=== PATIENT | male | born 1935 | race Caucasian/White ===

== ENCOUNTER → 2016-09-22 | Outpatient (REF) | payer MEDICARE, OTHER ==
[~2016-09-22] MED LIST: /AMIO20TA PO; /DIPH25TAB PO; /NEPHROTA PO; ACET650S3 PO; ALEV220C2 PO; ATEN25TA PO; CARD180C4 PO; COLA100C PO; CRES5TAB PO; DARB10SYRN IV; DIAL800T PO; DIGO0.12 PO; DILT180C50 PO; DOXY-197 PO; FLAG500T PO; FLOM5CAP PO; FURO20TA2 PO; HEPA1000VL IV; LASI20TA PO; LEVA250T PO; LORA0.5T PO; MULT1TAB10 PO; NEPHTAB PO; NORC5TAB PO; PERC5TAB6 PO; PERCOCET PO; RENATAB5 PO; SIMV10TA2 PO; TAMS0.4C PO; TYLE325T5 PO; VENO20IN IV; WARF-20 PO; WARF-23 PO; WARF2.5T38 PO; [UNRECOGNIZED DRUG - CODE] PO; multivitamin OR; warfarin OR
== END ==
LOC: M LAB REF 16:41
PROVIDERS: ATTEND Internal Medicine Nephrology
DX: N39.0 Urinary tract infection, site not specified (principal)

== ENCOUNTER 2016-09-25 17:22 | Inpatient (IN) | payer MEDICARE, OTHER ==
[~2016-09-25] VITALS: Ht 170.2 cm; Wt 71.5 kg
[~2016-09-25 17:22] MED LIST changes: -DILT180C50 PO; +DILT180C74 PO; -WARF-23 PO
[2016-09-25 18:05] LABS: MEAN CORPUSCULAR HEMOGLOBIN 32.2 pg (27.0-33.0); MEAN CORPUSCULAR HGB CONC 32.7 g/dl (32.0-36.5); MEAN CORPUSCULAR VOLUME 98.5 fl (80.0-96.0); RED CELL DISTRIBUTION WIDTH 17.6 % (11.5-14.5); WHITE BLOOD COUNT 10.3 K/mm3 (4.0-10.0)
[2016-09-25 18:07] LABS: INR 1.93
[2016-09-25 18:31] LABS: CALCIUM LEVEL 8.1 MG/DL (8.8-10.2); POTASSIUM SERUM 3.1 MEQ/L (3.5-5.1)
[2016-09-25] MEDS ORDERED: BISACODYL 5 MG TAB PO PRN (18:45)
[2016-09-25] MEDS ORDERED: ONDANSETRON 4MG/2ML VIAL (J2405) IV PRN (18:45)
[2016-09-25] MEDS ORDERED: ACETAMINOPHEN TAB 650MG DOSE (2X325MG) PO PRN (18:45)
[2016-09-25 19:15] LABS: PERCENT SATURATION 22.3 % (19.7-37.4)
[2016-09-25 19:16] LABS: RETIC HEMOGLOBIN CONTENT CHr 31.4 PG (24-36); RETICULOCYTE ABSOLUTE ADVIA212 58 x10(9)/L (17-77)
[2016-09-25 19:17] LABS: REASON FOR REVIEW ANEMIA / RBC MORPH
[2016-09-25] MEDS ORDERED: WARF-23 PO (19:31)
[2016-09-25] MEDS ORDERED: POTASSIUM CHLORIDE 10 MEQ SR TABLET PO ONE (20:00)
[2016-09-25 21:25] VITALS: BP 123/79
--- NOTE | 2016-09-25 21:30 | EDDOCDS ---
Physician Documentation [facility] Name: Amaury Bell Age: 81 yrs Sex: Male : 1935 Arrival Date: 09/25/2016 Time: 17:22 Bed 8 Private MD: Mily Bartholomew P Disposition: 09/25/16 19:04 Hospitalization ordered by Tiff Gross for Inpatient Admission. Preliminary diagnosis is Anemia, unspecified. - Bed requested for PCU. - Status is Inpatient Admission. jp6 - Condition is Stable. - Problem is new. - Symptoms are unchanged. Historical: - Allergies: no known allergies; - Home Meds: 1. warfarin 4 mg Oral tab 1 tab once daily 5mg on and none wed . 5mg and today 2. simvastatin 10 mg Oral tab once daily 3. Dialyvite 800-Ultra D 0.8-2,000 mg-unit oral tab daily - PMHx: Atrial Fib; Renal Failure w/ Dialysis; - PSHx: fistula left wrist; shunt placement; Total Knee Replacemet, Right (Jul 2015); Hernia repair; - Social history: Smoking status: Patient states former smoker of tobacco. No barriers to communication noted, The patient speaks fluent Welsh, Speaks appropriately for age. - Family history: Not pertinent. - : The pt / caregiver states he / she is on anticoagulants: coumadin. Home medication list is obtained from the patient. - Exposure Risk Screening:: None identified. Vital Signs: 09/25 17:23 BP 158 / 82; Pulse 73; Resp 18 S; Temp 98.4; Pulse Ox 98% on R/A; Weight 72.57 kg / dd6 159.99 lbs (R); Height 5 ft. 7 in. (170.18 cm) (R); 19:08 BP 125 / 75 (auto/); jp6 19:10 Pulse 96 MON; Pulse Ox 97% ; jp6 19:23 BP 112 / 67 (auto/); jp6 19:24 Pulse 92 MON; Pulse Ox 98% ; jp6 19:38 BP 121 / 62 (auto/); jp6 19:40 Pulse 96 MON; Pulse Ox 99% ; jp6 19:40 Resp 18; Temp 97.5(O); Pulse Ox 98% on R/A; Pain 0/10; jp6 20:08 BP 131 / 76 (auto/); jp6 20:10 Pulse 92 MON; jp6 20:38 BP 122 / 71 (auto/); jp6 20:39 Pulse 90 MON; Pulse Ox 99% ; jp6 21:08 BP 125 / 72 (auto/); jp6 21:11 Pulse 88 MON; Pulse Ox 98% ; jp6 17:23 Body Mass Index 25.06 (72.57 kg, 170.18 cm) dd6 MDM: 17:39 CBC Ordered. EDMS 17:39 MED Profile Ordered. EDMS 17:39 PT/INR Ordered. EDMS 17:39 Type & Screen Ordered. EDMS 18:17 CBC Reviewed. sd1 18:17 PT/INR Reviewed. sd1 18:17 Type & Screen Reviewed. sd1 18:17 IV Saline Lock ordered. sd1 18:17 Orthostatic VS ordered. sd1 18:18 BED REQUEST+ADM ordered. EDMS 18:33 MED Profile Reviewed. sd1 18:33 Transfuse PRBC's 2 units, ensure PRBCs ordered in lab ordered. sd1 18:34 Type and Cross, Packed Cells Ordered. EDMS 18:34 ECG WITH READING ER PHYS+CARDIAG ordered. EDMS 18:45 PHYSICAL THERAPY EVAL & TREAT ordered. EDMS 18:45 Admission / Observation Status ordered. EDMS 18:46 OTHER CUSTOM DIETS ordered. EDMS 18:49 RETICULOCYTE COUNT Ordered. EDMS 18:49 PATHOLOGIST REVIEW COMPREHENSI Ordered. EDMS 18:58 FERRITIN Ordered. EDMS 18:58 TOTAL IRON BINDING CAPACIT Ordered. EDMS 19:32 BASIC METABOLIC PROFILE Ordered. EDMS 19:32 CBC WITH DIFFERENTIAL Ordered. EDMS 19:32 CARDIAC MARKER PANEL Ordered. EDMS 19:32 CARDIAC MARKER PANEL Ordered. EDMS 19:32 CARDIAC MARKER PANEL Ordered. EDMS 19:32 HEMOGLOBIN & HEMATOCRIT Ordered. EDMS 19:32 HEMOGLOBIN & HEMATOCRIT Ordered. EDMS 19:32 HEMOGLOBIN & HEMATOCRIT Ordered. EDMS 19:52 PROTHROMBIN TIME PROFILE\E\INR Ordered. EDMS 19:55 [place] Payment Agreement was scanned into [employer] and attached to record. [facility] 19:55 Financial registration complete. gjb Signatures: Dispatcher [employer] EDMS Jerri Joseph MD MD sd1 Mamie Mccoy, RN RN [facility] QuesenRoshni Ward RN RN Arlen Ferrell JessicaRN RN jp6 The chart was reviewed and I authenticate all verbal orders and agree with the evaluation and treatment provided.Corrections: (The following items were deleted from the chart) 18:38 18:35 TYPE & SCREEN ordered. EDMS EDMS 19:02 18:48 IRON (FE) ordered. EDMS EDMS 19:02 18:48 TOTAL IRON BINDING CAPACIT ordered. EDMS EDMS 19:02 18:49 FERRITIN ordered. EDMS EDMS 19:15 18:47 PACKED CELLS ordered. EDMS EDMS 19:15 18:47 TYPE & SCREEN ordered. EDMS EDMS 19:36 19:32 HEMOGLOBIN & HEMATOCRIT ordered. EDMS EDMS Attachments: 19:55 [place] [place] Agreement rani MTDD
--- NOTE | 2016-09-25 21:30 | EDDOCDS ---
Nurse's Notes [facility] Name: Amaury Bell Age: 81 yrs Sex: Male : 1935 Arrival Date: 09/25/2016 Time: 17:22 Bed 8 Private MD: Mily Yee P Diagnosis: Anemia, unspecified Presentation: 09/25 17:27 Presenting complaint: states: had blood work done on for dr yee and today [facility] notified he needs blood. Presenting complaint: Patient states: denies feeling ill. Adult Sepsis Screening: The patient does not have new or worsening altered mentation. Patient's respiratory rate is less than 22. Systolic blood pressure is greater than 100. Patient has a qSOFA score of 0- Negative Sepsis Screen. Suicide/Homicide risk assessment- the patient denies having any suicidal and/or homicidal ideations and does not present with any other emotional, behavioral or mental health complaints. 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 Transition of care: patient was received from dr yee. 17:27 Method Of Arrival: Walkin/Carried/Asstd [facility] 17:27 Acuity: CHRISTOS Level 3 [facility] Triage Assessment: 17:30 General: Appears in no apparent distress, Behavior is appropriate for age, cooperative. [facility] Pain: Denies pain. Historical: - Allergies: no known allergies; - Home Meds: 1. warfarin 4 mg Oral tab 1 tab once daily 5mg on and none wed . 5mg and today 2. simvastatin 10 mg Oral tab once daily 3. Dialyvite 800-Ultra D 0.8-2,000 mg-unit oral tab daily - PMHx: Atrial Fib; Renal Failure w/ Dialysis; - PSHx: fistula left wrist; shunt placement; Total Knee Replacemet, Right (Jul 2015); Hernia repair; - Social history: Smoking status: Patient states former smoker of tobacco. No barriers to communication noted, The patient speaks fluent Serbian, Speaks appropriately for age. - Family history: Not pertinent. - : The pt / caregiver states he / she is on anticoagulants: coumadin. Home medication list is obtained from the patient. - Exposure Risk Screening:: None identified. Screenin:40 Screening information is obtained from the patient. Fall risk: No risks identified. jp6 Assistance ADL's: requires no assistance with activities of daily living. Abuse/DV Screen: The patient / caregiver reports he/she is: not in a situation that causes fear, pain or injury. Nutritional screening: No deficits noted. home support is adequate. 19:40 Advance Directives: Currently, there is a health care proxy, Heber Bell . There jp6 is an active DNR order but there is no copy available at this time. Assessment: 19:42 General: Appears in no apparent distress, comfortable, well developed, well nourished, jp6 Behavior is appropriate for age, cooperative, pleasant. Pain: Denies pain. Neurological: Level of Consciousness is awake, alert, Oriented to person, place, time. EENT: No deficits noted. Cardiovascular: Capillary refill < 3 seconds Heart tones S1 S2 present Rhythm is atrial fibrillation with no ectopy. Respiratory: Airway is patent Respiratory effort is even, unlabored, Respiratory pattern is regular, symmetrical, Breath sounds are clear bilaterally. GI: No deficits noted. Bowel sounds present X 4 quads. : No deficits noted. Derm: Skin is intact, Skin is dry, Skin is pale, Skin temperature is warm. Musculoskeletal: No deficits noted. 21:00 Reassessment: Patient appears in no apparent distress at this time. Patient denies pain jp6 at this time. Cardiovascular: Capillary refill < 3 seconds Rhythm is atrial fibrillation with no ectopy. Respiratory: Airway is patent Respiratory effort is even, unlabored, Respiratory pattern is regular, symmetrical, Breath sounds are clear bilaterally. Derm: Skin is pink, warm & dry. Vital Signs: 17:23 BP 158 / 82; Pulse 73; Resp 18 S; Temp 98.4; Pulse Ox 98% on R/A; Weight 72.57 kg (R); dd6 Height 5 ft. 7 in. (170.18 cm) (R); 19:08 BP 125 / 75 (auto/); jp6 19:10 Pulse 96 MON; Pulse Ox 97% ; jp6 19:23 BP 112 / 67 (auto/); jp6 19:24 Pulse 92 MON; Pulse Ox 98% ; jp6 19:38 BP 121 / 62 (auto/); jp6 19:40 Pulse 96 MON; Pulse Ox 99% ; jp6 19:40 Resp 18; Temp 97.5(O); Pulse Ox 98% on R/A; Pain 0/10; jp6 20:08 BP 131 / 76 (auto/); jp6 20:10 Pulse 92 MON; jp6 20:38 BP 122 / 71 (auto/); jp6 20:39 Pulse 90 MON; Pulse Ox 99% ; jp6 21:08 BP 125 / 72 (auto/); jp6 21:11 Pulse 88 MON; Pulse Ox 98% ; jp6 17:23 Body Mass Index 25.06 (72.57 kg, 170.18 cm) dd6 Vitals: 17:23 Log In Time: September 25, 2016 at 17:21. dd6 ED Course: 17:23 Patient visited by Ren Lugo PCA. dd6 17:23 Mily Yee is Private Physician. dd6 17:23 Patient moved to Waiting dd6 17:24 Patient moved to Pre RCE dd6 17:28 Triage Initiated srm 17:53 Type & Screen Sent. srm 17:53 PT/INR Sent. srm 17:53 MED Profile Sent. srm 17:53 CBC Sent. srm 17:53 Inserted saline lock: 20 gauge in right antecubital area and blood collected. srm 18:14 Sam Cloud, RN is Primary Nurse. jc4 18:14 Patient moved to 8 jc4 18:18 Jerri Joseph MD is Attending Physician. sd1 18:27 Patient visited by Eliseo Lyon PCA. jlf 18:30 Patient visited by Jerri Joseph MD. sd1 18:33 Notified attending ED physician of Hgb 6.9 and Hct 21.1 as reported via phone by lab jc4 staff. Dr. Joseph made aware. 18:46 Patient visited by Eliseo Lyon PCA. jlf 18:48 EKG done. (by ED staff). Reviewed by Jerri Joseph MD. rn1 19:04 Primary Nurse role handed off by Sam Cloud, RN jp6 19:04 Kayleigh Sorto,ALONZO is Primary Nurse. jp6 19:04 Tiff Gross is Hospitalizing Provider. sd1 19:40 The patient / caregiver is instructed regarding the plan of care and ED course. Cardiac jp6 monitor on. Pulse ox on. NIBP on. 19:40 No procedures done that require assistance. jp6 19:55 [facility] Payment Agreement was scanned into [employer] and attached to record. gjb 20:15 Inserted saline lock: 20 gauge in right forearm. nn1 20:18 Blood products: PRBCs X 1 unit given. jp6 21:14 Patient visited by Nicole Canales RN. kas2 Intake: 19:40 PO: 120.00ml; Total: 120.00ml. jp6 Order Results: Lab Order: CBC; SPEC'M 09/25/16 17:50 Test: WHITE BLOOD COUNT; Value: 10.3; Range: 4.0-10.0; Abnormal: Above high normal; Units: K/mm3; Status: F Test: RED BLOOD COUNT; Value: 2.14; Range: 4.30-6.10; Abnormal: Below low normal; Units: M/mm3; Status: F Test: HEMOGLOBIN; Value: 6.9; Range: 14.0-18.0; Abnormal: Critical Low; Units: g/dl; Status: F Test: HEMATOCRIT; Value: 21.1; Range: 42.0-52.0; Abnormal: Below low normal; Units: %; Status: F Test: MEAN CORPUSCULAR VOLUME; Value: 98.5; Range: 80.0-96.0; Abnormal: Above high normal; Units: fl; Status: F Test: MEAN CORPUSCULAR HEMOGLOBIN; Value: 32.2; Range: 27.0-33.0; Units: pg; Status: F Test: MEAN CORPUSCULAR HGB CONC; Value: 32.7; Range: 32.0-36.5; Units: g/dl; Status: F Test: RED CELL DISTRIBUTION WIDTH; Value: 17.6; Range: 11.5-14.5; Abnormal: Above high normal; Units: %; Status: F Test: PLATELET COUNT, AUTOMATED; Value: 211; Range: 150-450; Units: k/mm3; Status: F Lab Order: MED Profile; SPEC'M 09/25/16 17:50 Test: GLUCOSE, FASTING; Value: 134; Range: 83-110; Abnormal: Above high normal; Units: MG/DL; Status: F Test: BLOOD UREA NITROGEN; Value: 20; Range: 7-18; Abnormal: Above high normal; Units: MG/DL; Status: F Test: CREATININE FOR GFR; Value: 5.00; Range: 0.70-1.30; Abnormal: Above high normal; Units: MG/DL; Status: F Test: GLOMERULAR FILTRATION RATE; Value: 12.0; Range: >42; Abnormal: Below low normal; Status: F Test: SODIUM LEVEL; Value: 140; Range: 136-145; Units: MEQ/L; Status: F Test: POTASSIUM SERUM; Value: 3.1; Range: 3.5-5.1; Abnormal: Below low normal; Units: MEQ/L; Status: F Test: CHLORIDE LEVEL; Value: 101; Range: 98-107; Units: MEQ/L; Status: F Test: CARBON DIOXIDE LEVEL; Value: 31; Range: 21-32; Units: MEQ/L; Status: F Test: ANION GAP; Value: 8; Range: 8-16; Units: MEQ/L; Status: F Test: CALCIUM LEVEL; Value: 8.1; Range: 8.8-10.2; Abnormal: Below low normal; Units: MG/DL; Status: F Test Note: ; Units are mL/min/1.73 m2 Chronic Kidney Disease Staging per NKF: Stage I & II GFR >=60 Normal to Mildly Decreased Stage III GFR 30-59 Moderately Decreased Stage IV GFR 15-29 Severely Decreased Stage V GFR <15 Very Little GFR Left ESRD GFR <15 on DIESEL PILE [employer]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 Lab Order: PT/INR; SPEC'M 09/25/16 17:50 Test: PROTHROMBIN TIME; Value: 22.1; Range: 12.3-14.5; Abnormal: Above high normal; Units: SECONDS; Status: F Test: INR; Value: 1.93; Status: F Test Note: ; THERAPUTIC HUMAN INR VALUES INDICATIONS NORMAL RANGES PROPHYLAXIS/TREATMENT OF: VENOUS THROMBOSIS 2.0-3.0 PULMONARY EMBOLISM 2.0-3.0 PREVENTION OF SYSTEMIC EMBOLISM FROM: TISSUE HEART VALVES 2.0-3.0 ACUTE MYOCARDIAL INFARCTION 2.0-3.0 VALVULAR HEART DISEASE 2.0-3.0 ATRIAL FIBRILLATION 2.0-3.0 MECHANICAL VALVES(HIGH RISK) 2.5-3.5 RECURRENT MYOCARDIAL INFARCTION 2.5-3.5 Lab Order: Type & Screen; SPEC'M 09/25/16 17:50 Test: BLOOD TYPE; Value: A POS; Status: F Test: AB SCREEN (INDIRECT LENO)GEL; Value: NEGATIVE; Status: F Lab Order: RETICULOCYTE COUNT; SPEC'M 09/25/16 17:50 Test: RETICULOCYTE % [id number]; Value: 2.70; Range: 0.5-1.5; Abnormal: Above high normal; Units: %; Status: F Test: RETICULOCYTE ABSOLUTE [id number]; Value: 58; Range: 17-77; Units: x10(9)/L; Status: F Test: RETIC HEMOGLOBIN CONTENT CHr; Value: 31.4; Range: 24-36; Units: PG; Status: F Lab Order: PATHOLOGIST REVIEW COMPREHENSI; SPEC'M 09/25/16 17:50 Test: SLIDE REVIEW; Value: Report; Status: F Test: SOURCE; Value: PERIPHERAL SMEAR; Status: F Test: REASON FOR REVIEW; Value: ANEMIA / RBC MORPH; Status: F Test Note: ; Slide and/or specimen referred to Pathologist for review. Results of the review are located in the EMR Pathology module under Peripheral Smear when completed. Lab Order: FERRITIN; SPEC'M 09/25/16 17:50 Test: FERRITIN; Value: 1497; Range: 26-388; Abnormal: Above high normal; Units: NG/ML; Status: F Lab Order: TOTAL IRON BINDING CAPACIT; SPEC'M 09/25/16 17:50 Test: IRON (FE); Value: 46; Range: 65-175; Abnormal: Below low normal; Units: UG/DL; Status: F Test: TOTAL IRON BINDING CAPACITY; Value: 206; Range: 250-450; Abnormal: Below low normal; Units: UG/DL; Status: F Test: PERCENT SATURATION; Value: 22.3; Range: 19.7-37.4; Units: %; Status: F Outcome: 19:04 Decision to Hospitalize by Provider. sd1 20:19 Discharge Assessment: Patient awake, alert and oriented x 3. No cognitive and/or jp6 functional deficits noted. Patient verbalized understanding of disposition instructions. patient administered narcotics - no. The following High Risk Discharge criteria are identified: None. Admitted to PCU accompanied by nurse, accompanied by tech, via stretcher, on monitor, with chart. Condition: unchanged. No special radiology studies were completed. Admission hand-off: Report Faxed Fax receipt verified by pcu. Property :Personal belongings accompany Pt. 21:28 Patient left the ED. jp6 Signatures: Jerri Joseph MD MD sd1 Mamie Mccoy, RN RN srm Ren Lugo, CARGOMAN CARGOMAN dd6 Sarahi Jain, RN RN jc4 Eliseo Lyon, CARGOMAN CARGOMAN jlf Francisco Javier Feliz rn1 David WhiteheadRN RN nn1 Arlen Corado KimRN RN [facility] Kayleigh SortoRN RN jp6 MTDD
--- NOTE | 2016-09-25 21:41 | HPE ---
DATE OF ADMISSION: 09/25/2016 PRIMARY CARE PROVIDER: Mily Bartholomew MD ELDER COUNSELOR: Mily Bartholomew MD INPATIENT HOSPITALIST ATTENDING: Tawanda Carl MD CHIEF COMPLAINT: Abnormal blood work on Wednesday. Hemoglobin 6.9. HISTORY OF PRESENT ILLNESS: 81-year-old male with history of end-stage renal disease on hemodialysis, atrial fibrillation, on chronic warfarin, left wrist fistula, total knee replacement on the right, left inguinal hernia repair, acute acalculous cholecystitis, benign prostatic hypertrophy (BPH), colonoscopy 07/31/2016 and anemia requiring blood transfusion, two units August 03, 2016 with cholecystostomy tube placement July 28, 2016, symptomatic bradycardia from atrial fibrillation, acute encephalopathy due to cholecystitis, colonic polyps on maintenance hemodialysis Wednesday, , Wednesday presents to the emergency room due to abnormal blood tests from Dr. Bartholomew's office on Wednesday. He was found to have a hemoglobin of 6.9, hematocrit of 21, was urged to present to the emergency room for evaluation. The patient denies any shortness of breath , chest pain, pressure or tightness, generalized weakness, fatigue. He states that he was ambulating well without any difficulty on a smooth surface, but usually has trouble when he is on a rough surface outside. He denies any lightheadedness or dizziness, fever, chills, shortness of breath, cough, nausea or vomiting, diarrhea, bright red blood per rectum, melena or black tarry stools. Denies dysuria, urgency or frequency. He does complain of seeing black spots without decreased visual acuity which has not been evaluated as outpatient. Denies any lightening flashes, eye pain, eye discharge, or changes in vision aside from black eye spots. Hospitalist service was called for admission for anemia, hemoglobin of 6.9 with a baseline of 11.4, hematocrit of 34. PAST MEDICAL HISTORY: Atrial fibrillation with symptomatic bradycardia. Encephalopathy secondary to cholecystitis, acute acalculous cholecystitis, status post cholecystostomy tube placement. Sepsis secondary to acute cholecystitis. Anemia. Status post colonoscopy with colonic polyps. Blood transfusion two units on 08/03/2016. End-stage renal disease on maintenance hemodialysis on Wednesday, , Wednesday. Arteriovenous (AV) fistula placement. Right total knee replacement. PAST SURGICAL HISTORY: Cholecystostomy tube placement July 2016. Right total knee replacement. AV fistula. HOME MEDICATIONS: - warfarin 5 mg, recently changed today - simvastatin 10 mg daily - Dialyvite 800 - Ultra-D 0.8-2000 mg/unit daily ALLERGIES: No known drug allergies. SOCIAL HISTORY: Former smoker. Lives with . [place] Three steps into the home. Social alcohol use. Denies illicit drug use. Retired. FAMILY HISTORY: Noncontributory due to age. REVIEW OF SYSTEMS: 12 point system negative aside from positive findings on HPI. PHYSICAL EXAMINATION: Blood pressure is 158/82, repeat blood pressure 125/75 at the bedside. Pulse 73. Respiratory rate 18, temperature 98.4, 98% on room air, 72.57 kg, 5 foot 7 inches tall. GENERAL: The patient is anicteric. No jaundice. HEENT: Slight pallor. Dry mucous membranes. No jugular venous distention, thyromegaly or cervical lymphadenopathy. Pupils round and reactive to light. Extraocular muscles are intact. Trachea is midline. No thyroid enlargement. HEART: Irregularly regular. LUNGS: Diminished breath sounds at the bases. ABDOMEN: Soft, nontender, nondistended. Positive bowel sounds. No hepatosplenomegaly. EXTREMITIES: No cyanosis or clubbing. Trace edema bilaterally. Left AV arm fistula, which is patent. NEUROLOGIC: Awake, alert, oriented times three, answering questions appropriately. Motor function is 5 out of 5 times four extremities. No sensory disturbance. LABORATORY DATA: White count 10, hemoglobin 6.9, hematocrit 21, platelet count 211. Previous hemoglobin 11.4, hematocrit of 34. Sodium 140, potassium 3.1, chloride 101, bicarbonate 31, BUN 20, creatinine 5, glucose of 134. Iron 46, TIBC 206, ferritin 1497. ASSESSMENT AND PLAN: This is a 81-year-old male with history of end-stage renal disease, on maintenance hemodialysis Wednesday, , Wednesday, atrial fibrillation, on chronic anticoagulation with Coumadin, history of left inguinal hernia repair, recent admission in July for acalculous cholecystitis requiring cholecystostomy tube placement, sigmoid mass evaluated with a colonoscopy with colonic polyps, anemia requiring 2 units of red blood transfusion July 2016 presents to the emergency room with abnormal blood tests, hemoglobin of 6.9 and was urged by Dr. Bartholomew's office to present for evaluation. The patient will be admitted as an inpatient for two midnights, hospitalist service, attending physician, Dr. Tawanda Carl. IMPRESSION: 1. Anemia requiring blood transfusion. At this time the patient's hemoglobin is less than 8, despite denying shortness of breath, chest pain, pressure or tightness, no weakness, fatigue, falls. The patient will be transfused 2 units of red blood cell transfusion. The patient had a prior colonoscopy showing colonic polyps, monitor with every 6 hourly hemoglobin and hematocrit. Defer to Dr. Carl in the morning if patient requires further evaluation. 2. End-stage renal disease. On maintenance hemodialysis Wednesday, , Wednesday. Dr. Bartholomew has been consulted for maintenance hemodialysis needs. Avoid nephrotoxins. Renally dose all medications and continue patient on multivitamins. 3. Hypercholesterolemia. Continue on simvastatin. 4. Atrial fibrillation. Currently weight-controlled. Continue on warfarin. 5. Monitor patient's INR. Monitor for any active GI bleed with hemoccult stool. Adjust patient's INR for therapeutic goal of 2 to 3. 6. Deep venous thrombosis (DVT) prophylaxis with compression stockings. The patient will be assigned to Dr. Tawanda Carl at 10:00 pm, 07/26/[address] Raegan La for any acute issues overnight, and Dr. Carl will assume care of this patient at 7:00 a.m. on 09/26/2016. CARLA
[2016-09-26 04:00] VITALS: BP_SYST 126; BP_SYST 66; BP_DIAS 66
[2016-09-26 05:29] LABS: BASO # 0.1 K/mm3 (0.0-0.2); BASO % 0.9 % (0.0-1.0); EOS # 0.3 K/mm3 (0.0-0.50); EOS % 3.4 % (0.0-3.0); LARGE UNSTAINED CELL # 0.2 K/mm3 (0.0-0.4); LARGE UNSTAINED CELL % 2.1 % (0.0-4.0); LYMPH # 1.8 K/mm3 (1.5-4.5); MEAN CORPUSCULAR HEMOGLOBIN 31.5 pg (27.0-33.0); MEAN CORPUSCULAR HGB CONC 33.9 g/dl (32.0-36.5); MONO # 0.5 K/mm3 (0.0-0.8); MONO % 6.6 % (0.0-5.0); NEUTROPHILS # 5.2 K/mm3 (1.8-7.7); PLATELET COUNT, AUTOMATED 175 k/mm3 (150-450); RED CELL DISTRIBUTION WIDTH 17.9 % (11.5-14.5); WHITE BLOOD COUNT 7.9 K/mm3 (4.0-10.0)
[2016-09-26 05:41] LABS: INR 2.03
[2016-09-26 05:44] LABS: MEAN CORPUSCULAR VOLUME 94.7 fl (80.0-96.0)
[2016-09-26 05:45] LABS: CALCIUM LEVEL 8.2 MG/DL (8.8-10.2); CREATININE FOR GFR 5.43 MG/DL (0.70-1.30); GLOMERULAR FILTRATION RATE 10.9 (>42)
--- NOTE | 2016-09-26 05:53 | ECGEPIP ---
Stationary ECG Study [facility] - ED Test Date: 2016-09-25 Pat Name: KODY PELAYO Department: Room: - Gender: M Boatwright: rn : 1935 Requested By: Jerri Joseph Order Number: [id number] Reading MD: Zain Clark Measurements Intervals [place] Rate: 89 P: CT: 0 QRS: 40 QRSD: 96 T: 17 QT: 363 QTc: 442 Interpretive Statements ATRIAL FIBRILLATION Electronically Signed On 09-26-2016 5:52:45 EST by Zain Clark
[2016-09-26 08:00] VITALS: BP 101/59
[2016-09-26] MEDS: OCUVITE 1 TAB PO SCH (09:00)
[2016-09-26] MEDS: SIMVASTATIN 10 MG TAB PO SCH (09:00)
[2016-09-26 12:00] VITALS: BP 150/74
--- NOTE | 2016-09-26 12:56 | IPNPDOC ---
Date/Time Seen The patient was seen on 09/26/16 at 12:38. Progress Note SUBJECTIVE: The patient feels well she has no complaints he tells me that he is completely symptom rheumatic prior to his presentation as well he does not feel significantly different after receiving a blood transfusion OBJECTIVE: PHYSICAL EXAMINATION: VITAL SIGNS: Please see below. GENERAL: Pleasant elderly man lying in bed on his left side he does not appear to be in any acute distress HEENT:He does not appear to be overly pallorous CARDIOVASCULAR: S1-S2 regular systolic murmur. RESPIRATORY: To auscultation. ABDOMINAL: Possibly present abdomen soft EXTREMITIES: Left distal upper extremity fistula with good thrill LABORATORY DATA: Hemoglobin 8.6 up from 6.9 after 3 units PRBCs poor reticulocytosis, low iron and low TIBC elevated ferritin, multiple sets of cardiac enzymes negative otherwise Please see below. MICROBIOLOGY: Please see below. IMAGING: No new imaging DVT prophylaxis ordered?: Therapeutic on Coumadin ASSESSMENT AND PLAN: This is a 81-year-old man with symptomatic anemia. Problem #1 symptom medic anemia: The patient is status post 3 units of PRBCs with a positive response, at this time the etiology of his relatively acute anemia is unclear he denies black tarry stools we will check an occult stool for blood he recently had a colonoscopy in July which revealed several polyps was also initially concern for a rectal mass which biopsies returned to be in inflammatory with no definite malignancy. I will discuss further with Dr. Bartholomew the patient may require a repeat colonoscopy for the time being he is relatively stable continue on his H&H and see if declines once again Problem #2 end-stage renal disease on hemodialysis, today is a regularly scheduled hemodialysis today is on Wednesday. Dr. Bartholomew's help is greatly appreciated Problem #3 atrial fibrillation: The patient is rate controlled without any agents his antiplatelet with Coumadin as per his director agricultural services Dr. Muñoz although his chads score appears to be one given his age he has an echocardiogram which does not reveal any obvious cardiac disease valvular dysfunction. Problem #4 dyslipidemia: The patient is on a statin DISPOSITION: We'll continue to monitor the patient in the progressive care unit. VS, I&O, 24H, Fishbone VS, I&O, 24H, Fishbone Vital Signs Date Time Temp Pulse Resp B/P Pulse Ox O2 Delivery O2 Flow Rate FiO2 09/26/16 08:00 Room Air 09/26/16 08:00 97.1 78 20 101/59 98 I&O- Last 24 Hours up to 6 AM 09/26/16 06:00 Intake Total 792 ml Output Total 50 ml Balance 742 ml Laboratory Tests 2 09/25/16 17:50: Absolute Reticulocyte Count 58, Anion Gap 8, Blood Urea Nitrogen 20H, Creatinine 5.00H, Sodium Level 140, Potassium Level 3.1L, Chloride Level 101, Carbon Dioxide Level 31, Calcium Level 8.1L, Differential Pathologist's Review ANEMIA / RBC MORPH, Differential Slide Review Report, Ferritin 1497H, Glomerular Filtration Rate 12.0L, Iron Level 46L, Percent Reticulocyte Count 2.70H, Peripheral Blood Smear Path Consult PERIPHERAL SMEAR, Prothromb Time International Ratio 1.93, Prothrombin Time 22.1H, Reticulocyte Hgb Content (CHr ) 31.4, Total Iron Binding Capacity 206L, Transferrin % Saturation 22.3 09/26/16 00:22: Creatine Kinase MB 1.0, Creatine Kinase MB Relative Index 2.50, Total Creatine Kinase 40, Troponin I 0.02 09/26/16 05:08: Anion Gap 8, Blood Urea Nitrogen 24H, Creatinine 5.43H, Sodium Level 144, Potassium Level 4.0#, Chloride Level 106, Carbon Dioxide Level 30, Calcium Level 8.2L, Glomerular Filtration Rate 10.9L, Prothromb Time International Ratio 2.03, Prothrombin Time 23.0H, Creatine Kinase MB 1.1, Creatine Kinase MB Relative Index 2.68, Total Creatine Kinase 41, Troponin I 0.02, White Blood Count 7.9, Red Blood Count 2.72L, Hemoglobin 8.6L, Hematocrit 25.3L, Mean Corpuscular Volume 94.7, Mean Corpuscular Hemoglobin 31.5, Mean Corpuscular Hemoglobin Concent 33.9, Red Cell Distribution Width 17.9H, Platelet Count 175, Neutrophils (%) (Auto) 66.0, Lymphocytes (%) (Auto) 21.0L, Monocytes (%) (Auto) 6.6H, Eosinophils (%) (Auto) 3.4H, Basophils (%) (Auto) 0.9, Neutrophils # (Auto ) 5.2, Lymphocytes # (Auto) 1.8, Monocytes # (Auto) 0.5, Eosinophils # (Auto) 0.3, Basophils # (Auto) 0.1, Large Unclassified Cells # 0.2, Large Unclassified Cells % 2.1 09/26/16 12:16: Laboratory Tests 09/25/16 17:50 Calcium Level 8.1 L, Red Blood Count 2.14 L, Mean Corpuscular Volume 98.5 H, Mean Corpuscular Hemoglobin 32.2, Mean Corpuscular Hemoglobin Concent 32.7, Red Cell Distribution Width 17.6 H 09/26/16 00:22 09/26/16 05:08 Calcium Level 8.2 L, Red Blood Count 2.72 L, Mean Corpuscular Volume 94.7, Mean Corpuscular Hemoglobin 31.5, Mean Corpuscular Hemoglobin Concent 33.9, Red Cell Distribution Width 17.9 H, Total Creatine Kinase 41, Neutrophils (%) (Auto) 66.0 , Lymphocytes (%) (Auto) 21.0 L, Monocytes (%) (Auto) 6.6 H, Eosinophils (%) ( Auto) 3.4 H, Basophils (%) (Auto) 0.9, Neutrophils # (Auto) 5.2, Lymphocytes # ( Auto) 1.8, Monocytes # (Auto) 0.5, Eosinophils # (Auto) 0.3, Basophils # (Auto) 0.1 GIOVANNI MUNIZ MD Sep 26, 2016 12:56
--- NOTE | 2016-09-26 16:51 | IPN ---
DATE: 09/26/2016 SUBJECTIVE: Mr. Bell is seen this afternoon during hemodialysis. He was admitted last evening due to symptomatic anemia. He has known history of end-stage renal disease and has been on maintenance hemodialysis. He has chronic anticoagulation due to atrial fibrillation. He was previously admitted with septic shock and gallstone cholecystitis. He underwent a gallbladder drainage tube placement at that time and was treated with antibiotics. Recently his gallbladder drain has been removed. The patient had worsening anemia during last couple of weeks and his hemoglobin dropped from 10 g/dl to 6.5 g/dl. He denied any rectal bleeding or black-colored stools. He was admitted last evening and received about two units of packed red blood cells (RBCs). He was due for dialysis today and is currently being dialyzed. PHYSICAL EXAMINATION: VITAL SIGNS: Temperature 96.8 degrees Fahrenheit, heart rate 100 per minute and respiratory rate 18 per minute. Blood pressure 110/60 mmHg and oxygen saturation 98% on room air. HEENT: Head is atraumatic. Ears, nose and throat are unremarkable. NECK: Neck veins are mildly distended. There is no thyroid enlargement and no carotid bruit. HEART: Sounds are irregular in rhythm. LUNGS: Clear to auscultation. ABDOMEN: Soft and nontender and without a palpable organomegaly. Bowel sounds are normal. EXTREMITIES: Have no cyanosis or clubbing. Left arm arteriovenous (AV) fistula is currently being used for dialysis. NEUROLOGIC: He is awake, alert and oriented times three LABORATORY DATA: Today's labs show WBC count 7.9, hemoglobin 8.6 and hematocrit 25.3. Platelets 175. Sodium 144 and potassium 4.0. BUN 24 and creatinine 5.43. PROBLEMS: 1. End-stage renal disease. The patient is currently being dialyzed and he is tolerating dialysis treatment very well. His volume status is well compensated. 2. Symptomatic anemia. The patient received two units of packed RBCs. His anemia has improved slightly. There is no active bleeding noted and he denies any melena stools or rectal bleeding. We will monitor him closely for further blood loss and further need for transfusion. 3. Atrial fibrillation. This a chronic issue and ventricular rate is well controlled. His international normalized ratio (INR) is therapeutic.
[2016-09-26 17:00] VITALS: BP 138/70
--- NOTE | 2016-09-26 17:04 | CR ---
DATE OF CONSULTATION: 09/26/2016 REFERRING PHYSICIAN: Tawanda Carl MD. REASON FOR CONSULTATION: To assist in the management of end-stage renal disease and symptomatic anemia. HISTORY OF PRESENT ILLNESS: Mr. Bell is a 81-year-old gentleman with multiple chronic medical problems. He has known history of end-stage renal disease, atrial fibrillation, on chronic anticoagulation, history of left knee replacement, history of left inguinal hernia repair and recent history of acute cholecystitis. The patient also had a large inguinal hernia repair done and underwent colonoscopy following that. His hemoglobin was about 10 gm/dl in end of August and over the last two weeks, his hemoglobin dropped down to 6.5. The patient denied any rectal bleeding or black-colored stools. He was advised to go to the emergency room yesterday when his hemoglobin was reported at 6.5. The patient is due for hemodialysis today due to which nephrology consultation was requested and the patient is seen today. PAST MEDICAL AND SURGICAL HISTORY Significant for: 1. History of end-stage renal disease requiring maintenance hemodialysis. 2. History of atrial fibrillation on chronic anticoagulation. 3. History of anemia of chronic kidney disease. 4. History of acute cholecystitis. 5. History of knee replacement. 6. History of left inguinal hernia repair. 7. History of arteriovenous (AV) fistula creation. 8. History of septic shock a couple of months ago due to acute cholecystitis. Past surgical history is significant for: 1. Cholecystostomy tube placement and removal. 2. Right total knee replacement. 3. Left inguinal hernia repair. 4. Colonoscopy. 5. AV fistula creation in remote past. MEDICATIONS: His home medications include: - Coumadin 5 mg daily - simvastatin 10 mg daily - Dialyvite one tablet daily - multivitamin - vitamin D 2000 units daily ALLERGIES: The patient has no known drug allergies. PERSONAL AND SOCIAL HISTORY: The patient is a former smoker. He is and lives with his . He denies any alcohol or drug use. FAMILY HISTORY: His family history is negative for end-stage renal disease. REVIEW OF SYSTEMS: The patient denies any syncope or dizziness. He does have mild hearing loss. Nose and throat are unremarkable. There is no history of nosebleed. Cardiovascular system is significant for atrial fibrillation and chronic anticoagulation. He reports dyspnea on exertion but no chest pain. Respiratory system is negative for cough or hemoptysis. Gastrointestinal (GI) system is negative for nausea, vomiting, abdominal pain, rectal bleeding or black colored stools. He had colonoscopy just few months ago. Genitourinary () system is significant for benign prostatic hypertrophy (BPH). There is no history of dysuria or hematuria. Musculoskeletal system is significant for chronic degenerative arthritis and recent history of right total knee replacement. Endocrine system is negative for diabetes or thyroid problems. Hematological system is significant for chronic anticoagulation. Neurological system is negative for seizures. Skin is negative for rash or ulcers. PHYSICAL EXAMINATION: GENERAL: The patient is awake and alert and without any acute distress. VITAL SIGNS: Temperature 97.1 degrees Fahrenheit, heart rate 78 per minute and respiratory rate 20 per minute. Blood pressure 101/59 mmHg and oxygen saturation 98% on room air. HEENT: Head is atraumatic. Pupils equal and reactive to light and sclerae are anicteric. Ears, nose and throat are unremarkable. NECK: Neck is supple and without any thyroid enlargement. Trachea is midline. HEART: Sounds are irregular in rhythm. LUNGS: Sound clear to auscultation bilaterally. ABDOMEN: Soft and nontender and without a palpable organomegaly. Bowel sounds at present. EXTREMITIES: Have no cyanosis or clubbing. Left arm AV fistula is functioning. He has no peripheral edema. NEUROLOGIC: He is awake, alert and oriented times three. He has no focal neurological deficit. SKIN: Dry without any rash or ulcers. LABORATORY DATA: On admission, his PT was 22.1 and INR 1.93. This morning INR is 2.0. Hemoglobin was 6.9 on admission and an WBC count 10.3. Platelets 211. Today his hemoglobin is 8.6 and hematocrit 25.3. Sodium 144 and potassium 4.0. BUN 24 and creatinine 5.43. CPK 40, 41 and 56 respectively. PROBLEMS: 1. End-stage renal disease. The patient is due for hemodialysis today. We will plan to dialyze him this afternoon. 2. Symptomatic anemia. The patient had unexpected worsening of anemia without any obvious blood loss. He has received two units of packed red blood cells (RBCs) and his anemia has improved only moderately. He is likely to require further transfusion. I suggest and recommend monitoring his complete blood count (CBC). His international normalized ratio (INR) is therapeutic and does not have any evidence of acute blood loss. 3. Atrial fibrillation. His ventricular rate is well controlled. He was on low-dose beta amy and we can adjust the medications if needed with beta amy. According to his home records, he is currently not taking any beta amy. 4. Hyperlipidemia. The patient has been on statin therapy which should be continued. Thank you for involving me in the care of Mr. Bell. I will follow him along with you.
[2016-09-26] MEDS: WARFARIN SOD 5 MG TAB PO SCH (17:55)
[2016-09-26 20:00] VITALS: BP 123/66
[2016-09-27] VITALS (7 sets, daily range): BP systolic 112–138; BP diastolic 67–85; PULSE 108
[2016-09-27 05:30] LABS: BASO % 0.4 % (0.0-1.0); EOS # 0.2 K/mm3 (0.0-0.50); EOS % 2.8 % (0.0-3.0); LARGE UNSTAINED CELL # 0.2 K/mm3 (0.0-0.4); LYMPH # 1.5 K/mm3 (1.5-4.5); LYMPH % 19.2 % (24.0-44.0); MEAN CORPUSCULAR HEMOGLOBIN 31.9 pg (27.0-33.0); MEAN CORPUSCULAR HGB CONC 33.6 g/dl (32.0-36.5); MEAN CORPUSCULAR VOLUME 95.1 fl (80.0-96.0); MONO # 0.5 K/mm3 (0.0-0.8); MONO % 6.4 % (0.0-5.0); NEUTROPHILS # 5.3 K/mm3 (1.8-7.7); NEUTROPHILS % 69.2 % (36.0-66.0); PLATELET COUNT, AUTOMATED 184 k/mm3 (150-450); RED CELL DISTRIBUTION WIDTH 16.4 % (11.5-14.5); WHITE BLOOD COUNT 7.6 K/mm3 (4.0-10.0)
[2016-09-27 05:35] LABS: INR 1.7
[2016-09-27 05:40] LABS: CALCIUM LEVEL 8.4 MG/DL (8.8-10.2); CREATININE FOR GFR 3.81 MG/DL (0.70-1.30); GLOMERULAR FILTRATION RATE 16.4 (>42); POTASSIUM SERUM 3.7 MEQ/L (3.5-5.1)
[2016-09-27] MEDS ORDERED: PREVNAR 13 VACCINE SYRINGE (CPT CODE:90670) IM SCH (09:00)
[2016-09-27] MEDS: SIMVASTATIN 10 MG TAB PO SCH (09:00)
[2016-09-27] MEDS: OCUVITE 1 TAB PO SCH (09:00)
--- NOTE | 2016-09-27 10:13 | IPNPDOC ---
Date/Time Seen The patient was seen on 09/27/16 at 10:10. Progress Note SUBJECTIVE: The patient feels well she has no complaints he tells me that he is completely symptom in that he was a lightheadedness that he was having upon standing has resolved after his blood transfusion he denies chest pain shortness of breath fevers chills nausea vomiting or diarrhea OBJECTIVE: PHYSICAL EXAMINATION: VITAL SIGNS: Please see below. GENERAL: Pleasant elderly man lying in bed on his left side he does not appear to be in any acute distress HEENT:He does not appear to be overly pallorous CARDIOVASCULAR: S1-S2 regular systolic murmur. RESPIRATORY: Clear To auscultation. ABDOMINAL: Bowel sounds present abdomen soft, massively enlarged scrotum with erythema on the left side concerning for fluid collection EXTREMITIES: Left distal upper extremity fistula with good thrill LABORATORY DATA: Hemoglobin 8.6 stable over 24 hours after 3 units PRBCs poor reticulocytosis, low iron and low TIBC elevated ferritin, multiple sets of cardiac enzymes negative otherwise Please see below. MICROBIOLOGY: Please see below. IMAGING: No new imaging DVT prophylaxis ordered?: Therapeutic on Coumadin ASSESSMENT AND PLAN: This is a 81-year-old man with symptomatic anemia. Problem #1 symptom medic anemia: The patient is status post 3 units of PRBCs with a positive response, at this time the etiology of his relatively acute anemia is unclear he denies black tarry stools we will check an occult stool for blood he recently had a colonoscopy in July which revealed several polyps was also initially concern for a rectal mass which biopsies returned to be in inflammatory with no definite malignancy. I did discuss adduction is possibility that the patient may be losing blood from his recent surgery into his scrotum as it is rather massive we'll check a scrotal ultrasound as well as CT of the abdomen pelvis and discuss further with his surgeon tomorrow. Problem #2 end-stage renal disease on hemodialysis, today is a regularly scheduled hemodialysis today is on Wednesday. Dr. Bartholomew's help is greatly appreciated Problem #3 atrial fibrillation: The patient is rate controlled without any agents his antiplatelet with Coumadin as per his flour worker Dr. Muñoz although his chads score appears to be one given his age he has an echocardiogram which does not reveal any obvious cardiac disease valvular dysfunction. Problem #4 dyslipidemia: The patient is on a statin DISPOSITION: We'll continue to monitor the patient in the progressive care unit. VS, I&O, 24H, Fishbone VS, I&O, 24H, Fishbone Vital Signs Date Time Temp Pulse Resp B/P Pulse Ox O2 Delivery O2 Flow Rate FiO2 09/27/16 08:00 Room Air 09/27/16 08:00 96.4 87 18 130/78 98 I&O- Last 24 Hours up to 6 AM 09/27/16 05:59 Intake Total 600 ml Output Total 1275 ml Balance -675 ml Laboratory Tests 2 09/26/16 12:16: Creatine Kinase MB 1.8, Creatine Kinase MB Relative Index 3.21, Total Creatine Kinase 56, Troponin I 0.02 09/27/16 05:02: Anion Gap 6L, White Blood Count 7.6, Red Blood Count 2.73L, Hemoglobin 8.7L, Hematocrit 26.0L, Mean Corpuscular Volume 95.1, Mean Corpuscular Hemoglobin 31.9 , Mean Corpuscular Hemoglobin Concent 33.6, Red Cell Distribution Width 16.4H, Platelet Count 184, Neutrophils (%) (Auto) 69.2H, Lymphocytes (%) (Auto) 19.2L, Monocytes (%) (Auto) 6.4H, Eosinophils (%) (Auto) 2.8, Basophils (%) (Auto) 0.4 , Neutrophils # (Auto) 5.3, Lymphocytes # (Auto) 1.5, Monocytes # (Auto) 0.5, Eosinophils # (Auto) 0.2, Basophils # (Auto) 0.0, Blood Urea Nitrogen 12, Creatinine 3.81H, Sodium Level 142, Potassium Level 3.7, Chloride Level 105, Carbon Dioxide Level 31, Calcium Level 8.4L, Glomerular Filtration Rate 16.4L, Large Unclassified Cells # 0.2, Large Unclassified Cells % 2.0, Prothromb Time International Ratio 1.70, Prothrombin Time 20.1H Laboratory Tests 09/26/16 18:04 09/27/16 05:02 Calcium Level 8.4 L, Red Blood Count 2.73 L, Mean Corpuscular Volume 95.1, Mean Corpuscular Hemoglobin 31.9, Mean Corpuscular Hemoglobin Concent 33.6, Red Cell Distribution Width 16.4 H, Neutrophils (%) (Auto) 69.2 H, Lymphocytes (%) (Auto ) 19.2 L, Monocytes (%) (Auto) 6.4 H, Eosinophils (%) (Auto) 2.8, Basophils (%) (Auto) 0.4, Neutrophils # (Auto) 5.3, Lymphocytes # (Auto) 1.5, Monocytes # ( Auto) 0.5, Eosinophils # (Auto) 0.2, Basophils # (Auto) 0.0 GIOVANNI MUNIZ MD Sep 27, 2016 10:13
--- NOTE | 2016-09-27 11:04 | REP ---
Clinical: Concern for retroperitoneal or scrotal hematoma. Comparison: 07/28/2016. Findings: Lung bases demonstrate small right pleural effusion and suspected atelectasis which requires correlation and follow up to resolution. The patient appears to be status post left inguinal hernia repair with fluid and stranding involving the left inguinal region and a large 12 cm fluid collection in the left deshaun scrotum with Hounsfield units suggesting complex fluid below what would be expected for carlotta hematoma. Correlation and follow up including ultrasound and/or aspiration may be warranted. Liver, spleen, pancreas, gallbladder, bilateral adrenal glands are normal for noncontrast evaluation. Kidneys demonstrate chronic atrophic changes without hydronephrosis or acute perinephric stranding. The enteric system is without obstruction or acute inflammatory process. 3 cm fat containing periumbilical hernia identified. Pelvis demonstrates moderate prostate gland with parenchymal calcifications and mass effect on the base of the bladder. No pelvic fluid. No significant intraperitoneal or retroperitoneal adenopathy is appreciated. No ascites. Atherosclerotic changes of the aorta and vasculature noted without aneurysm. Skeletal structures demonstrate degenerative changes without focal osseous abnormality. Impression: 1. Large complex fluid collection extending into the left deshaun scrotum measuring 12 cm diameter. Collection may represent complex fluid related to recent inguinal hernia repair such as seroma. Resolving hematoma cannot be excluded although based on Hounsfield units fluid is not completely hemorrhagic. 2. Right basilar atelectasis and small pleural reaction requires followup to resolution. 3. Fat containing periumbilical hernia. 4. Further chronic stable changes. Signed by Kirill Valle MD 09/27/2016 10:55 A
--- NOTE | 2016-09-27 11:33 | REP ---
Clinical: Evaluate for hematoma. Technique: Real time leger scale and color Doppler evaluation using linear high frequency transducer. Findings: The bilateral testicles and epididymi are relatively normal in contour, size, echogenicity, and vascularity without evidence for torsion, infectious/inflammatory process, or mass lesion. Incidental note is made of two right epididymal head cysts measuring 5.0 mm and 3.7 mm maximal diameter each. A large minimally complex fluid collection is identified in the superior left hemiscrotum above the testicle measuring 10.9 x 15.1 x 9.9 cm and likely represents seroma without significant complexity or vascularity to suggest abscess or hematoma. Right testicle measures 4.0 x 2.2 x 3.3 cm. Left testicle measures 3.5 x 2.4 x 3.2 cm. Impression: Large collection in the left deshaun scrotum likely representing seroma without sonographic evidence to suggest hematoma or abscess. Bilateral testicles and epididymi are relatively normal. Signed by Kirill Valle MD 09/27/2016 11:25 A
--- NOTE | 2016-09-27 15:02 | IPN ---
DATE: 09/27/2016 Mr. Bell is seen this morning on his bedside. He is complaining of increased swelling of his scrotum. He underwent hemodialysis yesterday, which he tolerated very well. The patient denies any dyspnea, chest pain, nausea or vomiting. He denies any rectal bleeding or black colored stools. PHYSICAL EXAMINATION Temperature 96.4 degrees Fahrenheit, heart rate 87 per minute and respiratory rate 18 per minute. Blood pressure 130/78 mmHg and oxygen saturation 98% on room air. His head is atraumatic. Ears, nose and throat are unremarkable. Pupils are equal and reactive to light and sclera is anicteric. Neck is supple and without any jugular venous distention (JVD) or thyroid enlargement. Heart sounds are irregular in rhythm. Lungs are clear to auscultation. Abdomen is soft and nontender and without palpable organomegaly. Bowel sounds are normal. He has large scrotal swelling, which is quite firm and nontender. Extremities have no cyanosis or clubbing. Skin has no rash or ulcers. Neurologically, he is awake, alert and oriented times three. Today's labs show WBC count 7.6, hemoglobin 8.7 and hematocrit 26.0. Platelets 184. Sodium 142 and potassium 3.7. BUN is 12 and creatinine 3.81. PROBLEMS: 1. Acute blood loss anemia. Source is uncertain at this point. The patient did receive 2 units of packed red blood cells and his anemia improved. However, today he has slight decrease in his hematocrit again. I recommend to monitor his CBC at least once a day. We will start Aranesp during dialysis and also check his iron studies. 2. End-stage renal disease. The patient was dialyzed yesterday and his next dialysis will be scheduled for September 29. 3. Atrial fibrillation. His ventricular rate remains well controlled, and the patient remains on chronic anticoagulation. 4. Scrotal swelling. It is possible that he has bleeding in the scrotum. I have discussed with Dr. Carl and also discussed with Dr. Shepherd. The patient will require scrotal ultrasound and possible abdominal pelvic CAT scan. He did have large inguinal hernia repaired a few months ago, and I recommend surgical evaluation with Dr. Russell, who performed his hernia surgery.
[2016-09-27] MEDS: WARFARIN SOD 5 MG TAB PO SCH (16:26)
--- NOTE | 2016-09-27 22:29 | EDDOCDS ---
Nurse's Notes [facility] Name: Amaury Bell Age: 81 yrs Sex: Male : 1935 Arrival Date: 09/25/2016 Time: 17:22 Bed 8 Private MD: Mily Yee P Diagnosis: Anemia, unspecified Presentation: 09/25 17:27 Presenting complaint: states: had blood work done on for dr yee and today [facility] notified he needs blood. Presenting complaint: Patient states: denies feeling ill. Adult Sepsis Screening: The patient does not have new or worsening altered mentation. Patient's respiratory rate is less than 22. Systolic blood pressure is greater than 100. Patient has a qSOFA score of 0- Negative Sepsis Screen. Suicide/Homicide risk assessment- the patient denies having any suicidal and/or homicidal ideations and does not present with any other emotional, behavioral or mental health complaints. Status: Patient is not a customer service voice or dependent. Transition of care: patient was received from dr yee. 17:27 Method Of Arrival: Walkin/Carried/Asstd [facility] 17:27 Acuity: CHRISTOS Level 3 [facility] Triage Assessment: 17:30 General: Appears in no apparent distress, Behavior is appropriate for age, cooperative. [facility] Pain: Denies pain. Historical: - Allergies: no known allergies; - Home Meds: 1. warfarin 4 mg Oral tab 1 tab once daily 5mg on and none wed . 5mg and today 2. simvastatin 10 mg Oral tab once daily 3. Dialyvite 800-Ultra D 0.8-2,000 mg-unit oral tab daily - PMHx: Atrial Fib; Renal Failure w/ Dialysis; - PSHx: fistula left wrist; shunt placement; Total Knee Replacemet, Right (Jul 2015); Hernia repair; - Social history: Smoking status: Patient states former smoker of tobacco. No barriers to communication noted, The patient speaks fluent Urdu, Speaks appropriately for age. - Family history: Not pertinent. - : The pt / caregiver states he / she is on anticoagulants: coumadin. Home medication list is obtained from the patient. - Exposure Risk Screening:: None identified. Screenin:40 Screening information is obtained from the patient. Fall risk: No risks identified. jp6 Assistance ADL's: requires no assistance with activities of daily living. Abuse/DV Screen: The patient / caregiver reports he/she is: not in a situation that causes fear, pain or injury. Nutritional screening: No deficits noted. home support is adequate. 19:40 Advance Directives: Currently, there is a health care proxy, Heber Bell . There jp6 is an active DNR order but there is no copy available at this time. Assessment: 19:42 General: Appears in no apparent distress, comfortable, well developed, well nourished, jp6 Behavior is appropriate for age, cooperative, pleasant. Pain: Denies pain. Neurological: Level of Consciousness is awake, alert, Oriented to person, place, time. EENT: No deficits noted. Cardiovascular: Capillary refill < 3 seconds Heart tones S1 S2 present Rhythm is atrial fibrillation with no ectopy. Respiratory: Airway is patent Respiratory effort is even, unlabored, Respiratory pattern is regular, symmetrical, Breath sounds are clear bilaterally. GI: No deficits noted. Bowel sounds present X 4 quads. : No deficits noted. Derm: Skin is intact, Skin is dry, Skin is pale, Skin temperature is warm. Musculoskeletal: No deficits noted. 21:00 Reassessment: Patient appears in no apparent distress at this time. Patient denies pain jp6 at this time. Cardiovascular: Capillary refill < 3 seconds Rhythm is atrial fibrillation with no ectopy. Respiratory: Airway is patent Respiratory effort is even, unlabored, Respiratory pattern is regular, symmetrical, Breath sounds are clear bilaterally. Derm: Skin is pink, warm & dry. Vital Signs: 17:23 BP 158 / 82; Pulse 73; Resp 18 S; Temp 98.4; Pulse Ox 98% on R/A; Weight 72.57 kg (R); dd6 Height 5 ft. 7 in. (170.18 cm) (R); 19:08 BP 125 / 75 (auto/); jp6 19:10 Pulse 96 MON; Pulse Ox 97% ; jp6 19:23 BP 112 / 67 (auto/); jp6 19:24 Pulse 92 MON; Pulse Ox 98% ; jp6 19:38 BP 121 / 62 (auto/); jp6 19:40 Pulse 96 MON; Pulse Ox 99% ; jp6 19:40 Resp 18; Temp 97.5(O); Pulse Ox 98% on R/A; Pain 0/10; jp6 20:08 BP 131 / 76 (auto/); jp6 20:10 Pulse 92 MON; jp6 20:38 BP 122 / 71 (auto/); jp6 20:39 Pulse 90 MON; Pulse Ox 99% ; jp6 21:08 BP 125 / 72 (auto/); jp6 21:11 Pulse 88 MON; Pulse Ox 98% ; jp6 17:23 Body Mass Index 25.06 (72.57 kg, 170.18 cm) dd6 Vitals: 17:23 Log In Time: September 25, 2016 at 17:21. dd6 ED Course: 17:23 Patient visited by Ren Lugo PCA. dd6 17:23 Mily Yee is Private Physician. dd6 17:23 Patient moved to Waiting dd6 17:24 Patient moved to Pre RCE dd6 17:28 Triage Initiated srm 17:53 Type & Screen Sent. srm 17:53 PT/INR Sent. srm 17:53 MED Profile Sent. srm 17:53 CBC Sent. srm 17:53 Inserted saline lock: 20 gauge in right antecubital area and blood collected. srm 18:14 Sam Cloud, RN is Primary Nurse. jc4 18:14 Patient moved to 8 jc4 18:18 Jerri Joseph MD is Attending Physician. sd1 18:27 Patient visited by Eliseo Lyon PCA. jlf 18:30 Patient visited by Jerri Joseph MD. sd1 18:33 Notified attending ED physician of Hgb 6.9 and Hct 21.1 as reported via phone by lab jc4 staff. Dr. Joseph made aware. 18:46 Patient visited by Eliseo Lyon PCA. jlf 18:48 EKG done. (by ED staff). Reviewed by Jerri Joseph MD. rn1 19:04 Primary Nurse role handed off by Sam Cloud, RN jp6 19:04 Kayleigh Sorto,ALONZO is Primary Nurse. jp6 19:04 Tiff Gross is Hospitalizing Provider. sd1 19:40 The patient / caregiver is instructed regarding the plan of care and ED course. Cardiac jp6 monitor on. Pulse ox on. NIBP on. 19:40 No procedures done that require assistance. jp6 19:55 [facility] Payment Agreement was scanned into [employer] and attached to record. gjb 20:15 Inserted saline lock: 20 gauge in right forearm. nn1 20:18 Blood products: PRBCs X 1 unit given. jp6 21:14 Patient visited by Nicole Canales RN. kas2 09/26 08:21 T-Sheet-- Draft Copy was scanned into [employer] and attached to record. seh 11:02 ECG/EKG was scanned into [employer] and attached to record. gb 11:17 T-Sheet-- Draft Copy was scanned into [employer] and attached to record. gb Intake: 09/25 19:40 PO: 120.00ml; Total: 120.00ml. jp6 Order Results: Lab Order: CBC; SPEC'M 09/25/16 17:50 Test: WHITE BLOOD COUNT; Value: 10.3; Range: 4.0-10.0; Abnormal: Above high normal; Units: K/mm3; Status: F Test: RED BLOOD COUNT; Value: 2.14; Range: 4.30-6.10; Abnormal: Below low normal; Units: M/mm3; Status: F Test: HEMOGLOBIN; Value: 6.9; Range: 14.0-18.0; Abnormal: Critical Low; Units: g/dl; Status: F Test: HEMATOCRIT; Value: 21.1; Range: 42.0-52.0; Abnormal: Below low normal; Units: %; Status: F Test: MEAN CORPUSCULAR VOLUME; Value: 98.5; Range: 80.0-96.0; Abnormal: Above high normal; Units: fl; Status: F Test: MEAN CORPUSCULAR HEMOGLOBIN; Value: 32.2; Range: 27.0-33.0; Units: pg; Status: F Test: MEAN CORPUSCULAR HGB CONC; Value: 32.7; Range: 32.0-36.5; Units: g/dl; Status: F Test: RED CELL DISTRIBUTION WIDTH; Value: 17.6; Range: 11.5-14.5; Abnormal: Above high normal; Units: %; Status: F Test: PLATELET COUNT, AUTOMATED; Value: 211; Range: 150-450; Units: k/mm3; Status: F Lab Order: MED Profile; SPEC'M 09/25/16 17:50 Test: GLUCOSE, FASTING; Value: 134; Range: 83-110; Abnormal: Above high normal; Units: MG/DL; Status: F Test: BLOOD UREA NITROGEN; Value: 20; Range: 7-18; Abnormal: Above high normal; Units: MG/DL; Status: F Test: CREATININE FOR GFR; Value: 5.00; Range: 0.70-1.30; Abnormal: Above high normal; Units: MG/DL; Status: F Test: GLOMERULAR FILTRATION RATE; Value: 12.0; Range: >42; Abnormal: Below low normal; Status: F Test: SODIUM LEVEL; Value: 140; Range: 136-145; Units: MEQ/L; Status: F Test: POTASSIUM SERUM; Value: 3.1; Range: 3.5-5.1; Abnormal: Below low normal; Units: MEQ/L; Status: F Test: CHLORIDE LEVEL; Value: 101; Range: 98-107; Units: MEQ/L; Status: F Test: CARBON DIOXIDE LEVEL; Value: 31; Range: 21-32; Units: MEQ/L; Status: F Test: ANION GAP; Value: 8; Range: 8-16; Units: MEQ/L; Status: F Test: CALCIUM LEVEL; Value: 8.1; Range: 8.8-10.2; Abnormal: Below low normal; Units: MG/DL; Status: F Test Note: ; Units are mL/min/1.73 m2 Chronic Kidney Disease Staging per NKF: Stage I & II GFR >=60 Normal to Mildly Decreased Stage III GFR 30-59 Moderately Decreased Stage IV GFR 15-29 Severely Decreased Stage V GFR <15 Very Little GFR Left ESRD GFR <15 on SHOW HOST/HOSTESS Lab Order: PT/INR; SPEC'M 09/25/16 17:50 Test: PROTHROMBIN TIME; Value: 22.1; Range: 12.3-14.5; Abnormal: Above high normal; Units: SECONDS; Status: F Test: INR; Value: 1.93; Status: F Test Note: ; THERAPUTIC HUMAN INR VALUES INDICATIONS NORMAL RANGES PROPHYLAXIS/TREATMENT OF: VENOUS THROMBOSIS 2.0-3.0 PULMONARY EMBOLISM 2.0-3.0 PREVENTION OF SYSTEMIC EMBOLISM FROM: TISSUE HEART VALVES 2.0-3.0 ACUTE MYOCARDIAL INFARCTION 2.0-3.0 VALVULAR HEART DISEASE 2.0-3.0 ATRIAL FIBRILLATION 2.0-3.0 MECHANICAL VALVES(HIGH RISK) 2.5-3.5 RECURRENT MYOCARDIAL INFARCTION 2.5-3.5 Lab Order: Type & Screen; [facility]09/25/16 17:50 Test: BLOOD TYPE; Value: A POS; Status: F Test: AB SCREEN (INDIRECT LENO)GEL; Value: NEGATIVE; Status: F Lab Order: RETICULOCYTE COUNT; [facility]09/25/16 17:50 Test: RETICULOCYTE % [id number]; Value: 2.70; Range: 0.5-1.5; Abnormal: Above high normal; Units: %; Status: F Test: RETICULOCYTE ABSOLUTE [id number]; Value: 58; Range: 17-77; Units: x10(9)/L; Status: F Test: RETIC HEMOGLOBIN CONTENT CHr; Value: 31.4; Range: 24-36; Units: PG; Status: F Lab Order: PATHOLOGIST REVIEW COMPREHENSI; 09/25/16 17:50 Test: SLIDE REVIEW; Value: Report; Status: F Test: SOURCE; Value: PERIPHERAL SMEAR; Status: F Test: REASON FOR REVIEW; Value: ANEMIA / RBC MORPH; Status: F Test Note: ; Slide and/or specimen referred to Pathologist for review. Results of the review are located in the EMR Pathology module under Peripheral Smear when completed. Lab Order: FERRITIN; 09/25/16 17:50 Test: FERRITIN; Value: 1497; Range: 26-388; Abnormal: Above high normal; Units: NG/ML; Status: F Lab Order: TOTAL IRON BINDING CAPACIT; 09/25/16 17:50 Test: IRON (FE); Value: 46; Range: 65-175; Abnormal: Below low normal; Units: UG/DL; Status: F Test: TOTAL IRON BINDING CAPACITY; Value: 206; Range: 250-450; Abnormal: Below low normal; Units: UG/DL; Status: F Test: PERCENT SATURATION; Value: 22.3; Range: 19.7-37.4; Units: %; Status: F Outcome: 19:04 Decision to Hospitalize by Provider. sd1 20:19 Discharge Assessment: Patient awake, alert and oriented x 3. No cognitive and/or jp6 functional deficits noted. Patient verbalized understanding of disposition instructions. patient administered narcotics - no. The following High Risk Discharge criteria are identified: None. Admitted to PCU accompanied by nurse, accompanied by tech, via stretcher, on monitor, with chart. Condition: unchanged. No special radiology studies were completed. Admission hand-off: Report Faxed Fax receipt verified by pcu. Property :Personal belongings accompany Pt. 21:28 Patient left the ED. jp6 Signatures: Jerri Joseph MD MD sd1 Mamie Mccoy, RN RN [facility] Jean, Chel, Reg Reg gb Ren Lugo, ACTIVITIES LEADER ACTIVITIES LEADER dd6 Sarahi Jain RN RN jc4 Eliseo Lyon, ACTIVITIES LEADER ACTIVITIES LEADER jlf Francisco Javier Feliz rn1 David Whitehead,RN RN nn1 Arlen Corado Kim,RN RN ted2 Kayleigh SortoRN RN jp6 Jerri Ford Chart Complete CARLA
--- NOTE | 2016-09-27 22:29 | EDDOCDS ---
Physician Documentation [facility] Name: Amaury Bell Age: 81 yrs Sex: Male : 1935 Arrival Date: 09/25/2016 Time: 17:22 Bed 8 Private MD: Mily Bartholomew P Disposition: 09/25/16 19:04 Hospitalization ordered by Tiff Gross for Inpatient Admission. Preliminary diagnosis is Anemia, unspecified. - Bed requested for PCU. - Status is Inpatient Admission. jp6 - Condition is Stable. - Problem is new. - Symptoms are unchanged. Historical: - Allergies: no known allergies; - Home Meds: 1. warfarin 4 mg Oral tab 1 tab once daily 5mg on and none wed . 5mg and today 2. simvastatin 10 mg Oral tab once daily 3. Dialyvite 800-Ultra D 0.8-2,000 mg-unit oral tab daily - PMHx: Atrial Fib; Renal Failure w/ Dialysis; - PSHx: fistula left wrist; shunt placement; Total Knee Replacemet, Right (Jul 2015); Hernia repair; - Social history: Smoking status: Patient states former smoker of tobacco. No barriers to communication noted, The patient speaks fluent German, Speaks appropriately for age. - Family history: Not pertinent. - : The pt / caregiver states he / she is on anticoagulants: coumadin. Home medication list is obtained from the patient. - Exposure Risk Screening:: None identified. Vital Signs: 09/25 17:23 BP 158 / 82; Pulse 73; Resp 18 S; Temp 98.4; Pulse Ox 98% on R/A; Weight 72.57 kg / dd6 159.99 lbs (R); Height 5 ft. 7 in. (170.18 cm) (R); 19:08 BP 125 / 75 (auto/); jp6 19:10 Pulse 96 MON; Pulse Ox 97% ; jp6 19:23 BP 112 / 67 (auto/); jp6 19:24 Pulse 92 MON; Pulse Ox 98% ; jp6 19:38 BP 121 / 62 (auto/); jp6 19:40 Pulse 96 MON; Pulse Ox 99% ; jp6 19:40 Resp 18; Temp 97.5(O); Pulse Ox 98% on R/A; Pain 0/10; jp6 20:08 BP 131 / 76 (auto/); jp6 20:10 Pulse 92 MON; jp6 20:38 BP 122 / 71 (auto/); jp6 20:39 Pulse 90 MON; Pulse Ox 99% ; jp6 21:08 BP 125 / 72 (auto/); jp6 21:11 Pulse 88 MON; Pulse Ox 98% ; jp6 17:23 Body Mass Index 25.06 (72.57 kg, 170.18 cm) dd6 MDM: 17:39 CBC Ordered. EDMS 17:39 MED Profile Ordered. EDMS 17:39 PT/INR Ordered. EDMS 17:39 Type & Screen Ordered. EDMS 18:17 CBC Reviewed. sd1 18:17 PT/INR Reviewed. sd1 18:17 Type & Screen Reviewed. sd1 18:17 IV Saline Lock ordered. sd1 18:17 Orthostatic VS ordered. sd1 18:18 BED REQUEST+ADM ordered. EDMS 18:33 MED Profile Reviewed. sd1 18:33 Transfuse PRBC's 2 units, ensure PRBCs ordered in lab ordered. sd1 18:34 Type and Cross, Packed Cells Ordered. EDMS 18:34 ECG WITH READING ER PHYS+CARDIAG ordered. EDMS 18:45 PHYSICAL THERAPY EVAL & TREAT ordered. EDMS 18:45 Admission / Observation Status ordered. EDMS 18:46 OTHER CUSTOM DIETS ordered. EDMS 18:49 RETICULOCYTE COUNT Ordered. EDMS 18:49 PATHOLOGIST REVIEW COMPREHENSI Ordered. EDMS 18:58 FERRITIN Ordered. EDMS 18:58 TOTAL IRON BINDING CAPACIT Ordered. EDMS 19:32 BASIC METABOLIC PROFILE Ordered. EDMS 19:32 CBC WITH DIFFERENTIAL Ordered. EDMS 19:32 CARDIAC MARKER PANEL Ordered. EDMS 19:32 CARDIAC MARKER PANEL Ordered. EDMS 19:32 CARDIAC MARKER PANEL Ordered. EDMS 19:32 HEMOGLOBIN & HEMATOCRIT Ordered. EDMS 19:32 HEMOGLOBIN & HEMATOCRIT Ordered. EDMS 19:32 HEMOGLOBIN & HEMATOCRIT Ordered. EDMS 19:52 PROTHROMBIN TIME PROFILE\E\INR Ordered. EDMS 19:55 [facility] Payment Agreement was scanned into [employer] and attached to record. gjb 19:55 Financial registration complete. gjb 09/26 08:21 T-Sheet-- Draft Copy was scanned into [employer] and attached to record. se 11:02 ECG/EKG was scanned into [employer] and attached to record. gb 11:17 T-Sheet-- Draft Copy was scanned into [employer] and attached to record. gb Signatures: Dispatcher [employer] EDMS Jerri Joseph MD MD sd1 Mamie Mccoy, RN RN [facility] Radha , Roshni RN ALONZO daChel Caceres, Reg Reg gb Mak, Kayleigh AguirreRN RN josh6 Jerri Ford se The chart was reviewed and I authenticate all verbal orders and agree with the evaluation and treatment provided.Corrections: (The following items were deleted from the chart) 09/25 18:38 18:35 TYPE & SCREEN ordered. EDMS EDMS 19:02 18:48 IRON (FE) ordered. EDMS EDMS 19:02 18:48 TOTAL IRON BINDING CAPACIT ordered. EDMS EDMS 19:02 18:49 FERRITIN ordered. EDMS EDMS 19:15 18:47 PACKED CELLS ordered. EDMS EDMS 19:15 18:47 TYPE & SCREEN ordered. EDMS EDMS 19:36 19:32 HEMOGLOBIN & HEMATOCRIT ordered. EDMS EDMS Attachments: 19:55 [facility] [place] gjb 11:02 ECG/EKG gb 11:17 T-Sheet-- Draft Copy gb Chart Complete MTDD
--- NOTE | 2016-09-27 22:29 | EDDOCDS ---
Physician Documentation [facility] Name: Amaury Bell Age: 81 yrs Sex: Male : 1935 Arrival Date: 09/25/2016 Time: 17:22 Bed 8 Private MD: Mily Bartholomew P Disposition: 09/25/16 19:04 Hospitalization ordered by Tiff Gross for Inpatient Admission. Preliminary diagnosis is Anemia, unspecified. - Bed requested for PCU. - Status is Inpatient Admission. jp6 - Condition is Stable. - Problem is new. - Symptoms are unchanged. Historical: - Allergies: no known allergies; - Home Meds: 1. warfarin 4 mg Oral tab 1 tab once daily 5mg on and none wed . 5mg and today 2. simvastatin 10 mg Oral tab once daily 3. Dialyvite 800-Ultra D 0.8-2,000 mg-unit oral tab daily - PMHx: Atrial Fib; Renal Failure w/ Dialysis; - PSHx: fistula left wrist; shunt placement; Total Knee Replacemet, Right (Jul 2015); Hernia repair; - Social history: Smoking status: Patient states former smoker of tobacco. No barriers to communication noted, The patient speaks fluent Polish, Speaks appropriately for age. - Family history: Not pertinent. - : The pt / caregiver states he / she is on anticoagulants: coumadin. Home medication list is obtained from the patient. - Exposure Risk Screening:: None identified. Vital Signs: 09/25 17:23 BP 158 / 82; Pulse 73; Resp 18 S; Temp 98.4; Pulse Ox 98% on R/A; Weight 72.57 kg / dd6 159.99 lbs (R); Height 5 ft. 7 in. (170.18 cm) (R); 19:08 BP 125 / 75 (auto/); jp6 19:10 Pulse 96 MON; Pulse Ox 97% ; jp6 19:23 BP 112 / 67 (auto/); jp6 19:24 Pulse 92 MON; Pulse Ox 98% ; jp6 19:38 BP 121 / 62 (auto/); jp6 19:40 Pulse 96 MON; Pulse Ox 99% ; jp6 19:40 Resp 18; Temp 97.5(O); Pulse Ox 98% on R/A; Pain 0/10; jp6 20:08 BP 131 / 76 (auto/); jp6 20:10 Pulse 92 MON; jp6 20:38 BP 122 / 71 (auto/); jp6 20:39 Pulse 90 MON; Pulse Ox 99% ; jp6 21:08 BP 125 / 72 (auto/); jp6 21:11 Pulse 88 MON; Pulse Ox 98% ; jp6 17:23 Body Mass Index 25.06 (72.57 kg, 170.18 cm) dd6 MDM: 17:39 CBC Ordered. EDMS 17:39 MED Profile Ordered. EDMS 17:39 PT/INR Ordered. EDMS 17:39 Type & Screen Ordered. EDMS 18:17 CBC Reviewed. sd1 18:17 PT/INR Reviewed. sd1 18:17 Type & Screen Reviewed. sd1 18:17 IV Saline Lock ordered. sd1 18:17 Orthostatic VS ordered. sd1 18:18 BED REQUEST+ADM ordered. EDMS 18:33 MED Profile Reviewed. sd1 18:33 Transfuse PRBC's 2 units, ensure PRBCs ordered in lab ordered. sd1 18:34 Type and Cross, Packed Cells Ordered. EDMS 18:34 ECG WITH READING ER PHYS+CARDIAG ordered. EDMS 18:45 PHYSICAL THERAPY EVAL & TREAT ordered. EDMS 18:45 Admission / Observation Status ordered. EDMS 18:46 OTHER CUSTOM DIETS ordered. EDMS 18:49 RETICULOCYTE COUNT Ordered. EDMS 18:49 PATHOLOGIST REVIEW COMPREHENSI Ordered. EDMS 18:58 FERRITIN Ordered. EDMS 18:58 TOTAL IRON BINDING CAPACIT Ordered. EDMS 19:32 BASIC METABOLIC PROFILE Ordered. EDMS 19:32 CBC WITH DIFFERENTIAL Ordered. EDMS 19:32 CARDIAC MARKER PANEL Ordered. EDMS 19:32 CARDIAC MARKER PANEL Ordered. EDMS 19:32 CARDIAC MARKER PANEL Ordered. EDMS 19:32 HEMOGLOBIN & HEMATOCRIT Ordered. EDMS 19:32 HEMOGLOBIN & HEMATOCRIT Ordered. EDMS 19:32 HEMOGLOBIN & HEMATOCRIT Ordered. EDMS 19:52 PROTHROMBIN TIME PROFILE\E\INR Ordered. EDMS 19:55 [facility] Payment Agreement was scanned into [employer] and attached to record. gjb 19:55 Financial registration complete. gjb 09/26 08:21 T-Sheet-- Draft Copy was scanned into [employer] and attached to record. se 11:02 ECG/EKG was scanned into [employer] and attached to record. gb 11:17 T-Sheet-- Draft Copy was scanned into [employer] and attached to record. gb Signatures: Dispatcher [employer] EDMS Jerri Joseph MD MD sd1 Mamie Mccoy, RN RN [facility] Radha , Roshni RN ALONZO daChel Caceres, Reg Reg gb Mak, Kayleigh AguirreRN RN josh6 Jerri Ford se The chart was reviewed and I authenticate all verbal orders and agree with the evaluation and treatment provided.Corrections: (The following items were deleted from the chart) 09/25 18:38 18:35 TYPE & SCREEN ordered. EDMS EDMS 19:02 18:48 IRON (FE) ordered. EDMS EDMS 19:02 18:48 TOTAL IRON BINDING CAPACIT ordered. EDMS EDMS 19:02 18:49 FERRITIN ordered. EDMS EDMS 19:15 18:47 PACKED CELLS ordered. EDMS EDMS 19:15 18:47 TYPE & SCREEN ordered. EDMS EDMS 19:36 19:32 HEMOGLOBIN & HEMATOCRIT ordered. EDMS EDMS Attachments: 19:55 [facility] [place] Payment Agreement gjb 11:02 ECG/EKG gb 11:17 T-Sheet-- Draft Copy gb Chart Complete MTDD
[2016-09-28] VITALS: PULSE 92
[2016-09-28 00:24] VITALS: BP 137/79
[2016-09-28 04:00] VITALS: PULSE 93
[2016-09-28 04:50] VITALS: BP 142/60
[2016-09-28 05:27] LABS: BASO % 0.3 % (0.0-1.0); EOS # 0.2 K/mm3 (0.0-0.50); EOS % 2.8 % (0.0-3.0); LARGE UNSTAINED CELL # 0.2 K/mm3 (0.0-0.4); LARGE UNSTAINED CELL % 2.3 % (0.0-4.0); LYMPH # 1.6 K/mm3 (1.5-4.5); LYMPH % 20.2 % (24.0-44.0); MEAN CORPUSCULAR HGB CONC 33.2 g/dl (32.0-36.5); MEAN CORPUSCULAR VOLUME 96.4 fl (80.0-96.0); MONO # 0.5 K/mm3 (0.0-0.8); MONO % 6.2 % (0.0-5.0); NEUTROPHILS # 5.3 K/mm3 (1.8-7.7); NEUTROPHILS % 68.2 % (36.0-66.0); PLATELET COUNT, AUTOMATED 177 k/mm3 (150-450); RED CELL DISTRIBUTION WIDTH 15.8 % (11.5-14.5); WHITE BLOOD COUNT 7.8 K/mm3 (4.0-10.0)
[2016-09-28 05:35] LABS: INR 1.65
[2016-09-28 06:01] LABS: CALCIUM LEVEL 8.7 MG/DL (8.8-10.2); CREATININE FOR GFR 5.56 MG/DL (0.70-1.30); GLOMERULAR FILTRATION RATE 10.6 (>42); POTASSIUM SERUM 4.1 MEQ/L (3.5-5.1)
[2016-09-28 08:00] VITALS: BP 128/82
[2016-09-28] MEDS ORDERED: SLF 3 ML SYR IV PRN (09:30)
[2016-09-28] MEDS: OCUVITE 1 TAB PO SCH (09:35)
[2016-09-28] MEDS: SIMVASTATIN 10 MG TAB PO SCH (09:35)
--- NOTE | 2016-09-28 12:18 | DSES ---
DATE OF ADMISSION: 09/25/2016 DATE OF DISCHARGE: DISCHARGE DIAGNOSIS: Symptomatic anemia. SECONDARY DIAGNOSES: 1. Seroma. 2. End stage renal disease, on hemodialysis. 3. Atrial fibrillation. 4. Dyslipidemia. HOSPITAL COURSE: The patient is a 81-year-old man who presented with symptomatic anemia with symptoms of lightheadedness with standing. He had a hemoglobin and hematocrit (H and H) which we have been tracking weekly through the nephrology office. He had been gradually trending down to the point where he was told to present to the emergency room. Upon his arrival, he did have a hemoglobin of 6.9. He did receive 3 units of packed red blood cells (PRBCs) and his H and H remained stable following this. There was concern for potential etiologies for his blood loss anemia. He recently had an inguinal hernia repair with Dr. Russell and Dr. Shepherd. He also subsequently underwent a colonoscopy with Dr. Russell as well which revealed several polyps. Following his operative procedure, he has had a fairly massive enlarged scrotum. There was some potential concern that blood may be collecting in his scrotum. He was seen and evaluated by Dr. Russell of general surgery who had been following him in the outpatient setting as well and he did not feel that there was reason for concern at this point in time. The patient did have an occult stool for blood checked which was negative. While he was here, he also did have a scrotal ultrasound that revealed large collection in the left hemiscrotum likely representing seroma with no sonographic evidence to suggest hematoma or abscess. He also had abdominal CT that revealed a large complex fluid collection extending into the left hemiscrotum measuring 12 cm in diameter as well as right basilar atelectasis. SUBJECTIVE: This morning, the patient reports he is feeling great. He has no complaints. He has no symptoms. He denies chest pain, shortness of breath, fever, chills, nausea, vomiting, or diarrhea. OBJECTIVE: VITAL SIGNS: Temperature 97.6, pulse 88, respiratory rate 20, blood pressure 128/82, oxygen saturation 97% on room air. GENERAL: He is a pleasant, elderly, man sitting up on the edge of his bed. He is in no acute distress. HEENT: Cranial nerves II-XII are grossly intact. He has moist mucous membranes. No elevation of central venous pressure (CVP). CARDIOVASCULAR EXAM: S1, S2 regular. RESPIRATORY EXAM: Clear. ABDOMINAL EXAM: Benign. EXTREMITIES: His left upper extremity has a fistula that has a good thrill. LABORATORY STUDIES: WBC 7.8, hemoglobin 9.3, hematocrit 28, and platelet count 177,000. Chemistry panel with sodium 144, potassium 4.1, chloride 107, bicarbonate 28, BUN 25, creatinine 5.5. Multiple sets of cardiac enzymes are negative. INR is 1.6. He had occult stool for blood that is negative. IMAGING: As outlined above. ASSESSMENT AND PLAN: This is a 81-year-old man with symptomatic anemia. PROBLEMS: 1. Symptomatic anemia. Resolved status post 3 units of PRBCs. Unclear at this time where he is losing the blood. There was some concern he may have been losing it in his scrotum, but the scrotum appears to have remained the same size as per Dr. Russell's exam. His H and H is stable at this time. He recently had a colonoscopy and occult stool for blood that was negative during this stay. We will discharge him with a repeat H and H on at hemodialysis. He will followup with nephrology and hemodialysis and Dr. Russell in his clinic as well. He was seen by both services while in hospital. 2. End stage renal disease on hemodialysis. He has his regular schedule on Wednesday, and Wednesday. Nephrology's help has been greatly appreciated. 3. Atrial fibrillation. The patient is rate controlled without any agents. His eeg technician is Dr. Leo. He is anticoagulated with Coumadin. He is slightly subtherapeutic at this time, but will resume his home dosing upon discharge. 4. Dyslipidemia. The patient is on a statin. DISPOSITION: The patient is being discharged home to the care of his family. He is to followup with hemodialysis tomorrow and Dr. Russell's office within two weeks. His activity is as prior to admission. His diet is renal. He is to return to the emergency room should his symptoms worsen. MEDICATIONS AT TIME OF DISCHARGE: - Dialyvite 800 one tablet daily - simvastatin 10 mg daily - Coumadin 5 mg daily Greater than 30 minutes spent organizing safe disposition.
[2016-09-28] MEDS ORDERED: SLF 3 ML SYR IV SCH (14:00)
--- NOTE | 2016-09-28 14:02 | IPNPDOC ---
Date/Time Seen The patient was seen on 09/28/16 at 13:50. Progress Note DATE OF ENCOUNTER: 09/28/2016 SUBJECTIVE: Mr. Bell was seen this morning at bedside. No acute overnight issues. Patient states that he is feeling well and wants to go home. Brief review of systems is negative for nausea, vomiting, abdominal pain, diarrhea, chest pain or chest pressure, palpitations, shortness of breath, headache, dizziness, fevers, chills. OBJECTIVE: Vital Signs Date Time Temp Pulse Resp B/P Pulse Ox O2 Delivery O2 Flow Rate FiO2 09/28/16 08:00 Room Air 09/28/16 08:00 97.6 88 20 128/82 97 I&O- Last 24 Hours up to 6 AM 09/28/16 06:00 Intake Total 900 ml Output Total 325 ml Balance 575 ml PHYSICAL EXAMINATION: General: Patient is awake and alert. In no acute distress. HEENT: Normocephalic, atraumatic. Extraocular muscles are intact. Moist mucosa. Neck: Supple. No jugular venous distension appreciated. Heart: Normal S1, S2. Irregularly irregular. Lungs: Clear to auscultation bilaterally. No rales, rhonchi or wheezing. Abdomen: Soft, nontender, nondistended. Positive bowel sounds. Extremities: No cyanosis or lower extremity edema. Positive pedal pulses bilaterally. Neurologic: No focal deficits. LABORATORY DATA: 09/28/16 04:57 Red Blood Count 2.91 L, Mean Corpuscular Volume 96.4 H, Mean Corpuscular Hemoglobin 32.0, Mean Corpuscular Hemoglobin Concent 33.2, Red Cell Distribution Width 15.8 H, Anion Gap 9, Calcium Level 8.7L, Glomerular Filtration Rate 10.6L, Large Unclassified Cells # 0.2, Large Unclassified Cells % 2.3, Prothromb Time International Ratio 1.65, Prothrombin Time 19.6H ASSESSMENT AND PLAN: 1. End-stage renal disease. Patient has hemodialysis Wednesday, and Saturdays. Will continue with regular schedule. Electrolytes are stable. 2. Acute blood loss anemia. Etiology of which is unclear. He is status post 2 units of packed red blood cells. Hemoglobin appears stable. He will be started on Aranesp during dialysis. 3. Atrial fibrillation. His ventricular rate remains controlled, and he remains on chronic anticoagulation. 4. Scrotal edema secondary to seroma. Does not appear that he is bleeding into his scrotum. Surgery is aware and will follow him as outpatient. DISPOSITION: Patient is being discharged today. Follow up with nephrology for maintenance hemodialysis, next dialysis session will be tomorrow 09/29/2016. GME ATTESTATION GME ATTESTATION My preceptor for this patient encounter was physically present in the building during the encounter and was fully available. As needed, all aspects of the patient interview, examination, medical decision making process, and medical care plan development were reviewed and approved by the preceptor. Preceptor is aware and concurs with the plan as stated in the body of this note and will attest to such by his/her cosignature. ATTENDING NOTE Nephrology: Pt was examined with the resident. I agree with assessment and recommendations. JEN ARELLANO DO Sep 28, 2016 14:02 YAMEL SWANSON MD Sep 28, 2016 22:10
[2016-09-29] MEDS ORDERED: ALEV220T26 PO (21:53)
== END 2016-09-28 12:25 | disposition home or self-care (01) | DRG 811 ==
LOC: M ED 17:22 → M ED INP 18:41 → M PCU 21:20
PROVIDERS: ADMIT General Practice; ATTEND Internal Medicine
PROC: 30253N1 (ICD-10-PCS; 2016-09-25)
PROC: 5A1D60Z (ICD-10-PCS; principal; 2016-09-26)
DX: D62 Acute posthemorrhagic anemia (principal); N18.6 End stage renal disease; N99.843 Postprocedural seroma of a genitourinary system organ or structure following other procedure; I48.2 Chronic atrial fibrillation; N40.0 Benign prostatic hyperplasia without lower urinary tract symptoms; Z99.2 Dependence on renal dialysis; E78.00 Pure hypercholesterolemia, unspecified; D63.1 Anemia in chronic kidney disease; E78.5 Hyperlipidemia, unspecified; Z96.651 Presence of right artificial knee joint; Z79.899 Other long term (current) drug therapy; Z87.891 Personal history of nicotine dependence; Z79.01 Long term (current) use of anticoagulants

== ENCOUNTER 2016-09-29 13:59 | Inpatient (IN) | payer MEDICARE, OTHER ==
[~2016-09-29] VITALS: Ht 170.2 cm; Wt 69.2 kg
[~2016-09-29 13:59] MED LIST changes: +WARF-23 PO
[2016-09-29] MEDS ORDERED: ACETAMINOPHEN 325 MG TAB As Ordered ONE (15:32)
--- NOTE | 2016-09-29 17:16 | REP ---
Chest x-ray: Two views: History: Fever and cough. Comparison chest x-ray 07/29/2016 Findings: EKG monitoring electrodes overlie the chest. The heart is mildly enlarged and unchanged from the comparison study. Pleural angles are sharp. There is mild fissural thickening but no free pleural effusion is seen. No focal infiltrate is observed. The aorta is calcific and tortuous as before. 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 Impression: Cardiomegaly. Mild fissural thickening. No focal infiltrate. Signed by Jovanny Kenney MD 09/30/2016 08:15 A
[2016-09-29 17:32] LABS: BASO # 0.1 K/mm3 (0.0-0.2); EOS % 0.6 % (0.0-3.0); LARGE UNSTAINED CELL # 0.1 K/mm3 (0.0-0.4); LARGE UNSTAINED CELL % 1.8 % (0.0-4.0); LYMPH # 0.5 K/mm3 (1.5-4.5); LYMPH % 7.4 % (24.0-44.0); MEAN CORPUSCULAR HEMOGLOBIN 31.8 pg (27.0-33.0); MEAN CORPUSCULAR HGB CONC 32.3 g/dl (32.0-36.5); MEAN CORPUSCULAR VOLUME 98.2 fl (80.0-96.0); MONO # 0.5 K/mm3 (0.0-0.8); MONO % 8.4 % (0.0-5.0); NEUTROPHILS # 4.8 K/mm3 (1.8-7.7); NEUTROPHILS % 80.8 % (36.0-66.0); PLATELET COUNT, AUTOMATED 158 k/mm3 (150-450); RED CELL DISTRIBUTION WIDTH 16.4 % (11.5-14.5); WHITE BLOOD COUNT 5.9 K/mm3 (4.0-10.0)
[2016-09-29 18:03] LABS: ALBUMIN 3.1 GM/DL (3.2-5.2); ALBUMIN/GLOBULIN RATIO 0.97 (1.00-1.93); BILIRUBIN,DIRECT 0.2 MG/DL (0.0-0.2); BILIRUBIN,TOTAL 0.5 MG/DL (0.2-1.0); CALCIUM LEVEL 8.7 MG/DL (8.8-10.2); CREATININE FOR GFR 3.66 MG/DL (0.70-1.30); GLOMERULAR FILTRATION RATE 17.2 (>42); POTASSIUM SERUM 3.8 MEQ/L (3.5-5.1); TOTAL PROTEIN 6.3 GM/DL (6.4-8.2)
--- NOTE | 2016-09-29 19:00 | REPUSA ---
Findings: No gallstones are present. The common duct is 4.3 mm. The exam is somewhat limited because of bowel gas and patient confusion. Pancreas is not well-seen because of bowel gas. The right kidney is 8.5 x 5.2 x 5.5 cm. There is no mass or stone or hydronephrosis. There is no hepatic mass. There is some increased echogenicity consistent with fatty changes.. Ther e is no focal mass. Impression: 1. No gallstones. Normal caliber common duct. Normal right kidney. No hepatic mass. Changes cons istent with fatty liver.
--- NOTE | 2016-09-29 19:50 | REPUSA ---
CLINICAL HISTORY: Fever. TECHNIQUE: Multiple axial CT images were obtained through the abdomen and pelvis without administrat ion of oral or IV contrast material. COMMENTS: Correlation is made with the prior study dated 09/27/2016. There is slight hepatic hypoattenuation compatible with fatty infiltration. There is no intra or ext rahepatic biliary ductal dilatation. The spleen is normal. The gallbladder is distended. Gallstone s are seen. Gallbladder wall is upper limits of normal. 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 The pancreas is of normal contour and attenuation characteristics. There is no e vidence of adrenal mass. Both kidneys are severely atrophic. A 3 mm nonobstructing calculus noted in the lower pole of left k idney. Bilateral renal cysts are present. Small fat containing umbilical hernia is seen. No renal or ureteral calculi are identified. There is no hydroureter or hydronephrosis. There is no evidence for appendicitis. There is no bowel wall thickening. No evidence for small or l arge bowel obstruction. There is no evidence of abdominal ascites or lymphadenopathy. There are flu id filled mildly thick walled loops of small bowel noted compatible with mild enteritis. There is no evidence of intrinsic or extrinsic bladder mass. There is no pelvic ascites or lymphaden opathy. Prostate gland is moderately enlarged containing calcifications. Fat containing right inguinal herni a is seen. There is a small left inguinal hernia containing fat and fluid. There is a massive left hydrocele noted. It now measures 12 cm, previously 11 cm. Small right pleural effusion is seen. Opacity is noted in right lung base may represent atelectasis versus pneumonia. Heart is mildly enlarged. The bony structures are free of lytic or blastic lesions. Multilevel degenerative changes are seen i nvolving the thoracolumbar spine. Scattered calcifications are seen involving the aorta and major branches compatible with atherosclero sis. IMPRESSION: 1. Small right pleural effusion is seen. Opacity is noted in right lung base may represent atelecta sis versus pneumonia. 2. Heart is mildly enlarged. 3. Both kidneys are severely atrophic. A 3 mm nonobstructing calculus noted in the lower pole of le ft kidney. 4. Bilateral renal cysts are present. 5. Small fat containing umbilical hernia is seen 6. There are fluid filled mildly thick walled loops of small bowel noted compatible with mild enteri tis. 7. Prostate gland is moderately enlarged containing calcifications. Fat containing right inguinal h ernia is seen. There is a small left inguinal hernia containing fat and fluid. There is a massive l eft hydrocele noted. It now measures 12 cm, previously 11 cm. 8. The gallbladder is distended. Gallstones are seen. Gallbladder wall is upper limits of normal. Please correlate clinically to exclude chronic cholecystitis. 9. There is slight hepatic hypoattenuation compatible with fatty infiltration Thank you for your kind referral of this patient. We appreciate the opportunity to participate in thi s patient's care.
[2016-09-29 19:54] LABS: INR 1.62
--- NOTE | 2016-09-29 20:00 | REPUSA ---
CLINICAL HISTORY: Fever. TECHNIQUE: Multiple axial CT images were obtained through the thorax without IV contrast material. COMMENTS: There is no evidence of pleural or parenchymal-based mass. Small right pleural effusion is seen. Th e right basilar consolidation is seen compatible with atelectasis or atelectasis or pneumonia. There is no evidence of hilar or mediastinal lymphadenopathy. The heart is moderately enlarged. Diffuse coronary calcifications are present. The visualized portions of the liver are of uniform attenuation without mass or defect. There is no intra or extrahepatic biliary ductal dilatation. The spleen is unremarkable. The visualized pancrea s is of normal contour and attenuation characteristics. There is no evidence of adrenal mass. The v isualized portions of the kidneys present no abnormalities. The bony structures are free of lytic or blastic lesions. There are end-stage osteoarthritic changes noted involving left glenohumeral joint. There are found destructive changes noted. Consider correl ation with MRI. IMPRESSION: 1. Small right pleural effusion is seen. The right basilar consolidation is seen compatible with at electasis or pneumonia. 3. The heart is moderately enlarged. Diffuse coronary calcifications are present. 3. There are end-stage osteoarthritic changes noted involving left glenohumeral joint. There are fo und destructive changes noted. Consider correlation with MRI. Thank you for your kind referral of this patient. We appreciate the opportunity to participate in thi s patient's care.
[2016-09-29] MEDS ORDERED: CEFEPIME HCL 1 GM INJ (MAXIPIME) (J0692) As Ordered ONE (21:39)
[2016-09-29] MEDS ORDERED: ALEV220T26 PO (21:53)
[2016-09-29] MEDS ORDERED: VANCOMYCIN HCL 1,000 MG, VIAL MATE ADAPTER 1 EACH in D5W 250 ML IV SCH (22:00)
[2016-09-29] MEDS ORDERED: ONDANSETRON 4MG/2ML VIAL (J2405) IV PRN (22:00)
[2016-09-29] MEDS ORDERED: ACETAMINOPHEN TAB 650MG DOSE (2X325MG) PO PRN (22:00)
[2016-09-29] MEDS ORDERED: VANCOMYCIN 1000 MG/20 ML VIAL (J3370) As Ordered ONE (22:47)
[2016-09-29] MEDS ORDERED: VANCOMYCIN 750 MG/25 ML VIAL (J3370) As Ordered ONE (22:47)
--- NOTE | 2016-09-29 22:54 | HPE ---
DATE OF ADMISSION: 09/29/2016 PRIMARY CARE PROVIDER: Dr. Bartholomew CHIEF COMPLAINT: Fever. SUMMARY OF HIS PRESENTATION: This is a 81-year-old who was just discharged yesterday after a three day hospitalization for symptomatic anemia. He had been doing much better after having his transfusions. Did have some scrotal swelling evaluated, went home, was feeling well. This morning unfortunately he did not feel well. His had to help him get out of bed. He was tired with grunting responses, just laying in bed. She threatened to take him back to the hospital unless he went to dialysis that was scheduled today, so she helped him get up and tried to feed him breakfast. He choked a little bit on his breakfast, he did not really eat anything. He actually was able to walk out of the house, went to dialysis and they did dialysis this morning. After being evaluated by nephrology was sent to emergency department for evaluation. He had been feeling febrile. He has developed a cough since yesterday which is productive of sputum. No chest pain, no shortness of breath, no abdominal pain and no scrotal discomfort. No loose stools. No neck pain or stiffness, otherwise unremarkable. PAST MEDICAL HISTORY: Notable for: Atrial fibrillation. History of symptomatic bradycardia, on Coumadin. Encephalopathy secondary to cholecystitis. Acute acalculous cholecystitis, status post cholecystostomy tube placement which was recently removed. Sepsis secondary to acute cholecystitis. Anemia, which has required blood transfusions. His last hospitalization he received three units of packed red blood cells. End-stage renal disease, on hemodialysis Wednesday, , Wednesday. He was initially on dialysis in 1989 and then graduated from dialysis, but was restarted in 2012. He has a left-sided arteriovenous (AV) fistula. He has had a right total knee replacement. PAST SURGICAL HISTORY: Notable for: Cholecystostomy tube. Right knee replacement. Arteriovenous fistula. MEDICATIONS AT HOME: Are oddly simple and include the following: - Nephro-Sergio - Naprosyn - simvastatin 10 mg by mouth daily - Coumadin 5 mg by mouth daily ALLERGIES: No known drug allergies. FAMILY HISTORY: Unremarkable due to advanced age and illness. REVIEW OF SYSTEMS: As previously stated and is otherwise unremarkable. PHYSICAL EXAMINATION: VITAL SIGNS: Blood pressure is 105/60 with a pulse of 102. Pulse is down from presentation, but so is blood pressure. He is sleepy, but arousable. Was able to speak in complete sentences. Does appear tired, somewhat resistant to examination due to fatigue. Head is normocephalic. Sinuses are nontender. Pupils equal, round and reactive. Anicteric. Mucous membranes are moist. Neck is supple. I do not appreciate any elevation of jugular venous pressure. Breathing is symmetrical. Some upper airway sounds. He did cough up some sputum after I rolled him over on his side to listen to his back. There is no sacral edema. Abdomen is soft, doughy, nontender. Scrotum is quite enlarged, firm, but nontender, not warm, not red. He is able to move all four extremities. Cranial nerves II through XII are grossly intact. Would appear to have a normal mood and affect. LABS: There are labs available for me to review which include a white count of 5.9, hemoglobin 9 and platelets of 158. INR is 1.62. Sodium 142, potassium 2.8, chloride 100, bicarbonate 34, BUN 13, creatinine 3.66. Glucose 95. Albumin 3.1, lipase is 151. Urine was done which showed 2+ protein, 2+ glucose, 1+ bacteria. 0 white cells. Blood culture is pending times one. Influenza swab is negative. CT of the abdomen and pelvis shows small right pleural effusion, opacity in right lung base. Massive left hydrocele. Distended gallbladder with gallstones. With gallbladder wall at the upper limits of normal. Chest CT shows right basilar consolidation. Possibly consistent with pneumonia or atelectasis. ASSESSMENT: This is a 81-year-old who presents with fever to 103, general fatigue, and sputum production. The patient most likely has a healthcare associated pneumonia. PLAN: 1. Infectious disease. The patient is started on cefepime and vancomycin for healthcare associated pneumonia. Will send a respiratory panel. Influenza has thus far been negative. Will be drawn prior to the first round of antibiotics. The possibility of blood stream infection should be considered in a patient on dialysis. He has not been having diarrhea. He is not experiencing any urinary symptoms. He has no localized pain in his scrotum to suggest an area of infection there. 2. The patient has end-stage renal disease, on hemodialysis. I am suspicious the patient may be in early sepsis. Will place the patient in the PCU. I am going to give him 500 mL of fluid. He is certainly not fluid overloaded at the moment. He may actually be dry after dialysis today. Will augment tomorrow morning. 3. The patient was recently treated for anemia. Hemoglobin and hematocrit would appear to be relatively stable from discharge. 4. The patient has hypercholesterolemia. I am going to continue his statin drug. 5. The patient has atrial fibrillation. Rate is reasonably well controlled for the current setting. I will give IV fluid. He has some issues with bradycardia in the past. Will avoid rate controlled medications in the current setting. 6. Deep venous thrombosis (DVT) prophylaxis in the form of heparin as his INR is subtherapeutic.
--- NOTE | 2016-09-29 23:19 | EDDOCDS ---
Physician Documentation [facility] Name: Amaury Bell Age: 81 yrs Sex: Male : 1935 Arrival Date: 09/29/2016 Time: 13:59 Bed 7 Private MD: Mily Bartholomew P Disposition: 09/29 17:17 I have independently interviewed and examined the patient, and I agree with the pc investigation, diagnosis and treatment plan as documented by the Resident. Disposition: 09/29/16 21:15 Hospitalization ordered by Connor Matthews for Inpatient Admission. Preliminary diagnosis is Other pneumonia, unspecified organism - healthcare associated. - Bed requested for PCU. - Status is Inpatient Admission. js15 - Condition is Stable. - Problem is an acute exacerbation. - Symptoms have improved. Historical: - Allergies: no known allergies; - Home Meds: 1. simvastatin 10 mg Oral tab nightly 2. Dialyvite 800-Ultra D 0.8-2,000 mg-unit oral tab daily 3. Aleve 220 mg Oral cap as needed 4. warfarin 5 mg Oral tab once daily (Last dose: 09/28/2016) - PMHx: Atrial Fib; Renal Failure w/ Dialysis; - PSHx: fistula left wrist; shunt placement; Total Knee Replacemet, Right (Jul 2015); Hernia repair (July 2016); - Social history: No barriers to communication noted, The patient speaks fluent Telugu, Smoking status: Patient states former smoker of tobacco. - Family history: Not pertinent. - : The pt / caregiver states he / she is on anticoagulants: coumadin. Home medication list is obtained from the facility NOV. - Exposure Risk Screening:: None identified. Vital Signs: 14:05 BP 140 / 82 (auto/); mk4 14:07 Pulse 134 MON; Pulse Ox 93% ; mk4 14:10 BP 140 / 82; Pulse 136; Resp 22; Temp 103.0(O); Pulse Ox 92% on R/A; ar3 14:21 BP 112 / 64 (auto/); mk4 14:21 Pulse 58 MON; Pulse Ox 98% ; mk4 14:35 BP 119 / 69 (auto/); mk4 14:35 Pulse 122 MON; Pulse Ox 94% ; mk4 14:50 BP 149 / 83 (auto/); mk4 14:51 Pulse 118 MON; Pulse Ox 93% ; mk4 15:05 BP 148 / 77 (auto/); mk4 15:05 Pulse 118 MON; Pulse Ox 93% ; mk4 15:09 BP 140 / 72 (auto/); mk4 15:10 Pulse 120 MON; Pulse Ox 93% ; mk4 15:20 BP 154 / 72 (auto/); mk4 15:21 Pulse 114 MON; Pulse Ox 94% ; mk4 15:35 BP 152 / 72 (auto/); mk4 15:36 Pulse 122 MON; Pulse Ox 93% ; mk4 15:50 BP 123 / 75 (auto/); mk4 15:51 Pulse 112 MON; Pulse Ox 94% ; mk4 16:05 BP 125 / 62 (auto/); mk4 16:06 Pulse 120 MON; Pulse Ox 94% ; mk4 16:20 BP 110 / 59 (auto/); mk4 16:20 Pulse 124 MON; Pulse Ox 93% ; mk4 18:16 Temp 99.4(O); ar3 19:05 BP 130 / 73 (auto/); js15 19:06 Pulse 104 MON; Pulse Ox 97% ; js15 19:20 BP 125 / 87 (auto/); js15 19:20 Pulse 106 MON; Pulse Ox 97% ; js15 19:35 BP 124 / 71 (auto/); js15 19:36 Pulse 106 MON; Pulse Ox 98% ; js15 19:50 BP 116 / 69 (auto/); js15 19:51 Pulse 98 MON; Pulse Ox 97% ; js15 20:05 BP 104 / 65 (auto/); js15 20:06 Pulse 100 MON; Pulse Ox 97% ; js15 20:20 BP 109 / 60 (auto/); js15 20:21 Pulse 94 MON; Pulse Ox 95% ; js15 20:35 BP 105 / 60 (auto/); js15 20:36 Pulse 102 MON; Pulse Ox 95% ; js15 20:50 BP 103 / 66 (auto/); js15 20:50 Pulse 100 MON; Pulse Ox 96% ; js15 21:05 BP 107 / 60 (auto/); js15 21:05 Pulse 94 MON; Pulse Ox 95% ; js15 21:15 Weight 73.03 kg / 161 lbs; ls3 21:20 BP 112 / 55 (auto/); js15 21:20 Pulse 94 MON; Pulse Ox 94% ; js15 21:35 BP 120 / 72 (auto/); js15 21:35 Pulse 102 MON; Pulse Ox 95% ; js15 21:50 BP 130 / 77 (auto/); js15 21:50 Pulse 98 MON; Pulse Ox 98% ; js15 21:57 Temp 99.1(O); js15 22:26 BP 135 / 73; Pulse 98 MON; Resp 18; Temp 99.1(O); Pulse Ox 96% ; Pain 0/10; js15 MDM: 15:28 Acetaminophen Tablet 650 mg PO once ordered. jo4 16:28 CBC with Diff Ordered. EDMS 16:28 BMP Ordered. EDMS 16:28 Liver Profile Ordered. EDMS 16:28 Obtain sample by nasopharyngeal swab ordered. jo4 16:28 Chest, 2 View (pa\E\lat) Ordered. EDMS 16:29 -Influenza A&B Rapid Antigen - Nose Ordered. EDMS 17:17 -Influenza A&B Rapid Antigen - Nose Reviewed. pc 17:27 LIPASE Ordered. EDMS 17:32 Financial registration complete. gjb 17:35 CBC with Diff Reviewed. pc 17:35 Chest, 2 View (pa\E\lat) Reviewed. pc 18:02 [facility] [place] was scanned into [employer] and attached to record. [email or web address] 18:11 BMP Reviewed. pc 18:11 Liver Profile Reviewed. pc 18:11 LIPASE Reviewed. pc 18:14 Repeat Temperature - Oral: Inform provider of result ordered. pc 18:15 US Gallbladder Ordered. EDMS 18:49 CT Chest Without Contrast Ordered. EDMS 18:49 CT ABD & PELVIS: No Contrast Ordered. EDMS 19:02 UA Ordered. EDMS 19:28 US Gallbladder Reviewed. mm11 19:30 UA Reviewed. mm11 19:32 Pt & Aptt Ordered. EDMS 19:32 ECG WITH READING ER PHYS+CARDIAG ordered. EDMS 19:53 BLOOD CULTURES Ordered. EDMS 20:35 Pt & Aptt Reviewed. mm11 20:35 CT Chest Without Contrast Reviewed. mm11 20:35 CT ABD & PELVIS: No Contrast Reviewed. mm11 21:03 BED REQUEST+ADM ordered. EDMS 21:13 Cefepime 1 grams IVPB at 100 mL/hr once over 30 mins; dilute in 50mL of NS or D5W mm11 ordered. 21:13 Misc. Nursing Order ordered. mm11 21:16 -Blood Culture (Adults Only), peripheral from different site, or from device/port/PICC mm11 etc. if present ordered. 21:18 -Blood Culture (Adults Only), peripheral from different site, or from device/port/PICC ml3 etc. if present complete. 21:54 Admission / Observation Status ordered. EDMS 21:55 CBC WITH DIFFERENTIAL Ordered. EDMS 21:55 COMPLETE COMPHRENSIVE METABOLI Ordered. EDMS 21:57 RENAL DIET ordered. EDMS 21:57 LACTIC ACID LEVEL, LACTATE Ordered. EDMS 21:57 PROTHROMBIN TIME PROFILE\E\INR Ordered. EDMS 21:58 SPUTUM CULTURE AND GRAM STAIN Ordered. EDMS 21:58 BLOOD CULTURES Ordered. EDMS 22:11 RESPIRATORY PANEL Ordered. EDMS 22:32 vancomycin (loading dose for pt. wt. 70-79kg) 1750 mg IVPB once ordered. mm11 Administered Medications: 15:39 Drug: Acetaminophen Tablet 650 mg Route: PO; mk4 21:13 CANCELLED (Other Intervention Used): cefTRIAXone 1 grams IVPB once over 30 mins; dilute mm11 in 50mL of NS or D5W 21:56 Drug: Cefepime 1 grams [cefepime 1 gram solution for injection] Route: IVPB; Rate: 100 js15 mL/hr; Infused Over: 30 mins; Site: right wrist; 23:00 Drug: vancomycin (loading dose for pt. wt. 70-79kg) 1750 mg Route: IVPB; Site: right js15 wrist; Signatures: Dispatcher [employer] EDOR Zain Clark MD MD pc Newman, Jill New RN RN Raul Doyle, Yard Manager Unit ml3 Arian Dee DO DO mm11 Temi Stevens RN RN mk4 Tania GironRN ALONZO js15 Arlen Corado Jane, DO DO jo4 Shruthi Johnson, Reg Reg ks16 The chart was reviewed and I authenticate all verbal orders and agree with the evaluation and treatment provided.Corrections: (The following items were deleted from the chart) 14:48 14:44 Home Meds: Levaquin 250 mg Oral tab every 48 hours; mk4 mk4 15:41 14:44 Home Meds: warfarin 5 mg oral tab once daily; 5mg on tu and none wed . 5mg mk4 th and today; mk4 15:41 14:44 Home Meds: Aleve 220 mg Oral cap daily; mk4 mk4 15:41 14:44 Home Meds: sodium polystrene sulfonate 15 g / 60 ml; mk4 mk4 17:26 16:29 LIPASE+LAB ordered. EDMS EDMS 21:13 21:01 cefTRIAXone 1 grams IVPB once over 30 mins; dilute in 50mL of NS or D5W ordered. mm11 mm11 21:59 21:19 BLOOD CULTURES ordered. EDMS EDMS Attachments: 18:02 [facility] [place] [email or web address] MTDD
--- NOTE | 2016-09-29 23:19 | EDDOCDS ---
Nurse's Notes [facility] Name: Amaury Bell Age: 81 yrs Sex: Male : 1935 Arrival Date: 09/29/2016 Time: 13:59 Bed 7 Private MD: Mily Bartholomew P Diagnosis: Other pneumonia, unspecified organism-healthcare associated Presentation: 09/29 14:37 Presenting complaint: EMS states: pt was discharged from [facility] yesterday for anemia had a mk4 blood transfusion and felt fine on discharge,, this am he woke up and legs felt wobbly went to dialysis where he developed a fever and prod cough, was sent here after dialysis for eval. 14:39 Adult Sepsis Screening: The patient does not have new or worsening altered mentation. mk4 Patient has a respiratory rate of greater than or equal to 22 (1 point). Systolic blood pressure is greater than 100. Patient has a qSOFA score of 1- Negative Sepsis Screen. Patient has cough and/or SOB- Positive Sepsis Screen. Notified Zain Clark MD Patient made CHRISTOS Level 2. Patient placed in exam room. Charge nurse notified. 14:39 Acuity: CHRISTOS Level 2 mk4 15:13 Suicide/Homicide risk assessment- the patient denies having any suicidal and/or mk4 homicidal ideations and does not present with any other emotional, behavioral or mental health complaints. 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 Transition of care: patient was not received from another setting of care. 15:13 Method Of Arrival: Ambulance mk4 Triage Assessment: 14:44 General: Appears in no apparent distress. Pain: Denies pain. Cardiovascular: Rhythm is mk4 sinus tachycardia No ectopy. Historical: - Allergies: no known allergies; - Home Meds: 1. simvastatin 10 mg Oral tab nightly 2. Dialyvite 800-Ultra D 0.8-2,000 mg-unit oral tab daily 3. Aleve 220 mg Oral cap as needed 4. warfarin 5 mg Oral tab once daily (Last dose: 09/28/2016) - PMHx: Atrial Fib; Renal Failure w/ Dialysis; - PSHx: fistula left wrist; shunt placement; Total Knee Replacemet, Right (Jul 2015); Hernia repair (July 2016); - Social history: No barriers to communication noted, The patient speaks fluent Persian, Smoking status: Patient states former smoker of tobacco. - Family history: Not pertinent. - : The pt / caregiver states he / she is on anticoagulants: coumadin. Home medication list is obtained from the facility MAR. - Exposure Risk Screening:: None identified. Screenin:20 Screening information is obtained from family members. Fall risk: At risk due to mk4 current illness. The following interventions are performed due to a positive Fall Risk Screen: Fall Risk is added to Special Handling on the patient Summary Screen. A Fall Risk Bracelet was applied to the patient. Side Rails are placed in the up position. A Call Vega is given with instruction to call for help when getting out of bed. Fall Alert bracelet is placed on the patient. Assistance ADL's: Requires assistance with meal preparation, this assistance is provided by family members, housework, assistance is provided by family members, medication administration, assistance is provided by family members. Abuse/DV Screen: The patient / caregiver reports he/she is: not in a situation that causes fear, pain or injury. Nutritional screening: On renal diet. home support is adequate. 23:03 Advance Directives: Currently, there is a health care proxy, Heber Bell- . js15 Assessment: 14:20 General: Appears ill, Behavior is cooperative. Respiratory: Airway is patent mk4 Respiratory effort is even, Respiratory pattern is regular, tachypnea Reports cough that is productive, persistent since this am. 15:20 General: Appears in no apparent distress, comfortable, Behavior is cooperative. mk4 Respiratory: Respiratory effort is even, unlabored, Respiratory pattern is regular, pt respiration easy at rest. 16:43 General: Appears in no apparent distress, comfortable, Behavior is cooperative, mk4 sleeping but awakens readily, alert and oriented , family at bedside , sao2 93-94 % on room air. 18:46 General: Appears in no apparent distress, comfortable, returned from ultrasound , pt mk4 sleeping but arouses readily . 19:20 General: Appears in no apparent distress, comfortable, Behavior is appropriate for age, js15 cooperative. Pain: Denies pain. Neurological: Level of Consciousness is awake, alert, obeys commands, Oriented to person, place, time. Cardiovascular: Rhythm is regular. Respiratory: Airway is patent Respiratory effort is even, unlabored, Respiratory pattern is regular, symmetrical. Derm: Skin is intact. 20:30 Reassessment: Patient appears in no apparent distress at this time. Pt resting quietly js15 on stretcher with eyes closed, family at bedside; respirations even and unlabored; will continue to monitor. 21:30 Reassessment: Patient appears in no apparent distress at this time. Pt resting on js15 stretcher, talking with family at bedside; respirations even and unlabored; skin warm, dry, intact. 22:45 General: Appears in no apparent distress, to be sleeping. Cardiovascular: Rhythm is js15 atrial fibrillation. Respiratory: Airway is patent Respiratory effort is even, unlabored, Respiratory pattern is regular, symmetrical. Derm: Skin is intact. Vital Signs: 14:05 BP 140 / 82 (auto/); mk4 14:07 Pulse 134 MON; Pulse Ox 93% ; mk4 14:10 BP 140 / 82; Pulse 136; Resp 22; Temp 103.0(O); Pulse Ox 92% on R/A; ar3 14:21 BP 112 / 64 (auto/); mk4 14:21 Pulse 58 MON; Pulse Ox 98% ; mk4 14:35 BP 119 / 69 (auto/); mk4 14:35 Pulse 122 MON; Pulse Ox 94% ; mk4 14:50 BP 149 / 83 (auto/); mk4 14:51 Pulse 118 MON; Pulse Ox 93% ; mk4 15:05 BP 148 / 77 (auto/); mk4 15:05 Pulse 118 MON; Pulse Ox 93% ; mk4 15:09 BP 140 / 72 (auto/); mk4 15:10 Pulse 120 MON; Pulse Ox 93% ; mk4 15:20 BP 154 / 72 (auto/); mk4 15:21 Pulse 114 MON; Pulse Ox 94% ; mk4 15:35 BP 152 / 72 (auto/); mk4 15:36 Pulse 122 MON; Pulse Ox 93% ; mk4 15:50 BP 123 / 75 (auto/); mk4 15:51 Pulse 112 MON; Pulse Ox 94% ; mk4 16:05 BP 125 / 62 (auto/); mk4 16:06 Pulse 120 MON; Pulse Ox 94% ; mk4 16:20 BP 110 / 59 (auto/); mk4 16:20 Pulse 124 MON; Pulse Ox 93% ; mk4 18:16 Temp 99.4(O); ar3 19:05 BP 130 / 73 (auto/); js15 19:06 Pulse 104 MON; Pulse Ox 97% ; js15 19:20 BP 125 / 87 (auto/); js15 19:20 Pulse 106 MON; Pulse Ox 97% ; js15 19:35 BP 124 / 71 (auto/); js15 19:36 Pulse 106 MON; Pulse Ox 98% ; js15 19:50 BP 116 / 69 (auto/); js15 19:51 Pulse 98 MON; Pulse Ox 97% ; js15 20:05 BP 104 / 65 (auto/); js15 20:06 Pulse 100 MON; Pulse Ox 97% ; js15 20:20 BP 109 / 60 (auto/); js15 20:21 Pulse 94 MON; Pulse Ox 95% ; js15 20:35 BP 105 / 60 (auto/); js15 20:36 Pulse 102 MON; Pulse Ox 95% ; js15 20:50 BP 103 / 66 (auto/); js15 20:50 Pulse 100 MON; Pulse Ox 96% ; js15 21:05 BP 107 / 60 (auto/); js15 21:05 Pulse 94 MON; Pulse Ox 95% ; js15 21:15 Weight 73.03 kg; ls3 21:20 BP 112 / 55 (auto/); js15 21:20 Pulse 94 MON; Pulse Ox 94% ; js15 21:35 BP 120 / 72 (auto/); js15 21:35 Pulse 102 MON; Pulse Ox 95% ; js15 21:50 BP 130 / 77 (auto/); js15 21:50 Pulse 98 MON; Pulse Ox 98% ; js15 21:57 Temp 99.1(O); js15 22:26 BP 135 / 73; Pulse 98 MON; Resp 18; Temp 99.1(O); Pulse Ox 96% ; Pain 0/10; js15 Vitals: 14:44 Log In Time N/A - ambulance arrival. 4 ED Course: 14:00 surveillance system monitor on. Pulse ox on. NIBP on. mk4 14:00 No procedures done that require assistance. mk4 14:01 Patient visited by Adela Hernandez, Brand Leader. lbd 14:01 Patient moved to Waiting lbd 14:02 Mily Bartholomew is Private Physician. lbd 14:02 Patient moved to 7 lbd 14:10 Patient visited by Yady Gomes PCA. ar3 14:14 Diana East DO is PHCP. jo4 14:14 Zain Clark MD is Attending Physician. jo4 14:40 Triage Initiated mk4 14:45 Patient visited by Temi Stevens, ALONZO. mk4 15:17 Patient visited by Temi Stevens RN. mk4 15:20 The patient / caregiver is instructed regarding the plan of care and ED course. mk4 15:20 Inserted saline lock: 20 gauge in right forearm. mk4 15:30 Patient visited by Diana East DO. jo4 16:01 Patient visited by Arian Snow RN. ml6 16:22 Patient visited by Temi Stevens RN. mk4 16:41 -Influenza A&B Rapid Antigen - Nose Sent. mk4 17:03 Patient visited by Temi Stevens RN. mk4 17:27 Chest, 2 View (pa\E\lat) Returned. EDMS 17:45 Patient visited by Arian Snow RN. ml6 18:02 [facility] Payment Agreement was scanned into [employer] [place] and attached to record. ks16 18:17 Patient visited by Yady Gomes PCA. ar3 18:22 Patient moved to Ultrasound br3 18:40 Patient moved to 7 br3 18:50 Patient visited by Temi Stevens RN. mk4 19:12 UA Sent. js15 19:18 US Gallbladder Returned. EDMS 19:27 Attending Physician role handed off by Zain Clark MD mm11 19:27 Arian Dee DO is Attending Physician. mm11 19:38 Patient visited by Kathi Santillan PCA. jovanny 19:38 EKG done. (by ED staff). Reviewed by Arian Dee DO. jovanny 20:15 CT ABD & PELVIS: No Contrast Returned. EDMS 20:15 CT Chest Without Contrast Returned. EDMS 20:45 Patient visited by Kathi Santillan PCA. jovanny 21:15 Connor Matthews MD is Hospitalizing Provider. mm11 Administered Medications: 15:39 Drug: Acetaminophen Tablet 650 mg Route: PO; mk4 21:13 CANCELLED (Other Intervention Used): cefTRIAXone 1 grams IVPB once over 30 mins; dilute mm11 in 50mL of NS or D5W 21:56 Drug: Cefepime 1 grams [cefepime 1 gram solution for injection] Route: IVPB; Rate: 100 js15 mL/hr; Infused Over: 30 mins; Site: right wrist; 23:00 Drug: vancomycin (loading dose for pt. wt. 70-79kg) 1750 mg Route: IVPB; Site: right js15 wrist; Order Results: Lab Order: CBC with Diff; SPEC'M 09/29/16 17:19 Test: WHITE BLOOD COUNT; Value: 5.9; Range: 4.0-10.0; Units: K/mm3; Status: F Test: RED BLOOD COUNT; Value: 2.83; Range: 4.30-6.10; Abnormal: Below low normal; Units: M/mm3; Status: F Test: HEMOGLOBIN; Value: 9.0; Range: 14.0-18.0; Abnormal: Below low normal; Units: g/dl; Status: F Test: HEMATOCRIT; Value: 27.8; Range: 42.0-52.0; Abnormal: Below low normal; Units: %; Status: F Test: MEAN CORPUSCULAR VOLUME; Value: 98.2; Range: 80.0-96.0; Abnormal: Above high normal; Units: fl; Status: F Test: MEAN CORPUSCULAR HEMOGLOBIN; Value: 31.8; Range: 27.0-33.0; Units: pg; Status: F Test: MEAN CORPUSCULAR HGB CONC; Value: 32.3; Range: 32.0-36.5; Units: g/dl; Status: F Test: RED CELL DISTRIBUTION WIDTH; Value: 16.4; Range: 11.5-14.5; Abnormal: Above high normal; Units: %; Status: F Test: PLATELET COUNT, AUTOMATED; Value: 158; Range: 150-450; Units: k/mm3; Status: F Test: NEUTROPHILS %; Value: 80.8; Range: 36.0-66.0; Abnormal: Above high normal; Units: %; Status: F Test: LYMPH %; Value: 7.4; Range: 24.0-44.0; Abnormal: Below low normal; Units: %; Status: F Test: MONO %; Value: 8.4; Range: 0.0-5.0; Abnormal: Above high normal; Units: %; Status: F Test: EOS %; Value: 0.6; Range: 0.0-3.0; Units: %; Status: F Test: BASO %; Value: 1.0; Range: 0.0-1.0; Units: %; Status: F Test: LARGE UNSTAINED CELL %; Value: 1.8; Range: 0.0-4.0; Units: %; Status: F Test: NEUTROPHILS #; Value: 4.8; Range: 1.8-7.7; Units: K/mm3; Status: F Test: LYMPH #; Value: 0.5; Range: 1.5-4.5; Abnormal: Below low normal; Units: K/mm3; Status: F Test: MONO #; Value: 0.5; Range: 0.0-0.8; Units: K/mm3; Status: F Test: EOS #; Value: 0.0; Range: 0.0-0.50; Units: K/mm3; Status: F Test: BASO #; Value: 0.1; Range: 0.0-0.2; Units: K/mm3; Status: F Test: LARGE UNSTAINED CELL #; Value: 0.1; Range: 0.0-0.4; Units: K/mm3; Status: F Lab Order: [facility]; SPEC'M 09/29/16 17:19 Test: GLUCOSE, FASTING; Value: 95; Range: 83-110; Units: MG/DL; Status: F Test: BLOOD UREA NITROGEN; Value: 13; Range: 7-18; Units: MG/DL; Status: F Test: CREATININE FOR GFR; Value: 3.66; Range: 0.70-1.30; Abnormal: Above high normal; Units: MG/DL; Status: F Test: GLOMERULAR FILTRATION RATE; Value: 17.2; Range: >42; Abnormal: Below low normal; Status: F Test: SODIUM LEVEL; Value: 143; Range: 136-145; Units: MEQ/L; Status: F Test: POTASSIUM SERUM; Value: 3.8; Range: 3.5-5.1; Units: MEQ/L; Status: F Test: CHLORIDE LEVEL; Value: 100; Range: 98-107; Units: MEQ/L; Status: F Test: CARBON DIOXIDE LEVEL; Value: 34; Range: 21-32; Abnormal: Above high normal; Units: MEQ/L; Status: F Test: ANION GAP; Value: 9; Range: 8-16; Units: MEQ/L; Status: F Test: CALCIUM LEVEL; Value: 8.7; Range: 8.8-10.2; Abnormal: Below low normal; Units: MG/DL; Status: F Test Note: ; Units are mL/min/1.73 m2 Chronic Kidney Disease Staging per NKF: Stage I & II GFR >=60 Normal to Mildly Decreased Stage III GFR 30-59 Moderately Decreased Stage IV GFR 15-29 Severely Decreased Stage V GFR <15 Very Little GFR Left ESRD GFR <15 on [facility] [employer] Lab Order: Liver Profile; SPEC'M 09/29/16 17:19 Test: AST/SGOT; Value: 15; Range: 15-37; Units: U/L; Status: F Test: ALT/SGPT; Value: 15; Range: 12-78; Units: U/L; Status: F Test: ALKALINE PHOSPHATASE; Value: 88; Range: 45-117; Units: U/L; Status: F Test: BILIRUBIN,TOTAL; Value: 0.5; Range: 0.2-1.0; Units: MG/DL; Status: F Test: BILIRUBIN,DIRECT; Value: 0.2; Range: 0.0-0.2; Units: MG/DL; Status: F Test: TOTAL PROTEIN; Value: 6.3; Range: 6.4-8.2; Abnormal: Below low normal; Units: GM/DL; Status: F Test: ALBUMIN; Value: 3.1; Range: 3.2-5.2; Abnormal: Below low normal; Units: GM/DL; Status: F Test: ALBUMIN/GLOBULIN RATIO; Value: 0.97; Range: 1.00-1.93; Abnormal: Below low normal; Status: F Lab Order: -Influenza A&B Rapid Antigen - Nose; SPEC'M 09/29/16 16:37 Test: INFLUENZA A RAPID SCR by ICA; Value: INFLUENZA A RESULTS NEGATIVE; Status: F Test: INFLUENZA A RAPID SCR by ICA; Value: Comments:; Status: F Test: INFLUENZA B RAPID SCR by ICA; Value: INFLUENZA B RESULTS NEGATIVE; Status: F Test Note: ; The Influenza test is a direct rapid immunoassay for the qualitative detection of Influenza viral antigen. Cell culture (Viral Culture) testing should be considered to confirm NEGATIVE results and to assist in detecting other viruses that can provide similar clinical symptoms. Please contact the lab within 24 hours [phone] if confirmatory testing is desired. Lab Order: LIPASE; SPEC'M 09/29/16 17:19 Test: LIPASE; Value: 151; Range: 73-393; Units: U/L; Status: F Lab Order: UA; SPEC'M 09/29/16 19:10 Test: APPEARANCE, URINE; Value: CLEAR; Range: CLEAR; Status: F Test: COLOR, URINE; Value: YELLOW; Range: YELLOW; Status: F Test: PH,URINE; Value: 9.0; Range: 5.0-9.0; Units: UNITS; Status: F Test: SPECIFIC GRAVITY URINE AUTO; Value: 1.011; Range: 1.002-1.035; Status: F Test: PROTEIN, URINE AUTO; Value: 2+; Range: NEGATIVE; Abnormal: Above high normal; Units: mg/dL; Status: F Test: GLUCOSE, URINE (UA) AUTO; Value: 2+; Range: NEGATIVE; Abnormal: Above high normal; Units: mg/dL; Status: F Test: KETONE, URINE AUTO; Value: TRACE; Range: NEGATIVE; Abnormal: Above high normal; Units: mg/dL; Status: F Test: UROBILINOGEN, URINE AUTO; Value: 0.2; Range: 0.0-2.0; Units: mg/dL; Status: F Test: BILIRUBIN, URINE AUTO; Value: NEGATIVE; Range: NEGATIVE; Status: F Test: NITRITE, URINE AUTO; Value: NEGATIVE; Range: NEGATIVE; Status: F Test: LEUKOCYTE ESTERASE, URINE AUTO; Value: NEGATIVE; Range: NEGATIVE; Status: F Test: BLOOD, URINE BLOOD; Value: NEGATIVE; Range: NEGATIVE; Status: F Test: WBC, URINE AUTO; Value: 0; Range: 0-3; Units: /HPF; Status: F Test: RBC, URINE AUTO; Value: 0; Range: 0-3; Units: /HPF; Status: F Test: BACTERIA, URINE AUTO; Value: 1+; Range: NEGATIVE; Abnormal: Above high normal; Status: F Test: SQUAMOUS EPITHELIAL CELL UR AU; Value: 1; Range: 0-6; Units: /HPF; Status: F Test: HYALINE CAST, URINE AUTO; Value: 0; Range: 0-1; Units: /LPF; Status: F Lab Order: Pt & Aptt; SPEC'M 09/29/16 17:18 Test: PROTHROMBIN TIME; Value: 19.3; Range: 12.3-14.5; Abnormal: Above high normal; Units: SECONDS; Status: F Test: INR; Value: 1.62; Status: F Test: PARTIAL THROMBOPLASTIN TIME; Value: 48.5; Range: 26.6-37.1; Abnormal: Above high normal; Units: SECONDS; Status: F Test Note: ; THERAPUTIC HUMAN INR VALUES INDICATIONS NORMAL RANGES PROPHYLAXIS/TREATMENT OF: VENOUS THROMBOSIS 2.0-3.0 PULMONARY EMBOLISM 2.0-3.0 PREVENTION OF SYSTEMIC EMBOLISM FROM: TISSUE HEART VALVES 2.0-3.0 ACUTE MYOCARDIAL INFARCTION 2.0-3.0 VALVULAR HEART DISEASE 2.0-3.0 ATRIAL FIBRILLATION 2.0-3.0 MECHANICAL VALVES(HIGH RISK) 2.5-3.5 RECURRENT MYOCARDIAL INFARCTION 2.5-3.5 Lab Order: LACTIC ACID LEVEL, LACTATE; SPEC'M 09/29/16 17:19 Test: LACTIC ACID LEVEL, LACTATE; Value: 0.9; Range: 0.4-2.0; Units: MMOL/L; Status: F Radiology Order: Chest, 2 View (pa\E\lat) Test: Chest, 2 View (pa\E\lat) REASON FOR EXAMINATION: Fever, cough; Chest x-ray: Two views:; ; History: Fever and cough.; ; Comparison chest x-ray 07/29/2016; ; Findings: EKG monitoring electrodes overlie the chest. The heart is mildly; enlarged and unchanged from the comparison study. Pleural angles are sharp.; There is mild fissural thickening but no free pleural effusion is seen. No focal; infiltrate is observed. The aorta is calcific and tortuous as before. There is; advanced osteoarthritis of the shoulders, particularly on the left where there; are very large osteophytes again noted.; ; Impression:; ; Cardiomegaly. Mild fissural thickening. No focal infiltrate.; ; ; ; ; Unreviewed; Radiology Order: US Gallbladder Test: US Gallbladder REASON FOR EXAMINATION: Biliary Colic; ; Findings:; No gallstones are present. The common duct is 4.3 mm. The exam is somewhat limited because of bowel; gas and patient confusion.; Pancreas is not well-seen because of bowel gas.; The right kidney is 8.5 x 5.2 x 5.5 cm. There is no mass or stone or hydronephrosis.; There is no hepatic mass. There is some increased echogenicity consistent with fatty changes.. Ther; e is no focal mass.; Impression:; 1. No gallstones. Normal caliber common duct. Normal right kidney. No hepatic mass. Changes cons; istent with fatty liver.; ; Radiology Order: CT Chest Without Contrast Test: CT Chest Without Contrast REASON FOR EXAMINATION: Fever; ; CLINICAL HISTORY: Fever.; ; TECHNIQUE: Multiple axial CT images were obtained through the thorax without IV contrast material.; ; COMMENTS:; There is no evidence of pleural or parenchymal-based mass. Small right pleural effusion is seen. Th; e right basilar consolidation is seen compatible with atelectasis or atelectasis or pneumonia. There; is no evidence of hilar or mediastinal lymphadenopathy. The heart is moderately enlarged. Diffuse; coronary calcifications are present.; ; The visualized portions of the liver are of uniform attenuation without mass or defect. There is no; intra or extrahepatic biliary ductal dilatation. The spleen is unremarkable. The visualized pancrea; s is of normal contour and attenuation characteristics. There is no evidence of adrenal mass. The v; isualized portions of the kidneys present no abnormalities.; ; The bony structures are free of lytic or blastic lesions. There are end-stage osteoarthritic changes; noted involving left glenohumeral joint. There are found destructive changes noted. Consider correl; ation with MRI.; ; IMPRESSION:; 1. Small right pleural effusion is seen. The right basilar consolidation is seen compatible with at; electasis or pneumonia.; 3. The heart is moderately enlarged. Diffuse coronary calcifications are present.; 3. There are end-stage osteoarthritic changes noted involving left glenohumeral joint. There are fo; und destructive changes noted. Consider correlation with MRI.; ; ; Thank you for your kind referral of this patient. We appreciate the opportunity to participate in thi; s patient's care.; ; ; Radiology Order: CT ABD & PELVIS: No Contrast Test: CT ABD & PELVIS: No Contrast REASON FOR EXAMINATION: Fever; ; CLINICAL HISTORY: Fever.; ; TECHNIQUE: Multiple axial CT images were obtained through the abdomen and pelvis without administrat; ion of oral or IV contrast material.; ; COMMENTS:; Correlation is made with the prior study dated 09/27/2016.; ; There is slight hepatic hypoattenuation compatible with fatty infiltration. There is no intra or ext; rahepatic biliary ductal dilatation. The spleen is normal. The gallbladder is distended. Gallstone; s are seen. Gallbladder wall is upper limits of normal. Please correlate clinically to exclude wastewater operator; arlyn cholecystitis. The pancreas is of normal contour and attenuation characteristics. There is no e; vidence of adrenal mass.; ; Both kidneys are severely atrophic. A 3 mm nonobstructing calculus noted in the lower pole of left k; idney. Bilateral renal cysts are present. Small fat containing umbilical hernia is seen. No renal; or ureteral calculi are identified. There is no hydroureter or hydronephrosis.; ; There is no evidence for appendicitis. There is no bowel wall thickening. No evidence for small or l; arge bowel obstruction. There is no evidence of abdominal ascites or lymphadenopathy. There are flu; id filled mildly thick walled loops of small bowel noted compatible with mild enteritis.; ; There is no evidence of intrinsic or extrinsic bladder mass. There is no pelvic ascites or lymphaden; opathy.; ; Prostate gland is moderately enlarged containing calcifications. Fat containing right inguinal herni; a is seen. There is a small left inguinal hernia containing fat and fluid. There is a massive left; hydrocele noted. It now measures 12 cm, previously 11 cm.; ; Small right pleural effusion is seen. Opacity is noted in right lung base may represent atelectasis; versus pneumonia. Heart is mildly enlarged.; ; The bony structures are free of lytic or blastic lesions. Multilevel degenerative changes are seen i; nvolving the thoracolumbar spine.; ; Scattered calcifications are seen involving the aorta and major branches compatible with atherosclero; sis.; ; IMPRESSION:; 1. Small right pleural effusion is seen. Opacity is noted in right lung base may represent atelecta; sis versus pneumonia.; 2. Heart is mildly enlarged.; 3. Both kidneys are severely atrophic. A 3 mm nonobstructing calculus noted in the lower pole of le; ft kidney.; 4. Bilateral renal cysts are present.; 5. Small fat containing umbilical hernia is seen; 6. There are fluid filled mildly thick walled loops of small bowel noted compatible with mild enteri; tis.; 7. Prostate gland is moderately enlarged containing calcifications. Fat containing right inguinal h; ernia is seen. There is a small left inguinal hernia containing fat and fluid. There is a massive l; eft hydrocele noted. It now measures 12 cm, previously 11 cm.; 8. The gallbladder is distended. Gallstones are seen. Gallbladder wall is upper limits of normal.; Please correlate clinically to exclude chronic cholecystitis.; 9. There is slight hepatic hypoattenuation compatible with fatty infiltration; ; ; Thank you for your kind referral of this patient. We appreciate the opportunity to participate in thi; s patient's care.; ; ; Outcome: 21:15 Decision to Hospitalize by Provider. mm11 23:15 Discharge Assessment: Patient awake, alert and oriented x 3. No cognitive and/or js15 functional deficits noted. Patient verbalized understanding of disposition instructions. patient administered narcotics - no. The following High Risk Discharge criteria are identified: None. Admitted to PCU accompanied by nurse, accompanied by tech, via stretcher, on monitor, with chart. Condition: unchanged. CT Study completed. Property :Personal belongings accompany Pt. 23:18 Patient left the ED. js15 Signatures: Dispatcher [employer] EDMS Adela Hernandez, Brand Leader Unit lbd Arian Dee DO DO mm11 Arian Snow, RN RN ml6 Estrella Smyth br3 Yady Gomes, CORE STRIPPER CORE STRIPPER ar3 Kathi Santillan, CORE STRIPPER CORE STRIPPER Temi Hills, RN RN mk4 Tania Giron,RN RN js15 Jessica Patel, CORE STRIPPER CORE STRIPPER ls3 Diana East DO DO jo4 Shruthi Johnson, Reg Reg ks16 Corrections: (The following items were deleted from the chart) 14:48 14:44 Home Meds: Levaquin 250 mg Oral tab every 48 hours; mk4 mk4 15:41 14:44 Home Meds: warfarin 5 mg oral tab once daily; 5mg on and none wed . 5mg mk4 th and today; mk4 15: 14:44 Home Meds: Aleve 220 mg Oral cap daily; mk4 4 15:41 14:44 Home Meds: sodium polystrene sulfonate 15 g / 60 ml; mk4 4 21:59 21:29 BLOOD CULTURES sent. js15 EDMS MTDD
[2016-09-29 23:30] VITALS: BP 138/71
[2016-09-29] MEDS ORDERED: SODIUM CHLORIDE 0.9% 1000 ML IV ONE (23:33)
--- NOTE | 2016-09-30 00:06 | PHACANCOPD ---
PHARMACY VANCOMYCIN DOSING Pt Demographics Demographics Patient Age:81 , Weight: , Gender: male Adjusted Body Weight Date: 09/30/16, Adjusted Body Weight: [69] Kg Events Past 24 Hours Events Past 24 Hours: NO: Change in CrCl, Dialysis, Diuretic Therapy, Elevation in WBC, Fever, Other, Pending Diagnostics, Pending Procedures Vancomycin Vancomycin Target Ranges: 15-20 mcg/ml Vancomycin Load Y/N: Yes Load Dose Date Time Vancomycin Load Dose: 1750 MG Date: 09-29 Time: 2300 Vancomycin Dose Date: 09/30/16. Current Vancomycin Dose: [INT DOSING] Intermittent Dosing?: Yes Labs Labs Item Value Date Time White Blood Count 5.9 K/mm3 09/29/16 171 Creatinine 3.66 MG/DL H 09/29/16 1719 Blood Urea Nitrogen 13 MG/DL 09/29/16 1719 Micro Microbiology 09/29/16 Blood Culture, Received Pending 09/29/16 Blood Culture, Received Pending 09/29/16 Gram Stain, Received Pending 09/29/16 Sputum Culture, Received Pending 09/29/16 Influenza Virus Type A Antigen - Final, Complete 09/29/16 Influenza Virus Type B Antigen - Final, Complete Creatinine Clearance Date:09/30/16. Creatinine Clearance: [15].DIALYSIS Pending Labs Random 1-18 am Assessment and Plan Maintaining Current Dose?: Yes Reason for dose change: No Dose Change Pharmacist Note Pharmacist Note Date: 09/30/16. Pharmacist note:Dosing intermittent per levels. first random 1- 18 in am. Will continue to monitor and make adjustments as needed [facility] Sep 30, 2016 00:06
[2016-09-30] MEDS: WARFARIN SOD 5 MG TAB PO SCH ×2 (00:14→16:24)
[2016-09-30] MEDS: HEPARIN SOD (PORCINE) 5000 UNITS/ML VIAL SC SCH ×3 (00:14→22:45)
[2016-09-30] MEDS ORDERED: VANCOMYCIN INTERMITTENT/PULSE DOSING BY CLINICAL PHARMACIST PER DOSING PROTOCOL XX SCH (00:15)
[2016-09-30 05:14] VITALS: BP 105/58
[2016-09-30 06:15] LABS: BASO % 0.6 % (0.0-1.0); EOS # 0.1 K/mm3 (0.0-0.50); EOS % 1.2 % (0.0-3.0); LARGE UNSTAINED CELL # 0.1 K/mm3 (0.0-0.4); LARGE UNSTAINED CELL % 1.8 % (0.0-4.0); LYMPH # 0.9 K/mm3 (1.5-4.5); LYMPH % 11.5 % (24.0-44.0); MEAN CORPUSCULAR HEMOGLOBIN 31.1 pg (27.0-33.0); MEAN CORPUSCULAR HGB CONC 31.2 g/dl (32.0-36.5); MEAN CORPUSCULAR VOLUME 99.8 fl (80.0-96.0); MONO # 0.6 K/mm3 (0.0-0.8); NEUTROPHILS % 75.9 % (36.0-66.0); PLATELET COUNT, AUTOMATED 159 k/mm3 (150-450); RED CELL DISTRIBUTION WIDTH 16.4 % (11.5-14.5); WHITE BLOOD COUNT 6.6 K/mm3 (4.0-10.0)
[2016-09-30 06:23] LABS: INR 1.61
[2016-09-30 06:38] LABS: ALBUMIN 2.7 GM/DL (3.2-5.2); ALBUMIN/GLOBULIN RATIO 0.77 (1.00-1.93); BILIRUBIN,TOTAL 0.5 MG/DL (0.2-1.0); CALCIUM LEVEL 8.2 MG/DL (8.8-10.2); CREATININE FOR GFR 4.7 MG/DL (0.70-1.30); GLOMERULAR FILTRATION RATE 12.9 (>42); TOTAL PROTEIN 6.2 GM/DL (6.4-8.2)
[2016-09-30 08:00] VITALS: BP 116/66
--- NOTE | 2016-09-30 08:04 | ECGEPIP ---
Stationary ECG Study [facility] - ED Test Date: 2016-09-29 Pat Name: KODY PELAYO Department: Room: [place] [address] Gender: M Pe Teacher: korey : 1935 Requested By: ASHLEY Coates Order Number: [id number] Reading MD: Jerri Joseph Measurements Intervals [place] Rate: 97 P: [place]: 0 QRS: 57 QRSD: 97 T: 30 QT: 350 QTc: 445 Interpretive Statements ATRIAL FIBRILLATION ABNORMAL RHYTHM ECG INCREASED RATE 09/25/16 Electronically Signed On 09-30-2016 8:03:43 EST by Jerri Joseph
[2016-09-30] MEDS: OCUVITE 1 TAB PO SCH (08:42)
[2016-09-30] MEDS: SIMVASTATIN 10 MG TAB PO SCH (08:42)
[2016-09-30 12:00] VITALS: BP 118/62
[2016-09-30] MEDS ORDERED: VANCOMYCIN HCL 1,000 MG, VIAL MATE ADAPTER 1 EACH in D5W 250 ML IV SCH (13:45)
[2016-09-30] MEDS ORDERED: OSELTAMIVIR PHOSPHATE 75 MG CAP (TAMIFLU) PO SCH (14:00)
--- NOTE | 2016-09-30 14:06 | CR.PDOC ---
[facility] Consultation Consultation DATE OF ADMISSION: 09/28/2016 DATE OF CONSULTATION: 09/29/2016 ATTENDING PHYSICIAN: Dr. Clare Ahumada Consulting Physician: Dr Yamel Swanson MD REASON FOR CONSULTATION/CHIEF COMPLAINT: End stage renal disease on hemodialysis HISTORY OF PRESENT ILLNESS: Mr. Bell is a 81 year old male with past medical history significant for end-stage renal disease on hemodialysis Wednesday and Wednesday, atrial fibrillation on chronic anticoagulation, anemia and chronic renal disease, acute acalculous cholecystitis, history of septic shock who was recently discharged from the hospital on 09/28 for anemia. He had his normal dialysis session yesterday and was subsequently told to come to the emergency department. Apparently he had been feeling weak and his had to help him get out of bed. He had also developed a productive cough with yellowish sputum the day before his dialysis session. No hemoptysis. He had a temperature. He denied any chills, shortness of breath, chest pain, chest pressure. No nausea, vomiting, diarrhea, abdominal pain, headache, dizziness, rash or other skin lesions. In the emergency department, he had imaging which showed possible pneumonia. He was subsequently admitted to the hospital and started on IV antibiotics. Nephrology consult was requested for maintenance of scheduled dialysis. PAST MEDICAL HISTORY: End-stage renal disease on hemodialysis Wednesday and Wednesday, atrial fibrillation on chronic anticoagulation, anemia and chronic renal disease, acute acalculous cholecystitis, history of septic shock, hyperlipidemia, benign prostatic hypertrophy, osteoarthritis PAST SURGICAL HISTORY: Cholecystostomy tube placement and removal, right total knee replacement, left inguinal hernia repair, AV fistula, colonoscopy ALLERGIES: No known drug allergies HOME MEDICATIONS: Please see below. FAMILY HISTORY: Negative for end-stage renal disease SOCIAL HISTORY: Patient is a former smoker. Denies any excessive alcohol use or illicit drug use. He is and lives with his . REVIEW OF SYSTEMS: CONSTITUTIONAL: Positive for weakness. No chills. He had a temperature in the emergency department. HEENT: Negative for headache, lightheadedness, dizziness, acute changes to vision or hearing CARDIOVASCULAR: Negative for chest pain/pressure, no shortness of breath with exertion. No orthopnea or paroxysmal nocturnal dyspnea. RESPIRATORY: Negative for shortness of breath. Positive for productive sputum. No hemoptysis GENITOURINARY: Negative for dysuria or hematuria. Patient does urinate a little bit still. History of benign prostatic hypertrophy. MUSCULOSKELETAL: No unusual muscle or joint pains. He has chronic arthritis. GASTROINTESTINAL: Negative for nausea, vomiting, diarrhea, abdominal pain, hematochezia, melena. SKIN: No unusual rashes or skin lesion. NEUROLOGICAL: No syncope. No history of CVA. ENDOCRINE: No history of diabetes or thyroid disorder. HEMATOLOGIC/LYMPHATIC: No excessive bleeding or bruising. He does have history of anemia. PHYSICAL EXAMINATION: VITAL SIGNS: Temperature 98.0, pulse 110, respiratory rate 20, blood pressure 116/66, pulse ox 96% on room air, weight 73.1 KG, height 170.18 cm GENERAL APPEARANCE: Alert and oriented 3. In no acute distress. HEENT: Normocephalic, atraumatic. Extra ocular muscles are intact. Pupils are equally round and reactive to light. No scleral icterus. Moist mucosa. RESPIRATORY: Positive for rhonchi and expiratory wheezing. CARDIOVASCULAR: Irregular heart sounds. No murmur was appreciated ABDOMEN: Soft, nontender, nondistended. Bowel sounds are present. No rebound, guarding or rigidity. EXTREMITIES: No cyanosis or significant lower extremity edema. Positive pedal pulses bilaterally. Left upper extremity AV fistula appears intact. NEUROLOGICAL: Alert and oriented 3. No focal deficits. Cranial nerves II through XII are grossly intact. Moving all extremities. PSYCHIATRIC: normal mood and affect LABORATORY DATA: 09/30/16 05:44 Red Blood Count 2.85 L, Mean Corpuscular Volume 99.8 H, Mean Corpuscular Hemoglobin 31.1, Mean Corpuscular Hemoglobin Concent 31.2 L, Red Cell Distribution Width 16.4 H, Prothromb Time International Ratio 1.61, Prothrombin Time 19.2H, Aspartate Amino Transf (AST/SGOT) 16, Alanine Aminotransferase (ALT/ SGPT) 13, Alkaline Phosphatase 75, Total Bilirubin 0.5, Albumin 2.7L, Albumin/ Globulin Ratio 0.77L, Anion Gap 8, Total Protein 6.2L, Blood Urea Nitrogen 21#H , Creatinine 4.70H, Sodium Level 140, Potassium Level 4.0, Chloride Level 101, Carbon Dioxide Level 31, Random Vancomycin Level 29.7 MICROBIOLOGY: Influenza type A and B antigen on 09/29 negative. Sputum culture and blood culture pending. IMAGING: Chest x-ray done on 09/29 revealed cardiomegaly, mild fissural thickening. CT done on 09/29 revealed small right pleural effusion, right basilar consolidation compatible with atelectasis or pneumonia, heart moderately enlarged, end-stage osteoarthritic changes. Abdomen/pelvis CT on revealed that both kidneys were severely atrophic, 3 mm nonobstructing calculus noted in the lower pole of left kidney, bilateral renal cysts, small fat-containing umbilical hernia, fluid-filled mildly thick walled loops of small bowel compatible with mild enteritis, prostate gland is moderately enlarged containing calcifications, inguinal hernia present, slight hepatic hypoattenuation compatible with fatty infiltration. ASSESSMENT/PLAN: 1. End-stage renal disease on hemodialysis Wednesday, and Saturdays. Volume status appears stable. Electrolytes stable. Next Hemodialysis session will be 10/01. 2. Healthcare associated pneumonia. Patient is currently on cefepime and vancomycin. 3. History of anemia in end-stage renal disease. Hemoglobin is currently stable. 4. Atrial fibrillation on chronic anticoagulation with Coumadin. He does not appear to be on a beta amy. INR is subtherapeutic. 5. Hyperlipidemia. Patient is on Zocor. Thank you for the consultation and allowing us to participate in the care of Mr. Bell. We will continue to follow along with you. Allergies Coded Allergies: No Known Allergies (Verified , 11/04/12) Home Medications Scheduled (Dialyvite 800/Ultra D) 1 Tab Tab 1 TAB PO DAILY (Reported) Simvastatin (Simvastatin) 10 Mg Tab 10 MG PO DAILY (Reported) Warfarin Sod (Warfarin Sodium) 5 Mg Tab 5 MG PO DAILY (Reported) SINCE DISCHARGE ON 09/28, TOOK IT @ 1700 Scheduled PRN Naproxen Sodium (Aleve) 220 Mg Tab 220 MG PO BID PRN PRN PAIN (Reported) GME ATTESTATION GME ATTESTATION My preceptor for this patient encounter was physically present in the building during the encounter and was fully available. As needed, all aspects of the patient interview, examination, medical decision making process, and medical care plan development were reviewed and approved by the preceptor. Preceptor is aware and concurs with the plan as stated in the body of this note and will attest to such by his/her cosignature. ATTENDING NOTE Nephrology attending: Pt was seen and examined this AM during work rounds. I agree with the above assessment and recommendations. JEN ARELLANO DO Sep 30, 2016 14:06 YAMEL SWANSON MD Sep 30, 2016 18:13
[2016-09-30] MEDS: CHECK TO SEE IF PATIENT IS RECEIVING DIALYSIS TODAY AND REFER TO THE VANCOMYCIN ORDER XX SCH (15:30)
[2016-09-30 16:00] VITALS: BP 136/70
[2016-09-30] MEDS: OSELTAMIVIR 6 MG/ML 60ML SUSP PO SCH (16:25)
[2016-09-30 19:31] VITALS: BP 122/73
--- NOTE | 2016-09-30 19:50 | IPN ---
DATE: 09/30/2016 Patient admitted yesterday for generalized weakness, coughing, found to have right sided lobar pneumonia. Patient continues to feel weak. Denies any chest pain, pressure or discomfort. Denies any fevers or chills. Continues to have a mild cough, productive of milky sputum. VITAL SIGNS: Temperature 98.3, pulse 100, respirations 20, blood pressure 118/62, pulse oximetry 96% on room air. LABORATORY: WBC 6.6, hemoglobin 8.9, hematocrit 28.4, and platelets 159. Chemistry with sodium 140, potassium 4.0, chloride 101, bicarbonate 31, BUN 21, creatinine 4.7, PHYSICAL EXAMINATION: GENERAL: Patient is alert and oriented times three. In no acute distress. HEENT: Normocephalic, atraumatic. PULMONARY: Coarse breath sounds bilateral base. ABDOMEN: Soft, nontender, nondistended. Positive bowel sounds. EXTREMITIES: No significant edema bilateral lower extremities. ASSESSMENT AND PLAN: This is a 81-year-old patient discharged three days ago from the hospital with symptomatic anemia, underlying medical history of atrial fibrillation on anticoagulation. History of symptomatic bradycardia. Encephalopathy secondary to cholecystitis with acute acalculous cholecystitis status-post cholecystectomy tube placement which was recently removed subsequently secondary to acute cholecystitis. Anemia requiring transfusions, end stage renal disease on hemodialysis, Wednesday, , Wednesday. Admitted for health care associated bacterial pneumonia. PROBLEMS: 1. Health care associated bacterial pneumonia. CT scan appreciated. Started on cefepime and vancomycin. Followup cultures. Blood cultures, sputum culture, Methicillin-resistant Staphylococcus aureus (MRSA) screening, respiratory panel. Followup C-reactive protein. 2. Influenza-A. Started on Tamiflu. Continue to monitor. 3. End-stage renal disease. Nephrology consulted. Continuation of dialysis. 4. History of anemia. Followup hemoglobin and hematocrit. Transfuse as needed. 5. Dyslipidemia. Continue statin. 6. Atrial fibrillation. Patient is reasonably well rate controlled. Has history of bradyarrhythmia. Subtherapeutic INR. Continue Coumadin. Followup INR. 7. Deep venous thrombosis (DVT) prophylaxis. Will place the patient on Heparin subcu prior to therapeutic INR. DISPOSITION: Pending clinical improvement. Will get physical therapy.
[2016-09-30 23:35] VITALS: BP 129/74
[2016-10-01 04:25] VITALS: BP 116/66
[2016-10-01 05:55] LABS: BASO % 0.4 % (0.0-1.0); EOS # 0.2 K/mm3 (0.0-0.50); EOS % 3.2 % (0.0-3.0); LARGE UNSTAINED CELL # 0.1 K/mm3 (0.0-0.4); LARGE UNSTAINED CELL % 2.7 % (0.0-4.0); LYMPH # 0.9 K/mm3 (1.5-4.5); LYMPH % 17.1 % (24.0-44.0); MEAN CORPUSCULAR HEMOGLOBIN 31.9 pg (27.0-33.0); MEAN CORPUSCULAR HGB CONC 33.1 g/dl (32.0-36.5); MEAN CORPUSCULAR VOLUME 96.3 fl (80.0-96.0); MONO # 0.4 K/mm3 (0.0-0.8); MONO % 7.7 % (0.0-5.0); NEUTROPHILS # 3.5 K/mm3 (1.8-7.7); PLATELET COUNT, AUTOMATED 139 k/mm3 (150-450)
[2016-10-01 05:58] LABS: INR 1.41
[2016-10-01 06:12] LABS: ALBUMIN 2.6 GM/DL (3.2-5.2); ALBUMIN/GLOBULIN RATIO 0.7 (1.00-1.93); BILIRUBIN,TOTAL 0.5 MG/DL (0.2-1.0); CALCIUM LEVEL 7.9 MG/DL (8.8-10.2); CREATININE FOR GFR 6.58 MG/DL (0.70-1.30); GLOMERULAR FILTRATION RATE 8.7 (>42); POTASSIUM SERUM 3.9 MEQ/L (3.5-5.1); TOTAL PROTEIN 6.3 GM/DL (6.4-8.2)
[2016-10-01 08:00] VITALS: BP 102/74
[2016-10-01] MEDS ORDERED: DIGOXIN INJ 0.5 MG/2 ML AMP (J1160) IV STA (08:23)
[2016-10-01] MEDS: OCUVITE 1 TAB PO SCH (08:41)
[2016-10-01] MEDS: HEPARIN SOD (PORCINE) 5000 UNITS/ML VIAL SC SCH ×2 (08:42→22:25)
[2016-10-01] MEDS: ATENOLOL 25 MG TAB PO SCH (08:42)
[2016-10-01] MEDS: SIMVASTATIN 10 MG TAB PO SCH (08:42)
[2016-10-01] MEDS ORDERED: HEPARIN 1,000 UNITS/ML 10ML VIAL (FOR RADIOLOGY& DIALYSIS ONLY) IV ONE (10:45)
[2016-10-01] MEDS ORDERED: DARBEPOETIN 100 MCG/0.5 ML *DIALYSIS* SYRINGE (J0882) IV SCH (11:00)
--- NOTE | 2016-10-01 11:32 | IPN ---
DATE OF SERVICE: 10/01/2016 SUBJECTIVE: Patient was seen and examined this morning during hemodialysis procedure. Patient was tolerating the hemodialysis procedure well. There were no active complaints. The last 24 events were noted. Patient was found to have influenza A positive on the respiratory vital panel. He was started on Tamiflu. He reports that his shortness of breath symptoms and fevers are getting better. He continues to be on intravenous (IV) antibiotics as well. REVIEW OF SYSTEMS: Patient denies any fever or chills, rigors, headache, nausea, vomiting, or chest pain. He does report some shortness of breath and cough, but is improving compared to yesterday. He denies any abdominal pain, constipation, diarrhea. The rest of the review of systems is negative. OBJECTIVE: VITAL SIGNS: Temperature 96.4 degrees Fahrenheit. There is no fever spike in the last 24 hours. Blood pressure 02/74, pulse 66, but he has been fluctuating between tachycardia and bradycardia, and his pulse rates have been going up to 130s, respiratory rate of 18, saturating 97% on room air. INTAKE AND OUTPUT: Urine output was 225 mL yesterday, 100 mL so far today. Weight in the bed scale is 72.5 kg. PHYSICAL EXAMINATION: GENERAL: Patient is awake, alert, oriented times three, wearing a face mask, laying down, getting hemodialysis. No apparent distress. HEAD AND NECK EXAMINATION: Extraocular muscles intact. Pupils equally, round and reactive to light. Neck is supple. Mucous membranes are moist. There is no jugular venous distention (JVD). CARDIOVASCULAR: S1, S2. Irregularly irregular heart rate. No murmurs, rubs or gallops. RESPIRATORY: Patient has coarse crepitations and some expiratory rhonchi at the bases; right is worse than the left. ABDOMEN: Soft. Positive bowel sounds. Nontender. No ascites. No organomegaly. EXTREMITIES: No clubbing or cyanosis. Pulses are 2+. CENTRAL NERVOUS SYSTEM: No focal neurological deficit. Power is 5/5 in all extremities. PSYCHIATRIC: Normal mood and affect. ATRIOVENTRICULAR (AV) ACCESS: Patient has a left upper extremity AV fistular, which is being used for dialysis at this time. LABORATORY REVIEW: Complete blood count (CBC) showed WBC 5, hemoglobin 9.1, platelets 139. INR 1.4. Basic metabolic panel (BMP) showed sodium 139, potassium 3.9, chloride 100, bicarbonate 29, BUN 34, creatinine 6.5, calcium 7.9, albumin 2.6. MICROBIOLOGY: Respiratory viral panel is positive for influenza A. IMAGING: A CAT scan of the chest done yesterday showed a right basilar consolidation comparable with pneumonia. CURRENT MEDICATIONS: Patient's current medications were all reviewed by me. He is currently on: - IV vancomycin - cefepime - He was given digoxin 0.25 mg IV one dose because of atrial fibrillation with rapid ventricular response - He has been started on atenolol 25 mg by mouth daily - He is also on Tamiflu 30 mg by mouth daily ASSESSMENT: A 81-year-old male with past medical history of end-stage renal disease on hemodialysis, every Tuesdays, , Saturdays. He was admitted yesterday with fevers, chills, rigors, and cough. He was empirically being treated for healthcare-associated pneumonia, but yesterday he came back positive for influenza A. PLAN: 1. End-stage renal disease on hemodialysis. Patient is being dialyzed according to his regular schedule today. Ultrafiltration goal will be around 2 liters and I shall dialyze him against a 3 potassium bath, because serum potassium is 3.9. 2. Pneumonia secondary to influenza A. Patient has been started on Tamiflu. He is also on empiric vancomycin and cefepime for supra-added bacterial infection. Continue the empiric bridge at this time. 3. Atrial fibrillation with rapid ventricular response. Patient is already on Coumadin. INR is subtherapeutic. He was given a dose of digoxin IV today and he has been started on Tenormin. Heart rate during hemodialysis is in low 90s at this time, which is acceptable. 4. Anemia secondary to end-stage renal disease. Patient's hemoglobin is below target. It is 9.1 today. I am going to give him a dose of Aranesp with hemodialysis.
[2016-10-01] MEDS: CHECK TO SEE IF PATIENT IS RECEIVING DIALYSIS TODAY AND REFER TO THE VANCOMYCIN ORDER XX SCH (11:33)
[2016-10-01 11:41] LABS: DIGOXIN LEVEL 3.5 NG/ML (0.5-2.0)
--- NOTE | 2016-10-01 11:42 | PHACANCOPD ---
PHARMACY VANCOMYCIN DOSING Pt Demographics Demographics Patient Age:81 , Weight:72.500 , Gender: male Adjusted Body Weight Date: 09/30/16, Adjusted Body Weight: [69] Kg Events Past 24 Hours Events Past 24 Hours: YES: Dialysis, NO: Change in CrCl, Diuretic Therapy, Elevation in WBC, Fever, Other, Pending Diagnostics, Pending Procedures Vancomycin Vancomycin Target Ranges: 15-20 mcg/ml Vancomycin Load Y/N: Yes Load Dose Date Time Vancomycin Load Dose: 1750 MG Date: 09-29 Time: 2300 Vancomycin Dose Date: 10/01/16. Current Vancomycin Dose: [1GM AFTER HD] Date: 09/30/16. Current Vancomycin Dose: [INT DOSING] Intermittent Dosing?: Yes Labs Labs Item Value Date Time White Blood Count 6.6 K/mm3 09/30/16 0544 White Blood Count 5.0 K/mm3 10/01/16 0538 Creatinine 4.70 MG/DL H 09/30/16 0544 Creatinine 6.58 MG/DL H 10/01/16 0538 Random Vancomycin Level 29.7 UG/ML 09/30/16 0544 Micro Microbiology 09/29/16 Blood Culture - Preliminary, Resulted No growth after 24 hours . All specim... 09/29/16 Blood Culture - Preliminary, Resulted No growth after 24 hours . All specim... 09/30/16 MRSA Screen, Received Pending 09/30/16 Respiratory Virus Panel (PCR) (LUCIAN) - Final, Complete Influenza A H3 09/29/16 Gram Stain - Final, Resulted 09/29/16 Sputum Culture, Resulted Pending 09/29/16 Influenza Virus Type A Antigen - Final, Complete 09/29/16 Influenza Virus Type B Antigen - Final, Complete Creatinine Clearance Date:09/30/16. Creatinine Clearance: [15].DIALYSIS Pending Labs RANDOM 10/02 AM Random 1-18 am Assessment and Plan Maintaining Current Dose?: Yes Reason for dose change: No Dose Change Pharmacist Note Pharmacist Note 10/02: Patient received a 1750mg load initially then changed to Vancomycin 1gm IV after hemodialysis on dialysis days. Patient received 1 gram of Vancomycin yesterday on a non-dialysis day. Spoke to patient's nurse today, Rodríguez, and advised her not give patient any Vancomycin today after dialysis due to his levels probably being okay. A random is ordered for Wednesday morning before next dialysis session. We will continue to monitor and make adjustments as necessary. Date: 09/30/16. Pharmacist note:Dosing intermittent per levels. first random 1- 18 in am. Will continue to monitor and make adjustments as needed [facility] Oct 01, 2016 11:42
[2016-10-01 14:00] VITALS: BP 140/80
[2016-10-01 16:00] VITALS: BP 115/61
[2016-10-01] MEDS ORDERED: WARFARIN SOD 3 MG TAB PO SCH (17:00)
[2016-10-01] MEDS: OSELTAMIVIR 6 MG/ML 60ML SUSP PO SCH (17:23)
[2016-10-01] MEDS ORDERED: OSELTAMIVIR 6 MG/ML 60ML SUSP PO SCH (17:56)
[2016-10-01 19:31] VITALS: BP 115/63
--- NOTE | 2016-10-01 21:25 | IPN ---
DATE: 10/01/2016 SUBJECTIVE: Patient seen and examined. No acute events overnight. Telemetry reported atrial fibrillation (Afib) with rapid ventricular response this morning. The patient denies any chest pain, pressure, discomfort. He was comfortable. Denies any fevers or chills. VITAL SIGNS: Temperature 97.4, pulse currently back down to 80, was before 150-130, respirations 18, blood pressure 115/61, pulse oximetry 98% on room air. LABORATORY DATA: WBC 5, hemoglobin and hematocrit 9.1 over 27.3, platelets 139. Chemistry: Sodium 139, potassium 3.9, chloride 100, bicarbonate 29, BUN 3.4, creatinine 6.58. Cardiac enzymes negative times two. PHYSICAL EXAMINATION: GENERAL: Patient alert and oriented times three, no acute distress. HEENT: Normocephalic, atraumatic. PULMONARY: Coarse breath sounds bilateral bases. ABDOMEN: Soft, nontender, nondistended. Positive bowel sounds. EXTREMITIES: No edema on either lower extremity. ASSESSMENT AND PLAN: This is a 81-year-old patient discharged three days prior to readmission to the hospital for symptomatic anemia. Underlying history of atrial fibrillation on anticoagulation, history of symptomatic bradycardia, encephalopathy secondary to cholecystitis and acute acalculous cholecystitis status post cholecystectomy, tube placement, which was recently removed. Subsequently secondary acute cholecystitis, anemia requiring transfusion, end-stage renal disease on hemodialysis Wednesday, , Wednesday, admitted for healthcare-associated bacterial pneumonia. 1. Healthcare-associated bacterial pneumonia. CT scan appreciated. Started on cefepime and vancomycin. Followup blood cultures, sputum culture. Methicillin-resistant Staphylococcus aureus (MRSA) screen negative. Vancomycin has been discontinued. Respiratory panel shows influenza. Followup C-reactive protein. 2. Influenza A. Tamiflu renally dosed. Continue to monitor. 3. End-stage renal disease. Nephrology consulted. Continue dialysis. 4. History of anemia. Continue to follow hemoglobin and hematocrit. Transfuse as needed. 5. Dyslipidemia. Continue statin. 6. Atrial fibrillation with rapid ventricular response. Case discussed with Dr. Shrestha. One dose of digoxin was given. Digoxin is actually elevated. As per Dr. Shrestha, the patient has been on atenolol; the patient does have a history of bradyarrhythmia on the medical record. We will discontinue digoxin. Continue atenolol. Monitor patient on telemetry. As per Dr. Shrestha, given additional dose of atenolol as needed. Followup digoxin level tomorrow. Subtherapeutic international normalized ratio (INR). Continue Coumadin. Followup INR. 7. Deep venous thrombosis (DVT) prophylaxis. Place the patient on heparin subcutaneously until INR is therapeutic. DISPOSITION: Pending clinical improvement, better control of atrial fibrillation, physical therapy, and cultures.
[2016-10-01] MEDS: CEFEPIME HCL 1 GM in D5W MINI-BAG PLUS 50 ML IV SCH (22:25)
[2016-10-02] VITALS (7 sets, daily range): BP systolic 102–124; BP diastolic 56–72
--- NOTE | 2016-10-02 00:19 | EDDOCDS ---
Physician Documentation [facility] Name: Amaury Bell Age: 81 yrs Sex: Male : 1935 Arrival Date: 09/29/2016 Time: 13:59 Bed 7 Private MD: Mily Bartholomew P Disposition: 09/29 17:17 I have independently interviewed and examined the patient, and I agree with the pc investigation, diagnosis and treatment plan as documented by the Resident. Disposition: 09/29/16 21:15 Hospitalization ordered by Connor Matthews for Inpatient Admission. Preliminary diagnosis is Other pneumonia, unspecified organism - healthcare associated. - Bed requested for PCU. - Status is Inpatient Admission. js15 - Condition is Stable. - Problem is an acute exacerbation. - Symptoms have improved. Historical: - Allergies: no known allergies; - Home Meds: 1. simvastatin 10 mg Oral tab nightly 2. Dialyvite 800-Ultra D 0.8-2,000 mg-unit oral tab daily 3. Aleve 220 mg Oral cap as needed 4. warfarin 5 mg Oral tab once daily (Last dose: 09/28/2016) - PMHx: Atrial Fib; Renal Failure w/ Dialysis; - PSHx: fistula left wrist; shunt placement; Total Knee Replacemet, Right (Jul 2015); Hernia repair (July 2016); - Social history: No barriers to communication noted, The patient speaks fluent Lithuanian, Smoking status: Patient states former smoker of tobacco. - Family history: Not pertinent. - : The pt / caregiver states he / she is on anticoagulants: coumadin. Home medication list is obtained from the facility NOV. - Exposure Risk Screening:: None identified. Vital Signs: 14:05 BP 140 / 82 (auto/); mk4 14:07 Pulse 134 MON; Pulse Ox 93% ; mk4 14:10 BP 140 / 82; Pulse 136; Resp 22; Temp 103.0(O); Pulse Ox 92% on R/A; ar3 14:21 BP 112 / 64 (auto/); mk4 14:21 Pulse 58 MON; Pulse Ox 98% ; mk4 14:35 BP 119 / 69 (auto/); mk4 14:35 Pulse 122 MON; Pulse Ox 94% ; mk4 14:50 BP 149 / 83 (auto/); mk4 14:51 Pulse 118 MON; Pulse Ox 93% ; mk4 15:05 BP 148 / 77 (auto/); mk4 15:05 Pulse 118 MON; Pulse Ox 93% ; mk4 15:09 BP 140 / 72 (auto/); mk4 15:10 Pulse 120 MON; Pulse Ox 93% ; mk4 15:20 BP 154 / 72 (auto/); mk4 15:21 Pulse 114 MON; Pulse Ox 94% ; mk4 15:35 BP 152 / 72 (auto/); mk4 15:36 Pulse 122 MON; Pulse Ox 93% ; mk4 15:50 BP 123 / 75 (auto/); mk4 15:51 Pulse 112 MON; Pulse Ox 94% ; mk4 16:05 BP 125 / 62 (auto/); mk4 16:06 Pulse 120 MON; Pulse Ox 94% ; mk4 16:20 BP 110 / 59 (auto/); mk4 16:20 Pulse 124 MON; Pulse Ox 93% ; mk4 18:16 Temp 99.4(O); ar3 19:05 BP 130 / 73 (auto/); js15 19:06 Pulse 104 MON; Pulse Ox 97% ; js15 19:20 BP 125 / 87 (auto/); js15 19:20 Pulse 106 MON; Pulse Ox 97% ; js15 19:35 BP 124 / 71 (auto/); js15 19:36 Pulse 106 MON; Pulse Ox 98% ; js15 19:50 BP 116 / 69 (auto/); js15 19:51 Pulse 98 MON; Pulse Ox 97% ; js15 20:05 BP 104 / 65 (auto/); js15 20:06 Pulse 100 MON; Pulse Ox 97% ; js15 20:20 BP 109 / 60 (auto/); js15 20:21 Pulse 94 MON; Pulse Ox 95% ; js15 20:35 BP 105 / 60 (auto/); js15 20:36 Pulse 102 MON; Pulse Ox 95% ; js15 20:50 BP 103 / 66 (auto/); js15 20:50 Pulse 100 MON; Pulse Ox 96% ; js15 21:05 BP 107 / 60 (auto/); js15 21:05 Pulse 94 MON; Pulse Ox 95% ; js15 21:15 Weight 73.03 kg / 161 lbs; ls3 21:20 BP 112 / 55 (auto/); js15 21:20 Pulse 94 MON; Pulse Ox 94% ; js15 21:35 BP 120 / 72 (auto/); js15 21:35 Pulse 102 MON; Pulse Ox 95% ; js15 21:50 BP 130 / 77 (auto/); js15 21:50 Pulse 98 MON; Pulse Ox 98% ; js15 21:57 Temp 99.1(O); js15 22:26 BP 135 / 73; Pulse 98 MON; Resp 18; Temp 99.1(O); Pulse Ox 96% ; Pain 0/10; js15 MDM: 15:28 Acetaminophen Tablet 650 mg PO once ordered. jo4 16:28 CBC with Diff Ordered. EDMS 16:28 BMP Ordered. EDMS 16:28 Liver Profile Ordered. EDMS 16:28 Obtain sample by nasopharyngeal swab ordered. jo4 16:28 Chest, 2 View (pa\E\lat) Ordered. EDMS 16:29 -Influenza A&B Rapid Antigen - Nose Ordered. EDMS 17:17 -Influenza A&B Rapid Antigen - Nose Reviewed. pc 17:27 LIPASE Ordered. EDMS 17:32 Financial registration complete. gjb 17:35 CBC with Diff Reviewed. pc 17:35 Chest, 2 View (pa\E\lat) Reviewed. pc 18:02 [facility] [place] [facility] Payment Agreement was scanned into [employer] and attached to record. [email or web address] 18:11 BMP Reviewed. pc 18:11 Liver Profile Reviewed. pc 18:11 LIPASE Reviewed. pc 18:14 Repeat Temperature - Oral: Inform provider of result ordered. pc 18:15 US Gallbladder Ordered. EDMS 18:49 CT Chest Without Contrast Ordered. EDMS 18:49 CT ABD & PELVIS: No Contrast Ordered. EDMS 19:02 UA Ordered. EDMS 19:28 US Gallbladder Reviewed. mm11 19:30 UA Reviewed. mm11 19:32 Pt & Aptt Ordered. EDMS 19:32 ECG WITH READING ER PHYS+CARDIAG ordered. EDMS 19:53 BLOOD CULTURES Ordered. EDMS 20:35 Pt & Aptt Reviewed. mm11 20:35 CT Chest Without Contrast Reviewed. mm11 20:35 CT ABD & PELVIS: No Contrast Reviewed. mm11 21:03 BED REQUEST+ADM ordered. EDMS 21:13 Cefepime 1 grams IVPB at 100 mL/hr once over 30 mins; dilute in 50mL of NS or D5W mm11 ordered. 21:13 Misc. Nursing Order ordered. mm11 21:16 -Blood Culture (Adults Only), peripheral from different site, or from device/port/PICC mm11 etc. if present ordered. 21:18 -Blood Culture (Adults Only), peripheral from different site, or from device/port/PICC ml3 etc. if present complete. 21:54 Admission / Observation Status ordered. EDMS 21:55 CBC WITH DIFFERENTIAL Ordered. EDMS 21:55 COMPLETE COMPHRENSIVE METABOLI Ordered. EDMS 21:57 RENAL DIET ordered. EDMS 21:57 LACTIC ACID LEVEL, LACTATE Ordered. EDMS 21:57 PROTHROMBIN TIME PROFILE\E\INR Ordered. EDMS 21:58 SPUTUM CULTURE AND GRAM STAIN Ordered. EDMS 21:58 BLOOD CULTURES Ordered. EDMS 22:11 RESPIRATORY PANEL Ordered. EDMS 22:32 vancomycin (loading dose for pt. wt. 70-79kg) 1750 mg IVPB once ordered. mm11 09/30 09:02 ECG/EKG was scanned into [employer] and attached to record. gb 09:03 T-Sheet-- Draft Copy was scanned into [employer] and attached to record. gb Administered Medications: 09/29 15:39 Drug: Acetaminophen Tablet 650 mg Route: PO; mk4 21:13 CANCELLED (Other Intervention Used): cefTRIAXone 1 grams IVPB once over 30 mins; dilute mm11 in 50mL of NS or D5W 21:56 Drug: Cefepime 1 grams [cefepime 1 gram solution for injection] Route: IVPB; Rate: 100 js15 mL/hr; Infused Over: 30 mins; Site: right wrist; 23:00 Drug: vancomycin (loading dose for pt. wt. 70-79kg) 1750 mg Route: IVPB; Site: right js15 wrist; Signatures: Dispatcher [employer] EDMS Zain Clark MD MD pc Newman, Jill New RN Chel Prabhakar, Reg Reg gb Raul Aparicio, Rehab Rn Unit ml3 Arian Dee, DO DO mm11 Temi Stevens RN RN mk4 Tania Giron RN RN js15 Arlen Corado Jane, DO DO jo4 Shruthi Johnson, Reg Reg ks16 The chart was reviewed and I authenticate all verbal orders and agree with the evaluation and treatment provided.Corrections: (The following items were deleted from the chart) 14:48 14:44 Home Meds: Levaquin 250 mg Oral tab every 48 hours; mk4 mk4 15:41 14:44 Home Meds: warfarin 5 mg oral tab once daily; 5mg on and none wed . 5mg mk4 and today; mk4 15:41 14:44 Home Meds: Aleve 220 mg Oral cap daily; mk4 mk4 15:41 14:44 Home Meds: sodium polystrene sulfonate 15 g / 60 ml; mk4 mk4 17:26 16:29 LIPASE+LAB ordered. EDMS EDMS 21:13 21:01 cefTRIAXone 1 grams IVPB once over 30 mins; dilute in 50mL of NS or D5W ordered. mm11 mm11 21:59 21:19 BLOOD CULTURES ordered. EDMS EDMS Attachments: 18:02 [facility] Payment Agreement [email or web address] 09/30 09:02 ECG/EKG 09:03 T-Sheet-- Draft Copy gb Chart Complete MTDD
--- NOTE | 2016-10-02 00:19 | EDDOCDS ---
Physician Documentation [facility] Name: Amaury Bell Age: 81 yrs Sex: Male : 1935 Arrival Date: 09/29/2016 Time: 13:59 Bed 7 Private MD: Mily Bartholomew P Disposition: 09/29 17:17 I have independently interviewed and examined the patient, and I agree with the pc investigation, diagnosis and treatment plan as documented by the Resident. Disposition: 09/29/16 21:15 Hospitalization ordered by Connor Matthews for Inpatient Admission. Preliminary diagnosis is Other pneumonia, unspecified organism - healthcare associated. - Bed requested for PCU. - Status is Inpatient Admission. js15 - Condition is Stable. - Problem is an acute exacerbation. - Symptoms have improved. Historical: - Allergies: no known allergies; - Home Meds: 1. simvastatin 10 mg Oral tab nightly 2. Dialyvite 800-Ultra D 0.8-2,000 mg-unit oral tab daily 3. Aleve 220 mg Oral cap as needed 4. warfarin 5 mg Oral tab once daily (Last dose: 09/28/2016) - PMHx: Atrial Fib; Renal Failure w/ Dialysis; - PSHx: fistula left wrist; shunt placement; Total Knee Replacemet, Right (Jul 2015); Hernia repair (July 2016); - Social history: No barriers to communication noted, The patient speaks fluent Uzbek, Smoking status: Patient states former smoker of tobacco. - Family history: Not pertinent. - : The pt / caregiver states he / she is on anticoagulants: coumadin. Home medication list is obtained from the facility NOV. - Exposure Risk Screening:: None identified. Vital Signs: 14:05 BP 140 / 82 (auto/); mk4 14:07 Pulse 134 MON; Pulse Ox 93% ; mk4 14:10 BP 140 / 82; Pulse 136; Resp 22; Temp 103.0(O); Pulse Ox 92% on R/A; ar3 14:21 BP 112 / 64 (auto/); mk4 14:21 Pulse 58 MON; Pulse Ox 98% ; mk4 14:35 BP 119 / 69 (auto/); mk4 14:35 Pulse 122 MON; Pulse Ox 94% ; mk4 14:50 BP 149 / 83 (auto/); mk4 14:51 Pulse 118 MON; Pulse Ox 93% ; mk4 15:05 BP 148 / 77 (auto/); mk4 15:05 Pulse 118 MON; Pulse Ox 93% ; mk4 15:09 BP 140 / 72 (auto/); mk4 15:10 Pulse 120 MON; Pulse Ox 93% ; mk4 15:20 BP 154 / 72 (auto/); mk4 15:21 Pulse 114 MON; Pulse Ox 94% ; mk4 15:35 BP 152 / 72 (auto/); mk4 15:36 Pulse 122 MON; Pulse Ox 93% ; mk4 15:50 BP 123 / 75 (auto/); mk4 15:51 Pulse 112 MON; Pulse Ox 94% ; mk4 16:05 BP 125 / 62 (auto/); mk4 16:06 Pulse 120 MON; Pulse Ox 94% ; mk4 16:20 BP 110 / 59 (auto/); mk4 16:20 Pulse 124 MON; Pulse Ox 93% ; mk4 18:16 Temp 99.4(O); ar3 19:05 BP 130 / 73 (auto/); js15 19:06 Pulse 104 MON; Pulse Ox 97% ; js15 19:20 BP 125 / 87 (auto/); js15 19:20 Pulse 106 MON; Pulse Ox 97% ; js15 19:35 BP 124 / 71 (auto/); js15 19:36 Pulse 106 MON; Pulse Ox 98% ; js15 19:50 BP 116 / 69 (auto/); js15 19:51 Pulse 98 MON; Pulse Ox 97% ; js15 20:05 BP 104 / 65 (auto/); js15 20:06 Pulse 100 MON; Pulse Ox 97% ; js15 20:20 BP 109 / 60 (auto/); js15 20:21 Pulse 94 MON; Pulse Ox 95% ; js15 20:35 BP 105 / 60 (auto/); js15 20:36 Pulse 102 MON; Pulse Ox 95% ; js15 20:50 BP 103 / 66 (auto/); js15 20:50 Pulse 100 MON; Pulse Ox 96% ; js15 21:05 BP 107 / 60 (auto/); js15 21:05 Pulse 94 MON; Pulse Ox 95% ; js15 21:15 Weight 73.03 kg / 161 lbs; ls3 21:20 BP 112 / 55 (auto/); js15 21:20 Pulse 94 MON; Pulse Ox 94% ; js15 21:35 BP 120 / 72 (auto/); js15 21:35 Pulse 102 MON; Pulse Ox 95% ; js15 21:50 BP 130 / 77 (auto/); js15 21:50 Pulse 98 MON; Pulse Ox 98% ; js15 21:57 Temp 99.1(O); js15 22:26 BP 135 / 73; Pulse 98 MON; Resp 18; Temp 99.1(O); Pulse Ox 96% ; Pain 0/10; js15 MDM: 15:28 Acetaminophen Tablet 650 mg PO once ordered. jo4 16:28 CBC with Diff Ordered. EDMS 16:28 BMP Ordered. EDMS 16:28 Liver Profile Ordered. EDMS 16:28 Obtain sample by nasopharyngeal swab ordered. jo4 16:28 Chest, 2 View (pa\E\lat) Ordered. EDMS 16:29 -Influenza A&B Rapid Antigen - Nose Ordered. EDMS 17:17 -Influenza A&B Rapid Antigen - Nose Reviewed. pc 17:27 LIPASE Ordered. EDMS 17:32 Financial registration complete. gjb 17:35 CBC with Diff Reviewed. pc 17:35 Chest, 2 View (pa\E\lat) Reviewed. pc 18:02 [facility] [place] Payment Agreement was scanned into [employer] and attached to record. [email or web address] 18:11 BMP Reviewed. pc 18:11 Liver Profile Reviewed. pc 18:11 LIPASE Reviewed. pc 18:14 Repeat Temperature - Oral: Inform provider of result ordered. pc 18:15 US Gallbladder Ordered. EDMS 18:49 CT Chest Without Contrast Ordered. EDMS 18:49 CT ABD & PELVIS: No Contrast Ordered. EDMS 19:02 UA Ordered. EDMS 19:28 US Gallbladder Reviewed. mm11 19:30 UA Reviewed. mm11 19:32 Pt & Aptt Ordered. EDMS 19:32 ECG WITH READING ER PHYS+CARDIAG ordered. EDMS 19:53 BLOOD CULTURES Ordered. EDMS 20:35 Pt & Aptt Reviewed. mm11 20:35 CT Chest Without Contrast Reviewed. mm11 20:35 CT ABD & PELVIS: No Contrast Reviewed. mm11 21:03 BED REQUEST+ADM ordered. EDMS 21:13 Cefepime 1 grams IVPB at 100 mL/hr once over 30 mins; dilute in 50mL of NS or D5W mm11 ordered. 21:13 Misc. Nursing Order ordered. mm11 21:16 -Blood Culture (Adults Only), peripheral from different site, or from device/port/PICC mm11 etc. if present ordered. 21:18 -Blood Culture (Adults Only), peripheral from different site, or from device/port/PICC ml3 etc. if present complete. 21:54 Admission / Observation Status ordered. EDMS 21:55 CBC WITH DIFFERENTIAL Ordered. EDMS 21:55 COMPLETE COMPHRENSIVE METABOLI Ordered. EDMS 21:57 RENAL DIET ordered. EDMS 21:57 LACTIC ACID LEVEL, LACTATE Ordered. EDMS 21:57 PROTHROMBIN TIME PROFILE\E\INR Ordered. EDMS 21:58 SPUTUM CULTURE AND GRAM STAIN Ordered. EDMS 21:58 BLOOD CULTURES Ordered. EDMS 22:11 RESPIRATORY PANEL Ordered. EDMS 22:32 vancomycin (loading dose for pt. wt. 70-79kg) 1750 mg IVPB once ordered. mm11 09/30 09:02 ECG/EKG was scanned into [employer] and attached to record. gb 09:03 T-Sheet-- Draft Copy was scanned into [employer] and attached to record. gb Administered Medications: 09/29 15:39 Drug: Acetaminophen Tablet 650 mg Route: PO; mk4 21:13 CANCELLED (Other Intervention Used): cefTRIAXone 1 grams IVPB once over 30 mins; dilute mm11 in 50mL of NS or D5W 21:56 Drug: Cefepime 1 grams [cefepime 1 gram solution for injection] Route: IVPB; Rate: 100 js15 mL/hr; Infused Over: 30 mins; Site: right wrist; 23:00 Drug: vancomycin (loading dose for pt. wt. 70-79kg) 1750 mg Route: IVPB; Site: right js15 wrist; Signatures: Dispatcher [employer] EDMS Zain Clark MD MD pc Newman, Jill New RN Chel Prabhakar, Reg Reg gb Raul Aparicio, Stained Glass Artist Unit ml3 Arian Dee, DO DO mm11 Temi Stevens RN RN mk4 Tania Giron RN RN js15 Arlen Corado Jane, DO DO jo4 Shruthi Johnson, Reg Reg ks16 The chart was reviewed and I authenticate all verbal orders and agree with the evaluation and treatment provided.Corrections: (The following items were deleted from the chart) 14:48 14:44 Home Meds: Levaquin 250 mg Oral tab every 48 hours; mk4 mk4 15:41 14:44 Home Meds: warfarin 5 mg oral tab once daily; 5mg on and none wed . 5mg mk4 and today; mk4 15:41 14:44 Home Meds: Aleve 220 mg Oral cap daily; mk4 mk4 15:41 14:44 Home Meds: sodium polystrene sulfonate 15 g / 60 ml; mk4 mk4 17:26 16:29 LIPASE+LAB ordered. EDMS EDMS 21:13 21:01 cefTRIAXone 1 grams IVPB once over 30 mins; dilute in 50mL of NS or D5W ordered. mm11 mm11 21:59 21:19 BLOOD CULTURES ordered. EDMS EDMS Attachments: 18:02 [facility] Payment Agreement [email or web address] 09/30 09:02 ECG/EKG 09:03 T-Sheet-- Draft Copy gb Chart Complete MTDD
--- NOTE | 2016-10-02 00:20 | EDDOCDS ---
Nurse's Notes [facility] Name: Amaury Bell Age: 81 yrs Sex: Male : 1935 Arrival Date: 09/29/2016 Time: 13:59 Bed 7 Private MD: Mily Bartholomew P Diagnosis: Other pneumonia, unspecified organism-healthcare associated Presentation: 09/29 14:37 Presenting complaint: EMS states: pt was discharged from [facility] yesterday for anemia had a mk4 blood transfusion and felt fine on discharge,, this am he woke up and legs felt wobbly went to dialysis where he developed a fever and prod cough, was sent here after dialysis for eval. 14:39 Adult Sepsis Screening: The patient does not have new or worsening altered mentation. mk4 Patient has a respiratory rate of greater than or equal to 22 (1 point). Systolic blood pressure is greater than 100. Patient has a qSOFA score of 1- Negative Sepsis Screen. Patient has cough and/or SOB- Positive Sepsis Screen. Notified Zain Clark MD Patient made CHRISTOS Level 2. Patient placed in exam room. Charge nurse notified. 14:39 Acuity: CHRISTOS Level 2 mk4 15:13 Suicide/Homicide risk assessment- the patient denies having any suicidal and/or mk4 homicidal ideations and does not present with any other emotional, behavioral or mental health complaints. 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 Transition of care: patient was not received from another setting of care. 15:13 Method Of Arrival: Ambulance mk4 Triage Assessment: 14:44 General: Appears in no apparent distress. Pain: Denies pain. Cardiovascular: Rhythm is mk4 sinus tachycardia No ectopy. Historical: - Allergies: no known allergies; - Home Meds: 1. simvastatin 10 mg Oral tab nightly 2. Dialyvite 800-Ultra D 0.8-2,000 mg-unit oral tab daily 3. Aleve 220 mg Oral cap as needed 4. warfarin 5 mg Oral tab once daily (Last dose: 09/28/2016) - PMHx: Atrial Fib; Renal Failure w/ Dialysis; - PSHx: fistula left wrist; shunt placement; Total Knee Replacemet, Right (Jul 2015); Hernia repair (July 2016); - Social history: No barriers to communication noted, The patient speaks fluent Kinyarwanda, Smoking status: Patient states former smoker of tobacco. - Family history: Not pertinent. - : The pt / caregiver states he / she is on anticoagulants: coumadin. Home medication list is obtained from the facility MAR. - Exposure Risk Screening:: None identified. Screenin:20 Screening information is obtained from family members. Fall risk: At risk due to mk4 current illness. The following interventions are performed due to a positive Fall Risk Screen: Fall Risk is added to Special Handling on the patient Summary Screen. A Fall Risk Bracelet was applied to the patient. Side Rails are placed in the up position. A Call Vega is given with instruction to call for help when getting out of bed. Fall Alert bracelet is placed on the patient. Assistance ADL's: Requires assistance with meal preparation, this assistance is provided by family members, housework, assistance is provided by family members, medication administration, assistance is provided by family members. Abuse/DV Screen: The patient / caregiver reports he/she is: not in a situation that causes fear, pain or injury. Nutritional screening: On renal diet. home support is adequate. 23:03 Advance Directives: Currently, there is a health care proxy, Heber Bell- . js15 Assessment: 14:20 General: Appears ill, Behavior is cooperative. Respiratory: Airway is patent mk4 Respiratory effort is even, Respiratory pattern is regular, tachypnea Reports cough that is productive, persistent since this am. 15:20 General: Appears in no apparent distress, comfortable, Behavior is cooperative. mk4 Respiratory: Respiratory effort is even, unlabored, Respiratory pattern is regular, pt respiration easy at rest. 16:43 General: Appears in no apparent distress, comfortable, Behavior is cooperative, mk4 sleeping but awakens readily, alert and oriented , family at bedside , sao2 93-94 % on room air. 18:46 General: Appears in no apparent distress, comfortable, returned from ultrasound , pt mk4 sleeping but arouses readily . 19:20 General: Appears in no apparent distress, comfortable, Behavior is appropriate for age, js15 cooperative. Pain: Denies pain. Neurological: Level of Consciousness is awake, alert, obeys commands, Oriented to person, place, time. Cardiovascular: Rhythm is regular. Respiratory: Airway is patent Respiratory effort is even, unlabored, Respiratory pattern is regular, symmetrical. Derm: Skin is intact. 20:30 Reassessment: Patient appears in no apparent distress at this time. Pt resting quietly js15 on stretcher with eyes closed, family at bedside; respirations even and unlabored; will continue to monitor. 21:30 Reassessment: Patient appears in no apparent distress at this time. Pt resting on js15 stretcher, talking with family at bedside; respirations even and unlabored; skin warm, dry, intact. 22:45 General: Appears in no apparent distress, to be sleeping. Cardiovascular: Rhythm is js15 atrial fibrillation. Respiratory: Airway is patent Respiratory effort is even, unlabored, Respiratory pattern is regular, symmetrical. Derm: Skin is intact. Vital Signs: 14:05 BP 140 / 82 (auto/); mk4 14:07 Pulse 134 MON; Pulse Ox 93% ; mk4 14:10 BP 140 / 82; Pulse 136; Resp 22; Temp 103.0(O); Pulse Ox 92% on R/A; ar3 14:21 BP 112 / 64 (auto/); mk4 14:21 Pulse 58 MON; Pulse Ox 98% ; mk4 14:35 BP 119 / 69 (auto/); mk4 14:35 Pulse 122 MON; Pulse Ox 94% ; mk4 14:50 BP 149 / 83 (auto/); mk4 14:51 Pulse 118 MON; Pulse Ox 93% ; mk4 15:05 BP 148 / 77 (auto/); mk4 15:05 Pulse 118 MON; Pulse Ox 93% ; mk4 15:09 BP 140 / 72 (auto/); mk4 15:10 Pulse 120 MON; Pulse Ox 93% ; mk4 15:20 BP 154 / 72 (auto/); mk4 15:21 Pulse 114 MON; Pulse Ox 94% ; mk4 15:35 BP 152 / 72 (auto/); mk4 15:36 Pulse 122 MON; Pulse Ox 93% ; mk4 15:50 BP 123 / 75 (auto/); mk4 15:51 Pulse 112 MON; Pulse Ox 94% ; mk4 16:05 BP 125 / 62 (auto/); mk4 16:06 Pulse 120 MON; Pulse Ox 94% ; mk4 16:20 BP 110 / 59 (auto/); mk4 16:20 Pulse 124 MON; Pulse Ox 93% ; mk4 18:16 Temp 99.4(O); ar3 19:05 BP 130 / 73 (auto/); js15 19:06 Pulse 104 MON; Pulse Ox 97% ; js15 19:20 BP 125 / 87 (auto/); js15 19:20 Pulse 106 MON; Pulse Ox 97% ; js15 19:35 BP 124 / 71 (auto/); js15 19:36 Pulse 106 MON; Pulse Ox 98% ; js15 19:50 BP 116 / 69 (auto/); js15 19:51 Pulse 98 MON; Pulse Ox 97% ; js15 20:05 BP 104 / 65 (auto/); js15 20:06 Pulse 100 MON; Pulse Ox 97% ; js15 20:20 BP 109 / 60 (auto/); js15 20:21 Pulse 94 MON; Pulse Ox 95% ; js15 20:35 BP 105 / 60 (auto/); js15 20:36 Pulse 102 MON; Pulse Ox 95% ; js15 20:50 BP 103 / 66 (auto/); js15 20:50 Pulse 100 MON; Pulse Ox 96% ; js15 21:05 BP 107 / 60 (auto/); js15 21:05 Pulse 94 MON; Pulse Ox 95% ; js15 21:15 Weight 73.03 kg; ls3 21:20 BP 112 / 55 (auto/); js15 21:20 Pulse 94 MON; Pulse Ox 94% ; js15 21:35 BP 120 / 72 (auto/); js15 21:35 Pulse 102 MON; Pulse Ox 95% ; js15 21:50 BP 130 / 77 (auto/); js15 21:50 Pulse 98 MON; Pulse Ox 98% ; js15 21:57 Temp 99.1(O); js15 22:26 BP 135 / 73; Pulse 98 MON; Resp 18; Temp 99.1(O); Pulse Ox 96% ; Pain 0/10; js15 Vitals: 14:44 Log In Time N/A - ambulance arrival. 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 Pulse ox on. NIBP on. mk4 14:00 No procedures done that require assistance. mk4 14:01 Patient visited by Adela Hernandez, Credit Counselor. lbd 14:01 Patient moved to Waiting lbd 14:02 Mily Bartholomew is Private Physician. lbd 14:02 Patient moved to 7 lbd 14:10 Patient visited by Yady Gomes PCA. ar3 14:14 Diana East DO is PHCP. jo4 14:14 Zain Clark MD is Attending Physician. jo4 14:40 Triage Initiated mk4 14:45 Patient visited by Temi Stevens, ALONZO. mk4 15:17 Patient visited by Temi Stevens, ALONZO. mk4 15:20 The patient / caregiver is instructed regarding the plan of care and ED course. mk4 15:20 Inserted saline lock: 20 gauge in right forearm. mk4 15:30 Patient visited by Diana East DO. jo4 16:01 Patient visited by Arian Snow, ALONZO. ml6 16:22 Patient visited by Temi Stevens RN. mk4 16:41 -Influenza A&B Rapid Antigen - Nose Sent. mk4 17:03 Patient visited by Temi Stevens RN. mk4 17:27 Chest, 2 View (pa\E\lat) Returned. EDMS 17:45 Patient visited by Arian Snow RN. ml6 18:02 [facility] Payment Agreement was scanned into [employer] and attached to record. ks16 18:17 Patient visited by Yady Gomes PCA. ar3 18:22 Patient moved to Ultrasound br3 18:40 Patient moved to 7 br3 18:50 Patient visited by Temi Stevens RN. mk4 19:12 UA Sent. js15 19:18 US Gallbladder Returned. EDMS 19:27 Attending Physician role handed off by Zain Clark MD mm11 19:27 Arian Dee DO is Attending Physician. mm11 19:38 Patient visited by Kathi Santillan PCA. jovanny 19:38 EKG done. (by ED staff). Reviewed by Arian Dee DO. jovanny 20:15 CT ABD & PELVIS: No Contrast Returned. EDMS 20:15 CT Chest Without Contrast Returned. EDMS 20:45 Patient visited by Kathi Santillan PCA. jovanny 21:15 Connor Matthews MD is Hospitalizing Provider. mm11 09/30 09:02 ECG/EKG was scanned into [employer] and attached to record. gb 09:03 T-Sheet-- Draft Copy was scanned into [employer] and attached to record. gb Administered Medications: 09/29 15:39 Drug: Acetaminophen Tablet 650 mg Route: PO; mk4 21:13 CANCELLED (Other Intervention Used): cefTRIAXone 1 grams IVPB once over 30 mins; dilute mm11 in 50mL of NS or D5W 21:56 Drug: Cefepime 1 grams [cefepime 1 gram solution for injection] Route: IVPB; Rate: 100 js15 mL/hr; Infused Over: 30 mins; Site: right wrist; 23:00 Drug: vancomycin (loading dose for pt. wt. 70-79kg) 1750 mg Route: IVPB; Site: right js15 wrist; Order Results: Lab Order: CBC with Diff; SPEC'M 09/29/16 17:19 Test: WHITE BLOOD COUNT; Value: 5.9; Range: 4.0-10.0; Units: K/mm3; Status: F Test: RED BLOOD COUNT; Value: 2.83; Range: 4.30-6.10; Abnormal: Below low normal; Units: M/mm3; Status: F Test: HEMOGLOBIN; Value: 9.0; Range: 14.0-18.0; Abnormal: Below low normal; Units: g/dl; Status: F Test: HEMATOCRIT; Value: 27.8; Range: 42.0-52.0; Abnormal: Below low normal; Units: %; Status: F Test: MEAN CORPUSCULAR VOLUME; Value: 98.2; Range: 80.0-96.0; Abnormal: Above high normal; Units: fl; Status: F Test: MEAN CORPUSCULAR HEMOGLOBIN; Value: 31.8; Range: 27.0-33.0; Units: pg; Status: F Test: MEAN CORPUSCULAR HGB CONC; Value: 32.3; Range: 32.0-36.5; Units: g/dl; Status: F Test: RED CELL DISTRIBUTION WIDTH; Value: 16.4; Range: 11.5-14.5; Abnormal: Above high normal; Units: %; Status: F Test: PLATELET COUNT, AUTOMATED; Value: 158; Range: 150-450; Units: k/mm3; Status: F Test: NEUTROPHILS %; Value: 80.8; Range: 36.0-66.0; Abnormal: Above high normal; Units: %; Status: F Test: LYMPH %; Value: 7.4; Range: 24.0-44.0; Abnormal: Below low normal; Units: %; Status: F Test: MONO %; Value: 8.4; Range: 0.0-5.0; Abnormal: Above high normal; Units: %; Status: F Test: EOS %; Value: 0.6; Range: 0.0-3.0; Units: %; Status: F Test: BASO %; Value: 1.0; Range: 0.0-1.0; Units: %; Status: F Test: LARGE UNSTAINED CELL %; Value: 1.8; Range: 0.0-4.0; Units: %; Status: F Test: NEUTROPHILS #; Value: 4.8; Range: 1.8-7.7; Units: K/mm3; Status: F Test: LYMPH #; Value: 0.5; Range: 1.5-4.5; Abnormal: Below low normal; Units: K/mm3; Status: F Test: MONO #; Value: 0.5; Range: 0.0-0.8; Units: K/mm3; Status: F Test: EOS #; Value: 0.0; Range: 0.0-0.50; Units: K/mm3; Status: F Test: BASO #; Value: 0.1; Range: 0.0-0.2; Units: K/mm3; Status: F Test: LARGE UNSTAINED CELL #; Value: 0.1; Range: 0.0-0.4; Units: K/mm3; Status: F Lab Order: [facility]'M 09/29/16 17:19 Test: GLUCOSE, FASTING; Value: 95; Range: 83-110; Units: MG/DL; Status: F Test: BLOOD UREA NITROGEN; Value: 13; Range: 7-18; Units: MG/DL; Status: F Test: CREATININE FOR GFR; Value: 3.66; Range: 0.70-1.30; Abnormal: Above high normal; Units: MG/DL; Status: F Test: GLOMERULAR FILTRATION RATE; Value: 17.2; Range: >42; Abnormal: Below low normal; Status: F Test: SODIUM LEVEL; Value: 143; Range: 136-145; Units: MEQ/L; Status: F Test: POTASSIUM SERUM; Value: 3.8; Range: 3.5-5.1; Units: MEQ/L; Status: F Test: CHLORIDE LEVEL; Value: 100; Range: 98-107; Units: MEQ/L; Status: F Test: CARBON DIOXIDE LEVEL; Value: 34; Range: 21-32; Abnormal: Above high normal; Units: MEQ/L; Status: F Test: ANION GAP; Value: 9; Range: 8-16; Units: MEQ/L; Status: F Test: CALCIUM LEVEL; Value: 8.7; Range: 8.8-10.2; Abnormal: Below low normal; Units: MG/DL; Status: F Test Note: ; Units are mL/min/1.73 m2 Chronic Kidney Disease Staging per NKF: Stage I & II GFR >=60 Normal to Mildly Decreased Stage III GFR 30-59 Moderately Decreased Stage IV GFR 15-29 Severely Decreased Stage V GFR <15 Very Little GFR Left ESRD GFR <15 on SUPERVISOR PASTRY Lab Order: Liver Profile; SPEC'M 09/29/16 17:19 Test: AST/SGOT; Value: 15; Range: 15-37; Units: U/L; Status: F Test: ALT/SGPT; Value: 15; Range: 12-78; Units: U/L; Status: F Test: ALKALINE PHOSPHATASE; Value: 88; Range: 45-117; Units: U/L; Status: F Test: BILIRUBIN,TOTAL; Value: 0.5; Range: 0.2-1.0; Units: MG/DL; Status: F Test: BILIRUBIN,DIRECT; Value: 0.2; Range: 0.0-0.2; Units: MG/DL; Status: F Test: TOTAL PROTEIN; Value: 6.3; Range: 6.4-8.2; Abnormal: Below low normal; Units: GM/DL; Status: F Test: ALBUMIN; Value: 3.1; Range: 3.2-5.2; Abnormal: Below low normal; Units: GM/DL; Status: F Test: ALBUMIN/GLOBULIN RATIO; Value: 0.97; Range: 1.00-1.93; Abnormal: Below low normal; Status: F Lab Order: -Influenza A&B Rapid Antigen - Nose; SPEC'M 09/29/16 16:37 Test: INFLUENZA A RAPID SCR by ICA; Value: INFLUENZA A RESULTS NEGATIVE; Status: F Test: INFLUENZA A RAPID SCR by ICA; Value: Comments:; Status: F Test: INFLUENZA B RAPID SCR by ICA; Value: INFLUENZA B RESULTS NEGATIVE; Status: F Test Note: ; The Influenza test is a direct rapid immunoassay for the qualitative detection of Influenza viral antigen. Cell culture (Viral Culture) testing should be considered to confirm NEGATIVE results and to assist in detecting other viruses that can provide similar clinical symptoms. Please contact the lab within 24 hours ([phone]) if confirmatory testing is desired. Lab Order: LIPASE; SPEC'M 09/29/16 17:19 Test: LIPASE; Value: 151; Range: 73-393; Units: U/L; Status: F Lab Order: UA; SPEC'M 09/29/16 19:10 Test: APPEARANCE, URINE; Value: CLEAR; Range: CLEAR; Status: F Test: COLOR, URINE; Value: YELLOW; Range: YELLOW; Status: F Test: PH,URINE; Value: 9.0; Range: 5.0-9.0; Units: UNITS; Status: F Test: SPECIFIC GRAVITY URINE AUTO; Value: 1.011; Range: 1.002-1.035; Status: F Test: PROTEIN, URINE AUTO; Value: 2+; Range: NEGATIVE; Abnormal: Above high normal; Units: mg/dL; Status: F Test: GLUCOSE, URINE (UA) AUTO; Value: 2+; Range: NEGATIVE; Abnormal: Above high normal; Units: mg/dL; Status: F Test: KETONE, URINE AUTO; Value: TRACE; Range: NEGATIVE; Abnormal: Above high normal; Units: mg/dL; Status: F Test: UROBILINOGEN, URINE AUTO; Value: 0.2; Range: 0.0-2.0; Units: mg/dL; Status: F Test: BILIRUBIN, URINE AUTO; Value: NEGATIVE; Range: NEGATIVE; Status: F Test: NITRITE, URINE AUTO; Value: NEGATIVE; Range: NEGATIVE; Status: F Test: LEUKOCYTE ESTERASE, URINE AUTO; Value: NEGATIVE; Range: NEGATIVE; Status: F Test: BLOOD, URINE BLOOD; Value: NEGATIVE; Range: NEGATIVE; Status: F Test: WBC, URINE AUTO; Value: 0; Range: 0-3; Units: /HPF; Status: F Test: RBC, URINE AUTO; Value: 0; Range: 0-3; Units: /HPF; Status: F Test: BACTERIA, URINE AUTO; Value: 1+; Range: NEGATIVE; Abnormal: Above high normal; Status: F Test: SQUAMOUS EPITHELIAL CELL UR AU; Value: 1; Range: 0-6; Units: /HPF; Status: F Test: HYALINE CAST, URINE AUTO; Value: 0; Range: 0-1; Units: /LPF; Status: F Lab Order: Pt & Aptt; SPEC'M 09/29/16 17:18 Test: PROTHROMBIN TIME; Value: 19.3; Range: 12.3-14.5; Abnormal: Above high normal; Units: SECONDS; Status: F Test: INR; Value: 1.62; Status: F Test: PARTIAL THROMBOPLASTIN TIME; Value: 48.5; Range: 26.6-37.1; Abnormal: Above high normal; Units: SECONDS; Status: F Test Note: ; THERAPUTIC HUMAN INR VALUES INDICATIONS NORMAL RANGES PROPHYLAXIS/TREATMENT OF: VENOUS THROMBOSIS 2.0-3.0 PULMONARY EMBOLISM 2.0-3.0 PREVENTION OF SYSTEMIC EMBOLISM FROM: TISSUE HEART VALVES 2.0-3.0 ACUTE MYOCARDIAL INFARCTION 2.0-3.0 VALVULAR HEART DISEASE 2.0-3.0 ATRIAL FIBRILLATION 2.0-3.0 MECHANICAL VALVES(HIGH RISK) 2.5-3.5 RECURRENT MYOCARDIAL INFARCTION 2.5-3.5 Lab Order: LACTIC ACID LEVEL, LACTATE; SPEC'M 09/29/16 17:19 Test: LACTIC ACID LEVEL, LACTATE; Value: 0.9; Range: 0.4-2.0; Units: MMOL/L; Status: F Radiology Order: Chest, 2 View (pa\E\lat) Test: Chest, 2 View (pa\E\lat) REASON FOR EXAMINATION: Fever, cough; Chest x-ray: Two views:; ; History: Fever and cough.; ; Comparison chest x-ray 07/29/2016; ; Findings: EKG monitoring electrodes overlie the chest. The heart is mildly; enlarged and unchanged from the comparison study. Pleural angles are sharp.; There is mild fissural thickening but no free pleural effusion is seen. No focal; infiltrate is observed. The aorta is calcific and tortuous as before. There is; advanced osteoarthritis of the shoulders, particularly on the left where there; are very large osteophytes again noted.; ; Impression:; ; Cardiomegaly. Mild fissural thickening. No focal infiltrate.; ; ; ; ; Unreviewed; Radiology Order: US Gallbladder Test: US Gallbladder REASON FOR EXAMINATION: Biliary Colic; ; Findings:; No gallstones are present. The common duct is 4.3 mm. The exam is somewhat limited because of bowel; gas and patient confusion.; Pancreas is not well-seen because of bowel gas.; The right kidney is 8.5 x 5.2 x 5.5 cm. There is no mass or stone or hydronephrosis.; There is no hepatic mass. There is some increased echogenicity consistent with fatty changes.. Ther; e is no focal mass.; Impression:; 1. No gallstones. Normal caliber common duct. Normal right kidney. No hepatic mass. Changes cons; istent with fatty liver.; ; Radiology Order: CT Chest Without Contrast Test: CT Chest Without Contrast REASON FOR EXAMINATION: Fever; ; CLINICAL HISTORY: Fever.; ; TECHNIQUE: Multiple axial CT images were obtained through the thorax without IV contrast material.; ; COMMENTS:; There is no evidence of pleural or parenchymal-based mass. Small right pleural effusion is seen. Th; e right basilar consolidation is seen compatible with atelectasis or atelectasis or pneumonia. There; is no evidence of hilar or mediastinal lymphadenopathy. The heart is moderately enlarged. Diffuse; coronary calcifications are present.; ; The visualized portions of the liver are of uniform attenuation without mass or defect. There is no; intra or extrahepatic biliary ductal dilatation. The spleen is unremarkable. The visualized pancrea; s is of normal contour and attenuation characteristics. There is no evidence of adrenal mass. The v; isualized portions of the kidneys present no abnormalities.; ; The bony structures are free of lytic or blastic lesions. There are end-stage osteoarthritic changes; noted involving left glenohumeral joint. There are found destructive changes noted. Consider correl; ation with MRI.; ; IMPRESSION:; 1. Small right pleural effusion is seen. The right basilar consolidation is seen compatible with at; electasis or pneumonia.; 3. The heart is moderately enlarged. Diffuse coronary calcifications are present.; 3. There are end-stage osteoarthritic changes noted involving left glenohumeral joint. There are fo; und destructive changes noted. Consider correlation with MRI.; ; ; Thank you for your kind referral of this patient. We appreciate the opportunity to participate in thi; s patient's care.; ; ; Radiology Order: CT ABD & PELVIS: No Contrast Test: CT ABD & PELVIS: No Contrast REASON FOR EXAMINATION: Fever; ; CLINICAL HISTORY: Fever.; ; TECHNIQUE: Multiple axial CT images were obtained through the abdomen and pelvis without administrat; ion of oral or IV contrast material.; ; COMMENTS:; Correlation is made with the prior study dated 09/27/2016.; ; There is slight hepatic hypoattenuation compatible with fatty infiltration. There is no intra or ext; rahepatic biliary ductal dilatation. The spleen is normal. The gallbladder is distended. Gallstone; s are seen. Gallbladder wall is upper limits of normal. 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 The pancreas is of normal contour and attenuation characteristics. There is no e; vidence of adrenal mass.; ; Both kidneys are severely atrophic. A 3 mm nonobstructing calculus noted in the lower pole of left k; idney. Bilateral renal cysts are present. Small fat containing umbilical hernia is seen. No renal; or ureteral calculi are identified. There is no hydroureter or hydronephrosis.; ; There is no evidence for appendicitis. There is no bowel wall thickening. No evidence for small or l; arge bowel obstruction. There is no evidence of abdominal ascites or lymphadenopathy. There are flu; id filled mildly thick walled loops of small bowel noted compatible with mild enteritis.; ; There is no evidence of intrinsic or extrinsic bladder mass. There is no pelvic ascites or lymphaden; opathy.; ; Prostate gland is moderately enlarged containing calcifications. Fat containing right inguinal herni; a is seen. There is a small left inguinal hernia containing fat and fluid. There is a massive left; hydrocele noted. It now measures 12 cm, previously 11 cm.; ; Small right pleural effusion is seen. Opacity is noted in right lung base may represent atelectasis; versus pneumonia. Heart is mildly enlarged.; ; The bony structures are free of lytic or blastic lesions. Multilevel degenerative changes are seen i; nvolving the thoracolumbar spine.; ; Scattered calcifications are seen involving the aorta and major branches compatible with atherosclero; sis.; ; IMPRESSION:; 1. Small right pleural effusion is seen. Opacity is noted in right lung base may represent atelecta; sis versus pneumonia.; 2. Heart is mildly enlarged.; 3. Both kidneys are severely atrophic. A 3 mm nonobstructing calculus noted in the lower pole of le; ft kidney.; 4. Bilateral renal cysts are present.; 5. Small fat containing umbilical hernia is seen; 6. There are fluid filled mildly thick walled loops of small bowel noted compatible with mild enteri; tis.; 7. Prostate gland is moderately enlarged containing calcifications. Fat containing right inguinal h; ernia is seen. There is a small left inguinal hernia containing fat and fluid. There is a massive l; eft hydrocele noted. It now measures 12 cm, previously 11 cm.; 8. The gallbladder is distended. Gallstones are seen. Gallbladder wall is upper limits of normal.; Please correlate clinically to exclude chronic cholecystitis.; 9. There is slight hepatic hypoattenuation compatible with fatty infiltration; ; ; Thank you for your kind referral of this patient. We appreciate the opportunity to participate in thi; s patient's care.; ; ; Outcome: 21:15 Decision to Hospitalize by Provider. mm11 23:15 Discharge Assessment: Patient awake, alert and oriented x 3. No cognitive and/or js15 functional deficits noted. Patient verbalized understanding of disposition instructions. patient administered narcotics - no. The following High Risk Discharge criteria are identified: None. Admitted to PCU accompanied by nurse, accompanied by tech, via stretcher, on monitor, with chart. Condition: unchanged. CT Study completed. Property :Personal belongings accompany Pt. 23:18 Patient left the ED. js15 Signatures: Dispatcher [employer] EDMS Adela Hernandez, Credit Counselor Unit lbd Chel Pena, Reg Reg Arian Delvalle, DO mm11 Arian Snow, RN RN ml6 Estrella Smyth br3 Yady Gomes, NAPPER FIXER NAPPER FIXER ar3 Kathi Santillan, NAPPER FIXER NAPPER FIXER jovanny Temi Stevens RN RN mk4 Tania Giron,RN RN js15 Jessica Patel, NAPPER FIXER NAPPER FIXER ls3 Diana East, DO jo4 Shruthi Johnson, Reg Reg ks16 Corrections: (The following items were deleted from the chart) 14:48 14:44 Home Meds: Levaquin 250 mg Oral tab every 48 hours; 4 4 15:41 14:44 Home Meds: warfarin 5 mg oral tab once daily; 5mg on and none wed . 5mg mk4 and today; 4 15:41 14:44 Home Meds: Aleve 220 mg Oral cap daily; 4 mk4 15:41 14:44 Home Meds: sodium polystrene sulfonate 15 g / 60 ml; 4 4 21:59 21:29 BLOOD CULTURES sent. [id number] EDMS Chart Complete MTDD
[2016-10-02 08:27] LABS: BASO % 0.8 % (0.0-1.0); EOS # 0.2 K/mm3 (0.0-0.50); EOS % 3.2 % (0.0-3.0); LARGE UNSTAINED CELL # 0.1 K/mm3 (0.0-0.4); LARGE UNSTAINED CELL % 2.2 % (0.0-4.0); LYMPH # 1.4 K/mm3 (1.5-4.5); LYMPH % 20.1 % (24.0-44.0); MEAN CORPUSCULAR HEMOGLOBIN 30.8 pg (27.0-33.0); MEAN CORPUSCULAR HGB CONC 31.3 g/dl (32.0-36.5); MEAN CORPUSCULAR VOLUME 98.2 fl (80.0-96.0); MONO # 0.5 K/mm3 (0.0-0.8); MONO % 7.5 % (0.0-5.0); NEUTROPHILS # 4.2 K/mm3 (1.8-7.7); NEUTROPHILS % 66.1 % (36.0-66.0); PLATELET COUNT, AUTOMATED 172 k/mm3 (150-450); WHITE BLOOD COUNT 6.4 K/mm3 (4.0-10.0)
[2016-10-02 08:28] LABS: INR 1.4
[2016-10-02 09:01] LABS: ALBUMIN/GLOBULIN RATIO 0.86 (1.00-1.93); BILIRUBIN,TOTAL 0.4 MG/DL (0.2-1.0); CALCIUM LEVEL 8.7 MG/DL (8.8-10.2); CREATININE FOR GFR 4.69 MG/DL (0.70-1.30); DIGOXIN LEVEL 0.7 NG/ML (0.5-2.0); GLOMERULAR FILTRATION RATE 12.9 (>42); TOTAL PROTEIN 6.5 GM/DL (6.4-8.2)
[2016-10-02] MEDS: ATENOLOL 25 MG TAB PO SCH (10:18)
[2016-10-02] MEDS: SIMVASTATIN 10 MG TAB PO SCH (10:18)
[2016-10-02] MEDS: HEPARIN SOD (PORCINE) 5000 UNITS/ML VIAL SC SCH ×2 (10:19→22:00)
[2016-10-02] MEDS: OCUVITE 1 TAB PO SCH (10:19)
[2016-10-02] MEDS: IPRATROPIUM 0.5MG/ALBUTEROL 2.5MG INH SOL UD 3ML (DUONEB)(J7620) NEB SCH ×2 (13:13→19:38)
[2016-10-02] MEDS: CHECK TO SEE IF PATIENT IS RECEIVING DIALYSIS TODAY AND REFER TO THE VANCOMYCIN ORDER XX SCH (15:03)
[2016-10-02] MEDS: **NOTE PATIENT COMMENT** MISC XX SCH (15:03)
[2016-10-02] MEDS ORDERED: WARFARIN SOD 3 MG TAB PO SCH (17:00)
--- NOTE | 2016-10-02 17:24 | IPNPDOC ---
Date/Time Seen The patient was seen on 10/02/16 at 17:08. Progress Note DATE OF ENCOUNTER: 10/02/2016 SUBJECTIVE: Patient seen this morning at bedside. No acute overnight issues. Patient had hemodialysis yesterday where 2000 mL of fluid was removed. He reports that he still has a cough and some shortness of breath, but that it is improved. Reports that he does continue to feel weak. He reports that he had loose stool this morning. Reports that he is eating and drinking. Review of systems is negative for fever, chills, rigors, chest pain, headache, dizziness, nausea, vomiting, abdominal pain, constipation. OBJECTIVE: Vital Signs Date Time Temp Pulse Resp B/P Pulse Ox O2 Delivery O2 Flow Rate FiO2 10/02/16 16:00 96.5 73 20 111/61 90 Room Air I&O- Last 24 Hours up to 6 AM 10/02/16 06:00 Intake Total 930 ml Output Total 2075 ml Balance -1145 ml PHYSICAL EXAMINATION: GENERAL APPEARANCE: Lying in bed comfortably, in no acute distress. HEENT: Normocephalic, atraumatic. Extraocular muscles are intact. No scleral icterus. Moist mucosa. NECK: Supple. No lymphadenopathy. Trachea is midline. No jugular venous distention appreciated. LUNG: Positive for rhonchi and expiratory wheezing. HEART: Irregular heart sounds. No murmur was appreciated ABDOMEN: Soft, nontender, nondistended. Bowel sounds are present. No rebound, guarding or rigidity. EXTREMITIES: No cyanosis or lower extremity edema. Positive pedal pulses bilaterally. Left upper extremity AV fistula appears intact. NEUROLOGICAL: Alert and oriented 3. No focal deficits. Cranial nerves II through XII are grossly intact. Moving all extremities. LABORATORY DATA: 10/02/16 08:04 Red Blood Count 3.40 L, Mean Corpuscular Volume 98.2 H, Mean Corpuscular Hemoglobin 30.8, Mean Corpuscular Hemoglobin Concent 31.3 L, Red Cell Distribution Width 16.0 H, Calcium Level 8.7L, Aspartate Amino Transf (AST/SGOT ) 25, Alanine Aminotransferase (ALT/SGPT) 22, Alkaline Phosphatase 82, Total Bilirubin 0.4, Total Protein 6.5, Albumin 3.0L, C-Reactive Protein, Quantitative 4.30H, Digoxin Level 0.7, Glomerular Filtration Rate 12.9L, Prothromb Time International Ratio 1.40, Prothrombin Time 17.3H MICROBIOLOGY: Respiratory panel revealed positive influenza A. Sputum culture pending. Blood culture shows no growth thus far. IMAGING: Chest x-ray done on 09/29 revealed cardiomegaly, mild fissural thickening. CT done on 09/29 revealed small right pleural effusion, right basilar consolidation compatible with atelectasis or pneumonia, heart moderately enlarged, end-stage osteoarthritic changes. Abdomen/pelvis CT on revealed that both kidneys were severely atrophic, 3 mm nonobstructing calculus noted in the lower pole of left kidney, bilateral renal cysts, small fat-containing umbilical hernia, fluid filled mildly thick walled loops of small bowel compatible with mild enteritis, prostate gland is moderately enlarged containing calcifications, inguinal hernia present, slight hepatic hypoattenuation compatible with fatty infiltration. ASSESSMENT/PLAN: 1. End-stage renal disease on hemodialysis Wednesday, and Saturdays. Patient had hemodialysis yesterday were 2000 mL was removed. He tolerated it well. Electrolytes are stable. Continue with normal schedule, next hemodialysis session will be on 10/02. 2. Pneumonia secondary to influenza A. Patient is on Tamiflu. He remains on cefepime and vancomycin for added coverage of bacterial infection. Scheduled DuoNeb breathing treatments. 3. Anemia in end-stage renal disease. Hemoglobin is currently stable. He received a dose of Aranesp yesterday during hemodialysis. 4. Atrial fibrillation on chronic anticoagulation with Coumadin. INR is subtherapeutic, being managed by primary team. He is on atenolol and heart rate is better controlled. Digoxin level was elevated yesterday, however it has normalized. GME ATTESTATION GME ATTESTATION My preceptor for this patient encounter was physically present in the building during the encounter and was fully available. As needed, all aspects of the patient interview, examination, medical decision making process, and medical care plan development were reviewed and approved by the preceptor. Preceptor is aware and concurs with the plan as stated in the body of this note and will attest to such by his/her cosignature. ATTENDING NOTE Nephrology: Pt was examined today during rounds. Start Duonebs for pulm congestion. Cont Antivirals and antibiotics. HD in AM as per regular schedule. JEN ARELLANO DO Oct 02, 2016 17:24 YAMEL SWANSON MD Oct 02, 2016 20:52
[2016-10-02] MEDS: WARFARIN SOD 5 MG TAB PO SCH (18:08)
[2016-10-02] MEDS: WARFARIN SOD 2 MG TAB PO SCH (18:08)
--- NOTE | 2016-10-02 18:44 | IPN ---
DATE: 10/02/2016 SUBJECTIVE: Patient seen and examined. No acute events overnight. Continues to have weakness. Denies any fevers or chills. Denies any chest pain, pressure, discomfort. VITAL SIGNS: Temperature 95.7, pulse 71, respirations 19, blood pressure 113/57, pulse oximetry 98% on room air. LABORATORY DATA: WBC 6.4, hemoglobin and hematocrit 10.4 over 33.4, platelets 172. Chemistry: Sodium 140, potassium 4.0, chloride 102, bicarbonate 29, BUN 21, creatinine 4.69. PHYSICAL EXAMINATION: GENERAL: Patient alert and oriented times three, in no acute distress. HEENT: Normocephalic, atraumatic. PULMONARY: Coarse breath sounds bilaterally with rhonchi. CARDIAC: Regular rate and rhythm. Normal S1, S2. No longer tachycardia. ABDOMEN: Soft, nontender, nondistended. Positive bowel sounds. EXTREMITIES: No edema bilateral lower extremities. ASSESSMENT AND PLAN: This is a 81-year-old female patient discharged three days prior to readmission to the hospital, initially admitted to the hospital for symptomatic anemia, underlying history of atrial fibrillation on anticoagulation, history of symptomatic bradycardia, encephalopathy secondary to cholecystitis and acute acalculous cholecystitis with cholecystectomy tube placement which was recently removed, also with secondary acute cholecystitis, anemia requiring transfusion, end-stage renal disease on hemodialysis Wednesday, , Wednesday, admitted for healthcare-associated bacterial pneumonia and influenza. 1. Healthcare-associated bacterial pneumonia. CT scan appreciated. Started on cefepime and vancomycin. Followup blood cultures, sputum culture, methicillin-resistant Staphylococcus aureus (MRSA) screening negative. Vancomycin discontinued. Patient currently on cefepime only. Respiratory panel positive for influenza A. Tamiflu started. Followup C-reactive protein. 2. Influenza A. Tamiflu renally dosed. Continue to monitor. 3. End-stage renal disease. Nephrology consulted for continued hemodialysis. 4. History of anemia. Continue to follow hemoglobin and hematocrit (H and H). Transfuse as needed. 5. Dyslipidemia. Continue statin. 6. Atrial fibrillation with rapid ventricular response. Case discussed with Dr. Shrestha. One dose of digoxin given. Patient with elevated digoxin level. As per Dr. Shrestha, the patient was place on atenolol. The patient was on atenolol as an outpatient. Does have a history of bradyarrhythmia. Will continue to monitor. Telemetry monitoring. Continue Coumadin. Coumadin dose has been increased. Followup international normalized ratio (INR). 7. Deep venous thrombosis (DVT) prophylaxis. The patient on heparin subcutaneously until INR therapeutic. DISPOSITION: Pending clinical improvement, physical therapy.
[2016-10-02] MEDS: CEFEPIME HCL 1 GM in D5W MINI-BAG PLUS 50 ML IV SCH (22:00)
[2016-10-03] MEDS: IPRATROPIUM 0.5MG/ALBUTEROL 2.5MG INH SOL UD 3ML (DUONEB)(J7620) NEB SCH ×4 (02:00→20:00)
[2016-10-03 04:45] VITALS: BP 100/67
[2016-10-03 05:25] LABS: BASO % 0.6 % (0.0-1.0); EOS # 0.2 K/mm3 (0.0-0.50); EOS % 4.6 % (0.0-3.0); LARGE UNSTAINED CELL # 0.2 K/mm3 (0.0-0.4); LARGE UNSTAINED CELL % 3.4 % (0.0-4.0); LYMPH # 1.3 K/mm3 (1.5-4.5); LYMPH % 24.6 % (24.0-44.0); MEAN CORPUSCULAR HEMOGLOBIN 32.1 pg (27.0-33.0); MEAN CORPUSCULAR HGB CONC 33.1 g/dl (32.0-36.5); MONO # 0.4 K/mm3 (0.0-0.8); MONO % 6.9 % (0.0-5.0); NEUTROPHILS # 3.1 K/mm3 (1.8-7.7); NEUTROPHILS % 59.9 % (36.0-66.0); PLATELET COUNT, AUTOMATED 146 k/mm3 (150-450); RED CELL DISTRIBUTION WIDTH 14.9 % (11.5-14.5); WHITE BLOOD COUNT 5.2 K/mm3 (4.0-10.0)
[2016-10-03 05:32] LABS: INR 1.57
[2016-10-03 05:40] LABS: ALBUMIN 2.6 GM/DL (3.2-5.2); ALBUMIN/GLOBULIN RATIO 0.72 (1.00-1.93); BILIRUBIN,TOTAL 0.3 MG/DL (0.2-1.0); CREATININE FOR GFR 6.11 MG/DL (0.70-1.30); GLOMERULAR FILTRATION RATE 9.5 (>42); POTASSIUM SERUM 3.9 MEQ/L (3.5-5.1); TOTAL PROTEIN 6.2 GM/DL (6.4-8.2)
[2016-10-03 08:00] VITALS: BP 109/68
[2016-10-03] MEDS: SIMVASTATIN 10 MG TAB PO SCH (08:18)
[2016-10-03] MEDS: OCUVITE 1 TAB PO SCH (08:18)
[2016-10-03] MEDS ORDERED: HEPARIN 1,000 UNITS/ML 10ML VIAL (FOR RADIOLOGY& DIALYSIS ONLY) IV ONE (10:30)
--- NOTE | 2016-10-03 14:46 | IPN ---
DATE: 10/03/2016 The patient was seen and examined at the bedside today in the morning during hemodialysis procedure. He was tolerating the hemodialysis procedure well. His cough and shortness of breath is also improving. REVIEW OF SYSTEMS: The patient denies any fever, chills, rigors. He does report some cough and shortness of breath which is significantly better since yesterday and he does report improvement in shortness of breath after taking nebulizations. He denies any chest pain. He denies any pain abdomen, constipation, diarrhea. The rest of review of systems is negative. OBJECTIVE: Vital signs: Temperature is 96.7 degrees Fahrenheit, blood pressure is 109/68, pulse is 79, respiratory rate 16, saturating 95% on room air. Intake and output: There is no urine output recorded. Weight on the bed scale is 70.2 kg. PHYSICAL EXAMINATION: GENERAL: The patient is awake, alert and oriented times three. Laying in bed. No apparent distress. HEAD/NECK: Extraocular muscles intact. Pupils equally round and reactive to light. Neck is supple. There is no jugular venous distention (JVD). CARDIOVASCULAR: S1, S2, regular rate. No murmur, rub or gallop. RESPIRATORY: Mild end-expiratory rhonchi bilaterally at the bases. Bilateral equal air entry. ABDOMEN: Soft. Positive bowel sounds. Nontender. No ascites. No organomegaly. EXTREMITIES: No clubbing or cyanosis. Pulses are 2+. CENTRAL NERVOUS SYSTEM: No focal neurological deficit. Power is 5/5 in all extremities. LABORATORY REVIEW: CBC showed a WBC of 5.2, hemoglobin 9.3, platelets are 146. BMP showed sodium 140, potassium 3.9, chloride 105, bicarbonate 27, BUN 29, creatinine 6.1. Calcium 8. CURRENT MEDICATIONS: The patient's medications are all reviewed by me. He continues to be on IV antibiotics and antiviral at this time. His Coumadin dose is being adjusted by primary team. ASSESSMENT: 81-year-old male with past medical history of end-stage renal disease, on hemodialysis every Wednesday, , Wednesday admitted this time because of influenza and pneumonia. PLAN: 1. End-stage renal disease, on hemodialysis. The patient is being dialyzed according to his regular schedule today. We shall try to do an ultrafiltration of 2 liters as tolerated by his blood pressure. He is being dialyzed against a 3K bath. 2. Influenza A pneumonia. Continue the Tamiflu. He continues to be on IV cefepime as well for added bacterial infection. His symptoms are getting better with DuoNeb nebulizations. 3. Anemia and end-stage renal disease. Hemoglobin is below target. The patient got Aranesp 200 mcg IV two days ago. Continue to monitor for now. 4. Atrial fibrillation, on anticoagulation. The patient's heart rate is well controlled at this time. Coumadin dosing is as per primary team.
[2016-10-03] MEDS: HEPARIN SOD (PORCINE) 5000 UNITS/ML VIAL SC SCH ×2 (15:11→21:27)
[2016-10-03] MEDS: ATENOLOL 25 MG TAB PO SCH (15:12)
[2016-10-03 16:00] VITALS: BP 109/65
[2016-10-03] MEDS: **NOTE PATIENT COMMENT** MISC XX SCH (16:00)
[2016-10-03] MEDS: WARFARIN SOD 5 MG TAB PO SCH (17:00)
[2016-10-03] MEDS: WARFARIN SOD 2 MG TAB PO SCH (18:48)
[2016-10-03 20:00] VITALS: BP 101/67
[2016-10-03] MEDS: CEFEPIME HCL 1 GM in D5W MINI-BAG PLUS 50 ML IV SCH (21:27)
[2016-10-03 23:59] VITALS: BP 102/66
[2016-10-04] MEDS: IPRATROPIUM 0.5MG/ALBUTEROL 2.5MG INH SOL UD 3ML (DUONEB)(J7620) NEB SCH ×4 (02:00→20:00)
[2016-10-04 04:50] VITALS: BP 106/71
[2016-10-04 05:43] LABS: BASO % 0.7 % (0.0-1.0); EOS # 0.2 K/mm3 (0.0-0.50); EOS % 4.5 % (0.0-3.0); INR 1.88; LARGE UNSTAINED CELL # 0.2 K/mm3 (0.0-0.4); LARGE UNSTAINED CELL % 3.8 % (0.0-4.0); LYMPH # 1.4 K/mm3 (1.5-4.5); LYMPH % 27.9 % (24.0-44.0); MEAN CORPUSCULAR HEMOGLOBIN 31.7 pg (27.0-33.0); MEAN CORPUSCULAR HGB CONC 32.8 g/dl (32.0-36.5); MEAN CORPUSCULAR VOLUME 96.7 fl (80.0-96.0); MONO # 0.4 K/mm3 (0.0-0.8); MONO % 6.9 % (0.0-5.0); NEUTROPHILS # 2.9 K/mm3 (1.8-7.7); NEUTROPHILS % 56.1 % (36.0-66.0); PLATELET COUNT, AUTOMATED 154 k/mm3 (150-450); RED CELL DISTRIBUTION WIDTH 14.7 % (11.5-14.5); WHITE BLOOD COUNT 5.2 K/mm3 (4.0-10.0)
[2016-10-04 05:48] LABS: ALBUMIN 2.8 GM/DL (3.2-5.2); ALBUMIN/GLOBULIN RATIO 0.7 (1.00-1.93); BILIRUBIN,TOTAL 0.3 MG/DL (0.2-1.0); CALCIUM LEVEL 8.7 MG/DL (8.8-10.2); CREATININE FOR GFR 4.57 MG/DL (0.70-1.30); GLOMERULAR FILTRATION RATE 13.3 (>42); POTASSIUM SERUM 3.5 MEQ/L (3.5-5.1); TOTAL PROTEIN 6.8 GM/DL (6.4-8.2)
[2016-10-04 08:00] VITALS: BP 101/65
--- NOTE | 2016-10-04 08:56 | IPN ---
DATE OF SERVICE: 10/03/2016 SUBJECTIVE: Patient seen and examined. No acute events overnight. Denies any fevers or chills, chest pain, pressure or discomfort. Patient feeling much better and stronger today. VITAL SIGNS: Temperature 96.7, pulse 79, respirations 16, blood pressure 109/65, pulse oximetry 95% on room air. LABORATORY DATA: WBC 5.2, hemoglobin and hematocrit 9.3/28.1, platelets 146. Chemistries: Sodium 140, potassium 3.9, chloride 105, bicarbonate 27, BUN 29, creatinine 6.11. PHYSICAL EXAMINATION: Patient alert and oriented times three, in no acute distress. HEENT: Normocephalic, atraumatic. PULMONARY: Coarse breath sounds bilaterally with minimal rhonchi. CARDIAC: Regular rate and rhythm. Normal S1 and S2. ABDOMEN: Soft, nontender, nondistended. Positive bowel sounds. EXTREMITIES: No edema bilateral lower extremities. ASSESSMENT AND PLAN: This is a 81-year-old male patient discharged from the hospital three days prior to readmission, initially admitted to the hospital for symptomatic anemia during previous admission, underlying history of atrial fibrillation on anticoagulation, history of symptomatic bradycardia, encephalopathy secondary to cholecystitis with acute acalculous cholecystitis with cholecystectomy tube placement and recently removed, also secondary acute cholecystitis, anemia requiring transfusion, end-stage renal disease on hemodialysis Wednesday, , Wednesday, admitted for healthcare-associated pneumonia and influenza. 1. Healthcare-associated bacterial pneumonia. CT scan appreciated. Started on cefepime and vancomycin initially. Vancomycin discontinued given Methicillin-resistant Staphylococcus aureus (MRSA) negative. Followup cultures. Respiratory panel positive for influenza A. Tamiflu started. Followup C-reactive protein, improved. 2. Influenza A. Tamiflu renally dosed. Continue to monitor. 3. End-stage renal disease. Nephrology consulted, continue hemodialysis. 4. History of anemia. Continue to follow hemoglobin and hematocrit. Transfuse as needed. 5. Dyslipidemia. Continue statin. 6. Atrial fibrillation with rapid ventricular response. Case discussed with Dr. Shrestha. One dose of digoxin given. Patient with elevated digoxin level. Patient was also placed back on atenolol. Patient does have a history of bradyarrhythmia, but as per Dr. Shrestha patient was on atenolol as an outpatient and tolerated the treatment. Telemetry monitoring. Continue Coumadin. Followup INR. Coumadin dose has been increased. 7. Deep vein thrombosis (DVT) prophylaxis. Patient on heparin pending therapeutic INR. DISPOSITION: Pending clinical improvement and physical therapy.
[2016-10-04] MEDS: SIMVASTATIN 10 MG TAB PO SCH (09:45)
[2016-10-04] MEDS: HEPARIN SOD (PORCINE) 5000 UNITS/ML VIAL SC SCH ×2 (09:45→19:38)
[2016-10-04] MEDS: OCUVITE 1 TAB PO SCH (09:45)
[2016-10-04] MEDS: ATENOLOL 25 MG TAB PO SCH (09:45)
[2016-10-04 12:00] VITALS: BP 96/54
[2016-10-04] MEDS: **NOTE PATIENT COMMENT** MISC XX SCH (15:13)
[2016-10-04 16:00] VITALS: BP 104/62
[2016-10-04] MEDS ORDERED: WARFARIN SOD 7.5 MG TAB PO SCH (17:00)
--- NOTE | 2016-10-04 17:05 | REP ---
PA and lateral chest: Comparisons are 09/29/2016, 07/12/[address] dated 11/06/2012. There is chronic effacement right costophrenic angle compatible with pleural adhesion. The there is diffuse volume loss in the right hemithorax. The lung ang otherwise clear. Cardiac size is normal. The alex and mediastinum are unremarkable. 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 Signed by Christopher Simental MD 10/04/2016 04:57 P
[2016-10-04] MEDS: WARFARIN SOD 2 MG TAB PO SCH (17:23)
[2016-10-04] MEDS: WARFARIN SOD 5 MG TAB PO SCH (17:23)
[2016-10-04 19:28] VITALS: BP 109/56
[2016-10-04] MEDS: CEFEPIME HCL 1 GM in D5W MINI-BAG PLUS 50 ML IV SCH (19:38)
[2016-10-04 23:57] VITALS: BP 111/55
[2016-10-05] MEDS: IPRATROPIUM 0.5MG/ALBUTEROL 2.5MG INH SOL UD 3ML (DUONEB)(J7620) NEB SCH ×2 (02:00→07:56)
[2016-10-05 04:00] VITALS: BP 110/58
[2016-10-05 05:23] LABS: BASO % 0.7 % (0.0-1.0); EOS # 0.3 K/mm3 (0.0-0.50); EOS % 4.8 % (0.0-3.0); LARGE UNSTAINED CELL # 0.2 K/mm3 (0.0-0.4); LARGE UNSTAINED CELL % 3.2 % (0.0-4.0); LYMPH # 1.7 K/mm3 (1.5-4.5); LYMPH % 25.2 % (24.0-44.0); MEAN CORPUSCULAR HEMOGLOBIN 32.1 pg (27.0-33.0); MEAN CORPUSCULAR HGB CONC 33.2 g/dl (32.0-36.5); MEAN CORPUSCULAR VOLUME 96.7 fl (80.0-96.0); MONO # 0.4 K/mm3 (0.0-0.8); MONO % 5.8 % (0.0-5.0); NEUTROPHILS # 4.1 K/mm3 (1.8-7.7); NEUTROPHILS % 60.4 % (36.0-66.0); PLATELET COUNT, AUTOMATED 152 k/mm3 (150-450); WHITE BLOOD COUNT 6.8 K/mm3 (4.0-10.0)
[2016-10-05 05:31] LABS: INR 2.54
[2016-10-05 06:29] LABS: ALBUMIN 2.7 GM/DL (3.2-5.2); ALBUMIN/GLOBULIN RATIO 0.68 (1.00-1.93); BILIRUBIN,TOTAL 0.4 MG/DL (0.2-1.0); CALCIUM LEVEL 8.2 MG/DL (8.8-10.2); CREATININE FOR GFR 6.31 MG/DL (0.70-1.30); GLOMERULAR FILTRATION RATE 9.2 (>42); POTASSIUM SERUM 3.6 MEQ/L (3.5-5.1); TOTAL PROTEIN 6.7 GM/DL (6.4-8.2)
--- NOTE | 2016-10-05 07:27 | IPN ---
DATE: 10/04/2016 SUBJECTIVE: Patient was seen and examined at the bedside today in the morning. He is still complaining of some cough and shortness of breath. Patient tolerated the hemodialysis procedure well yesterday. REVIEW OF SYSTEMS: Patient denies any fevers, chills, rigors, headache, nausea, vomiting, chest pain. He does report some cough and shortness of breath and bring up a lot of phlegm. He denies any pain in abdomen, constipation or diarrhea. Rest of review of system is negative. OBJECTIVE: Vital signs: Temperature is 98.1 degrees Fahrenheit, blood pressure is 96/54, pulse is 65, respiratory rate 16, saturating 98% on room air. Intake and output: There is no urine output recorded. Ultrafiltration with hemodialysis was 2 liter yesterday. Weight on the bed scale is 68.3 kg. PHYSICAL EXAMINATION: General: Patient is awake, alert, oriented times three lying in bed, no apparent distress. Head and neck exam: Extraocular muscles intact. Pupils equal, round and reactive to light. Mucous membranes are moist. Neck is supple. There is no jugular venous distention (JVD). Cardiovascular: S1, S2. Regular rate. No murmur, rub or gallop. Respiratory: Chest is clear to auscultation in the upper zones but he does have end expiratory rhonchi bilaterally at the bases, right worse than left. Abdomen is soft, positive bowel sounds, nontender, no ascites, no organomegaly. Extremities: No clubbing or stenosis. Pulses are 2+. Central nervous system: No focal neurological deficit. Power is 5/5 in all extremities. LAB REVIEW: CBC showed a WBC 5.2, hemoglobin is 10, platelets are 154. BMP showed sodium 142, potassium 3.5, chloride 103, bicarbonate is 30, BUN is 15, creatinine 4.5, calcium 8.7. Microbiology: Blood cultures are negative so far. Sputum culture is pending. CURRENT MEDICATIONS: Patient's medications are all reviewed by me. He continues to be on IV cefepime. ASSESSMENT: 81-year-old male with past medication history of end stage renal disease with hemodialysis Wednesday, , Wednesday, admitted this time because of influenza and pneumonia. PLAN: 1. End stage renal disease on hemodialysis. Patient was dialyzed according to his schedule yesterday. Next hemodialysis session will be on Wednesday. 2. Influenza A pneumonia. Patient continues to be on Tamiflu every hemodialysis. He is also on IV cefepime because of possible supra-added bacterial infection. He continues to get DuoNeb nebulizations for shortness of breath and cough. I have ordered a repeat chest x-ray, PA and lateral, to look for improvement of the infiltrate. 3. Anemia and end stage renal disease. Patient's hemoglobin is good and target at this time. He was given a dose of Aranesp with hemodialysis last week. 4. Atrial fibrillation. Continue current dose of atenolol and Coumadin. 5. Patient's INR is subtherapeutic. Adjustment of Coumadin dose is as per primary team. Plan of care was discussed with the hospitalist team, Dr. Clare Ahumada.
[2016-10-05 08:00] VITALS: BP 155/73
--- NOTE | 2016-10-05 08:09 | IPN ---
DATE: 10/04/2016 SUBJECTIVE: Patient seen and examined. No acute events overnight. Denies any fevers or chills, chest pain, pressure or discomfort. Reported coughing up a lot of mucus and sputum. VITAL SIGNS: Temperature 97.4, pulse 70, respirations 18, blood pressure 104/62, pulse oximetry 97% on room air. LABORATORY DATA: WBC 5.2, hemoglobin and hematocrit 10 over 30.6, platelets 154. Chemistries: Sodium 142, potassium 3.5, chloride 103, bicarbonate 15, creatinine 4.57. C-reactive protein 1.17. X-rays, repeat, with no significant change compared to previous. PHYSICAL EXAMINATION: GENERAL: Patient alert and oriented times three, in no acute distress. HEENT: Normocephalic, atraumatic. PULMONARY: Coarse breath sounds bilateral. Minimal rhonchi bilateral base. CARDIAC: Regular rate and rhythm. Normal S1, S2. ABDOMEN: Soft, nontender, nondistended. Positive bowel sounds. EXTREMITIES: No edema of bilateral lower extremities. ASSESSMENT AND PLAN: This is a 81-year-old male patient discharged from the hospital three days prior to readmission, initially admitted to the hospital for symptomatic anemia during previous admission, underlying history of atrial fibrillation on anticoagulation, history of symptomatic bradycardia, encephalopathy, secondary to cholecystitis with acute acalculous cholecystitis with cholecystectomy, tube placement and recently removed, also secondary acute cholecystitis, anemia requiring transfusion, end-stage renal disease on hemodialysis Wednesday, , Wednesday, admitted for healthcare-associated pneumonia and influenza. 1. Healthcare-associated bacterial pneumonia. CT scan appreciated. Started on cefepime and vancomycin initially. Vancomycin discontinued given Methicillin-resistant Staphylococcus aureus (MRSA) screening negative. Followup cultures. Respiratory panel positive for influenza. Tamiflu was started. Followup C-reactive protein. Improved. 2. Influenza A. Tamiflu completed, renally dosed. 3. End-stage renal disease. Nephrology consulted. Continue hemodialysis. 4. History of anemia. Continue to follow hemoglobin and hematocrit. Transfuse as needed. 5. Dyslipidemia. Continue statin. 6. Atrial fibrillation with rapid ventricular response. Case discussed with Dr. Shrestha. One dose of digoxin given. Digoxin level elevated. Patient was placed back on atenolol. Has a history of bradyarrhythmia, but as per Dr. Shrestha, the patient is on atenolol as an outpatient. Currently tolerating treatment. Followup telemetry. Coumadin. Followup INR. Dose of Coumadin adjusted. 7. Deep vein thrombosis (DVT) prophylaxis. Heparin subcutaneous pending therapeutic INR. DISPOSITION: Pending clinical improvement and physical therapy.
[2016-10-05] MEDS: SIMVASTATIN 10 MG TAB PO SCH (08:35)
[2016-10-05] MEDS: OCUVITE 1 TAB PO SCH (08:35)
[2016-10-05 08:36] VITALS: BP 155/73
[2016-10-05] MEDS: ATENOLOL 25 MG TAB PO SCH (08:36)
[2016-10-05] MEDS ORDERED: CEFD1CAP8 PO (10:14)
[2016-10-05] MEDS ORDERED: ATEN25TA PO (10:14)
--- NOTE | 2016-10-05 11:52 | IPNPDOC ---
Date/Time Seen The patient was seen on 10/05/16 at 11:42. Progress Note DATE OF ENCOUNTER: 10/05/2016 SUBJECTIVE: Patient seen this morning at bedside. No acute overnight issues. Cough and shortness of breath have improved. Patient states that he is going home one way or another. He does not have any acute complaints. Review of systems is negative for fever, chills, rigors, chest pain, headache, dizziness, nausea, vomiting, abdominal pain, diarrhea, constipation. OBJECTIVE: Vital Signs Date Time Temp Pulse Resp B/P Pulse Ox O2 Delivery O2 Flow Rate FiO2 10/05/16 08:36 85 155/73 10/05/16 08:00 97.0 18 99 Room Air I&O- Last 24 Hours up to 6 AM 10/05/16 06:00 Intake Total 1220 ml Output Total 0 ml Balance 1220 ml PHYSICAL EXAMINATION: GENERAL APPEARANCE: Lying in bed comfortably, in no acute distress. HEENT: Normocephalic, atraumatic. Extraocular muscles are intact. Moist mucosa. NECK: Supple. No lymphadenopathy. Trachea is midline. No jugular venous distention appreciated. LUNG: Positive for rhonchi in left lower base. No rales or wheezing. HEART: Positive S1, S2. Irregularly irregular. ABDOMEN: Soft, nontender, nondistended. Bowel sounds are present. EXTREMITIES: No cyanosis or lower extremity edema. Positive pedal pulses bilaterally. NEUROLOGICAL: Alert and oriented 3. No focal deficits. LABORATORY DATA: 10/05/16 04:45 MICROBIOLOGY: Respiratory panel revealed positive influenza A. Sputum culture positive for Haemophilus influenza. Blood culture shows no growth. IMAGING: Repeat chest x-ray on 10/04 revealed chronic effacement of the right costophrenic angle compatible with pleural adhesion, volume loss of right hemothorax, lungs are clear, old humeral head dislocation ASSESSMENT/PLAN: 1. End-stage renal disease on hemodialysis Wednesday, and Saturdays. Volume status and electrolytes are stable. Next hemodialysis session will be . Patient will likely be going home today. 2. Pneumonia secondary to influenza A. Patient has received Tamiflu. He will likely be transitioned to oral antibiotics to complete the course. 3. Anemia in end-stage renal disease. Hemoglobin is currently stable. He received a dose of Aranesp during hemodialysis. 4. Atrial fibrillation on chronic anticoagulation with Coumadin. INR is now therapeutic. He remains on atenolol and Coumadin. Managed by primary team. DISPOSITION: On a renal standpoint, he is stable. When he gets discharged, he can just follow up outpatient for maintenance hemodialysis. GME ATTESTATION GME ATTESTATION My preceptor for this patient encounter was physically present in the building during the encounter and was fully available. As needed, all aspects of the patient interview, examination, medical decision making process, and medical care plan development were reviewed and approved by the preceptor. Preceptor is aware and concurs with the plan as stated in the body of this note and will attest to such by his/her cosignature. JEN ARELLANO DO Oct 05, 2016 11:52
[2016-10-05 12:00] VITALS: BP 121/69
[2016-10-05] MEDS ORDERED: PROA1AER INH (13:07)
[2016-10-05] MEDS ORDERED: WARFARIN SOD 2 MG TAB PO SCH (17:00)
--- NOTE | 2016-10-05 19:57 | DSES ---
DATE OF ADMISSION: 09/29/2016 DATE OF DISCHARGE: 10/05/2016 FIBRE COMPOSITE TECHNICIAN: Dr. Bartholomew, covered by Dr. Peralta, who is also the patient's primary care provider. CARDIOLOGY: Dr. Leo. FINAL DIAGNOSES: 1. Healthcare-associated bacterial pneumonia. 2. Influenza A. 3. End-stage renal disease on hemodialysis. 4. History of anemia. 5. Dyslipidemia. 6. Atrial fibrillation with rapid ventricular response. HISTORY OF PRESENT ILLNESS: This is a 81-year-old patient male with underlying medical history of atrial fibrillation, symptomatic bradyarrhythmia, atrial fibrillation on Coumadin, encephalopathy secondary to cholecystitis, acute acalculous cholecystitis status post cholecystectomy tube placement and removal, sepsis secondary to acute cholecystitis, anemia requiring blood transfusion, end-stage renal disease, discharged recently from the hospital for symptomatic anemia, improved after transfusion. Did had some scrotal swelling when home. Was feeling well. On the morning unfortunately the patient did not feel well. His had to help him to get out of the bed and was tired and grunting response, just lying in bed, and she threatened to take him back to the hospital unless he went to dialysis that was scheduled today, so she helped him get up and tried to feed him breakfast. He choked a little bit on his breakfast and did not really eat anything. Actually he was able to walk out of the house, went to dialysis, and they did dialysis on him, and after being evaluated by nephrology, was sent to emergency room for evaluation and feeling febrile and he has been developing cough since then which is productive of mucusy yellow sputum. No chest pain, pressure, discomfort. No shortness of breath, no abdominal pain. No loose stool. No neck stiffness, otherwise unremarkable. HOSPITAL COURSE: Patient admitted to the hospital. Blood culture was sent. Respiratory panel was sent. Sputum culture was positive for Haemophilus influenza. Respiratory panel was positive for influenza AH3. Patient treated with Tamiflu, started initially on cefepime and vancomycin. Methicillin-resistant Staphylococcus aureus (MRSA) screen negative. Vancomycin discontinued. Continued on cefepime. Nephrology consulted for hemodialysis. Coumadin was dosed. International normalized ratio (INR) was followed. Physical therapy was done. The patient's condition progressively improved, almost returning to baseline with only mild cough. Ready to return home for further care as outpatient. During hospital course, the patient developed atrial fibrillation with rapid ventricular response. Cardiac enzymes were done. Case was discussed with Dr. Shrestha. As per Dr. Shrestha, the patient was on atenolol as an outpatient. Subsequently, atenolol was added. The patient was currently rate controlled, comfortable. VITAL SIGNS: Temperature 97.1, pulse 73, respirations 18, blood pressure 121/69. Pulse oximetry 98% on room air. LABORATORY DATA: WBC 6.8, hemoglobin and hematocrit 9.9 over 29.8, platelets 152. Chemistry: Sodium 143, potassium 3.5, chloride 103, bicarbonate 25, BUN 24, creatinine 6.3. C-reactive protein 1.34. DISCHARGE MEDICATIONS: - ProAir inhalation every six hours as needed - atenolol 25 mg by mouth daily - Cefdinir 200 mg by mouth twice a day for seven more days - Dialyvite one tablet by mouth daily - naproxen 220 mg by mouth twice a day as needed - Zocor 10 mg by mouth daily - Coumadin 5 mg by mouth daily DISCHARGE INSTRUCTIONS: The patient is instructed to followup with cardiology, Dr. Leo, in 7-10 days. Followup with primary care provider and coping machine operator in seven days. Continue dialysis. Return to the hospital if symptoms worsen.
== END 2016-10-05 13:17 | disposition home health service (06) | DRG 193 ==
LOC: M ED 13:59 → M ED INP 21:49 → M PCU 23:24
PROVIDERS: ADMIT Internal Medicine; ATTEND Hospitalist
PROC: 5A1D00Z (ICD-10-PCS; principal; 2016-10-01)
DX: J10.08 Influenza due to other identified influenza virus with other specified pneumonia (principal); N18.6 End stage renal disease; I48.91 Unspecified atrial fibrillation; J14 Pneumonia due to Hemophilus influenzae; E78.5 Hyperlipidemia, unspecified; D63.1 Anemia in chronic kidney disease; E78.00 Pure hypercholesterolemia, unspecified; I49.8 Other specified cardiac arrhythmias; Z79.899 Other long term (current) drug therapy; Z99.2 Dependence on renal dialysis; Z96.651 Presence of right artificial knee joint; Z79.01 Long term (current) use of anticoagulants; Z87.891 Personal history of nicotine dependence

== ENCOUNTER → 2017-03-17 | Outpatient (CLI) | payer MEDICARE, OTHER ==
[~2017-03-17] MED LIST changes: +ALEV220T26 PO; +CALC1CAP; +CALC1CAP PO; +CEFD1CAP8 PO; -COLA100C PO; +COLA100C5 PO; +DIGO0.12; +LEVA1TAB PO; -LEVA250T PO; +NAPR1TAB41 PO; +NORC1TAB4 PO; -NORC5TAB PO; +PERC5TAB12 PO; -PERC5TAB6 PO; +PROAAER10 INH
--- NOTE | 2017-03-17 12:46 | REP ---
Scrotal ultrasound: The testes are normal size. The right testis measures 4.3 x 1.5 x 2.5 cm. The left testis measures 3.4 x 2.2 by 3.3 cm. There are three right epididymal head cysts measuring 5.2 mm, 7.3 mm and 7.6 mm. The right epididymal head measures 7.1 ml. There is a large cyst superior to the left testis measuring 14 x 10 x 13 cm. This may be a large left epididymal head cyst. The left epididymal head is effaced and cannot be visualized. The testicular parenchyma is homogeneous bilaterally. There are no testicular masses or cysts. There is vascular flow in both testes with the Doppler resistive index of the intraparenchymal arteries of the right testis measuring 0.501 of the left testis zero point 11/19. No hydroceles are identified. Impression: There is a large 14 cm cyst superior to the left testis, possibly a large left epididymal head cyst. The left epididymis is effaced and cannot be visualized. There are no testicular masses. There is vascular flow in both testes. There are three small right epididymal head cysts. Signed by Christopher Simental MD 03/17/2017 12:38 P
== END ==
LOC: M RAD 11:05
PROVIDERS: ATTEND Internal Medicine Nephrology
DX: N44.2 Benign cyst of testis (principal); N50.3 Cyst of epididymis; N50.89 Other specified disorders of the male genital organs

== ENCOUNTER → 2017-04-23 | Outpatient (CLI) | payer MEDICARE, OTHER ==
[~2017-04-23] MED LIST changes: +HEPARIN 1,000 UNITS/ML 10ML VIAL (FOR RADIOLOGY& DIALYSIS ONLY) As Ordered ONE; +ISOVUE-300 61% 50ML VIAL (Q9967) As Ordered ONE; +MIDAZOLAM INJ 2 MG/2 ML VIAL (J2250) As Ordered ONE; +fentaNYL 100 MCG/2 ML INJECTION (J3010) As Ordered ONE
--- NOTE | 2017-05-18 08:55 | REPKIM ---
DATE OF PROCEDURE: 04/23/2017 PREPROCEDURE DIAGNOSIS: End stage renal disease, painful cannulation of the left radiocephalic arteriovenous fistula. POSTPROCEDURE DIAGNOSIS: End stage renal disease, painful cannulation of the left radiocephalic arteriovenous fistula. PROCEDURE: Left radiocephalic arteriovenous fistulogram, retrograde left radial artery angiogram. SURGEON: Michele John MD HOSE SPRAYER: ANESTHESIA: Local with 1 mL of 2% lidocaine. 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 The patient will undergo a fistulogram with possible angioplasty and/or stent. Risks, benefits and alternative treatment options were discussed with the patient. Benefits, including, but not limited to resolution of the symptoms of pain with cannulation. Alternative treatment options, included but were not limited to no intervention. Risks, included but were not limited to infection, bleeding, Steel syndrome, possible need for open surgical intervention, loss of arteriovenous access, cerebrovascular accident, myocardial infarction, pulmonary embolus, deep vein thrombosis (DVT), loss of limb, loss of life, and poor outcome. The patient's questions were answered. The patient voices understanding of these risks, benefits and alternative options. The patient accepts these risks and agrees to proceed with a left radiocephalic arteriovenous fistulogram with possible angioplasty and/or stent. FLUORO TIME: Fluoro time was 0.1 minutes, contrast 4 mL. HEPARIN: None. COMPLICATIONS: None. DRAINS: None. SPECIMENS: None. IMPLANTS: None. DESCRIPTION OF PROCEDURE: The patient was taken to the angiography suite and placed supine on the angiography room table and then the left upper extremity was prepped and draped in a standard surgical fashion. A time-out was completed by myself and the team members in the room confirming the correct patient, procedure and laterality. The left radiocephalic arteriovenous fistula was then cannulated with a micropuncture needle after anesthetizing the overlying skin with 2% lidocaine. The micropuncture wire was advanced through the micropuncture needle, which was upsized to a micropuncture sheath. A fistulogram and retrograde radial artery angiogram were performed showing that no intervention was required. The sheath was removed and manual compression applied to the puncture site for hemostasis. Dressings were then applied. The patient tolerated the procedure well. All instrument, sponge and needle counts were correct at the end of the procedure. There were no complications. Dr. John was present for and directed the entire case. The patient was transferred to the holding area and subsequently discharged in stable condition. Radiology supervision and interpretation: The fistulogram showed the cephalic vein to be patent along the course of the forearm with multiple areas of aneurysmal degeneration. At the antecubital fossa there was good outflow to the deep and superficial venous systems into the central venous system. The retrograde radial artery angiogram showed the remainder of the cephalic vein to be widely patent to the radial artery with good flow into the radial artery proximal to distal to the arteriovenous anastomosis and no stenosis past the arteriovenous anastomosis.
== END | disposition home or self-care (01) ==
LOC: M IRPRO 08:29
PROVIDERS: ATTEND Surgery Vascular Surgery
DX: T82.848A Pain due to vascular prosthetic devices, implants and grafts, initial encounter (principal); N18.6 End stage renal disease
CPT/HCPCS: 36901; C1894; Q9967

== ENCOUNTER 2017-06-15 08:32 | Inpatient (IN) | payer MEDICARE, OTHER ==
[~2017-06-15] VITALS: Ht 170.2 cm; Wt 73.1 kg
[~2017-06-15 08:32] MED LIST changes: -CALC1CAP; -CALC1CAP PO; -DIGO0.12; -HEPARIN 1,000 UNITS/ML 10ML VIAL (FOR RADIOLOGY& DIALYSIS ONLY) As Ordered ONE; -ISOVUE-300 61% 50ML VIAL (Q9967) As Ordered ONE; -MIDAZOLAM INJ 2 MG/2 ML VIAL (J2250) As Ordered ONE; -NAPR1TAB41 PO; -fentaNYL 100 MCG/2 ML INJECTION (J3010) As Ordered ONE
[2017-06-15] MEDS ORDERED: DIGO0.12 (08:58)
[2017-06-15] MEDS ORDERED: CALC1CAP (08:58)
[2017-06-15] MEDS ORDERED: ATEN25TA PO ×2 (08:58→13:03)
[2017-06-15 09:25] LABS: BASO % 0.1 % (0.0-1.0); EOS # 0.1 10^3/uL (0.0-0.50); EOS % 0.6 % (0.0-3.0); IMMATURE GRANULOCYTE % 0.5 % (0-0); LYMPH # 1.4 10^3/uL (1.5-4.5); LYMPH % 9.5 % (24.0-44.0); MEAN CORPUSCULAR HEMOGLOBIN 30.5 pg (27.0-33.0); MEAN CORPUSCULAR HGB CONC 32.7 g/dl (32.0-36.5); MEAN CORPUSCULAR VOLUME 93.1 fl (80.0-96.0); MONO % 9.4 % (0.0-5.0); NEUTROPHILS # 11.7 10^3/uL (1.8-7.7); NEUTROPHILS % 79.9 % (36.0-66.0); PLATELET COUNT, AUTOMATED 167 10^3/uL (150-450); RED CELL DISTRIBUTION WIDTH 16.8 % (11.5-14.5); WHITE BLOOD COUNT 14.6 10^3/uL (4.0-10.0)
[2017-06-15 09:36] LABS: INR 1.81
[2017-06-15 09:58] LABS: ADD MANUAL DIFFER NO; DIFF SLIDE NUMBER 150; MONO # 1.4 10^3/uL (0.0-0.8)
[2017-06-15 10:05] LABS: CALCIUM LEVEL 9.5 MG/DL (8.8-10.2); CREATININE FOR GFR 10.7 MG/DL (0.70-1.30); POTASSIUM SERUM 4.1 MEQ/L (3.5-5.1)
[2017-06-15 11:17] LABS: DIGOXIN LEVEL 1.1 NG/ML (0.5-2.0)
--- NOTE | 2017-06-15 11:29 | REP ---
CHEST X-RAY: TWO VIEWS. HISTORY: Weakness. Leukocytosis. 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 Some arthritic changes are noted in the right shoulder. The heart is mildly enlarged, unchanged. The aorta is somewhat tortuous. Pleural angles are sharp. No infiltrate is seen in the lung ang. Today's frontal view is exposed at a lesser inspiratory level. Pulmonary vascular markings are somewhat increased. IMPRESSION: Mildly prominent heart. Lesser level of inspiration. No evidence of pulmonary edema or pleural effusion. No focal infiltrate. Chronic dislocation left shoulder. Signed by Jovanny Kenney MD 06/15/2017 03:30 P
[2017-06-15] MEDS ORDERED: WARF-23 PO (13:03)
[2017-06-15] MEDS ORDERED: NAPR1TAB41 PO (13:03)
[2017-06-15] MEDS ORDERED: DIGO0.12 PO (13:03)
[2017-06-15] MEDS ORDERED: CALC1CAP PO (13:03)
[2017-06-15] MEDS ORDERED: DIAL800T PO (13:03)
[2017-06-15] MEDS ORDERED: SIMV10TA2 PO (13:03)
--- NOTE | 2017-06-15 13:14 | HPEPDOC ---
[facility] Medical History & Physical Date of Admission Jun 15, 2017 History and Physical ATTENDING: Dr. Dr Estrada PCP: Dr Bartholomew Sawyer [place] Slabs Dr Leo. CC: weakness HPI: 82yoM with a past medical history significant for ESRD, hemodialysis as per Dr. Bartholomew. As per patient and his he went to dialysis on Wednesday which was complicated by infiltration of his left arm fistula with bruising and edema of the left arm. As per his he was instructed to apply ice and heat however subsequently he apparently did not do so. She reports that he " sat in the chair and that was it" and subsequently did not get out of the chair after he arrived home on Wednesday afternoon. This was apparently related to weakness. She noticed that since Wednesday he had decreased oral intake. He was scheduled for hemodialysis this morning at 10 AM however he was feeling weak and came to the emergency department for further evaluation. He has also reported left knee pain since a fall approximately 1 week ago. He apparently lost balance when he was trying to sit on a stool and fell on the floor. His last fall was approximately 2 months ago. He denies any head injury. Denies loss of consciousness. He has also noted low back pain since his fall. Denies any fevers, chills, RHOADES, CP, SOB, cough, palpitations, abdominal pain, N/ V/D or changes in bowel or bladder habits. Upon presentation to the hospital the patient was found to have left arm fistula infiltration, thus the hospitalist team was consulted. PMHx: ESRD, hemodialysis as per Dr. Bartholomew Wednesday//Wednesday Chronic atrial fibrillation Dyslipidemia Chronic knee pain/shoulder pain Hypertension History of symptomatic bradycardia History of encephalopathy History of anemia requiring transfusion PSHX: History of cholecystitis/cholecystostomy tube 4 weeks 08/28 Right knee replacement Fistula placement left arm 1990 Left inguinal hernia repair 07/29 Esophageal dilatation 06/25 SOCHX: Resides in: [facility] Marital Status: Kids: 4 Employment: Retired [employer] Tobacco use: Quit 60 years ago ETOH: One beer per month Illicit Drugs: Denies Recent travel: Denies Advanced directives: Patient states DNR, no most completed. DNR is noted to be scanned into the system 11/04/12. FAMHX: Children: Alive, well ROS: As noted in HPI, otherwise 11pt ROS of systems reviewed, provides history, patient provides little history but states he has left knee pain. PE: GEN: 82 yo M, appears stated age. Well-nourished, well developed. No acute distress. Alert and oriented x 3. Pleasant, interactive. HEENT: Normocephalic, atraumatic. Pupils are equal, round, and reactive to light. Extraocular movements are intact. No nystagmus appreciated. Sclera are nonicteric. Conjunctiva without injection. Nose midline. Nasal turbinates without bogginess. EACs both patent BL. TMs both visualized and leger with good cone of light, no bulging or erythema. No facial asymmetry. Moist mucous membranes. Dentition fair. Pharynx pink and moist. Neck supple, trachea midline. No lymphadenopathy or thyromegaly appreciated. CHEST: Regular rate and rhythm, +S1, +S2 LUNGS: Decreased BS bilaterally, however no wheezes, rales, or rhonchi. Breathing appears symmetric and easy. ABD: Round, soft, non-tender, non-distended. +Bowel sounds throughout. No rebound or guarding. No costovertebral angle tenderness. EXT: 1 mm pretib edema and edema noted of the left knee. SKIN: AV fistula is noted left arm with ecchymosis noted. Thrill noted. NEURO: Alert and oriented x 3. Cranial nerves III-XII are intact. No focal deficits appreciated. CXR: Mildly prominent heart. Lesser level of inspiration. No evidence of pulmonary edema or pleural effusion. No focal infiltrate. Chronic dislocation left shoulder. EKG: Atrial fibrillation 67 bpm. BLOOD CULTURES: 2 pending A&P: 82yoM with a past medical history significant for ESRD, hemodialysis as per Dr. Bartholomew. As per patient and his he went to dialysis on Wednesday which was complicated by infiltration of his left arm fistula with bruising and edema of the left arm. As per his he was instructed to apply ice and heat however subsequently he apparently did not do so. She reports that he " sat in the chair and that was it" and subsequently did not get out of the chair after he arrived home on Wednesday afternoon. This was apparently related to weakness. She noticed that since Wednesday he had decreased oral intake. He was scheduled for hemodialysis this morning at 10 AM however he was feeling weak and came to the emergency department for further evaluation. 1. The patient will be admitted to [facility] for at least [address] Estrada 's service. Patient is discussed with Dr. Carl. 2. ESRD/hemodialysis. Nephrology is consulted for hemodialysis management. Dr Je Bartholomew aware. 3. Generalized weakness. Blood culture 2 pending. UA/urine culture pending. Serial CIP/troponin. Lactic acid is noted to be 1.5. PT/OT pending. 4. Leukocytosis. Temperature is noted to be 100.7. Blood culture 2 pending. UA/urine culture pending. Chest x-ray as noted above. Left knee edema is noted with pain, Left knee XR pending. IV Vanco x 1 dose after HD, pharmacy consulted. Consult Ortho to consider aspiration of left knee , spoke with Dr Mae who agrees to see Pt. Added CRP/ESR to admission labs. 5. Chronic atrial fibrillation. Rate control with atenolol 25 mg daily with hold parameters. Digoxin 0.125 mg by mouth daily, digoxin level 1.1. HOLD Coumadin 5 mg by mouth daily, INR 1.81. 6. History of anemia. 7. Dyslipidemia. Continue statin. 8. History of mechanical fall/Left knee pain/back pain. Check x-ray of left knee and lumbosacral spine. Hold Naproxen, avoid NSAID. Tylenol as needed. PT/ OT. 9. H/O infiltration of left arm fistula. Coumadin on hold at this time. DVT prophylaxis. The patient is a DNR. Copy scanned into system. Vital Signs Vital Signs Date Time Temp Pulse Resp B/P (MAP) Pulse Ox O2 Delivery O2 Flow Rate FiO2 06/15/17 12:50 139/63 (88) 06/15/17 12:47 74 96 06/15/17 12:47 100.1 18 06/15/17 08:58 Room Air Laboratory Data Labs 24H Laboratory Tests 2 06/15/17 09:10: Immature Granulocyte % (Auto) 0.5H, White Blood Count 14.6H, Red Blood Count 3.64L, Hemoglobin 11.1L, Hematocrit 33.9L, Mean Corpuscular Volume 93.1, Mean Corpuscular Hemoglobin 30.5, Mean Corpuscular Hemoglobin Concent 32.7, Red Cell Distribution Width 16.8H, Platelet Count 167, Neutrophils (%) (Auto) 79.9H, Lymphocytes (%) (Auto) 9.5L, Monocytes (%) (Auto) 9.4H, Eosinophils (%) (Auto) 0.6, Basophils (%) (Auto) 0.1, Neutrophils # (Auto) 11.7H, Lymphocytes # (Auto) 1.4L, Monocytes # (Auto) 1.4H, Eosinophils # (Auto) 0.1, Basophils # (Auto) 0.0 , Immature Granulocyte # (Auto) 0.1H, Nucleated Red Blood Cells % (auto) 0.0, Prothrombin Time 21.5H, Prothromb Time International Ratio 1.81, Anion Gap 8, Glomerular Filtration Rate 5.0L, Lactic Acid Level 1.5, Blood Urea Nitrogen 74H , Creatinine 10.70H, Sodium Level 135L, Potassium Level 4.1, Chloride Level 94L , Carbon Dioxide Level 33H, Calcium Level 9.5, Total Creatine Kinase 55, Creatine Kinase MB 1.4, Creatine Kinase MB Relative Index 2.54, Troponin I 0.02 , Digoxin Level 1.1 CBC/BMP Laboratory Tests 06/15/17 09:10 Red Blood Count 3.64 L, Mean Corpuscular Volume 93.1, Mean Corpuscular Hemoglobin 30.5, Mean Corpuscular Hemoglobin Concent 32.7, Red Cell Distribution Width 16.8 H, Neutrophils (%) (Auto) 79.9 H, Lymphocytes (%) (Auto ) 9.5 L, Monocytes (%) (Auto) 9.4 H, Eosinophils (%) (Auto) 0.6, Basophils (%) ( Auto) 0.1, Neutrophils # (Auto) 11.7 H, Lymphocytes # (Auto) 1.4 L, Monocytes # (Auto) 1.4 H, Eosinophils # (Auto) 0.1, Basophils # (Auto) 0.0, Calcium Level 9.5, Total Creatine Kinase 55 Microbiology Microbiology 06/15/17 Blood Culture, Received Pending 06/15/17 Blood Culture, Received Pending Home Medications Scheduled (Dialyvite 800/Ultra D) 1 Tab Tab, 1 TAB PO DAILY Atenolol (Atenolol) 25 Mg Tab, 25 MG PO DAILY Calcium Acetate (Calcium Acetate) 667 Mg Cap, 667 MG PO DAILY Digoxin (Digoxin) 0.125 Mg Tab, 0.125 MG PO 3XW SUN, WED, FRI Simvastatin (Simvastatin) 10 Mg Tab, 10 MG PO DAILY Warfarin Sod (Warfarin Sodium) 5 Mg Tab, 5 MG PO DAILY Scheduled PRN Naproxen Sodium (Naproxen Sodium) 220 Mg Tab, 220 MG PO BID PRN for PAIN Allergies Coded Allergies: No Known Allergies (Verified , 11/04/12) Desiree Odonnell Jun 15, 2017 13:14
[2017-06-15] MEDS ORDERED: ACETAMINOPHEN TAB 650MG DOSE (2X325MG) PO PRN (13:15)
--- NOTE | 2017-06-15 15:19 | PHACANCOPD ---
PHARMACY VANCOMYCIN DOSING Pt Demographics Demographics Patient Age:82 , Weight:72.580 , Gender: male Adjusted Body Weight Date: 06/15/17, Adjusted Body Weight: Kg Events Past 24 Hours Events Past 24 Hours: YES: Dialysis, Fever, Elevation in WBC, Pending Diagnostics Vancomycin Vancomycin indication: Leukocytosis/fever/possible left knee joint infection Vancomycin Target Ranges: 15-20 mcg/ml Vancomycin Load Y/N: No Load Dose Date Time Vancomycin Load Dose: Date: Time: Vancomycin Dose Date: 06/15/17. Current Vancomycin Dose: [1g IV HD] Intermittent Dosing?: Yes Labs Labs Item Value Date Time White Blood Count 14.6 10^3/uL H 06/15/17 0910 Creatinine 10.70 MG/DL H 06/15/17 0910 Blood Urea Nitrogen 74 MG/DL H 06/15/17 0910 Lactic Acid Level 1.5 MMOL/L 06/15/17 0910 Micro Microbiology 06/15/17 Blood Culture, Received Pending 06/15/17 Blood Culture, Received Pending Creatinine Clearance Date:06/15/17. Estimated Creatinine Clearance: [~5ml/min]. Pending Labs Random vancomycin level scheduled 06/17/17 @0500 Assessment and Plan Maintaining Current Dose?: Yes Reason for dose change: No Dose Change Pharmacist Note Pharmacist Note Date: 06/15/17. Pharmacist note: Day #1 empiric vancomycin tx initiated at 1g IV HD for the treatment of a possible left knee joint infection - aiming for a goal trough of 15-20mcg/ml. PMH of ESRD requiring hemodialysis every Wednesday, , and Wednesday. The patient had a left arm fistula infiltration during dialysis this past Wednesday, and is admitted with left knee pain s/p a fall that occurred 1 week ago. WBC is currently elevated, and the patient is febrile. No PMH of MRSA, but the patient has previously had vancomycin here at [facility]. Blood cultures are currently pending. A random vancomycin level has been scheduled for 06/17/17 @0500. We will continue to monitor and make dose adjustments accordingly. [facility] Jun 15, 2017 15:19
[2017-06-15] MEDS ORDERED: VANCOMYCIN HCL 1,000 MG, VIAL MATE ADAPTER 1 EACH in D5W 250 ML IV ONE (16:00)
[2017-06-15] MEDS ORDERED: VANCOMYCIN HCL 1,000 MG, VIAL MATE ADAPTER 1 EACH in D5W 250 ML IV SCH (18:00)
[2017-06-15 19:00] VITALS: BP 137/65
--- NOTE | 2017-06-15 20:15 | REP ---
Lumbar spine six views: Vertebral body heights are normal. There are bridging osteophytes anteriorly at every lumbar level accompanied by disc space narrowing at L 01/02 L2-3 and marked disc space narrowing and L5 S1, compatible with multilevel degenerative disc disease. There is no spondylolysis. There is grade 1 retrolisthesis of L2 and L3, likely degenerative. There is facet osteoarthritis. The pedicles are unremarkable. There is calcified atheroma. The abdominal aorta. There is a ring-shaped calcification superimposed over the left iliac wing. On a CT of 09/29 2016. This appears to be within the pericolonic fat of the sigmoid colon, likely sequela of prior appendagitis. There is advanced osteoarthritis of the right hip. There is mild osteoarthritis of the left hip. Impression: Multilevel degenerative disc disease most advanced at L5 S1. Degenerative grade 1 retrolisthesis of L to L3. Mild facet osteoarthritis. Advanced right hip osteoarthritis. Mild left hip osteoarthritis. Large calcification in the pelvis on the left which is in pericolonic fat on the comparison CT, likely sequela of appendagitis. Signed by Christopher Simental MD 06/15/2017 08:06 P
--- NOTE | 2017-06-15 20:17 | REP ---
Left knee five views: There is tricompartment osteoarthritis. There is demineralization. There is no fracture or dislocation. There is no effusion. Impression: Tricompartment osteoarthritis. No fracture or dislocation. Signed by Christopher Simental MD 06/15/2017 08:07 P
[2017-06-15] MEDS: SIMVASTATIN 10 MG TAB PO SCH (21:01)
[2017-06-15] MEDS: ATENOLOL 25 MG TAB PO SCH (21:01)
[2017-06-15] MEDS: OCUVITE 1 TAB PO SCH (21:01)
[2017-06-15] MEDS: CALCIUM ACETATE 667 MG GELCAP PO SCH (21:01)
[2017-06-15 22:00] VITALS: BP 126/63
[2017-06-16 06:00] VITALS: BP 118/56
[2017-06-16 06:11] LABS: BASO # 0.1 10^3/uL (0.0-0.2); BASO % 0.5 % (0.0-1.0); EOS # 0.1 10^3/uL (0.0-0.50); EOS % 0.9 % (0.0-3.0); IMMATURE GRANULOCYTE % 0.7 % (0-0); LYMPH # 1.3 10^3/uL (1.5-4.5); LYMPH % 9.7 % (24.0-44.0); MEAN CORPUSCULAR HEMOGLOBIN 30.6 pg (27.0-33.0); MEAN CORPUSCULAR HGB CONC 32.6 g/dl (32.0-36.5); MEAN CORPUSCULAR VOLUME 93.8 fl (80.0-96.0); MONO % 10.3 % (0.0-5.0); NEUTROPHILS # 10.2 10^3/uL (1.8-7.7); NEUTROPHILS % 77.9 % (36.0-66.0); PLATELET COUNT, AUTOMATED 174 10^3/uL (150-450); RED CELL DISTRIBUTION WIDTH 16.9 % (11.5-14.5); WHITE BLOOD COUNT 13.1 10^3/uL (4.0-10.0)
--- NOTE | 2017-06-16 06:18 | ECGEPIP ---
Stationary ECG Study [facility] - ED Test Date: 2017-06-15 Pat Name: KODY PELAYO Department: Room: - Gender: M Private Duty Aide: JAbiola : [id number] Requested By: Zain Rodriguez Order Number: [id number] Reading MD: Zain Clark Measurements Intervals Loco Rate: 67 P: NH: 0 QRS: 30 QRSD: 100 T: 10 QT: 356 QTc: 377 Interpretive Statements ATRIAL FIBRILLATION SIMILAR TO 09/29/16 Electronically Signed On 06-16-2017 6:18:09 EDT by Zain Clark
[2017-06-16 06:22] LABS: INR 1.96
[2017-06-16 06:38] LABS: ALBUMIN 2.6 GM/DL (3.2-5.2); ALBUMIN/GLOBULIN RATIO 0.68 (1.00-1.93); BILIRUBIN,TOTAL 0.7 MG/DL (0.2-1.0); CALCIUM LEVEL 8.7 MG/DL (8.8-10.2); CREATININE FOR GFR 6.05 MG/DL (0.70-1.30); GLOMERULAR FILTRATION RATE 9.6 (>35); MAGNESIUM LEVEL 2.2 MG/DL (1.8-2.4); POTASSIUM SERUM 4.3 MEQ/L (3.5-5.1); TOTAL PROTEIN 6.4 GM/DL (6.4-8.2)
[2017-06-16 07:15] LABS: MONO # 1.3 10^3/uL (0.0-0.8)
[2017-06-16] MEDS ORDERED: VANCOMYCIN HCL 1,000 MG, VIAL MATE ADAPTER 1 EACH in D5W 250 ML IV ONE (08:00)
[2017-06-16] MEDS: ATENOLOL 25 MG TAB PO SCH (09:28)
[2017-06-16] MEDS: SIMVASTATIN 10 MG TAB PO SCH (09:30)
[2017-06-16] MEDS: OCUVITE 1 TAB PO SCH (09:30)
[2017-06-16] MEDS: CALCIUM ACETATE 667 MG GELCAP PO SCH (09:30)
[2017-06-16] MEDS: DIGOXIN 0.125 MG TAB PO SCH (09:30)
[2017-06-16 11:41] LABS: CRYSTALS, BODY FLUID URIC ACID (NONE SEEN)
[2017-06-16] MEDS: cefTRIAXone SOD 1 GM in D5W 50 ML IV SCH (12:16)
[2017-06-16] MEDS: CHECK TO SEE IF PATIENT IS RECEIVING DIALYSIS TODAY AND REFER TO THE VANCOMYCIN ORDER XX SCH (13:01)
--- NOTE | 2017-06-16 13:18 | CR ---
DATE OF CONSULTATION: 06/15/2017 INDICATION: Left knee effusion. HISTORY OF PRESENT ILLNESS: Jean Claude is an 82-year-old male with multiple medical problems including end stage renal disease, who presented to his primary care physician with lethargy and complaints of left knee pain. His AV fistula had recently developed a problem and he had also stopped taking his home medications. He has been complaining of left knee pain for years, but it was worsening. When I spoke to the patient, he downplayed his knee pain, but when speaking to his , she stated that he had been complaining of more pain. The patient had elevated inflammatory markers and I was asked to rule out septic arthritis of the left knee. PAST MEDICAL HISTORY: Notable for end stage renal disease on dialysis, as well as many other medical problems. For he full past medical history, past surgical history, medications, allergies, social history and review of systems, please see the admitting history and physical, which I reviewed. PHYSICAL EXAMINATION: Reveals an elderly male in no distress. He is alert and oriented times three. Neurologic: Patient has a guarded affect, but overall is pleasant. Cardiovascular: 1+ PT pulse. Pulmonary: Regular nonlabored breathing. Skin: The left knee is intact without lesions. Musculoskeletal: Exam of the left knee reveals a small to moderate joint effusion with no significant warmth and zero erythema. Range of motion passively is from 2 to 95 degrees without pain. Beyond that, he has stiffness. He denies pain, but also does not grimace or show any other signs of discomfort. The effusion itself and soft tissue are nontender. Medial and lateral joint line are nontender. Some mild medial compartment instability. He has an intact straight leg raise. Calf is soft and compressible. He is able to wiggle his toes and sensation to light touch is grossly intact. RADIOLOGY: X-rays three views left knee were obtained and available for my reviewed. There is moderate medial compartment and patellofemoral arthritis. There appears to be a small joint effusion over the lateral, somewhat oblique. LABORATORIES: The patient has elevated white count, ESR and CRP. ASSESSMENT/PLAN: Jean Claude is an 82-year-old male with multiple medical problems and left knee effusion. Clinically, this is most consistent with ostearthritis. I do not have a high clinical concern for infection. I did recommend to the patient that I perform an aspiration to help rule out infection, but the patient refused on 06/15/2017. He stated that he did not think his knee was infected and has been hurting for years. At that point, I explained that I would come back the following day. I returned to see the patient on 06/16/2017. The patient thought his knee felt a little better. On exam, he still had a small to moderate effusion. I was able to range him from 2 to 100 degrees. The hospitalist was able to convince the patient to let me aspirate the knee. The risks and benefit of the left knee aspiration were discussed with the patient and written informed consent obtained. PROCEDURE NOTE: The left leg was initialed by myself and sterilely prepped with Betadine. After performing a time out, per hospital protocol, I used an 18 gauge needle to aspirate approximately 12 mL of fairly clear yellow synovial fluid. Fluid appeared quite benign. He tolerated the procedure well. Sterile bandage applied. Fluid was sent for stat gram stain, cell count and routine culture. Overall, my clinical concern is even lower for septic arthritis. Patient has many medical problems and would need a hard indication to recommend surgical irrigation and debridement. We will followup on the results of the aspiration.
[2017-06-16 13:41] LABS: BF MONONUCLEAR CELL % 13.8 % (0-0); BF POLYMORPHONUCLEAR CELL % 86.2 CELLS/uL (0-0)
[2017-06-16 13:46] LABS: SYNOVIAL FLUID COLOR AMBER (YELLOW)
[2017-06-16 13:47] LABS: BF DIFF IF INDICATED? YES (NO)
--- NOTE | 2017-06-16 13:51 | IPNPDOC ---
Text Note Date of Service The patient was seen on 06/16/17. NOTE Subjective: Pt states he still has generalized weakness. Left knee pain and swelling, now agreeable to arthrocentesis. Has foul smelling urine and dysuria prior to presentation to ED. Objective: Vitals: (see below) General: No acute distress, laying comfortably in bed. HEENT: Moist mucous membranes. Neck: No JVD or lymphadenopathy Cardiac: RRR, No murmurs Pulm: Coarse crackles at the bases b/l. No wheezing, rhonchi Abd: NT/ND + BS Ext: No edema or cyanosis. Left knee warm with mild decrease in ROM. No erythema. Mild tenderness. Distal pulse intact. Left upper extremity with hematoma from recent infiltration during dialysis. Distal pulses intact. Labs (see below) Images: Left knee x-ray 06/15/17 Impression:Tricompartment osteoarthritis. No fracture or dislocation. Assessment/Plan 1. Leukocytosis likely secondary to urinary tract infection given foul-smelling urine and dysuria, urinalysis and urine culture pending. Blood culture since. Had been placed on vancomycin for possible septic arthritis in the left knee. Is having a arthrocentesis today. No fevers or chills. CRP/ESR elevated. We'll trend. 2. ESRD on HD T//Wed 3. Chronic atrial fibrillation on Coumadin- INR subtherapeutic. Continue Coumadin. 4. Hypertension- controlled continue home meds 5. History of encephalopathy 6. History of anemia requiring blood transfusion 7. Hyperlipidemia continue statin 8. History of mechanical fall/left knee pain/back pain hold NSAIDs for now. Tylenol as needed. PTOT. X-rays negative. 9. Left arm hematoma stable. Hemoglobin stable. We'll restart Coumadin tomorrow. DVT prophy: On Coumadin VS,Fishbone, I+O VS, Fishbone, I+O Laboratory Tests 06/16/17 05:23 Red Blood Count 3.24 L, Mean Corpuscular Volume 93.8, Mean Corpuscular Hemoglobin 30.6, Mean Corpuscular Hemoglobin Concent 32.6, Red Cell Distribution Width 16.9 H, Neutrophils (%) (Auto) 77.9 H, Lymphocytes (%) (Auto ) 9.7 L, Monocytes (%) (Auto) 10.3 H, Eosinophils (%) (Auto) 0.9, Basophils (%) (Auto) 0.5, Neutrophils # (Auto) 10.2 H, Lymphocytes # (Auto) 1.3 L, Monocytes # (Auto) 1.3 H, Eosinophils # (Auto) 0.1, Basophils # (Auto) 0.1, Calcium Level 8.7 L, Aspartate Amino Transf (AST/SGOT) 10 L, Alanine Aminotransferase (ALT/ SGPT) 12, Total Creatine Kinase 46, Alkaline Phosphatase 59, Total Bilirubin 0.7 , Total Protein 6.4, Albumin 2.6 L Vital Signs Date Time Temp Pulse Resp B/P (MAP) Pulse Ox O2 Delivery O2 Flow Rate FiO2 06/16/17 09:30 73 06/16/17 09:28 96/57 06/16/17 06:00 97.9 20 96 06/15/17 22:07 Room Air I&O- Last 24 Hours up to 6 AM 06/17/17 06:00 Intake Total 440 ml Output Total 25 ml Balance 415 ml BHARAT TINAJERO MD Jun 16, 2017 13:51
[2017-06-16 14:00] VITALS: BP 109/56
[2017-06-16] MEDS: WARFARIN SOD 5 MG TAB PO SCH (17:02)
[2017-06-16 22:00] VITALS: BP 137/62
--- NOTE | 2017-06-16 22:43 | CR ---
DATE OF CONSULTATION: 06/15/2017 REQUESTING PHYSICIAN: Sajan Estrada MD REASON FOR CONSULTATION: Management of end-stage renal disease on hemodialysis. CHIEF COMPLAINT: Two day history of generalized fatigue and weakness. HISTORY OF PRESENT ILLNESS: Mr. Bell is an 82-year-old gentleman with a past medical history of known end-stage renal disease on hemodialysis, Wednesday, , Wednesday maintenance schedule via left upper extremity arteriovenous (AV) fistula, atrial fibrillation on chronic anticoagulation with Coumadin, history of right knee replacement, history of left inguinal hernia repair in July of 2016. As per the patient and his and daughter at the bedside, the patient was in his usual state of health until this weekend. On Wednesday, he went for his maintenance hemodialysis treatment which was complicated by infiltration of his fistula. Subsequently, after dialysis, per the , the patient spent the weekend in the chair with minimal oral intake and stated that he felt too weak to get up. He had one episode of diarrhea. His weakness and his appetite did not improve over the course of the weekend. On Wednesday morning he felt too weak to go to his regularly scheduled hemodialysis session and thus was brought to the emergency room for further evaluation. The family reports a mechanical fall 1 week prior with injury to the left knee with ongoing pain. At the present time, the patient was seen in the emergency room and he denies any other further symptoms. Denies dizziness, syncopal or presyncopal episodes. Denies fevers, chills, cough, palpitations, abdominal pain, nausea, vomiting, diarrhea. He does report that his inguinal hernia that was repaired in July of 2016, has again recurred over the past several months. He denies any pain at the hernia site. He has held his Coumadin over the weekend due to the fistula infiltration. PAST MEDICAL HISTORY: 1. End-stage renal disease on maintenance hemodialysis. 2. History of atrial fibrillation on Coumadin. 3. Anemia of chronic kidney disease. 4. History of septic shock due to acute cholecystitis in 2015. 5. History of right knee replacement. 6. History of left inguinal hernia repair in July 2016. 7. History of left upper extremity AV fistula creation. PAST SURGICAL HISTORY: Significant for: 1. Cholecystostomy tube placement and removal. 2. Right total knee replacement. 3. Inguinal hernia repair. 4. AV fistula creation in remote past. HOME MEDICATIONS: - atenolol - PhosLo - Dialyvite - simvastatin - Coumadin - albuterol ALLERGIES: No known drug allergies. SOCIAL HISTORY: The patient is an ex-smoker. He is , he lives with his . He denied alcohol or illicit drug use. FAMILY HISTORY: Negative for end-stage renal disease. PHYSICAL EXAMINATION: VITAL SIGNS: Temperature 100.1, pulse 74, blood pressure 128/64, saturating 96% on room air. GENERAL: Seen in the emergency room, and daughter present at the bedside, in no acute distress, lying comfortably in bed. HEAD and NECK: Moist mucous membranes. Extraocular muscles intact. Neck is supple. No jugular venous distention. CARDIOVASCULAR: Irregular, S1, S2. 2+ radial pulse. No edema of the lower extremity. PULMONARY: Mild bibasilar crackles. Symmetric air entry bilaterally. ABDOMEN: Soft, obese, nontender. GENITOURINARY: Large inguinal hernia. EXTREMITIES: Right knee with healed midline surgical incision. Left knee with mild decrease in range of motion. Left knee warm to touch, no erythema, no crepitus. Left upper extremity fistula with thrill and bruit and ecchymosis and hematoma from recent infiltration. LABORATORY DATA: White count 14.6, hemoglobin 11.1, platelets 167, ESR 108, CRP 23.2, sodium 135, potassium 4.1, bicarbonate 33, lactic acid 1.5, calcium 9.5. Urinalysis negative for leukocyte esterase and nitrates. INR 1.96. Microbiology: Blood cultures are drawn today and pending. IMAGING: Chest x-ray 06/15/2017, no focal infiltrates. INPATIENT MEDICATIONS: Reviewed by myself. The patient is started on vancomycin. He is on atenolol 25 mg by mouth daily, PhosLo 667 mg by mouth daily, digoxin, simvastatin 10 mg by mouth daily. ASSESSMENT AND PLAN: 1. End-stage renal disease on hemodialysis Wednesday, , Wednesday. The patient will be dialyzed today per his maintenance schedule. He denies any recent missed hemodialysis sessions. 2. Leukocytosis with elevated markers of inflammation. Patient with a white blood cell (WBC) count of 14,000 and markedly elevated erythrocyte sedimentation rate (ESR) and C-reactive protein (CRP), noted to have low grade temperature in the emergency room, 100.1, and started on empiric antibiotics per primary team and his blood cultures are drawn and pending. Source is uncertain. There is no clear source for his leukocytosis and elevated markers of inflammation. His left knee exam seems more consistent with musculoskeletal injury than with septic arthritis. X-rays of the knee are pending, however, and if there is an effusion it should be tapped. His scrotum is significantly swollen on exam. Patient states he was told it is due to his hernia, however he did have a scrotal ultrasound in March that showed a large 14 cm cyst in the scrotum. 3. Chronic atrial fibrillation. Patient remains on atenolol. His Coumadin is currently on hold. 4. History of anemia. Hemoglobin currently at goal. MTDD
[2017-06-17] MEDS: ANALGESIC BALM CRM 120 GM TOP PRN ×2 (01:40→15:58)
--- NOTE | 2017-06-17 05:34 | IPN ---
DATE: 06/16/2017 SUBJECTIVE: The patient is seen this morning at the bedside. He reports he feels better in the past 24 hours. He tolerated hemodialysis well yesterday with 1500 mL ultrafiltration. He ambulated around the room today and had increased range of motion in his left knee, and was able to bear more weight on the knee. He is pending arthrocentesis later on today with Dr. Mae. REVIEW OF SYSTEMS: Negative for headache, dizziness, chest pain, palpitations, shortness of breath, nausea, vomiting, diarrhea. Positive for left knee pain and scrotal swelling. PHYSICAL EXAMINATION: VITAL SIGNS: Temperature 97.9, pulse 69, respiratory rate 20, blood pressure 118/56, saturating 96% on room air. INTAKE AND OUTPUT: Hemodialysis yesterday removed 1.5 liters. Weight in the bed scale today 71.8 kg. GENERAL: The patient is awake, alert, and oriented times three, lying in bed comfortably. His is present at the bedside. HEAD/NECK: Extraocular muscles are intact. Moist mucous membranes. Neck is supple. No jugular venous distention. CARDIAC: Irregular S1, S2. Two plus radial pulse. No significant peripheral edema. RESPIRATORY: Symmetric bilateral air entry without wheeze or rhonchi. ABDOMEN: Soft, nontender, nondistended. GENITOURINARY: Significant scrotal enlargement noted. EXTREMITIES: No significant peripheral edema. Left knee is warm to touch with decrease in range of motion as compared to the right. Right knee has a healed vertical incision. Left upper extremity with fistula with thrill and bruit and hematoma. NEUROLOGIC: No focal deficit. PSYCHIATRIC: Appropriate mood and affect. LABORATORY DATA: Sodium 139, potassium 4.3, bicarbonate 29, corrected calcium 9.9, magnesium 2.2. AST and ALT both within normal limits. White count 13.1, hemoglobin 9.9, platelets 174. INR 1.9. MICROBIOLOGY: Blood cultures 06/15 no growth for 24 hours. Urine culture and Gram stain pending. IMAGING: Knee x-ray 06/15: Tricompartmental osteoarthritis. Chest x-ray 06/15: No infiltrates. INPATIENT MEDICATIONS: Reviewed by myself. Per primary team, the patient is on vancomycin dose after dialysis and ceftriaxone 1 gram intravenous (IV) daily. He has also been resumed on Coumadin. No other changes in the past 24 hours. ASSESSMENT AND PLAN: 1. End-stage renal disease on hemodialysis. The patient's next hemodialysis will be 06/17, per his maintenance schedule. 2. Leukocytosis with markedly elevated erythrocyte sedimentation rate (ESR) and C-reactive protein (CRP). The patient is on empiric antibiotics with vancomycin dosed after dialysis and ceftriaxone per the primary team. The blood cultures have no growth for 24 hours. His urine culture is pending. Urinalysis did not show leukocyte esterase or nitrites. He is status post arthrocentesis of his tender and warm left knee with Dr. Mae for concern of possible septic arthritis. He also has significant scrotal enlargement. Ultrasound done two months ago showed a 14 cm cyst. His scrotum is nontender. 3. Chronic atrial fibrillation on Coumadin. His international normalized ratio (INR) has improved. 4. Anemia of chronic kidney disease. Hemoglobin is close to goal. No intravenous (IV) iron at this time due to possible ongoing infection. Will resume Aranesp. 5. Hypertension. Controlled at this time. MTDD
[2017-06-17] MEDS: CALCIUM ACETATE 667 MG GELCAP PO SCH ×2 (05:55→17:46)
[2017-06-17] MEDS: OCUVITE 1 TAB PO SCH (05:55)
[2017-06-17] MEDS: ATENOLOL 25 MG TAB PO SCH (05:56)
[2017-06-17] MEDS: SIMVASTATIN 10 MG TAB PO SCH (05:56)
[2017-06-17 06:00] VITALS: BP 117/53
[2017-06-17 06:28] LABS: BASO # 0.1 10^3/uL (0.0-0.2); BASO % 0.5 % (0.0-1.0); EOS # 0.4 10^3/uL (0.0-0.50); EOS % 3.4 % (0.0-3.0); IMMATURE GRANULOCYTE % 0.5 % (0-0); LYMPH % 9.5 % (24.0-44.0); MEAN CORPUSCULAR HEMOGLOBIN 30.2 pg (27.0-33.0); MEAN CORPUSCULAR HGB CONC 32.2 g/dl (32.0-36.5); MEAN CORPUSCULAR VOLUME 93.8 fl (80.0-96.0); MONO % 9.8 % (0.0-5.0); NEUTROPHILS # 8.1 10^3/uL (1.8-7.7); NEUTROPHILS % 76.3 % (36.0-66.0); PLATELET COUNT, AUTOMATED 166 10^3/uL (150-450); RED CELL DISTRIBUTION WIDTH 16.6 % (11.5-14.5); WHITE BLOOD COUNT 10.6 10^3/uL (4.0-10.0)
[2017-06-17 06:38] LABS: INR 1.76
[2017-06-17 06:54] LABS: ALBUMIN 2.3 GM/DL (3.2-5.2); ALBUMIN/GLOBULIN RATIO 0.52 (1.00-1.93); BILIRUBIN,TOTAL 0.4 MG/DL (0.2-1.0); CALCIUM LEVEL 8.2 MG/DL (8.8-10.2); CREATININE FOR GFR 7.59 MG/DL (0.70-1.30); GLOMERULAR FILTRATION RATE 7.4 (>35); TOTAL PROTEIN 6.7 GM/DL (6.4-8.2); VANCOMYCIN RANDOM 16.7 UG/ML
[2017-06-17 09:28] LABS: ERYTHROCYTE SEDIMENTATION RATE 108 mm/hr (0-20)
[2017-06-17] MEDS ORDERED: DARBEPOETIN 100 MCG/0.5 ML *DIALYSIS* SYRINGE (J0882) IV SCH (09:45)
[2017-06-17] MEDS ORDERED: HEPARIN 1,000 UNITS/ML 10ML VIAL (FOR RADIOLOGY& DIALYSIS ONLY) IV ONE (10:45)
[2017-06-17 14:30] VITALS: BP 125/61
--- NOTE | 2017-06-17 15:23 | IPNPDOC ---
Text Note Date of Service The patient was seen on 06/17/17. NOTE Subjective: Pt feels well. Denies any acute changes overnight. Objective: Vitals: (see below) General: No acute distress, laying comfortably in bed. HEENT: Moist mucous membranes. Neck: No JVD or lymphadenopathy Cardiac: RRR, No murmurs Pulm: Coarse crackles at the bases b/l. No wheezing, rhonchi Abd: NT/ND + BS Ext: No edema or cyanosis. Left knee warm with mild decrease in ROM. No erythema. Mild tenderness. Distal pulse intact. Left upper extremity with hematoma from recent infiltration during dialysis. Distal pulses intact. Labs (see below) Images: Left knee x-ray 06/15/17 Impression:Tricompartment osteoarthritis. No fracture or dislocation. Assessment/Plan 1. Leukocytosis ?secondary to urinary tract infection given foul-smelling urine and dysuria, urinalysis/culture. Blood culture sent. Had been placed on vancomycin for possible septic arthritis in the left knee. s/p arthrocentesis . No fevers or chills. CRP/ESR elevated. WBC improving. Respiratory panel. 2. ESRD on HD T//Wed. Appreciate nephro input. 3. Chronic atrial fibrillation on Coumadin- INR subtherapeutic. Will increase dose tomorrow if still subtherapeutic. 4. Hypertension- controlled continue home meds 5. History of encephalopathy 6. History of anemia requiring blood transfusion 7. Hyperlipidemia continue statin 8. History of mechanical fall/left knee pain/back pain hold NSAIDs for now. Tylenol as needed. PTOT. X-rays negative. 9. Left arm hematoma stable. Hemoglobin stable. We'll restart Coumadin tomorrow. 10. Scrotal hernia - states he is following up outpt and will have it addressed with his surgeon. Denies any scrotal pain. DVT prophy: On Coumadin VS,Fishbone, I+O VS, Fishbone, I+O Laboratory Tests 06/17/17 05:53 Red Blood Count 3.08 L, Mean Corpuscular Volume 93.8, Mean Corpuscular Hemoglobin 30.2, Mean Corpuscular Hemoglobin Concent 32.2, Red Cell Distribution Width 16.6 H, Neutrophils (%) (Auto) 76.3 H, Lymphocytes (%) (Auto ) 9.5 L, Monocytes (%) (Auto) 9.8 H, Eosinophils (%) (Auto) 3.4 H, Basophils (% ) (Auto) 0.5, Neutrophils # (Auto) 8.1 H, Lymphocytes # (Auto) 1.0 L, Monocytes # (Auto) 1.0 H, Eosinophils # (Auto) 0.4, Basophils # (Auto) 0.1, Calcium Level 8.2 L, Aspartate Amino Transf (AST/SGOT) 13 L, Alanine Aminotransferase (ALT/ SGPT) 14, Alkaline Phosphatase 53, Total Bilirubin 0.4, Total Protein 6.7, Albumin 2.3 L Vital Signs Date Time Temp Pulse Resp B/P (MAP) Pulse Ox O2 Delivery O2 Flow Rate FiO2 06/17/17 14:30 98.3 79 18 125/61 (82) 96 Room Air I&O- Last 24 Hours up to 6 AM 06/18/17 05:59 Intake Total 240 ml Output Total 1550 ml Balance -1310 ml BHARAT TINAJERO MD Jun 17, 2017 15:23
[2017-06-17] MEDS: cefTRIAXone SOD 1 GM in D5W 50 ML IV SCH (15:58)
[2017-06-17] MEDS: CHECK TO SEE IF PATIENT IS RECEIVING DIALYSIS TODAY AND REFER TO THE VANCOMYCIN ORDER XX SCH (16:00)
[2017-06-17] MEDS: WARFARIN SOD 5 MG TAB PO SCH (17:46)
--- NOTE | 2017-06-17 21:04 | IPN ---
DATE: 06/17/2017 SUBJECTIVE The patient is seen this morning on hemodialysis. He tolerated his treatment well without issue with net ultra filtration of 1500 mL. He has remained afebrile for the past 24 hours and remains on empiric antibiotics. REVIEW OF SYSTEMS: Negative for headache, dizziness, chest pain, palpitations, shortness of breath, nausea, vomiting, diarrhea. Positive for left knee pain. Temperature 98.1, pulse 73, respiratory rate 16, blood pressure 117/53 saturating 95% on room air. INTAKE AND OUTPUT: Hemodialysis removed 1500 mL. Weight in the bed scale today 73.2 kg. PHYSICAL EXAMINATION: The patient is seen on hemodialysis receiving his treatment comfortably. He is awake, alert, oriented times three in no acute distress. HEAD AND NECK: Extraocular muscles are intact. Moist mucous membranes. Neck is supple, No jugular venous distention. CARDIAC: Irregular S1 S2. 2+ radial pulse. No significant peripheral edema. No dependent edema. RESPIRATORY: Symmetric bilateral air entry without wheeze or rhonchi. ABDOMEN: Soft, non-tender. Non-distended. GENITOURINARY: Significant scrotal enlargement. Non-tender. EXTREMITIES: No edema in the lower extremities. Left knee has a dressing on it. Right knee has a healed vertical incision. Left upper extremity fistula with thrill and bruit and ecchymosis. NEUROLOGIC: No focal deficit. PSYCHIATRIC: Appropriate mood and affect. LABORATORY DATA: White count 10.6, hemoglobin 9.3, platelet 166, erythrocyte sedimentation rate 108. Sodium 136, potassium 4.0, bicarbonate 25, CRP 21. Microbiology: Respiratory virus panel negative. Urine culture contaminated. Blood cultures no growth for 48 hours. Synovial fluid from left knee culture pending. INPATIENT MEDICATIONS: Patient remains on vancomycin and ceftriaxone per the primary team. He is started by myself on Aranesp with hemodialysis. The remainder of his medications are unchanged from prior. ASSESSMENT AND PLAN: 1. End-stage renal disease on maintenance hemodialysis. The patient is receiving hemodialysis per his maintenance schedule without issue. He has not had any further episodes of infiltration of his fistula. He is resumed on his Coumadin. 2. Leukocytosis with low grade fever and elevation and erythrocyte sedimentation rate and C-reactive protein (CRP). The patient continues on empiric antibiotics per the primary team. His blood cultures have been negative thus fur. Urine culture was contaminated. Synovial fluid studies are pending. His white count has improved from prior and he remains afebrile at this time with symptomatic improvement in his generalized weakness and fatigue. 3. Chronic atrial fibrillation on Coumadin with subtherapeutic INR. The patient had held his Coumadin due to fistula infiltration and hematoma. He has now been resumed. 4. Anemia of chronic kidney disease. The patient continued on Aranesp. MTDD
[2017-06-17 22:00] VITALS: BP 103/58
[2017-06-18 06:00] VITALS: BP 116/59
[2017-06-18 06:12] LABS: BASO # 0.1 10^3/uL (0.0-0.2); EOS # 0.4 10^3/uL (0.0-0.50); EOS % 3.7 % (0.0-3.0); IMMATURE GRANULOCYTE % 0.4 % (0-0); LYMPH # 1.2 10^3/uL (1.5-4.5); LYMPH % 12.4 % (24.0-44.0); MEAN CORPUSCULAR HEMOGLOBIN 30.1 pg (27.0-33.0); MEAN CORPUSCULAR HGB CONC 31.4 g/dl (32.0-36.5); MEAN CORPUSCULAR VOLUME 95.8 fl (80.0-96.0); MONO # 0.9 10^3/uL (0.0-0.8); NEUTROPHILS # 6.8 10^3/uL (1.8-7.7); NEUTROPHILS % 72.5 % (36.0-66.0); PLATELET COUNT, AUTOMATED 183 10^3/uL (150-450); RED CELL DISTRIBUTION WIDTH 16.7 % (11.5-14.5); WHITE BLOOD COUNT 9.4 10^3/uL (4.0-10.0)
[2017-06-18 06:28] LABS: INR 1.86
[2017-06-18 06:39] LABS: ERYTHROCYTE SEDIMENTATION RATE > 140 mm/hr (0-20)
[2017-06-18 06:51] LABS: ALBUMIN 2.4 GM/DL (3.2-5.2); ALBUMIN/GLOBULIN RATIO 0.55 (1.00-1.93); BILIRUBIN,TOTAL 0.2 MG/DL (0.2-1.0); CALCIUM LEVEL 8.8 MG/DL (8.8-10.2); CREATININE FOR GFR 4.96 MG/DL (0.70-1.30); GLOMERULAR FILTRATION RATE 12.1 (>35); PHOSPHORUS LEVEL 4.1 MG/DL (2.5-4.9); POTASSIUM SERUM 3.9 MEQ/L (3.5-5.1); TOTAL PROTEIN 6.8 GM/DL (6.4-8.2)
[2017-06-18] MEDS: OCUVITE 1 TAB PO SCH (08:27)
[2017-06-18] MEDS: ATENOLOL 25 MG TAB PO SCH (08:27)
[2017-06-18] MEDS: SIMVASTATIN 10 MG TAB PO SCH (08:27)
[2017-06-18] MEDS: CALCIUM ACETATE 667 MG GELCAP PO SCH ×2 (08:27→17:10)
[2017-06-18] MEDS: DIGOXIN 0.125 MG TAB PO SCH (08:28)
--- NOTE | 2017-06-18 11:05 | IPNPDOC ---
Text Note Date of Service The patient was seen on 06/18/17. NOTE Subjective: Pt feels well. ROM of his left knee has improved. Denies any acute changes overnight. Objective: Vitals: (see below) General: No acute distress, laying comfortably in bed. HEENT: Moist mucous membranes. Neck: No JVD or lymphadenopathy Cardiac: RRR, No murmurs Pulm: Coarse crackles at the bases b/l. No wheezing, rhonchi Abd: NT/ND + BS Ext: No edema or cyanosis. Left knee warm with improved ROM. No erythema. No tenderness. Distal pulse intact. Left upper extremity with hematoma from recent infiltration during dialysis stable. Distal pulses intact. Labs (see below) Images: Left knee x-ray 06/15/17 Impression:Tricompartment osteoarthritis. No fracture or dislocation. Assessment/Plan 1. Leukocytosis - UA negative. Blood culture sent. Had been placed on vancomycin for possible septic arthritis in the left knee. - ? strep on fluid cx , although WBC <4000 on cell cunt. s/p arthrocentesis 06/17. No fevers or chills. CRP/ESR elevated, improving. WBC improving. Respiratory panel negative. ID consulted. 2. ESRD on HD T//Wed. Appreciate nephro input. 3. Chronic atrial fibrillation on Coumadin- INR subtherapeutic. Will increase dose tomorrow if still subtherapeutic. 4. Hypertension- controlled continue home meds 5. History of encephalopathy 6. History of anemia requiring blood transfusion 7. Hyperlipidemia continue statin 8. History of mechanical fall/left knee pain/back pain hold NSAIDs for now. Tylenol as needed. PTOT. X-rays negative. 9. Left arm hematoma stable. Hemoglobin stable.On Coumadin, dose increased. 10. Scrotal cyst - states he is following up outpt and will have it addressed with his surgeon. Denies any scrotal pain. DVT prophy: On Coumadin VS,Fishbone, I+O VS, Fishbone, I+O Laboratory Tests 06/18/17 06:01 Red Blood Count 3.12 L, Mean Corpuscular Volume 95.8, Mean Corpuscular Hemoglobin 30.1, Mean Corpuscular Hemoglobin Concent 31.4 L, Red Cell Distribution Width 16.7 H, Neutrophils (%) (Auto) 72.5 H, Lymphocytes (%) (Auto ) 12.4 L, Monocytes (%) (Auto) 10.0 H, Eosinophils (%) (Auto) 3.7 H, Basophils ( %) (Auto) 1.0, Neutrophils # (Auto) 6.8, Lymphocytes # (Auto) 1.2 L, Monocytes # (Auto) 0.9 H, Eosinophils # (Auto) 0.4, Basophils # (Auto) 0.1, Calcium Level 8.8, Phosphorus Level 4.1, Aspartate Amino Transf (AST/SGOT) 13 L, Alanine Aminotransferase (ALT/SGPT) 15, Alkaline Phosphatase 51, Total Bilirubin 0.2, Total Protein 6.8, Albumin 2.4 L Vital Signs Date Time Temp Pulse Resp B/P (MAP) Pulse Ox O2 Delivery O2 Flow Rate FiO2 06/18/17 08:28 78 06/18/17 08:27 127/67 06/18/17 08:00 Room Air 06/18/17 08:00 18 06/18/17 06:00 98.0 97 I&O- Last 24 Hours up to 6 AM 06/19/17 06:00 Intake Total 360 ml Balance 360 ml BHARAT TINAJERO MD Jun 18, 2017 11:05
[2017-06-18] MEDS: cefTRIAXone SOD 1 GM in D5W 50 ML IV SCH (11:46)
[2017-06-18 14:00] VITALS: BP 108/58
--- NOTE | 2017-06-18 15:46 | IPN ---
DATE: 06/18/2017 SUBJECTIVE: The patient is seen today at the bedside. He feels much better. He inquires in regards to discharge planning. His energy level has improved. He denies any acute events overnight. REVIEW OF SYSTEMS: Negative for headache, dizziness, chest pain, palpitations, shortness of breath, nausea, vomiting or diarrhea. Positive for improved range of motion in the left knee. PHYSICAL EXAMINATION: VITAL SIGNS: Temperature 98.0, pulse 69, respiratory rate 18, blood pressure 116/59, saturating 97% on room air. INTAKE AND OUTPUT: Hemodialysis yesterday removed 1500 mL of ultrafiltration. Weight in the bed scale today 73.1 kg. GENERAL: The patient is awake, alert, and oriented times three in no distress, lying comfortably in bed. HEENT: Moist mucous membranes. NECK: Supple. There is no jugular venous distention (JVD). CHEST: Lungs are clear to auscultation with no wheeze or rale. He is comfortable on room air. ABDOMEN: Soft, nontender. Positive bowel sounds. EXTREMITIES: Without edema. Left knee range of motion is improved. Not tender to palpation. Left upper extremity with aneurysmal fistula and extensive hematoma. GENITOURINARY (): Scrotal enlargement. LABORATORY DATA: White count 9.4, hemoglobin 9.4, platelets 183. ESR greater than 140. Sodium 140, potassium 3.9, bicarbonate 28. CRP down trending 13. Corrected calcium 10. Phosphorus 4.1. ASSESSMENT AND PLAN: 1. Elevated markers of inflammation. C-reactive protein (CRP) down trending. Erythrocyte sedimentation rate (ESR) significantly elevated. Blood cultures negative thus far. The patient is on empiric antibiotics with vancomycin and ceftriaxone. His white count has improved. He is afebrile. There is a concern of possible septic arthritis. Microbiology report is pending, but reportedly the synovial fluid grew strep. The primary team has reached out to Dr. Lay for consult. 2. End-stage renal disease on hemodialysis Wednesday, , Wednesday. The patient is receiving his maintenance hemodialysis sessions. He has not had further fistula infiltration. He remains on Coumadin and international normalized ratio (INR) is subtherapeutic. 3. Chronic atrial fibrillation, rate controlled. INR today is 1.8. 4. Hypertension, controlled on current home medications. 5. Anemia of chronic kidney disease. The patient is resumed on Aranesp. 6. Secondary hyperparathyroidism. Phosphorus is stable on PhosLo. Plan of care is discussed with Dr. Estrada.
[2017-06-18] MEDS: CHECK TO SEE IF PATIENT IS RECEIVING DIALYSIS TODAY AND REFER TO THE VANCOMYCIN ORDER XX SCH (16:00)
--- NOTE | 2017-06-18 16:51 | CR ---
DATE OF CONSULTATION: 06/18/2017 REASON FOR CONSULTATION: Asked to consult by Dr. Estrada for evaluation of fever with inflammatory arthritis of the left knee and questionable infection. HISTORY OF PRESENT ILLNESS: Mr. Bell is a pleasant 82-year-old gentleman with a history of end-stage renal disease on hemodialysis by Dr. Bartholomew. The patient had been doing well until he went to dialysis on Wednesday which was complicated by infiltration of his left arm fistula. He was able only to tolerate one hour of dialysis and then the arm became very bruised and edematous. He came home and was exhausted, weak, sat on his chair and did not do anything for the next 48 hours. On Wednesday morning, he was supposed to go to dialysis but felt very weak and therefore came to our emergency room. He was noted to have a low-grade temperature of 100.1. His left arm with very swollen, ecchymotic. He also reported some knee pain but he had fallen approximately one week before. The knee was warm and therefore was aspirated by Dr. Mae on 06/16. Total fluid white count was 3640, 11,000 red cells and 86% polymorphonuclear. Uric acid crystals were present. The patient was treated with broad-spectrum antibiotics with vancomycin and Rocephin. He had two sets of blood cultures that were negative. Urine culture was negative. Respiratory panel was negative. The patient clinically is doing better. He states his knee does not hurt him. He has over a 90-degree range of motion. Dr. Mae did not feel this was a septic joint. He denies any fever, chills currently, no headache, chest pain, shortness of breath. No cough or palpitation. No abdominal pain. No nausea, vomiting, diarrhea. PAST MEDICAL HISTORY significant for: 1. End-stage renal disease on hemodialysis Wednesday, , Wednesday. 2. Chronic atrial fibrillation. 3. Dyslipidemia. 4. Bilateral osteoarthritis of the knees, status post right total knee replacement. 5. Hypertension. 6. Symptomatic bradycardia. 7. History of encephalopathy. 8. Anemia requiring transfusion. PAST SURGICAL HISTORY: 1. Cholecystitis with cholecystotomy tube for four weeks and August 2016. 2. Right knee replacement. 3. Fistula placement left arm. 4. Left inguinal hernia repair July 2016, that recurred within two weeks and needed second surgery. 5. Esophageal dilatation. SOCIAL HISTORY: He lives in [place]. He is . He has four kids. 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 Quit smoking over 60 years ago. He drinks one beer a month. He is a DO NOT RESUSCITATE (DNR). REVIEW OF SYSTEMS: He has mild knee pain. Mild left arm pain from the bruises. No nausea, vomiting, diarrhea, abdominal pain, chest pain, shortness of breath, upper or lower extremity weakness. He is walking with a walker usually at home. He walks most of the time without a walker. His drives him to dialysis. PHYSICAL EXAMINATION: GENERAL: On physical exam he is a healthy-looking elderly gentleman in no acute distress. VITAL SIGNS: Temperature is 98, pulse 79, respirations 18, blood pressure 116/59, O2 saturation 95% on room air. Temperature maximum (T max) on 06/15 was 100.1. HEART: Normal S1, S2, irregular with a systolic ejection murmur heard at the left upper sternal border 2/6. LUNGS: Few expiratory rhonchi at bases. No wheezes, no crackles. ABDOMEN: Soft, nontender. No hepatosplenomegaly. EXTREMITIES: No clubbing, cyanosis or edema. Left knee is mildly warmer than the right knee but is not erythematous. His range of motion is 90-95 degrees. He has no difficulty moving his knee. Right knee has a scar at the total knee prosthesis. Normal range of motion. Left arm has an arteriovenous (AV) fistula with a good thrill and bruit. He has ecchymosis above the fistula along his biceps. He has normal range of motion. IMAGING STUDIES: Knee x-ray done on 06/15 shows tricompartmental osteoarthritis. No fracture or dislocation. Lumbar spine x-ray shows multiple degenerative disc disease most advanced at L5-S1. Chest x-ray showed prominent heart. No evidence of pulmonary edema or pleural effusion. No focal infiltrate. MICROBIOLOGY: Blood cultures two sets on 06/15 were negative. Synovial fluid culture Gram stain had few white cells, no organisms seen. Culture preliminary has very few alpha-hemolytic strep. Urine culture is pending. Respiratory panel was negative. IMPRESSION: This is an 82-year-old gentleman who was admitted with weakness and pain in his AV fistula after he had infiltration during dialysis and ecchymosis. The patient had low grade fever on admission and received broad-spectrum antibiotic with vancomycin and Rocephin, and had an improvement in his symptoms. He was seen in consultation by Dr. Mae who drained his left knee. He thought the knee was consistent with osteoarthritis and not infected. 12 mL of fairly clear yellow synovial fluid was drawn. I called Dr. aMe to discuss the findings that there were a few alpha strep on culture from the aspirate done. Clinically he did not feel that this was not infected joint. I agree. The patient has barely any pain, completing normal range of motion. No redness of the knee. Alpha strep is not a typical pathogen either causing a septic joint, although could rarely do that. At this point since clinically he only had 3640 cells in the joint fluid, this is not consistent with septic arthritis. He has very good range of motion and this is not consistent either. PLAN: Discontinue intravenous (IV) vancomycin and IV Rocephin. I have discussed the case with orthopedic surgery. They are agreeable if the knee gets worse then he would recommend repeat aspiration and then considering surgical intervention. If clinically he continues improvement, then I would not recommend any further antibiotic. Also there could be a flareup of gouty arthritis. The patient has no previous history of gout. Would obtain uric acid levels. It has improved by drainage and he has not been treated for gout. ALLERGIES: No known drug allergies. MEDICATIONS: - warfarin 7.5 mg daily - calcium acetate 665 mg by mouth twice a day - Aranesp 100 mcg IV daily - Bengay cream to the neck - ceftriaxone 1 gram IV every 24 hours - digoxin 0.125 mg Wednesday, Wednesday, Wednesday - vancomycin 1 gram IV with dialysis - Tylenol as needed - multivitamin one tablet daily - Zocor 10 mg by mouth daily PLAN: Discontinue all antibiotic and monitor the patient off antibiotics. Call orthopedic if worsening symptoms to re drain his knee.
[2017-06-18] MEDS ORDERED: WARFARIN SOD 7.5 MG TAB PO SCH (17:00)
[2017-06-18 22:00] VITALS: BP 121/78
[2017-06-19 06:00] VITALS: BP 139/68
[2017-06-19 06:01] LABS: BASO # 0.1 10^3/uL (0.0-0.2); BASO % 0.8 % (0.0-1.0); EOS # 0.4 10^3/uL (0.0-0.50); EOS % 4.3 % (0.0-3.0); IMMATURE GRANULOCYTE % 0.6 % (0-0); LYMPH # 1.4 10^3/uL (1.5-4.5); LYMPH % 14.9 % (24.0-44.0); MEAN CORPUSCULAR HEMOGLOBIN 30.3 pg (27.0-33.0); MEAN CORPUSCULAR HGB CONC 31.6 g/dl (32.0-36.5); MEAN CORPUSCULAR VOLUME 95.7 fl (80.0-96.0); MONO # 0.8 10^3/uL (0.0-0.8); MONO % 8.8 % (0.0-5.0); NEUTROPHILS # 6.7 10^3/uL (1.8-7.7); NEUTROPHILS % 70.6 % (36.0-66.0); PLATELET COUNT, AUTOMATED 200 10^3/uL (150-450); RED CELL DISTRIBUTION WIDTH 16.4 % (11.5-14.5); WHITE BLOOD COUNT 9.6 10^3/uL (4.0-10.0)
[2017-06-19 06:09] LABS: INR 1.92
[2017-06-19 06:20] LABS: ALBUMIN 2.4 GM/DL (3.2-5.2); ALBUMIN/GLOBULIN RATIO 0.56 (1.00-1.93); BILIRUBIN,TOTAL 0.3 MG/DL (0.2-1.0); CALCIUM LEVEL 8.8 MG/DL (8.8-10.2); CREATININE FOR GFR 6.52 MG/DL (0.70-1.30); GLOMERULAR FILTRATION RATE 8.8 (>35); POTASSIUM SERUM 3.9 MEQ/L (3.5-5.1); TOTAL PROTEIN 6.7 GM/DL (6.4-8.2)
[2017-06-19 06:25] LABS: ERYTHROCYTE SEDIMENTATION RATE 77 mm/hr (0-20)
[2017-06-19] MEDS: OCUVITE 1 TAB PO SCH (07:38)
[2017-06-19 07:39] VITALS: BP 122/60
[2017-06-19] MEDS: ATENOLOL 25 MG TAB PO SCH (07:39)
[2017-06-19] MEDS: CALCIUM ACETATE 667 MG GELCAP PO SCH (07:39)
[2017-06-19] MEDS: SIMVASTATIN 10 MG TAB PO SCH (07:39)
[2017-06-19] MEDS: cefTRIAXone SOD 1 GM in D5W 50 ML IV SCH (12:23)
--- NOTE | 2017-06-19 16:44 | DS.PDOC ---
Discharge Summary General Date of Admission Jun 15, 2017 at 12:27 Date of Discharge 06/19/17 Attending Physician: BHARAT TINAJERO MD Specialist/Consultants Involve: Clement Lay MD Specialist/Consultants Involve Dr. Pham Discharge Summary PROCEDURES PERFORMED DURING STAY: Hemodialysis ADMITTING/DISCHARGE DIAGNOSES: 1. Generalized weakness and lethargy resolved 2. Inflammatory arthritis left knee 3. End-stage renal disease on hemodialysis 4. Leukocytosis resolved 5. Chronic atrial fibrillation on Coumadin 6. Hypertension 7. Left arm hematoma improving 8. Scrotal cyst being evaluated outpatient COMPLICATIONS/CHIEF COMPLAINT: Generalized weakness HISTORY OF PRESENT ILLNESS/HOSPITAL COURSE: Patient is a 82-year-old male past history of end-stage renal disease on hemodialysis Wednesday//Wednesday, atrial fibrillation Coumadin, hypertension presents complaining of generalized weakness. Patient was initially thought to have an underlying infection given his elevated CRP, CBC, CRP, and warm left knee as well as foul-smelling urine. The patient did have a urinalysis which was negative. He also had arthrocentesis which was unrevealing. He was evaluated by infectious disease and noted to have inflammatory arthritis rather than infectious. Antibiotics were discontinued. Patient progressed with physical therapy.Patient is to be discharged with outpatient hemodialysis today. Patient's return to the ED if symptoms worsen. He understands that if his left knee becomes warm and tender, he will need to follow-up with his primary care physician or come to the emergency department as he will likely need a second arthrocentesis. DISCHARGE MEDICATIONS: Please see below. ALLERGIES: Please see below. PHYSICAL EXAMINATION ON DISCHARGE: Vitals: (see below) General: No acute distress, laying comfortably in bed. HEENT: Moist mucous membranes. Neck: No JVD or lymphadenopathy Cardiac: RRR, No murmurs Pulm: Coarse crackles at the bases b/l. No wheezing, rhonchi Abd: NT/ND + BS Ext: No edema or cyanosis. Left knee with full ROM. No erythema. No tenderness. Distal pulse intact. Left upper extremity with hematoma from recent infiltration during dialysis improved. Distal pulses intact. LABORATORY DATA: Please see below. IMAGING: Left knee x-ray 06/15/17 Impression:Tricompartment osteoarthritis. No fracture or dislocation. PROGNOSIS: Guarded ACTIVITY: As tolerated. DIET: Low-sodium/renal DISCHARGE PLAN/DISPOSITION: Home with home services DISCHARGE INSTRUCTIONS: 1. Patient's follow-up is primary care physician as well as nephrology in 1-2 weeks. Patient is to follow his hemodialysis regimen Wednesday//Wednesday. He is to go to hemodialysis today. DISCHARGE CONDITION: Stable. TIME SPENT ON DISCHARGE: Greater than 30 minutes. Vital Signs/I&Os Vital Signs Date Time Temp Pulse Resp B/P (MAP) Pulse Ox O2 Delivery O2 Flow Rate FiO2 06/19/17 10:45 Room Air 06/19/17 07:39 61 122/60 06/19/17 06:00 98.0 18 93 I&O- Last 24 Hours up to 6 AM 06/20/17 06:00 Intake Total 500 ml Output Total 0 ml Balance 500 ml Laboratory Data Labs 24H Laboratory Tests 2 06/19/17 05:32: Immature Granulocyte % (Auto) 0.6H, White Blood Count 9.6, Red Blood Count 3.04L , Hemoglobin 9.2L, Hematocrit 29.1L, Mean Corpuscular Volume 95.7, Mean Corpuscular Hemoglobin 30.3, Mean Corpuscular Hemoglobin Concent 31.6L, Red Cell Distribution Width 16.4H, Platelet Count 200, Neutrophils (%) (Auto) 70.6H , Lymphocytes (%) (Auto) 14.9L, Monocytes (%) (Auto) 8.8H, Eosinophils (%) (Auto ) 4.3H, Basophils (%) (Auto) 0.8, Neutrophils # (Auto) 6.7, Lymphocytes # (Auto ) 1.4L, Monocytes # (Auto) 0.8, Eosinophils # (Auto) 0.4, Basophils # (Auto) 0.1 , Immature Granulocyte # (Auto) 0.1H, Nucleated Red Blood Cells % (auto) 0.0, Erythrocyte Sedimentation Rate 77H, Prothrombin Time 22.6H, Prothromb Time International Ratio 1.92, Anion Gap 11, Glomerular Filtration Rate 8.8L, Blood Urea Nitrogen 50H, Creatinine 6.52H, Sodium Level 140, Potassium Level 3.9, Chloride Level 103, Carbon Dioxide Level 26, Calcium Level 8.8, Aspartate Amino Transf (AST/SGOT) 12L, Alanine Aminotransferase (ALT/SGPT) 16, Alkaline Phosphatase 50, Total Bilirubin 0.3, Total Protein 6.7, Albumin 2.4L, Albumin/ Globulin Ratio 0.56L CBC/BMP Laboratory Tests 06/19/17 05:32 Red Blood Count 3.04 L, Mean Corpuscular Volume 95.7, Mean Corpuscular Hemoglobin 30.3, Mean Corpuscular Hemoglobin Concent 31.6 L, Red Cell Distribution Width 16.4 H, Neutrophils (%) (Auto) 70.6 H, Lymphocytes (%) (Auto ) 14.9 L, Monocytes (%) (Auto) 8.8 H, Eosinophils (%) (Auto) 4.3 H, Basophils (% ) (Auto) 0.8, Neutrophils # (Auto) 6.7, Lymphocytes # (Auto) 1.4 L, Monocytes # (Auto) 0.8, Eosinophils # (Auto) 0.4, Basophils # (Auto) 0.1, Calcium Level 8.8 , Aspartate Amino Transf (AST/SGOT) 12 L, Alanine Aminotransferase (ALT/SGPT) 16 , Alkaline Phosphatase 50, Total Bilirubin 0.3, Total Protein 6.7, Albumin 2.4 L Microbiology Microbiology 06/15/17 Blood Culture - Preliminary, Resulted No Growth after 72 hours. All specime... 06/15/17 Blood Culture - Preliminary, Resulted No Growth after 72 hours. All specime... 06/16/17 Gram Stain - Final, Complete 06/16/17 Body Fluid Culture - Final, Complete Streptococcus Mitis 06/17/17 Respiratory Virus Panel (PCR) (LUCIAN) - Final, Complete 06/16/17 Urine Culture - Final, Complete Discharge Medications Scheduled (Dialyvite 800/Ultra D) 1 Tab Tab, 1 TAB PO DAILY, (Reported) Atenolol (Atenolol) 25 Mg Tab, 25 MG PO DAILY, (Reported) Calcium Acetate (Calcium Acetate) 667 Mg Cap, 667 MG PO DAILY, (Reported) Digoxin (Digoxin) 0.125 Mg Tab, 0.125 MG PO 3XW, (Reported) WED, WED, WED Simvastatin (Simvastatin) 10 Mg Tab, 10 MG PO DAILY, (Reported) Warfarin Sod (Warfarin Sodium) 5 Mg Tab, 5 MG PO DAILY, (Reported) Scheduled PRN Naproxen Sodium (Naproxen Sodium) 220 Mg Tab, 220 MG PO BID PRN for PAIN, ( Reported) Allergies Coded Allergies: No Known Allergies (Verified , 11/04/12) BHARAT TINAJERO MD Jun 19, 2017 16:44
--- NOTE | 2017-06-19 18:57 | IPN ---
DATE: 06/19/2017 SUBJECTIVE: The patient is seen this morning at the bedside. He has discharge pending. He has no complaints and feels well. He is set up to receive hemodialysis at his outpatient unit later this afternoon per his maintenance schedule. He was evaluated by infectious disease, and antibiotics were discontinued. REVIEW OF SYSTEMS: Negative for headache, chest pain, palpitations, shortness of breath, nausea, vomiting, diarrhea. Positive for increased energy level and improved range of motion of left knee. VITAL SIGNS: Temperature 98.0, pulse 63, respiratory rate 18, blood pressure 139/68, saturating 93% on room air. PHYSICAL EXAMINATION: GENERAL: Awake, alert, oriented times four. Lying flat in bed in no acute distress. HEAD AND NECK: Supple. Moist mucous membranes. Extraocular muscles intact. CARDIAC: Regular rate and rhythm. No murmurs. Radial pulse 2+. No edema in the lower extremities. PULMONARY: No wheezing or rhonchi. Comfortable on room air . ABDOMEN: Soft, nontender, nondistended. EXTREMITIES: No edema. Left knee with full range of motion. Left upper extremity fistula with thrill, bruit, hematoma, and ecchymosis. LABORATORY DATA: Hemoglobin 9.2, white count 9.6, platelets 200, ESR 77. Sodium 140, potassium 3.9, bicarbonate 26, calcium 10, phosphorus 4.1. INPATIENT MEDICATIONS: Reviewed by myself. Antibiotics have been discontinued. Remainder of medications are unchanged from prior. ASSESSMENT AND PLAN: 1. End-stage renal disease, on hemodialysis. The patient will receive his maintenance treatment this afternoon at the outpatient dialysis unit, and this has been arranged with him. 2. We will watch the fistula for any recurrent episodes of infiltration. He has been resumed on his Coumadin. 3. Chronic atrial fibrillation, on Coumadin. Patient's INR this morning 1.92. He is rate controlled. 4. Inflammatory arthritis of left knee. Patient has been evaluated by infectious disease. He is discontinued off antibiotics. He is clinically improved with improving inflammatory markers. There were uric acid crystals in the fluids. We will watch him for any repeat gouty attacks. Plan of care discussed with Dr. Sajan Estrada. edited: 06/21/2017 1239 tkf CALRA
== END 2017-06-19 13:27 | disposition home or self-care (01) | DRG 314 ==
LOC: M ED 08:32 → EDBD 08:32 → EDSEX 08:32 → M ED INP 12:27 → M MSPAV 19:05
PROVIDERS: ADMIT Internal Medicine; ATTEND Internal Medicine
PROC: 5A1D70Z Performance of Urinary Filtration, Intermittent, Less than 6 Hours Per Day (ICD-10-PCS; 2017-06-15)
PROC: 0S9D3ZX Drainage of Left Knee Joint, Percutaneous Approach, Diagnostic (ICD-10-PCS; principal; 2017-06-16)
DX: T80.90XA Unspecified complication following infusion and therapeutic injection, initial encounter (principal); N18.6 End stage renal disease; I12.0 Hypertensive chronic kidney disease with stage 5 chronic kidney disease or end stage renal disease; Z66 Do not resuscitate; S40.022A Contusion of left upper arm, initial encounter; M25.462 Effusion, left knee; I48.2 Chronic atrial fibrillation; E78.5 Hyperlipidemia, unspecified; D63.1 Anemia in chronic kidney disease; K40.90 Unilateral inguinal hernia, without obstruction or gangrene, not specified as recurrent; Z96.651 Presence of right artificial knee joint; Z95.828 Presence of other vascular implants and grafts; Z87.891 Personal history of nicotine dependence; Z99.2 Dependence on renal dialysis; Z79.899 Other long term (current) drug therapy; Z79.01 Long term (current) use of anticoagulants; Y92.238 Other place in hospital as the place of occurrence of the external cause; Y82.9 Unspecified medical devices associated with adverse incidents; X58.XXXA Exposure to other specified factors, initial encounter; Y99.9 Unspecified external cause status; Y93.9 Activity, unspecified

== ENCOUNTER → 2017-07-14 | Outpatient (CLI) | payer MEDICARE, OTHER ==
[~2017-07-14] MED LIST changes: +BACT800T5 PO; +CALC1CAP; +CALC1CAP PO; +CIPR250T3 PO; +DIGO0.12; +NAPR1TAB41 PO; +TYLE650T35 PO
--- NOTE | 2017-07-14 10:28 | REP ---
PA and lateral chest: Comparison is 06/15/2017. There is cardiomegaly, unchanged. The lung ang are clear. The alex and mediastinum are unremarkable. There is chronic dislocation of the left shoulder with deformity of the humeral head and periarticular calcification. This is unchanged. Impression: No acute cardiopulmonary findings. Cardiomegaly, unchanged. Chronic dislocation of the left shoulder, unchanged.
== END ==
LOC: M CLY 09:25
PROVIDERS: ATTEND Nurse Practitioner Women's Health
DX: Z01.818 Encounter for other preprocedural examination (principal); N50.3 Cyst of epididymis; I51.7 Cardiomegaly; Z79.01 Long term (current) use of anticoagulants

== ENCOUNTER → 2017-07-14 | Outpatient (REF) | payer MEDICARE, OTHER ==
[2017-07-14 11:35] LABS: MEAN CORPUSCULAR HEMOGLOBIN 30.7 pg (27.0-33.0); MEAN CORPUSCULAR HGB CONC 31.5 g/dl (32.0-36.5); MEAN CORPUSCULAR VOLUME 97.5 fl (80.0-96.0); PLATELET COUNT, AUTOMATED 175 10^3/uL (150-450); RED CELL DISTRIBUTION WIDTH 16.8 % (11.5-14.5); WHITE BLOOD COUNT 9.4 10^3/uL (4.0-10.0)
[2017-07-14 11:52] LABS: INR 2.52
[2017-07-14 12:04] LABS: CALCIUM LEVEL 8.6 MG/DL (8.8-10.2); CREATININE FOR GFR 5.74 MG/DL (0.70-1.30); GLOMERULAR FILTRATION RATE 10.2 (>35); POTASSIUM SERUM 4.3 MEQ/L (3.5-5.1)
== END ==
LOC: M LABSMT 09:12 → M LABDRAWC 09:15
PROVIDERS: ATTEND Nurse Practitioner Women's Health
DX: Z01.818 Encounter for other preprocedural examination (principal); N50.3 Cyst of epididymis

== ENCOUNTER 2017-07-28 06:07 | Day surgery (SDC) | payer MEDICARE, OTHER ==
[~2017-07-28] VITALS: Ht 170.2 cm; Wt 66.1 kg
[~2017-07-28 06:07] MED LIST changes: -BACT800T5 PO; -CIPR250T3 PO; -TYLE650T35 PO
[2017-07-28 06:57] LABS: INR 1.11
[2017-07-28] MEDS ORDERED: BUPIVACAINE HCL 0.25% 30 ML VIAL As Ordered ONE (07:12)
[2017-07-28] MEDS ORDERED: ATENOLOL 25 MG TAB As Ordered ONE (07:15)
[2017-07-28] MEDS ORDERED: D5W/0.2% SODIUM CHLORIDE 1,000 ML IV ONE (07:15)
[2017-07-28 07:26] VITALS: BP 130/60
[2017-07-28] MEDS ORDERED: ATENOLOL 25 MG TAB PO ONE (07:30)
[2017-07-28] MEDS ORDERED: LIDOCAINE 2% INJ 100 MG/5 ML SDV (FOR ANES.) As Ordered ONE (07:54)
[2017-07-28] MEDS ORDERED: ONDANSETRON 4MG/2ML VIAL (J2405) As Ordered ONE (07:54)
[2017-07-28] MEDS ORDERED: MIDAZOLAM INJ 2 MG/2 ML VIAL (J2250) As Ordered ONE (07:54)
[2017-07-28] MEDS ORDERED: PROPOFOL 200 MG/20 ML VIAL As Ordered ONE (07:54)
[2017-07-28] MEDS ORDERED: fentaNYL 100 MCG/2 ML INJECTION (J3010) As Ordered ONE (07:54)
[2017-07-28] MEDS ORDERED: dexameTHASONE 4 MG/ML 1ML VIAL (J1100) As Ordered ONE (07:54)
[2017-07-28] MEDS ORDERED: PHENYLephrine HCL 500 MCG/5 ML (100MCG/ML) SYRINGE (J2370) As Ordered ONE (08:30)
[2017-07-28] MEDS ORDERED: BACITRACIN OINT 30GM As Ordered ONE (09:03)
[2017-07-28] MEDS ORDERED: BACT800T5 PO (09:17)
[2017-07-28] MEDS ORDERED: TYLE650T35 PO (09:17)
[2017-07-28] MEDS ORDERED: D5W/0.2% SODIUM CHLORIDE 1,000 ML IV SCH (09:30)
[2017-07-28] MEDS ORDERED: fentaNYL 100 MCG/2 ML INJECTION (J3010) IV PRN (09:30)
[2017-07-28] MEDS ORDERED: ONDANSETRON 4MG/2ML VIAL (J2405) IV PRN (09:30)
[2017-07-28] MEDS ORDERED: ACETAMINOPHEN 650MG ER TAB (TYLENOL ARTHRITIS) PO PRN (09:45)
[2017-07-28 11:15] VITALS: BP 136/72
[2017-07-28] MEDS ORDERED: CIPR250T3 PO (11:22)
[2017-07-28] MEDS ORDERED: BACTRIM 160MG/800MG DS TAB PO SCH (21:00)
--- NOTE | 2017-07-29 07:19 | RO ---
DATE OF PROCEDURE: 07/28/2017 PREPROCEDURE DIAGNOSIS: Left epididymal cyst. POSTPROCEDURE DIAGNOSIS: Left spermatic cord cyst. PROCEDURE: Left spermatic cord cyst excision. SURGEON: Dr. Moise Schwab LATHE SET UP PERSON: None. ANESTHESIA: General. COMPLICATIONS: None. ESTIMATED BLOOD LOSS: N/A, minimal. FINDINGS: A very large 700 mL left spermatic cord cyst. HISTORY OF PRESENT ILLNESS: 82-year-old male patient who has a left epididymal cyst, very large which actually causes him a lot of discomfort. For this reason he has consented for excision of the left epididymal cyst. DESCRIPTION OF PROCEDURE: With the patient in the supine position under general anesthesia, after prepping and draping the area of concern, which included the entire genitalia we did a transverse incision in the hemiscrotal area on the left side for about 5 cm in length. We then opened all the scrotal wall with the electric bovie cautery and then punctured the cyst and extracted about 700 mL of fluid. We then proceeded to open the cyst and excise the cyst completely. All the trujillo of the cyst were excised and sent for permanent pathology analysis. We then fulgurated bleeding vessels. We then opened the tunica vaginalis of the testicle and inverted it with a #3-0 chromic in a running fashion. The cyst was from the spermatic cord. At that time, we dropped the testicle inside the scrotal sac and closed the scrotal wall in two layers with #3-0 in a running fashion and a #3-0 Monocryl in a running fashion also. We placed bacitracin cream plus a scrotal support. The patient will go home today with antibiotic and pain medication. Followup in [facility] in about 2 weeks.
== END 2017-07-28 11:44 | disposition home or self-care (01) ==
LOC: M SDC 06:07
PROVIDERS: ATTEND Urology
DX: N44.2 Benign cyst of testis (principal); I48.2 Chronic atrial fibrillation; I12.0 Hypertensive chronic kidney disease with stage 5 chronic kidney disease or end stage renal disease; N18.6 End stage renal disease; E21.3 Hyperparathyroidism, unspecified; I50.32 Chronic diastolic (congestive) heart failure; E78.00 Pure hypercholesterolemia, unspecified; M12.9 Arthropathy, unspecified; K21.9 Gastro-esophageal reflux disease without esophagitis; D63.8 Anemia in other chronic diseases classified elsewhere; E87.2 Acidosis; T88.59XD Other complications of anesthesia, subsequent encounter; F41.9 Anxiety disorder, unspecified; R06.02 Shortness of breath; R06.83 Snoring; Z79.899 Other long term (current) drug therapy; Z79.01 Long term (current) use of anticoagulants; Z99.2 Dependence on renal dialysis; Z96.651 Presence of right artificial knee joint; Z96.1 Presence of intraocular lens
CPT/HCPCS: 36415; 55520; 84132; 85610; 85730; 86850; 86900; 86901; 88304; J0690; J1100; J2250; J2370; J2405; J3010

== ENCOUNTER → 2018-02-24 | Outpatient (CLI) | payer MEDICARE, OTHER | LOC: M SMT 14:36 | DX: J98.4 Other disorders of lung (principal); R05 Cough; R06.02 Shortness of breath | CPT/HCPCS: 71046 ==

== ENCOUNTER → 2018-07-05 | Outpatient (REF) | payer MEDICARE, OTHER ==
[2018-07-05 14:24] LABS: INR 1.11; PROTHROMBIN TIME 14.5 SECONDS (12.1-14.4)
== END ==
LOC: M LAB REF 12:59
DX: I48.2 Chronic atrial fibrillation (principal)
CPT/HCPCS: 85610

== ENCOUNTER → 2018-07-06 | Outpatient (CLI) | payer MEDICARE, OTHER ==
[2018-07-06 09:56] LABS: LDH, BODY FLUID 414 U/L (NOT ESTABLISHED); SOURCE, BODY FLUID GLUCOSE PLEURAL; SOURCE, BODY FLUID LDH PLEURAL; SOURCE, BODY FLUID TOT PROTEIN PLEURAL; TOTAL PROTEIN, BODY FLUID 4.4 G/DL (NOT ESTABLISHED)
[2018-07-06 10:12] LABS: RBC BODY FLUID 345 10^3/uL (<2); WBC BODY FLUID 1458 /uL (0-10)
[2018-07-06 10:19] LABS: APPEARANCE, BODY FLUID HAZY (CLEAR); BF DIFF IF INDICATED? YES (NO); PLEURAL FL COLOR RED (COLORLESS); SOURCE, BODY FLUID PLEURAL
== END ==
LOC: M RAD 06:48 → M RADPRO 06:48
DX: J90 Pleural effusion, not elsewhere classified (principal); I67.82 Cerebral ischemia
CPT/HCPCS: 32555

== ENCOUNTER 2018-09-05 08:25 | Inpatient (IN) | payer MEDICARE, OTHER ==
[~2018-09-05] VITALS: Ht 167.6 cm; Wt 67.0 kg
[~2018-09-05 08:25] MED LIST changes: +BACT800T5 PO; +CIPR250T3 PO; +FLOM0.4C39 PO; -FLOM5CAP PO; -LEVA1TAB PO; +LEVA250T13 PO; +TRAM50TA2 PO; +TYLE650T35 PO; +[UNRECOGNIZED DRUG - CODE] PO
[2018-09-05 09:26] LABS: BASO # 0.1 10^3/uL (0.0-0.2); BASO % 0.3 % (0.0-1.0); EOS # 0.3 10^3/uL (0.0-0.50); EOS % 1.7 % (0.0-3.0); HEMATOCRIT 33.1 % (42.0-52.0); HEMOGLOBIN 10.7 g/dl (13.5-17.5); LYMPH # 1.1 10^3/uL (1.5-4.5); MEAN CORPUSCULAR HEMOGLOBIN 31.3 pg (27.0-33.0); MEAN CORPUSCULAR HGB CONC 32.3 g/dl (32.0-36.5); MEAN CORPUSCULAR VOLUME 96.8 fl (80.0-96.0); MONO # 1.4 10^3/uL (0.0-0.8); MONO % 9.1 % (0.0-5.0); NEUTROPHILS # 12.7 10^3/uL (1.8-7.7); NEUTROPHILS % 81.5 % (36.0-66.0); PLATELET COUNT, AUTOMATED 225 10^3/uL (150-450); RED BLOOD COUNT 3.42 10^6/uL (4.30-6.10); WHITE BLOOD COUNT 15.6 10^3/uL (4.0-10.0)
[2018-09-05 09:37] LABS: INR 1.65; PROTHROMBIN TIME 19.8 SECONDS (12.1-14.4)
--- NOTE | 2018-09-05 09:38 | REP ---
Clinical: Trauma/fall. Comparison: 07/06/2018 . Findings: Age-related atrophy and microvascular ischemic changes are appreciated. The ventricles and sulci are symmetric. Shankar-white differentiation is maintained. There is no evidence for acute intracranial hemorrhage, mass/mass effect, pathology or infarction. No extra-axial fluid collection. Calvarium is intact. Paranasal sinuses and mastoid air cells are clear. Impression: Age related atrophy and microvascular ischemic changes. No acute intracranial hemorrhage, infarction, or mass/mass effect. Electronically Signed by Kirill Valle MD 09/05/2018 09:30 A
--- NOTE | 2018-09-05 09:52 | REP ---
Clinical: Altered mental status. Comparison: 02/24/2018. Findings: Stable cardiomegaly and diffuse chronic interstitial changes. Left lower lobe opacity consistent with consolidation and moderate/large effusion. Right basilar atelectasis and possible smaller layering right effusion. No pneumothorax. Impression: Cardiomegaly and chronic interstitial changes. Left lower lobe opacity consistent with consolidation and moderate to large effusion. Trace right basilar atelectasis. Electronically Signed by Kirill Valle MD 09/05/2018 09:44 A
[2018-09-05 10:21] LABS: BILIRUBIN,DIRECT 0.2 MG/DL (0.0-0.2); BILIRUBIN,TOTAL 0.4 MG/DL (0.2-1.0); CALCIUM LEVEL 8.9 MG/DL (8.8-10.2); GLOMERULAR FILTRATION RATE 5.4 (>35); MB/CK RELATIVE INDEX 1.91 (< OR =4); POTASSIUM SERUM 5.2 MEQ/L (3.5-5.1); THYROID STIMULATING HORMONE 2.43 uIU/ML (0.358-3.740); TOTAL PROTEIN 7.1 GM/DL (6.4-8.2); TROPONIN I 0.02 NG/ML (< 0.10)
[2018-09-05] MEDS ORDERED: cefTRIAXone SOD 1 GM in D5W MINI-BAG PLUS 50 ML IV ONE (10:45)
[2018-09-05] MEDS ORDERED: PIPERACILLIN/TAZOBACTAM SOD 3.375 GM in D5W MINI-BAG PLUS 50 ML IV SCH (12:15)
--- NOTE | 2018-09-05 12:37 | REP ---
Clinical: Chest pain. Pleural effusion. Technique: Axial noncontrast images from the thoracic inlet to the upper abdomen with coronal and sagittal re-formations. Findings: Cardiomegaly is appreciated with prominent pulmonary vasculature, increased interstitial markings, moderate left pleural effusion, consolidations involving the lingula and left lower lobe as well as small right basilar atelectasis/consolidation. Atherosclerotic changes to the thoracic aorta and coronary arteries noted. No pericardial effusion. Tracheobronchial tree is patent. Mild reactive adenopathy is suggested. Surrounding musculoskeletal structures demonstrate degenerative changes. Limited upper abdomen demonstrates cholelithiasis. Impression: 1. Findings described above likely representing elements of CHF/pulmonary vascular congestion including moderate left pleural effusion with multifocal consolidation/atelectasis (left greater than right). 2. Incidental cholelithiasis. Electronically Signed by Kirill Valle MD 09/05/2018 12:29 P
--- NOTE | 2018-09-05 13:38 | PHACANCOPD ---
PHARMACY VANCOMYCIN DOSING Pt Demographics Demographics Patient Age:83 , Weight:69.300 , Gender: male Adjusted Body Weight Date: 09/05/18, Adjusted Body Weight: 66 Kg Events Past 24 Hours Events Past 24 Hours: YES: Dialysis, Other Vancomycin Vancomycin indication: PLEURAL EFFUSION Vancomycin Target Ranges: 15-20 mcg/ml Vancomycin Load Y/N: No Load Dose Date Time Vancomycin Load Dose: Date: Time: Vancomycin Dose Date: 09/05/18. Current Vancomycin Dose: 1G IV VANCO ONCE ONE @1800, THEN 1G IV DAILY AFTER HD Intermittent Dosing?: No Labs Micro Microbiology 09/05/18 Blood Culture, Received Pending 09/05/18 Blood Culture, Received Pending Creatinine Clearance Date:09/05/18. Creatinine Clearance: 5.23 Pending Labs blood culture pending Assessment and Plan Maintaining Current Dose?: Yes Reason for dose change: No Dose Change Pharmacist Note Pharmacist Note Date: 09/05/18. Pharmacist note: Rx vanco consult requested for this patient being treated for pleural effusion also placed on Zosyn 2.25g q12h. No history of vancomycin treatment at [facility]. Patient usually receives HD on Wednesday, , Wednesday but is receiving dialysis today upon admission. Current SCr is 10 mg/dL with a Crcl of 5.23 mL/min. Giving patient 1g Vanco IV once one @1800 today with 1g Vanco IV post HD starting tomorrow. Ordered random Vanco level tomorrow @0600. Will continue to monitor and adjust dose as needed. [facility] Sep 05, 2018 13:38
[2018-09-05] MEDS ORDERED: ENOXAPARIN 80 MG/0.8 ML SYRINGE (J1650) SC SCH (14:00)
[2018-09-05] MEDS ORDERED: HEPARIN SOD (PORCINE) 5000 UNITS/ML VIAL IV PRN (14:30)
--- NOTE | 2018-09-05 15:29 | HPE ---
DATE OF ADMISSION: 09/05/2018 PRIMARY CARE PROVIDER: Dr. Bartholomew HISTORY OF PRESENT ILLNESS: The patient is an 83-year-old gentleman with a past medical history significant for end-stage renal disease on dialysis, chronic atrial fibrillation, dyslipidemia, hypertension, history of symptomatic bradycardia who presented to [facility] on 09/05/2018 for worsening weakness. During the encounter, the patient is oriented to place, date and the name of the president. However, when questioning the patient on his clinical picture and progression, he stated he could not recall too much details. According to the patient, he has been complaining about worsening weakness for the past three days. Denies any fevers or chills. Denies any cough. Denies any shortness of breath. Denies any chest pain. Denies nausea or vomiting. The patient is noted to have brownish sputum for the past month or so. Denies any acute symptoms. There are handwritten notes in the patient's chart. The patient stated it is most likely from his . According to the notes, the patient has end-stage renal disease on Wednesday, , Wednesday dialysis schedule. The patient went to dialysis on . On Wednesday, the patient had a difficult time getting up. The patient took his medication and ate breakfast. However, the patient skipped dinner. On Wednesday, the patient could not even get out of the chair. He did not go to dialysis. The patient skipped breakfast and lunch and the patient finally got something to eat around 7:30. On Wednesday, the patient could not get out of the chair and the patient had a fall. The patient did not take any medication on Wednesday. The patient was confused. PAST MEDICAL HISTORY: 1. End-stage renal disease, on hemodialysis on Wednesday, and Wednesday schedule. 2. Chronic atrial fibrillation, on Coumadin. 3. Dyslipidemia. 4. Chronic knee and shoulder pain. 5. Hypertension. 6. History of symptomatic bradycardia. 7. History of anemia. PAST SURGICAL HISTORY: 1. History of cholecystectomy tube for four weeks in August 2016. 2. Right knee replacement. 3. Fistula placement at the left arm in . 4. Left inguinal repair in July 2016. 5. Esophageal dilatation in June 2013. SOCIAL HISTORY: The patient quit smoking 60 years ago. Denies alcohol use. Denies recreational drug use. REVIEW OF SYSTEMS: GENERAL: Denied any fever or chills. HEENT: Denied any vision change or auditory changes. CARDIOVASCULAR: Denied any chest pain. The patient does have chronic atrial fibrillation, on Coumadin. RESPIRATORY: Denied any shortness of breath. Denied any cough. The patient noted to have brownish sputum in the last month. GASTROINTESTINAL (GI): No nausea. No vomiting. No abdominal pain. MUSCULOSKELETAL: Complained about generalized weakness since last Wednesday which is approximately 3-4 days ago. NEUROLOGICAL: Denied any numbness or tingling. OBJECTIVE: VITAL SIGNS: Temperature is 96.5, pulse is 69, respiratory rate 20, blood pressure is 120/67, pulse oximetry is 100% in room air. GENERAL: Fatigued, no sign of acute distress. The patient is alert and oriented to day, place, and name of the president. HEENT: Normocephalic, atraumatic. Extraocular motor grossly intact. CARDIOVASCULAR: Positive S1, S2, irregularly irregular. Heart rate in the satisfactory range. LUNGS: Crackles noted mainly in the left lower base. No wheezes appreciated. ABDOMEN: Soft, nontender, nondistended. Bowel sounds present. EXTREMITIES: No edema appreciated. NEUROLOGICAL: Sensation to fine touch grossly intact. Muscle strength 5/5. LABORATORY DATA: WBC is 15.6, hemoglobin 10.7, hematocrit 33.1, platelet count is 225. Sodium is 136, potassium 3.2, chloride 98, carbon dioxide 25, BUN is 93, creatinine is 10, GFR is 5.4, fasting glucose 104, calcium is 8.9, total bilirubin is 0.4, direct bilirubin is 0.2, AST 19, ALT 16, alkaline phosphatase 73, ammonia level 13, total CK is 152, troponin I is 0.02, total protein is 7.1, albumin 2, TSH 2.43. PT is 19.8, INR is 1.65. IMAGING STUDIES: CT of the head without contrast demonstrated age-related atrophy and microvascular ischemic changes. No acute intracranial hemorrhage, infarction, or mass/mass effect. CT of the chest without contrast demonstrated element of CHF/pulmonary vascular congestion including a moderate left pleural effusion with a multifocal consolidation/atelectasis. ASSESSMENT AND PLAN: 1. Generalized weakness. The patient is noted to have elevated white count with multifocal consolidation and moderate left pleural effusion. The patient will be admitted to the progressive care unit (PCU) under inpatient status. We will follow with cultures. Empirically, the patient is placed on antibiotics. The patient does have a very elevated blood urea nitrogen (BUN). The patient is going for dialysis today. 2. Possible pneumonia. CT imaging demonstrated that the patient has a left-sided pleural effusion with multifocal consolidations. The patient does have an elevated white count which is not the patient's baseline. Follow with the sputum cultures. The patient is on empiric antibiotics. Previously, the patient does have a history of a pleural effusion. Thoracentesis was performed on 07/06/2018 and 0.35 liters of clear, red fluid was drained. 3. End-stage renal disease. At the baseline, the patient is on dialyzed on Wednesday, and Wednesday in the outpatient setting. Nephrology consulted. The patient has missed his Wednesday dialysis. The patient will be dialyzed on 09/05/2018. 4. Atrial fibrillation. The patient is taking Coumadin. Today, international normalized ratio (INR) is subtherapeutic. The patient will be on Lovenox. The patient is on atenolol. Heart rate in the satisfactory range. 5. Dyslipidemia, on simvastatin. 6. History of anemia. The patient does have end-stage renal disease. Hemoglobin and hematocrit are around the patient's baseline. Continue to monitor. 7. Deep vein thrombosis (DVT) prophylaxis. The patient is on Lovenox.
[2018-09-05 17:00] VITALS: BP 107/59
[2018-09-05] MEDS ORDERED: VANCOMYCIN HCL 1,000 MG, VIAL MATE ADAPTER 1 EACH in D5W 250 ML IV ONE (17:00)
[2018-09-05] MEDS: HEPARIN DRIP 25,000 UNITS in APPROPRIATE DILUENT 1 EA IV SCH (17:32)
[2018-09-05] MEDS: SIMVASTATIN 10 MG TAB PO SCH (17:37)
[2018-09-05] MEDS: ATENOLOL 25 MG TAB PO SCH (17:38)
[2018-09-05] MEDS: PIPERACILLIN/TAZOBACTAM SOD 2.25 GM in D5W MINI-BAG PLUS 50 ML IV SCH (18:56)
[2018-09-05 20:00] VITALS: BP 113/58
[2018-09-05 23:59] VITALS: BP 128/61
[2018-09-06 04:00] VITALS: BP 125/62
[2018-09-06] MEDS ORDERED: SLF 3 ML SYR IV PRN (04:00)
[2018-09-06] MEDS: traMADol 50 MG TAB PO PRN (04:13)
[2018-09-06] MEDS: PIPERACILLIN/TAZOBACTAM SOD 2.25 GM in D5W MINI-BAG PLUS 50 ML IV SCH ×3 (04:14→19:56)
[2018-09-06] MEDS: SLF 3 ML SYR IV SCH ×3 (05:19→19:59)
--- NOTE | 2018-09-06 05:43 | ECGEPIP ---
Stationary ECG Study [facility] - ED Test Date: 2018-09-05 Pat Name: KODY PELAYO Department: Room: - Gender: M [employer]or: : [id number] Requested By: Jerri Joseph Order Number: [id number] Reading MD: Zain Clark Measurements Intervals [place] Rate: 75 P: UT: 0 QRS: 61 QRSD: 90 T: 17 QT: 342 QTc: 382 Interpretive Statements ATRIAL FIBRILLATION SIMILAR TO 06/15/17 Electronically Signed On 09-06-2018 5:43:05 EST by Zain Clark
[2018-09-06 06:53] LABS: HEMATOCRIT 30.3 % (42.0-52.0); HEMOGLOBIN 9.9 g/dl (13.5-17.5); MEAN CORPUSCULAR HEMOGLOBIN 31.2 pg (27.0-33.0); MEAN CORPUSCULAR HGB CONC 32.7 g/dl (32.0-36.5); MEAN CORPUSCULAR VOLUME 95.6 fl (80.0-96.0); PLATELET COUNT, AUTOMATED 206 10^3/uL (150-450); RED BLOOD COUNT 3.17 10^6/uL (4.30-6.10)
[2018-09-06 07:18] LABS: CALCIUM LEVEL 8.3 MG/DL (8.8-10.2); CREATININE FOR GFR 5.46 MG/DL (0.70-1.30); GLOMERULAR FILTRATION RATE 10.8 (>35); POTASSIUM SERUM 4.6 MEQ/L (3.5-5.1)
[2018-09-06 07:30] VITALS: BP 97/56
[2018-09-06] MEDS: ATENOLOL 25 MG TAB PO SCH (09:00)
[2018-09-06] MEDS: SIMVASTATIN 10 MG TAB PO SCH (09:05)
--- NOTE | 2018-09-06 11:01 | IPNPDOC ---
Date Seen The patient was seen on 09/06/18. Progress Note SUBJECTIVE: Patient complains of some pain in his left knee but otherwise has no specific complaints he cannot tell me the year the president or where he is at the moment OBJECTIVE PHYSICAL EXAMINATION: VITAL SIGNS: Please see below. GENERAL: Very pleasant elderly man lying in bed at a 30 angle he does not appear to be in any acute distress HEENT: Cranial nerves II through XII appear to be grossly intact CARDIOVASCULAR: S1-S2 not tachycardic. RESPIRATORY: Fairly clear to auscultation he has some diminished breath sounds at the bases bilaterally. ABDOMINAL: Bowel sounds present abdomen soft nontender EXTREMITIES: 2+ edema bilaterally NEUROLOGICAL: No gross focal deficits LABORATORY DATA, IMAGING STUDIES, MICROBIOLOGY: Please see below. DVT prophylaxis ordered?: Heparin drip ASSESSMENT AND PLAN: This is a 83-year-old man with weakness and lethargy. PROBLEMS: 1. Weakness and lethargy: The etiology is not immediately clear at the present time today does not appear to be weak or lethargic as per his son who is bedside later this morning the patient is at his baseline mental capacity. I do not see the patient yesterday but it would appear the following session of hemodialysis 2 L fluid removal he is improved I suspect his lethargy may be related to fluid overload related to his end-stage renal disease. I will place a PT and OT evaluation I will also have a repeat at this chest x-ray to evaluate the effusions. His lethargy certainly could've been related to uremia related to significantly elevated BUN usually does appear to be improved following hemodialysis 2. Left knee pain: Physical exam does appear to have some effusion them given his unreliable history I will check plain film ensure there is no fractures otherwise will have him work with physical therapy and provide pain control as needed. 3. End-stage renal disease on hemodialysis: Help raise greatly appreciated he is normally Wednesday. He status post HD yesterday 4. Left pleural effusion: The patient did have leukocytosis consolidation elevated BUN now is some concern that he may have had a parapneumonic effusion. However he has not been febrile she is no longer tachycardic he appears to be quite stable by suspicion for pneumonia is much lower. Cultures have been drawn I will hold off on any thoracentesis or chest tube placement unless he were to decline he remains on empiric antibiotics as cultures remain negative could consider discontinuing he will require further outpatient follow-up and repeat imaging. Today's leukocytosis downtrending 5. Atrial fibrillation: Patient normally takes Coumadin however his INR was subtherapeutic on arrival for the time being he is on a heparin drip should the need become for any chest tube placement or thoracentesis however I suspect we could potentially transitioning back to his Coumadin starting tomorrow. 6. Dyslipidemia: Continue simvastatin 7. Anemia: Likely related to end-stage renal disease nephrology help greatly appreciated DISPOSITION: Ending clinical improvement PTOT eval and follow up culture data. VS, I&O, 24H, Fishbone Vital Signs/I&O Vital Signs Date Time Temp Pulse Resp B/P (MAP) Pulse Ox O2 Delivery O2 Flow Rate FiO2 09/06/18 09:00 76 98/50 09/06/18 07:30 97.9 20 97 Room Air I&O- Last 24 Hours up to 6 AM 09/06/18 05:59 Intake Total 652 ml Output Total 2010 ml Balance -1358 ml Laboratory Data 24H LABS Laboratory Tests 2 09/05/18 23:31: Activated Partial Thromboplast Time 120.3*H 09/06/18 06:21: Activated Partial Thromboplast Time 59.4H, Nucleated Red Blood Cells % (auto) 0.0, Anion Gap 9, Glomerular Filtration Rate 10.8L, Blood Urea Nitrogen 42#H, Creatinine 5.46H, Sodium Level 134L, Potassium Level 4.6, Chloride Level 97L, Carbon Dioxide Level 28, Calcium Level 8.3L, Magnesium Level 2.0, Random Vancomycin Level 18.0 CBC/BMP Laboratory Tests 09/06/18 06:21 Red Blood Count 3.17 L, Mean Corpuscular Volume 95.6, Mean Corpuscular Hemoglobin 31.2, Mean Corpuscular Hemoglobin Concent 32.7, Red Cell Distribution Width 16.3 H, Calcium Level 8.3 L Microbiology Microbiology 09/05/18 Blood Culture - Preliminary, Resulted No growth after 24 hours . All specim... 09/05/18 Blood Culture - Preliminary, Resulted No growth after 24 hours . All specim... GIOVANNI MUNIZ MD Sep 06, 2018 11:01
--- NOTE | 2018-09-06 11:51 | REP ---
Clinical: Follow up effusion. Comparison: 09/05/2018. Findings: Moderate left pleural effusion appears improved compared to prior examination. Small right pleural effusion and basilar atelectasis again identified. Impression: Moderate left pleural effusion minimally improved. Small right effusion and bibasilar atelectasis similar to prior exam. Electronically Signed by Kirill Valle MD 09/06/2018 11:43 A
--- NOTE | 2018-09-06 11:52 | REP ---
Clinical: Left knee pain. Technique: AP, lateral, bilateral oblique views of the left knee. Findings: Lateral view demonstrates a [id number] suprapatellar effusion. Advanced tricompartmental osteoarthritic degenerative changes are appreciated. No obvious acute fracture identified. Impression: Suprapatellar effusion. Degenerative changes. No obvious acute fracture. Electronically Signed by Kirill Valle MD 09/06/2018 11:44 A
[2018-09-06 12:00] VITALS: BP 92/54
--- NOTE | 2018-09-06 12:01 | CR ---
DATE OF CONSULTATION: 09/05/2018 REQUESTING PHYSICIAN: Dr. Jerri Joseph in the emergency room. CONSULTING PHYSICIAN: Dr. Peralta REASON FOR CONSULTATION: Management of end stage renal disease, volume status in this patient with a history of dialysis and who missed hemodialysis sessions. CHIEF COMPLAINT: Patient presented to the emergency room today because of weakness and missing two sessions of outpatient hemodialysis. HISTORY OF PRESENT ILLNESS: Mr. Amaury Bell is an 83-year-old male with past medical history of end stage renal disease (ESRD) on hemodialysis every Wednesday, , and Wednesday. His last dialysis was on . He missed his Wednesday dialysis and he was also supposed to be dialyzed today because of the holiday schedule and he missed his dialysis today as well. As reported by his daughter and his , the patient is feeling very weak and fatigued. He was unable to walk around. He has not been taking his medications for the last 3-4 days. He was short of breath, complained of lower extremity edema and he did not go for dialysis, so the patient was brought to the emergency room here. Apparently there is no history of fevers or chills, but his main complaint is of generalized weakness and decrease doral intake. Further evaluation in the emergency room showed the patient had leukocytosis with a white cell count of 15.6. He was also found to have a moderate sized left sided pleural effusion. Nephrology service was called for evaluation of the patient in the emergency room and after evaluation I discussed the patient with ER physician Dr. Jerri Joseph, and decision was made to admit the patient for possible sepsis secondary to pneumonia. Further workup was required and the patient also needed to be dialyzed today because he missed his hemodialysis as outpatient. PAST MEDICAL HISTORY: End stage renal disease on hemodialysis every Wednesday, and Wednesday. Chronic atrial fibrillation on Coumadin, however he has been noncompliant. Hyperlipidemia. Hypertension. Anemia secondary to end stage renal disease. History of arthritis. PAST SURGICAL HISTORY: History of right knee replacement. History of left arm atrioventricular (AV) fistula placement. History of left inguinal hernia repair in 2015. Status post esophageal dilatation in June 2013. History of cholecystostomy about two years ago. ALLERGIES: No known drug allergies. FAMILY HISTORY: No significant family history of end stage renal disease (ESRD) requiring hemodialysis. SOCIAL HISTORY: Patient lives at home. There is no history of illicit drug abuse or alcohol abuse. REVIEW OF SYSTEMS: CONSTITUTIONAL: Patient denies fevers or chills, but reports feeling very weak and tired. EYES: Patient denies any blurry vision or double vision. ENT: Denies any dysphagia or odynophagia. CARDIOVASCULAR: He denies any chest pain. He does report some shortness of breath and lower extremity edema. RESPIRATORY: He reports moderate shortness of breath. He also reported brown colored phlegm. GASTROINTESTINAL (GI): He denies any nausea or vomiting, but he reports decreased appetite. GENITOURINARY (): He denies any dysuria, hematuria. MUSCULOSKELETAL: He reports generalized weakness and right knee pain. GO CART MECHANIC: He reports weakness, but otherwise denies strokes or seizures. PSYCH: He denies any depression or anxiety. ENDOCRINE: Denies any hyperthyroidism or hypothyroidism. HEMATOLOGY/ONCOLOGY: Denies any easy bleeding or bruising. All other review of systems is negative. PHYSICAL EXAMINATION: VITAL SIGNS: Temperature is 96.6 degrees Fahrenheit, blood pressure is 120/67, pulse is 69, respiratory rate of 20, saturating 100% on room air. HEAD/NECK EXAM: Extraocular muscles intact. Pupils equally round and reactive to light. Mucous membranes are moist. Neck is supple. There is mildly elevated jugular venous distention (JVD). CARDIOVASCULAR: S1 and S2, irregular heart rate. 2+ edema of the bilateral lower extremtiies. RESPIRATORY: Decreased breath sounds at the bases, especially on the left base and decreased focal resonance on the left base as well. ABDOMEN: Soft. Positive bowel sounds. Nontender. No organomegaly. MUSCULOSKELETAL: No clubbing or cyanosis. 2+ edema of the bilateral lower extremities. GO CART MECHANIC: Patient is weak and drowsy, otherwise he follows commands. He is able to answer a few questions. SKIN: No rashes or ulcers. LABORATORY REVIEW: CBC showed a WBC of 15.6, hemoglobin 10.7, platelet count 225. INR is 1.6. BMP showed sodium 136, potassium 5.2, chloride 98, bicarb 25, BUN 93, creatinine is 10, ammonia is 13, albumin is 3, TSH is 2.4. Microbiology: Blood cultures are pending. IMAGING: CT scan of the head was done, which showed no acute intracranial pathology. CT of the chest without contrast was done. It showed CHF with pulmonary vascular congestion. Moderate amount of left sided effusion with multifocal consolidations, left greater than right. CURRENT INPATIENT MEDICATIONS: The patient has been started on a heparin drip. He is on Rocephin 1 gram IV, was given in the emergency room, Zosyn 2.25 grams every 12 hours, vancomycin 1 gram IV with hemodialysis, atenolol 25 mg daily, simvastatin 10 mg daily and tramadol 50 mg every 12 hours. ASSESSMENT: 83-year-old male with history of end stage renal disease (ESRD) on hemodialysis every Wednesday, and Wednesday, being admitted at this time with generalized weakness, and possible healthcare associated pneumonia. PLAN: 1. End stage renal disease on hemodialysis. The patient has missed two sessions of hemodialysis because of weakness. I have arranged his urgent hemodialysis. He will be dialyzed today. I will try to remove about 2 liter of fluid. 2. Healthcare associated pneumonia. Patient has left sided effusion with multiple consolidations. He has leukocytosis as well. We will be treated for pneumonia. He is currently on IV vancomycin and Zosyn which adequately covers him for pneumonia. 3. Left sided pleural effusion. The patient has not taken his Coumadin for about four days. Coumadin will be held for now. Patient will thoracentesis possibly on Friday, September 07, 2018. During that time, the patient will be on heparin drip protocol. 4. Atrial fibrillation. Heart rate is controlled. Coumadin is on hold. Continue the heparin drip. Continue atenolol. 5. Anemia and end stage renal disease. Hemoglobin is 10.7, which is optimal. No need of Aranesp administration today. 6. Hyperkalemia. It is secondary to missed dialysis. Potassium will improve with 2K dialysate today with hemodialysis. The plan of care was discussed with the ER physician, Dr. Jerri Joseph, and admitting physician, Dr. Kennedi Pierson. Thank you for involving me in the care of this patient, I shall be happy to follow the patient along with you tomorrow morning.
[2018-09-06] MEDS: **VANCO AFTER HD** MISC XX SCH (15:13)
[2018-09-06 16:00] VITALS: BP 101/57
[2018-09-06] MEDS ORDERED: VANCOMYCIN HCL 1,000 MG, VIAL MATE ADAPTER 1 EACH in D5W 250 ML IV SCH (16:00)
[2018-09-06] MEDS: HEPARIN DRIP 25,000 UNITS in APPROPRIATE DILUENT 1 EA IV SCH (19:58)
[2018-09-06 20:00] VITALS: BP 99/56
[2018-09-07] VITALS (7 sets, daily range): BP systolic 105–121; BP diastolic 56–65
[2018-09-07 02:55] LABS: HEMOGLOBIN 9.4 g/dl (13.5-17.5); MEAN CORPUSCULAR HEMOGLOBIN 30.5 pg (27.0-33.0); MEAN CORPUSCULAR HGB CONC 32.4 g/dl (32.0-36.5); MEAN CORPUSCULAR VOLUME 94.2 fl (80.0-96.0); PLATELET COUNT, AUTOMATED 196 10^3/uL (150-450); RED BLOOD COUNT 3.08 10^6/uL (4.30-6.10); WHITE BLOOD COUNT 9.1 10^3/uL (4.0-10.0)
[2018-09-07 03:17] LABS: CALCIUM LEVEL 8.4 MG/DL (8.8-10.2); CREATININE FOR GFR 6.87 MG/DL (0.70-1.30); GLOMERULAR FILTRATION RATE 8.3 (>35); MAGNESIUM LEVEL 2.2 MG/DL (1.8-2.4); POTASSIUM SERUM 4.5 MEQ/L (3.5-5.1)
[2018-09-07] MEDS: PIPERACILLIN/TAZOBACTAM SOD 2.25 GM in D5W MINI-BAG PLUS 50 ML IV SCH ×3 (04:03→19:44)
[2018-09-07] MEDS: SLF 3 ML SYR IV SCH ×3 (04:04→19:44)
[2018-09-07 08:10] LABS: INR 1.26
[2018-09-07] MEDS: SIMVASTATIN 10 MG TAB PO SCH (09:06)
[2018-09-07] MEDS: ATENOLOL 25 MG TAB PO SCH (09:07)
[2018-09-07] MEDS: traMADol 50 MG TAB PO PRN (09:07)
--- NOTE | 2018-09-07 10:00 | IPNPDOC ---
Date Seen The patient was seen on 09/07/18. Progress Note SUBJECTIVE: Patient has no complaints today he denies shortness of breath knee pain fevers chills lightheadedness or dizziness. He knows he is in the hospital he knows the year he knows the Pres. he does not know why he is in the hospital OBJECTIVE PHYSICAL EXAMINATION: VITAL SIGNS: Please see below. GENERAL: Very pleasant elderly sitting up in bed he does not appear to be in any acute distress HEENT: Cranial nerves II through XII appear to be grossly intact CARDIOVASCULAR: S1-S2 not tachycardic. RESPIRATORY: Fairly clear to auscultation he has some diminished breath sounds at the bases bilaterally. ABDOMINAL: Bowel sounds present abdomen soft nontender EXTREMITIES: 1+ edema bilaterally NEUROLOGICAL: No gross focal deficits LABORATORY DATA, IMAGING STUDIES, MICROBIOLOGY: Please see below. DVT prophylaxis ordered?: Heparin drip ASSESSMENT AND PLAN: This is a 83-year-old man with weakness and lethargy. PROBLEMS: 1. Weakness and lethargy: The etiology is not immediately clear he does not appear to be weak or lethargic it would appear the following session of hemodia lysis 2 L fluid removal he is improved I suspect his lethargy may be related to fluid overload related to his end-stage renal disease. I have placed a PT and OT evaluation. Repeat chest x-ray shows some improvement in his effusion but certainly not resolved I did discuss with nephrology today he recently did undergo a thoracentesis for this and will plan for another thoracentesis today. His lethargy certainly could've been related to uremia related to significantly elevated BUN usually does appear to be improved following hemodialysis regardless 2. Left knee pain: Physical exam does appear to have some effusion no fracture noted on x-ray pain is improved today likely secondary to osteoarthritis 3. End-stage renal disease on hemodialysis: Nephrology help greatly appreciated he is normally Wednesday. 4. Left pleural effusion: The patient did have leukocytosis consolidation elevated BUN now is some concern that he may have had a parapneumonic effusion. Leukocytosis improving he was never significantly hypoxic my suspicion for parapneumonic effusion and lower however it is not resolved with dialysis and as such we will do a thoracentesis today and reevaluate the nature of the fluid however during his last 2 months ago it appeared as though it was more related to fluid overload didn't any malignancy or infectious etiology. Following thoracentesis we'll follow the studies and attempt to optimize volume status via hemodialysis 5. Atrial fibrillation: Patient normally takes Coumadin however his INR was subtherapeutic on arrival for the time being he is on a heparin drip after thoracentesis will begin Coumadin 6. Dyslipidemia: Continue simvastatin 7. Anemia: Likely related to end-stage renal disease nephrology help greatly appreciated DISPOSITION: pEnding clinical improvement PT/OT eval and follow up culture data. VS, I&O, 24H, Fishbone Vital Signs/I&O Vital Signs Date Time Temp Pulse Resp B/P (MAP) Pulse Ox O2 Delivery O2 Flow Rate FiO2 09/07/18 09:07 18 09/07/18 09:07 87 121/65 09/07/18 07:40 97.6 98 Room Air I&O- Last 24 Hours up to 6 AM 09/07/18 05:59 Intake Total 535 ml Output Total 0 ml Balance 535 ml Laboratory Data 24H LABS Laboratory Tests 2 09/06/18 13:22: Activated Partial Thromboplast Time 126.1*H 09/06/18 20:58: Activated Partial Thromboplast Time 74.9H 09/07/18 02:48: Activated Partial Thromboplast Time 82.7H 09/07/18 02:49: Nucleated Red Blood Cells % (auto) 0.0, Anion Gap 11, Glomerular Filtration Rate 8.3L, Blood Urea Nitrogen 63H, Creatinine 6.87H, Sodium Level 134L, Potassium Level 4.5, Chloride Level 98, Carbon Dioxide Level 25, Calcium Level 8.4L, Magnesium Level 2.2 09/07/18 07:39: Prothrombin Time 16.0H, Prothromb Time International Ratio 1.26, Lactate Dehydrogenase 151 CBC/BMP Laboratory Tests 09/07/18 02:49 Red Blood Count 3.08 L, Mean Corpuscular Volume 94.2, Mean Corpuscular Hemoglobin 30.5, Mean Corpuscular Hemoglobin Concent 32.4, Red Cell Distribution Width 16.1 H, Calcium Level 8.4 L Microbiology Microbiology 09/05/18 Blood Culture - Preliminary, Resulted No Growth after 48 hours. All Specime... 09/05/18 Blood Culture - Preliminary, Resulted No Growth after 48 hours. All Specime... 12/26/18 Stool Occult Blood (LUCIAN) - Final, Complete 09/07/18 Gram Stain, Received Pending 09/07/18 Sputum Culture, Received Pending GIOVANNI MUNIZ MD Sep 07, 2018 10:00
[2018-09-07 14:55] LABS: PH BODY FLUID 7.613 UNITS (NOT ESTABLISHED); SOURCE, BODY FLUID pH PLEURAL
[2018-09-07 15:04] LABS: APPEARANCE, BODY FLUID CLOUDY (CLEAR); PLEURAL FL COLOR YELLOW (COLORLESS); SOURCE, BODY FLUID PLEURAL
[2018-09-07 15:25] LABS: AMYLASE, BODY FLUID 17 U/L (NOT ESTABLISHED); CHOLESTEROL, BODY FLUID < 50 MG/DL (NOT ESTABLISHED); LDH, BODY FLUID 109 U/L (NOT ESTABLISHED); SOURCE, BODY FLUID ALBUMIN PLEURAL; SOURCE, BODY FLUID AMYLASE PLEURAL; SOURCE, BODY FLUID CHOL PLEURAL; SOURCE, BODY FLUID GLUCOSE PLEURAL; SOURCE, BODY FLUID LDH PLEURAL; SOURCE, BODY FLUID TOT PROTEIN PLEURAL; SOURCE, BODY FLUID TRIG PLEURAL; TOTAL PROTEIN, BODY FLUID 3.6 G/DL (NOT ESTABLISHED); TRIGLYCERIDE, BODY FLUID 24 MG/DL (NOT ESTABLISHED)
--- NOTE | 2018-09-07 15:26 | REP ---
CHEST, TWO VIEWS: Two views of the chest are performed status post left thoracentesis. There is no pneumothorax. There is infiltrate in the left lung base. No other acute changes are seen when compared to a prior study of 09/06/2018. Electronically Signed by Christopher Shankar MD 09/07/2018 05:09 P
--- NOTE | 2018-09-07 15:52 | REP ---
ULTRASOUND GUIDED LEFT THORACENTESIS: Patient was referred for ultrasound guided left thoracentesis. Informed consent was obtained from the patient. Under sterile conditions and after satisfactory administration of local anesthesia, using ultrasound guidance an 8-Welsh thoracentesis catheter was placed posteriorly into the left pleural space. Approximately 130 mL of yellow fluid was aspirated without difficulty and sent for appropriate testing. Catheter was removed and hemostasis was obtained. There were no immediate complications. Postprocedure chest radiographs show no evidence of pneumothorax. Electronically Signed by Christopher Shankar MD 09/07/2018 05:11 P
[2018-09-07] MEDS: **VANCO AFTER HD** MISC XX SCH (16:00)
--- NOTE | 2018-09-07 16:30 | IPN ---
DATE: 09/06/2018 SUBJECTIVE: Patient was seen and examined at the bedside this morning. Patient is afebrile, hemodynamically stable. He was dialyzed yesterday. He was also started on IV antibiotics. White cell count is improving. He is still sleepy and reports lack of energy. OBJECTIVE: VITAL SIGNS: Temperature is 97.9 degrees Fahrenheit, blood pressure 97/56, pulse is 90, respiratory rate of 20, saturating 97% on room air. INTAKE AND OUTPUT: Urine output is not recorded. Ultrafiltration with hemodialysis is 2 liters yesterday. Weight in the bed scale is 67.5 kg. PHYSICAL EXAMINATION: GENERAL: Patient is awake, alert, oriented times two, laying in bed, no apparent distress. HEAD AND NECK EXAM: Extraocular muscles intact. Pupils equally round and reactive to light. Mucous membranes are moist. Neck is supple. There is no jugular venous distention (JVD). CARDIOVASCULAR: S1, S2, regular rate. Trace edema of the bilateral lower extremities. RESPIRATORY: Decreased breath sounds at the bases, especially on the left side with left base decreased vocal resonance. ABDOMEN: Soft, positive bowel sounds, nontender, no organomegaly. MUSCULOSKELETAL: No clubbing or cyanosis. Trace edema of the bilateral lower extremities. CENTRAL NERVOUS SYSTEM (SURGICAL SCRUB TECH): No focal deficit, he follows commands. ARTERIOVENOUS (AV) ACCESS: Patient has a left forearm AV fistula with positive thrill and bruit. LABORATORY REVIEW: CBC showed a WBC of 13, hemoglobin 9.9, platelets are 206. BMP showed sodium 134, potassium 4.6, chloride 97, bicarbonate 28, BUN 42, creatinine is 5.4. Random vancomycin level is 18. Microbiology: Blood cultures are negative so far. CURRENT INPATIENT MEDICATIONS: Patient's medications were all reviewed by me. He is on a heparin drip because Coumadin is on hold and he also is on Zosyn 2.25 grams and I have increased the dose to every 8 hours because of pneumonia. No other change in the medications today as compared with yesterday. ASSESSMENT AND PLAN: 1. End-stage renal disease on hemodialysis. Patients' regular dialysis days are Wednesday, , Wednesday. He was dialyzed yesterday because of the holiday schedule. He tolerated the hemodialysis procedure well. Next hemodialysis will be on , 09/08/2018. 2. Healthcare-associated pneumonia. He is currently on vancomycin and Zosyn. White cell count is improving. I have increased the Zosyn dose to 2.25 grams every 8 hours because of healthcare-associated pneumonia in end-stage renal disease. 3. Left-sided pleural effusion. His Coumadin is temporarily on hold for possible thoracentesis tomorrow. He was dialyzed and 2 liters of fluid was also removed. Repeat imaging can be done to see if patient needs thoracentesis tomorrow morning. 4. Atrial fibrillation. Heart rate is controlled. As mentioned above, Coumadin is also on hold for possible thoracentesis procedure. If the decision is done not to do the thoracentesis then patient can be placed back on Coumadin. 5. Anemia in end-stage renal disease. Hemoglobin is 9.9. I am going to start him on Aranesp with hemodialysis.
[2018-09-08] MEDS: SLF 3 ML SYR IV SCH ×3 (03:58→21:45)
[2018-09-08] MEDS: PIPERACILLIN/TAZOBACTAM SOD 2.25 GM in D5W MINI-BAG PLUS 50 ML IV SCH (03:58)
[2018-09-08 04:00] VITALS: BP 118/61
[2018-09-08 05:54] LABS: HEMATOCRIT 28.2 % (42.0-52.0); HEMOGLOBIN 9.2 g/dl (13.5-17.5); MEAN CORPUSCULAR HEMOGLOBIN 30.9 pg (27.0-33.0); MEAN CORPUSCULAR HGB CONC 32.6 g/dl (32.0-36.5); MEAN CORPUSCULAR VOLUME 94.6 fl (80.0-96.0); PLATELET COUNT, AUTOMATED 204 10^3/uL (150-450); RED BLOOD COUNT 2.98 10^6/uL (4.30-6.10); WHITE BLOOD COUNT 9.5 10^3/uL (4.0-10.0)
[2018-09-08 06:20] LABS: CALCIUM LEVEL 8.5 MG/DL (8.8-10.2); CREATININE FOR GFR 8.5 MG/DL (0.70-1.30); GLOMERULAR FILTRATION RATE 6.5 (>35); MAGNESIUM LEVEL 2.4 MG/DL (1.8-2.4); POTASSIUM SERUM 4.4 MEQ/L (3.5-5.1)
[2018-09-08] MEDS: SIMVASTATIN 10 MG TAB PO SCH (07:57)
[2018-09-08] MEDS: ATENOLOL 25 MG TAB PO SCH (07:57)
[2018-09-08 08:00] VITALS: BP 116/60
[2018-09-08] MEDS ORDERED: DARBEPOETIN 100 MCG/0.5 ML *DIALYSIS* SYRINGE (J0882) IV SCH (08:00)
--- NOTE | 2018-09-08 09:39 | ECHO ---
DATE OF PROCEDURE: 09/07/2018 DATE OF : 1935 AGE: 83 REFERRING PROVIDER: Dr. Peralta PATIENT LOCATION: Room 3217 REASON FOR ECHOCARDIOGRAM: Shortness of breath. 2D MEASUREMENTS: IVS: 0.9 cm LV: 4.4 cm LVPW: 1.0 cm LA: 4.1 cm IVC: 1.2 cm DOPPLER MEASUREMENTS: Peak velocity across the aortic valve: 1.8 m/s Peak velocity across the LVOT: 0.81 m/s Mitral E: 1.3 Mitral A: 0.37 Ratio 3.4 Maximum tricuspid valve velocity: 3.2 m/s 2D COMMENTS: 1. Normal left ventricular size, wall thickness and normal global left ventricular systolic function. The estimated global left ventricular systolic ejection fraction is 60% to 65%. 2. Normal left atrium. Mildly enlarged right atrium. The right ventricle appeared to be normal in size in limited views. 3. The atrial septum appeared to be normal without evidence of defect or shunt. 4. Subjectively, the aortic root appeared to be normal. 5. Mildly calcified aortic valve with normal leaflet excursion. Mildly calcified mitral annulus with normal anterior mitral valve leaflet motion. Normal tricuspid valve. The pulmonic valve and proximal pulmonary artery branches also appeared to be normal. 6. The inferior vena cava is normal in size, central venous pressure is most likely normal. DOPPLER: It detects moderate mitral regurgitation, moderate tricuspid regurgitation. The calculated pulmonary artery systolic pressure varies between 40 to 50 mmHg. Assessment of the left ventricular diastolic function appeared to be normal. IMPRESSION: 1. Normal global left ventricular systolic and diastolic function. 2. Aortic valve sclerosis with trivial aortic stenosis but no aortic regurgitation. 3. Mitral annulus calcification with moderate mitral regurgitation and mildly enlarged left atrium. 4. Moderate tricuspid regurgitation with moderate pulmonary hypertension and mildly enlarged right atrium. MTDD
--- NOTE | 2018-09-08 11:30 | IPNPDOC ---
Date Seen The patient was seen on 09/08/18. Progress Note SUBJECTIVE: Patient has no complaints today he tells me he is eager to go home and has no problems to discuss upon further questioning he denies chest pressure shortness of breath lightheadedness dizziness or feeling fatigued OBJECTIVE PHYSICAL EXAMINATION: VITAL SIGNS: Please see below. GENERAL: Very pleasant elderly sitting up in bed feeding himself breakfast he does not appear to be in any acute distress HEENT: Cranial nerves II through XII appear to be grossly intact CARDIOVASCULAR: S1-S2 not tachycardic. RESPIRATORY: Fairly clear to auscultation bilaterally. ABDOMINAL: Bowel sounds present abdomen soft nontender EXTREMITIES: 1+ edema bilaterally NEUROLOGICAL: No gross focal deficits LABORATORY DATA, IMAGING STUDIES, MICROBIOLOGY: Please see below. Echocardiogram:1. Normal global left ventricular systolic and diastolic function. 2. Aortic valve sclerosis with trivial aortic stenosis but no aortic regurgitation. 3. Mitral annulus calcification with moderate mitral regurgitation and mildly enlarged left atrium. 4. Moderate tricuspid regurgitation with moderate pulmonary hypertension and mildly enlarged right atrium. DVT prophylaxis ordered?: Sequentials and teds ASSESSMENT AND PLAN: This is a 83-year-old man with weakness and lethargy. PROBLEMS: 1. Weakness and lethargy: The etiology is not immediately clear it appears to have resolved. It appears that following session of hemodialysis 2 L fluid removal he is improved I suspect his lethargy may be related to fluid overload related to his end-stage renal disease. I have placed a PT and OT evaluation. He is presently not safe. 2. Left knee pain: Physical exam does appear to have some effusion no fracture noted on x-ray pain is improved likely secondary to osteoarthritis 3. End-stage renal disease on hemodialysis: Nephrology help greatly appreciated he is normally Wednesday. He is status post a thoracentesis 4. Left pleural effusion: The patient did have leukocytosis consolidation elevated BUN now is some concern that he may have had a parapneumonic effusion. Leukocytosis improving he was never significantly hypoxic my suspicion for parapneumonic was initially quite low he is not a thoracentesis which is not suggestive of this at all and as such I'll discontinue broad-spectrum antibiotics and continue to monitor closely cultures are all negative at this point. My suspicion is that his pleural effusion is more related to volume overload which can be best optimized via hemodialysis we await a repeat of pleural fluid cytology was previously negative for any malignancy. His echocardiogram did not demonstrate significant cardiac disease 5. Atrial fibrillation: Patient normally takes Coumadin however his INR was subtherapeutic on arrival I have restarted his Coumadin today 6. Dyslipidemia: Continue simvastatin 7. Anemia: Likely related to end-stage renal disease nephrology help greatly appreciated he has been started on Aranesp DISPOSITION: Pending PT and OT clearance I will downgraded to the [facility] floor he is improving and approaching his baseline suspect VS, I&O, 24H, Fishbone Vital Signs/I&O Vital Signs Date Time Temp Pulse Resp B/P (MAP) Pulse Ox O2 Delivery O2 Flow Rate FiO2 09/08/18 08:00 97.8 70 20 116/60 (78) 98 Room Air I&O- Last 24 Hours up to 6 AM 09/08/18 06:00 Intake Total 750 ml Output Total 0 ml Balance 750 ml Laboratory Data 24H LABS Laboratory Tests 2 09/07/18 14:10: Body Fluid pH 7.613, Body Fluid pH Source PLEURAL, Body Fluid WBC (Auto) 732H, Body Fluid RBC (Auto) 4, Body Fluid Mononuclear Cells % Auto 99.4H, Fluid Polymorphonuclear Cell % Auto 0.6H, Body Fluid Glucose Source PLEURAL, Body Fluid Glucose 102, Body Fluid Protein Source PLEURAL, Body Fluid Total Protein 3.6, Body Fluid Albumin Source PLEURAL, Body Fluid Albumin 1.6, Body Fluid LDH Source PLEURAL, Body Fluid Lactate Dehydrogenase 109, Body Fluid Amylase Source PLEURAL, Body Fluid Amylase 17, Body Fluid Cholesterol < 50, Body Fluid Cholesterol Source PLEURAL, Body Fluid Triglyceride Source PLEURAL, Body Fluid Triglycerides 24, Pleural Fluid Source PLEURAL, Pleural Fluid Color YELLOW, Pleural Fluid Appearance CLOUDY 09/08/18 05:40: Nucleated Red Blood Cells % (auto) 0.0, Activated Partial Thromboplast Time 41.7H, Anion Gap 11, Glomerular Filtration Rate 6.5L, Blood Urea Nitrogen 71H, Creatinine 8.50*H, Sodium Level 134L, Potassium Level 4.4, Chloride Level 99, Carbon Dioxide Level 24, Calcium Level 8.5L, Magnesium Level 2.4 CBC/BMP Laboratory Tests 09/08/18 05:40 Red Blood Count 2.98 L, Mean Corpuscular Volume 94.6, Mean Corpuscular Hemoglobin 30.9, Mean Corpuscular Hemoglobin Concent 32.6, Red Cell Distribution Width 15.9 H, Calcium Level 8.5 L Microbiology Microbiology 09/05/18 Blood Culture - Preliminary, Resulted No Growth after 72 hours. All specime... 09/05/18 Blood Culture - Preliminary, Resulted No Growth after 72 hours. All specime... 09/07/18 Acid Fast Stain, Received Pending 09/07/18 Mycobacterial Culture, Received Pending 09/07/18 Fungal Smear, Received Pending 09/07/18 Fungal Culture, Received Pending 09/07/18 Gram Stain - Final, Resulted 09/07/18 Anaerobic Culture, Resulted Pending 09/07/18 Body Fluid Culture, Received Pending 09/07/18 Stool Occult Blood (LUCIAN) - Final, Complete 09/07/18 Gram Stain - Final, Complete 09/07/18 Sputum Culture - Final, Complete GIOVANNI MUNIZ MD Sep 08, 2018 11:30
[2018-09-08] MEDS ORDERED: HEPARIN 1,000 UNITS/ML 10ML VIAL (FOR RADIOLOGY& DIALYSIS ONLY) IV ONE (16:00)
--- NOTE | 2018-09-08 16:58 | IPN ---
DATE: 09/07/2018 SUBJECTIVE: The patient was seen and examined at the bedside today morning. Patient is more awake and alert. He was sitting up in the bed. He is afebrile, hemodynamically stable. He was last dialyzed on 09/05/2018, and 2 liters of fluid was removed. His leukocytosis is significantly improving with the intravenous (IV) antibiotics. Patient is pending left-sided thoracentesis to be done today. OBJECTIVE: Vital signs: Temperature is 97.6 degrees Fahrenheit, blood pressure 121/65, pulse is 87, respiratory rate of 18, saturating 98% on room air. Intake and output: Urine output is not recorded. Weight in the bed scale is 69.1 kg. PHYSICAL EXAMINATION: GENERAL: Patient is awake, alert, oriented times two, sitting up in the bed. No apparent distress. HEAD AND NECK: Extraocular muscles intact. Pupils equally round and reactive to light. Mucous membranes are moist. Neck is supple. There is no jugular venous distention (JVD). CARDIOVASCULAR: S1, S2, irregular heart rate. Edema 1+ of the bilateral lower extremities. RESPIRATORY: Decreased breath sounds at the bases. Decreased vocal resonance on the left base. Otherwise no active rales or rhonchi. ABDOMEN: Soft. Positive bowel sounds. Nontender. No organomegaly. MUSCULOSKELETAL: No clubbing or cyanosis. Edema 1+ of the bilateral lower extremities. CENTRAL NERVOUS SYSTEM: Patient is oriented times two. He is able to follow commands and moves extremities. LABORATORY REVIEW: CBC showed a WBC of 9.1, hemoglobin 9.4, platelets of 196. BMP showed sodium 134, potassium 4.5, chloride 98, bicarbonate 25, BUN 63, creatinine is 6.8. Microbiology: Blood cultures are negative so far. Sputum Gram stain showed many gram-positive cocci in pairs, chains, and clusters. Stool occult blood is negative. CURRENT INPATIENT MEDICATIONS: Patient's medications were all reviewed by me. He continues to be on a heparin drip. He is on vancomycin and Zosyn. No other change in the medications today as compared with yesterday. ASSESSMENT AND PLAN: 1. End-stage renal disease, on hemodialysis. Patient's regular dialysis days are Wednesday, , Wednesday. He will be dialyzed tomorrow morning as per his regular schedule. I will try to remove at least 2.5-3 liters of fluid as tolerated by his blood pressure. 2. Healthcare-associated pneumonia. Patient's weakness and leukocytosis are getting better. He is empirically being treated with vancomycin and Zosyn. Continue current dose at this point. 3. Left-sided pleural effusion. Patient's pleural effusion was last tapped 2 months ago in June 2018. He still has moderate-sized left-sided effusion. His Coumadin is already on hold, and he is on heparin drip. Patient will get the pleural tap done today. Rest of the volume status will be optimized with dialysis tomorrow morning. 4. Atrial fibrillation. Heart rate is controlled. Continue current dose of atenolol. Coumadin will be restarted after patient gets his thoracentesis. 5. Anemia and end-stage renal disease. Patient will get a dose of Aranesp with hemodialysis tomorrow.
[2018-09-08 17:45] VITALS: BP 123/76
[2018-09-08] MEDS: WARFARIN SOD 7.5 MG TAB PO SCH (17:52)
[2018-09-08 22:00] VITALS: BP 114/70
[2018-09-09] MEDS: traMADol 50 MG TAB PO PRN (02:09)
[2018-09-09] MEDS: SLF 3 ML SYR IV SCH ×3 (05:45→22:00)
[2018-09-09 06:00] VITALS: BP 110/74
[2018-09-09 06:30] LABS: HEMATOCRIT 30.6 % (42.0-52.0); HEMOGLOBIN 9.7 g/dl (13.5-17.5); MEAN CORPUSCULAR HEMOGLOBIN 30.3 pg (27.0-33.0); MEAN CORPUSCULAR HGB CONC 31.7 g/dl (32.0-36.5); MEAN CORPUSCULAR VOLUME 95.6 fl (80.0-96.0); PLATELET COUNT, AUTOMATED 229 10^3/uL (150-450); WHITE BLOOD COUNT 10.1 10^3/uL (4.0-10.0)
[2018-09-09 06:51] LABS: CALCIUM LEVEL 8.7 MG/DL (8.8-10.2); CREATININE FOR GFR 5.04 MG/DL (0.70-1.30); GLOMERULAR FILTRATION RATE 11.8 (>35); INR 1.34; MAGNESIUM LEVEL 2.2 MG/DL (1.8-2.4); POTASSIUM SERUM 4.1 MEQ/L (3.5-5.1); PROTHROMBIN TIME 16.8 SECONDS (12.1-14.4)
[2018-09-09] MEDS: ATENOLOL 25 MG TAB PO SCH (08:34)
[2018-09-09] MEDS: SIMVASTATIN 10 MG TAB PO SCH (08:34)
[2018-09-09 10:53] LABS: HEMATOCRIT 30.1 % (42.0-52.0); HEMOGLOBIN 9.7 g/dl (13.5-17.5); MEAN CORPUSCULAR HGB CONC 32.2 g/dl (32.0-36.5); MEAN CORPUSCULAR VOLUME 96.2 fl (80.0-96.0); PLATELET COUNT, AUTOMATED 213 10^3/uL (150-450); RED BLOOD COUNT 3.13 10^6/uL (4.30-6.10); WHITE BLOOD COUNT 8.8 10^3/uL (4.0-10.0)
[2018-09-09] MEDS: LevoFLOXacin 250 MG TABLET PO SCH (12:18)
[2018-09-09 14:00] VITALS: BP 104/55
--- NOTE | 2018-09-09 15:00 | IPN ---
DATE OF SERVICE: 09/08/2018 SUBJECTIVE: Patient was seen and examined at the bedside today morning. The patient is afebrile, hemodynamically stable. Patient got the pleural tap done yesterday, 130 mL of fluid was removed. He is also due for hemodialysis. He denies any active complaints. He reports that he is feeling better now. OBJECTIVE: VITAL SIGNS: Temperature is 97.8 degrees Fahrenheit, blood pressure is 116/60, pulse 70, respiratory rate of 20, saturating 98% on room air. INTAKE AND OUTPUT: Urine output is not recorded. Weight on the bed scale is 69.8 kg. PHYSICAL EXAMINATION: GENERAL: Patient is awake, alert and oriented times two. Laying in bed. No apparent distress. HEAD/NECK: Extraocular muscles intact. Pupils equally around and reactive to light. Mucous membranes are moist. Neck is supple. There is mildly elevated jugular venous distention (JVD). CARDIOVASCULAR: S1, S2, irregular heart rate. 1+ edema of the bilateral lower extremities. RESPIRATORY: Mildly decreased breath sounds at the bases. Otherwise, no active rales or rhonchi. ABDOMEN: Soft. Positive bowel sounds. Nontender. No organomegaly. MUSCULOSKELETAL: No clubbing or cyanosis. Pulses are 2+. [employer]: He is oriented times two. Otherwise, there is no focal deficits. He moves all extremities. LAB REVIEW: CBC showed a WBC of 9.5, hemoglobin 9.2, platelets are 204. BMP showed sodium 134, potassium 4.4, chloride 99, bicarb 24, BUN 71, creatinine 8.5. IMAGING: He got an ultrasound guided thoracentesis done on the left side. 130 mL of fluid was removed. CURRENT INPATIENT MEDICATIONS: The patient's medications were all reviewed by me. Vancomycin and Zosyn have been stopped. No other change in the medications today as compared with yesterday. His warfarin has been restarted. ASSESSMENT/PLAN: 1. End stage renal disease (ESRD) on hemodialysis. The patient's regular dialysis days are every Wednesday, , and Wednesday. He will be dialyzed today in the afternoon. Ultrafiltration goal will be around 2 liters, as tolerated by his blood pressure. 2. Left sided pleural effusion. The patient got the effusion tapped. Most likely secondary to congestive heart failure (CHF). A small amount of fluid was removed, which was sent for analysis. 3. Anemia and end stage renal disease (ESRD). The patient will get a dose of Aranesp 100 mcg IV with hemodialysis. 4. Atrial fibrillation. Heart rate is controlled. Continue atenolol. Coumadin will be restarted today.
--- NOTE | 2018-09-09 16:40 | IPNPDOC ---
Date Seen The patient was seen on 09/09/18. Progress Note SUBJECTIVE: Patient has no complaints today he tells me he feels well and like to go home soon OBJECTIVE PHYSICAL EXAMINATION: VITAL SIGNS: Please see below. GENERAL: Very pleasant elderly sitting up in bed feeding himself breakfast he does not appear to be in any acute distress HEENT: Cranial nerves II through XII appear to be grossly intact CARDIOVASCULAR: S1-S2 not tachycardic. RESPIRATORY: Fairly clear to auscultation bilaterally. ABDOMINAL: Bowel sounds present abdomen soft nontender EXTREMITIES: No edema bilaterally NEUROLOGICAL: No gross focal deficits LABORATORY DATA, IMAGING STUDIES, MICROBIOLOGY: Please see below. Echocardiogram:1. Normal global left ventricular systolic and diastolic function. 2. Aortic valve sclerosis with trivial aortic stenosis but no aortic regurgitation. 3. Mitral annulus calcification with moderate mitral regurgitation and mildly enlarged left atrium. 4. Moderate tricuspid regurgitation with moderate pulmonary hypertension and mildly enlarged right atrium. DVT prophylaxis ordered?: Sequentials and teds ASSESSMENT AND PLAN: This is a 83-year-old man with weakness and lethargy. PROBLEMS: 1. Weakness and lethargy: The etiology is not immediately clear it appears to have resolved. It appears that following session of hemodialysis 2 L fluid removal he is improved I suspect his lethargy may be related to fluid overload related to his end-stage renal disease. I have placed a PT and OT evaluation. He is presently not safe. 2. Left knee pain: Physical exam does appear to have some effusion no fracture noted on x-ray pain is improved likely secondary to osteoarthritis 3. End-stage renal disease on hemodialysis: Nephrology help greatly appreciated he is normally Wednesday. He is status post a thoracentesis 4. Left pleural effusion: The patient did have leukocytosis consolidation e levated BUN now is some concern that he may have had a parapneumonic effusion, I did discuss with Nephrology and we agree he should complete a course of antibiotics. My suspicion is that his pleural effusion is more related to volume overload which can be best optimized via hemodialysis we await a repeat of pleural fluid cytology was previously negative for any malignancy. His echocardiogram did not demonstrate significant cardiac disease 5. Atrial fibrillation: Patient normally takes Coumadin however his INR was subtherapeutic on arrival I have restarted his Coumadin 6. Dyslipidemia: Continue simvastatin 7. Anemia: Likely related to end-stage renal disease nephrology help greatly appreciated DISPOSITION: Pending PT and OT clearance VS, I&O, 24H, Fishbone Vital Signs/I&O Vital Signs Date Time Temp Pulse Resp B/P (MAP) Pulse Ox O2 Delivery O2 Flow Rate FiO2 09/09/18 14:00 98.4 75 20 104/55 (71) 96 Room Air I&O- Last 24 Hours up to 6 AM 09/09/18 05:59 Intake Total 800 ml Output Total 2000 ml Balance -1200 ml Laboratory Data 24H LABS Laboratory Tests 2 09/09/18 06:08: Nucleated Red Blood Cells % (auto) 0.0, Prothrombin Time 16.8H, Prothromb Time International Ratio 1.34, Anion Gap 10, Glomerular Filtration Rate 11.8L, Blood Urea Nitrogen 29#H, Creatinine 5.04H, Sodium Level 138, Potassium Level 4.1, Chloride Level 99, Carbon Dioxide Level 29, Calcium Level 8.7L, Magnesium Level 2.2 09/09/18 10:38: Nucleated Red Blood Cells % (auto) 0.0 CBC/BMP Laboratory Tests 09/09/18 06:08 Red Blood Count 3.20 L, Mean Corpuscular Volume 95.6, Mean Corpuscular Hemoglobin 30.3, Mean Corpuscular Hemoglobin Concent 31.7 L, Red Cell Distribution Width 15.7 H, Calcium Level 8.7 L 09/09/18 10:38 Red Blood Count 3.13 L, Mean Corpuscular Volume 96.2 H, Mean Corpuscular Hemoglobin 31.0, Mean Corpuscular Hemoglobin Concent 32.2, Red Cell Distribution Width 15.9 H Microbiology Microbiology 09/05/18 Blood Culture - Preliminary, Resulted No Growth after 72 hours. All specime... 09/05/18 Blood Culture - Preliminary, Resulted No Growth after 72 hours. All specime... 09/07/18 Acid Fast Stain, Received Pending 09/07/18 Mycobacterial Culture, Received Pending 09/07/18 Fungal Smear, Received Pending 09/07/18 Fungal Culture, Received Pending 09/07/18 Gram Stain - Final, Complete 09/07/18 Anaerobic Culture - Final, Complete 09/07/18 Body Fluid Culture - Final, Complete 09/07/18 Stool Occult Blood (LUCIAN) - Final, Complete 12/26/18 Gram Stain - Final, Complete 09/07/18 Sputum Culture - Final, Complete GIOVANNI MUNIZ MD Sep 09, 2018 16:40
[2018-09-09] MEDS: WARFARIN SOD 7.5 MG TAB PO SCH (17:00)
[2018-09-09 22:00] VITALS: BP 100/62
[2018-09-10] MEDS: LevoFLOXacin 250 MG TABLET PO SCH (05:57)
[2018-09-10] MEDS: SLF 3 ML SYR IV SCH ×3 (05:58→21:47)
[2018-09-10] MEDS: ATENOLOL 25 MG TAB PO SCH (05:59)
[2018-09-10 06:00] VITALS: BP 119/66
[2018-09-10 06:35] LABS: HEMATOCRIT 30.2 % (42.0-52.0); HEMOGLOBIN 9.5 g/dl (13.5-17.5); MEAN CORPUSCULAR HEMOGLOBIN 30.4 pg (27.0-33.0); MEAN CORPUSCULAR HGB CONC 31.5 g/dl (32.0-36.5); MEAN CORPUSCULAR VOLUME 96.5 fl (80.0-96.0); PLATELET COUNT, AUTOMATED 233 10^3/uL (150-450); RED BLOOD COUNT 3.13 10^6/uL (4.30-6.10); WHITE BLOOD COUNT 9.1 10^3/uL (4.0-10.0)
[2018-09-10 06:52] LABS: INR 1.41; PROTHROMBIN TIME 17.4 SECONDS (12.1-14.4)
[2018-09-10 07:02] LABS: CALCIUM LEVEL 8.7 MG/DL (8.8-10.2); CREATININE FOR GFR 6.94 MG/DL (0.70-1.30); GLOMERULAR FILTRATION RATE 8.2 (>35); MAGNESIUM LEVEL 2.2 MG/DL (1.8-2.4); POTASSIUM SERUM 4.4 MEQ/L (3.5-5.1)
[2018-09-10] MEDS: SIMVASTATIN 10 MG TAB PO SCH (09:17)
--- NOTE | 2018-09-10 10:35 | IPNPDOC ---
Date Seen The patient was seen on 09/10/18. Progress Note SUBJECTIVE: Patient has no complaints today he tells me he feels well and he is enjoying his breakfast OBJECTIVE PHYSICAL EXAMINATION: VITAL SIGNS: Please see below. GENERAL: Very pleasant elderly sitting up in bed he does not appear to be in any acute distress HEENT: Cranial nerves II through XII appear to be grossly intact CARDIOVASCULAR: S1-S2 not tachycardic. RESPIRATORY: Fairly clear to auscultation bilaterally. ABDOMINAL: Bowel sounds present abdomen soft nontender EXTREMITIES: No edema bilaterally LABORATORY DATA, IMAGING STUDIES, MICROBIOLOGY: Please see below. Echocardiogram:1. Normal global left ventricular systolic and diastolic function. 2. Aortic valve sclerosis with trivial aortic stenosis but no aortic regurgitation. 3. Mitral annulus calcification with moderate mitral regurgitation and mildly enlarged left atrium. 4. Moderate tricuspid regurgitation with moderate pulmonary hypertension and mildly enlarged right atrium. DVT prophylaxis ordered?: Sequentials and teds ASSESSMENT AND PLAN: This is a 83-year-old man with weakness and lethargy. PROBLEMS: 1. Weakness and lethargy: It appears to have resolved. It appears that following a session of hemodialysis 2 L fluid removal he improved, I suspect his lethargy may be related to fluid overload related to his end-stage renal disease. I have placed a PT and OT evaluation. He is presently not safe by PT but did not evaluate him yesterday. 2. Left knee pain: Physical exam does appear to have some effusion no fracture noted on x-ray pain is improved likely secondary to osteoarthritis 3. End-stage renal disease on hemodialysis: Nephrology help greatly appreciated he is normally Wednesday. He is status post a thoracentesis 4. Left pleural effusion: The patient did have leukocytosis consolidation elevated BUN now is some concern that he may have had a parapneumonic effusion, I did discuss with Nephrology and we agree he should complete a course of an tibiotics. My suspicion is that his pleural effusion is more related to volume overload which can be best optimized via hemodialysis. His echocardiogram did not demonstrate significant cardiac disease 5. Atrial fibrillation: Patient normally takes Coumadin however his INR was subtherapeutic on arrival I have restarted his Coumadin 6. Dyslipidemia: Continue simvastatin 7. Anemia: Likely related to end-stage renal disease nephrology help greatly appreciated DISPOSITION: Pending PT clearance possibly home tomorrow VS, I&O, 24H, Fishbone Vital Signs/I&O Vital Signs Date Time Temp Pulse Resp B/P (MAP) Pulse Ox O2 Delivery O2 Flow Rate FiO2 09/10/18 06:00 97.6 88 20 119/66 (83) 97 Room Air I&O- Last 24 Hours up to 6 AM 09/10/18 06:00 Intake Total 780 ml Output Total 100 ml Balance 680 ml Laboratory Data 24H LABS Laboratory Tests 2 09/09/18 10:38: Nucleated Red Blood Cells % (auto) 0.0 09/10/18 05:43: Nucleated Red Blood Cells % (auto) 0.0, Prothrombin Time 17.4H, Prothromb Time International Ratio 1.41, Anion Gap 10, Glomerular Filtration Rate 8.2L, Blood Urea Nitrogen 49#H, Creatinine 6.94H, Sodium Level 138, Potassium Level 4.4, Chloride Level 101, Carbon Dioxide Level 27, Calcium Level 8.7L, Magnesium Level 2.2 CBC/BMP Laboratory Tests 09/09/18 10:38 Red Blood Count 3.13 L, Mean Corpuscular Volume 96.2 H, Mean Corpuscular Hemoglobin 31.0, Mean Corpuscular Hemoglobin Concent 32.2, Red Cell Distribution Width 15.9 H 09/10/18 05:43 Red Blood Count 3.13 L, Mean Corpuscular Volume 96.5 H, Mean Corpuscular Hemoglobin 30.4, Mean Corpuscular Hemoglobin Concent 31.5 L, Red Cell Distribution Width 15.7 H, Calcium Level 8.7 L Microbiology Microbiology 09/05/18 Blood Culture - Final, Complete NO GROWTH AFTER 5 DAYS 09/05/18 Blood Culture - Final, Complete NO GROWTH AFTER 5 DAYS 09/07/18 Acid Fast Stain, Received Pending 09/07/18 Mycobacterial Culture, Received Pending 09/07/18 Fungal Smear, Received Pending 09/07/18 Fungal Culture, Received Pending 09/07/18 Gram Stain - Final, Complete 09/07/18 Anaerobic Culture - Final, Complete 09/07/18 Body Fluid Culture - Final, Complete 09/07/18 Stool Occult Blood (LUCIAN) - Final, Complete 09/07/18 Gram Stain - Final, Complete 09/07/18 Sputum Culture - Final, Complete GIOVANNI MUNIZ MD Sep 10, 2018 10:35
[2018-09-10] MEDS ORDERED: HEPARIN 1,000 UNITS/ML 10ML VIAL (FOR RADIOLOGY& DIALYSIS ONLY) IV ONE (10:45)
--- NOTE | 2018-09-10 11:45 | IPN ---
DATE: 09/09/2018 SUBJECTIVE: Patient was seen and examined at the bedside today morning. Patient is afebrile and hemodynamically stable. He was dialyzed yesterday and he tolerated the hemodialysis procedure well. He is much more awake and alert now. There is a slight bump in his white cell count. He denies any active complaints at this time. OBJECTIVE: VITAL SIGNS: Temperature 97.4 degrees Fahrenheit, blood pressure 120/74, pulse 97, respiratory rate 20 saturating 96% on room air. INTAKE AND OUTPUT: Urine output is not recorded after getting hemodialysis of 2 liters. Weight in the bed scale is 69.2 kg. PHYSICAL EXAMINATION: GENERAL: Patient is awake, alert and oriented times two laying in bed. No apparent distress. HEAD AND NECK EXAM: Extraocular muscles are intact. Pupils are equally round and reactive to light. Mucous membranes are moist. NECK: Supple. There is no JVD. CARDIOVASCULAR: S1, S2 regular heart rate. 1+ edema of bilateral lower extremities. RESPIRATORY: Chest is clear to auscultation bilaterally. Bilateral equal air entry and no rales no rhonchi. ABDOMEN: Soft and positive bowel sounds. Nontender and no organomegaly. MUSCULOSKELETAL: No clubbing, cyanosis, pulses are 2+. COTTON STRIPPER: Patient is oriented times two. He is able to communicate and moves extremities and follows commands. LABS: CBC showed a WBC of 10.1, hemoglobin 9.7, platelets 229, BMP showed a sodium 139, potassium 4.1, chloride 99, bicarbonate 29, BUN 29, creatinine 5, calcium 8.7, magnesium 2.2. CURRENT INPATIENT MEDICATIONS: Patient's medications were all reviewed by me. He has been started on Levaquin 250 mg by mouth daily. No other change in the medications today as compared with yesterday. ASSESSMENT AND PLAN: 1. End-stage renal disease on hemodialysis. Patient's regular dialysis days are Wednesday, , Wednesday. He was dialyzed yesterday. Next hemodialysis session will be tomorrow. I will try to remove at least 2-2.5 kg of fluid because of recent pleural effusion and fluid overload. Anemia and end-stage renal disease. Continue current dose of Aranesp 100 mcg IV with hemodialysis. Hemoglobin is improving. 2. Leukocytosis and multifocal consolidation on CT of the chest. Patient is on IV antibiotics and he has been started on oral Levaquin now. White cell count is improving on the repeat CBC. 3. Atrial fibrillation. Heart rate is controlled. Coumadin has been restarted. DISPOSITION: Patient is optimized from a nephrology standpoint whenever he is cleared by physical therapy to be discharged home.
[2018-09-10 16:45] VITALS: BP 100/57
[2018-09-10] MEDS: WARFARIN SOD 7.5 MG TAB PO SCH (16:48)
[2018-09-10 22:00] VITALS: BP 114/63
[2018-09-11 05:49] LABS: HEMATOCRIT 34.3 % (42.0-52.0); HEMOGLOBIN 10.8 g/dl (13.5-17.5); MEAN CORPUSCULAR HEMOGLOBIN 30.2 pg (27.0-33.0); MEAN CORPUSCULAR HGB CONC 31.5 g/dl (32.0-36.5); MEAN CORPUSCULAR VOLUME 95.8 fl (80.0-96.0); PLATELET COUNT, AUTOMATED 253 10^3/uL (150-450); RED BLOOD COUNT 3.58 10^6/uL (4.30-6.10); WHITE BLOOD COUNT 10.8 10^3/uL (4.0-10.0)
[2018-09-11 06:00] VITALS: BP 115/64
[2018-09-11 06:00] LABS: INR 1.75; PROTHROMBIN TIME 20.7 SECONDS (12.1-14.4)
[2018-09-11] MEDS: SLF 3 ML SYR IV SCH ×3 (06:00→20:36)
[2018-09-11] MEDS: LevoFLOXacin 250 MG TABLET PO SCH (06:00)
[2018-09-11 06:33] LABS: CALCIUM LEVEL 9.2 MG/DL (8.8-10.2); CREATININE FOR GFR 4.56 MG/DL (0.70-1.30); GLOMERULAR FILTRATION RATE 13.3 (>35); MAGNESIUM LEVEL 2.1 MG/DL (1.8-2.4); POTASSIUM SERUM 4.2 MEQ/L (3.5-5.1)
[2018-09-11] MEDS: ATENOLOL 25 MG TAB PO SCH (08:59)
[2018-09-11] MEDS: SIMVASTATIN 10 MG TAB PO SCH (08:59)
--- NOTE | 2018-09-11 12:44 | IPN ---
DATE: 09/10/2018 SUBJECTIVE: Patient was seen and examined at the bedside today morning. Patient is afebrile, hemodynamically stable. He denies any active complaints. Patient is due for hemodialysis today. OBJECTIVE: VITAL SIGNS: Temperature 97.6 degrees Fahrenheit, blood pressure 119/66, pulse 88, respiratory rate 20, saturating 97% on room air. INTAKE AND OUTPUT: Urine output is not recorded. Weight in the bed scale is 69 kg. PHYSICAL EXAMINATION: GENERAL: Patient is awake, alert, oriented times two, laying in bed, no apparent distress. HEAD AND NECK EXAMINATION: Extraocular muscles intact. Pupils equally round and reactive to light. Mucous membranes are moist. Neck is supple. There is no jugular venous distention (JVD). CARDIOVASCULAR: S1, S2. Regular rate. 1+ edema of the bilateral lower extremities. RESPIRATORY: Chest is clear to auscultation bilaterally. Bilateral equal air entry. No rales or rhonchi. ABDOMEN: Soft. Positive bowel sounds. Nontender. No organomegaly. MUSCULOSKELETAL: No clubbing or stenosis. Pulses are 2+. CENTRAL NERVOUS SYSTEM: He is oriented times two, able to communicate. Moves all extremities. LABORATORY REVIEW: Complete blood count (CBC) showed WBC 9.1, hemoglobin 9.5, platelets 233. Basic metabolic panel (BMP) showed sodium 138, potassium 4.4, chloride 101, bicarbonate 27, BUN 49, creatinine 6.9, calcium 8.7, magnesium 2.2. MICROBIOLOGY: Cultures are all negative so far. CURRENT INPATIENT MEDICATIONS: Patients medications were all reviewed by me. There is no change in the medications today as compared with yesterday. He continues to be on oral antibiotics. ASSESSMENT AND PLAN: 1. End-stage renal disease on hemodialysis. Patient's regular dialysis days are Wednesday, , Wednesday. He will be dialyzed in the afternoon today, according to his regular schedule. Ultrafiltration goal will be around 2.5 liters. 2. Anemia in end-stage renal disease. Continue current dose of Aranesp with hemodialysis. Hemoglobin is 9.7, which is improving. 3. Multifocal consolidations on CT chest and leukocytosis. Patient was on intravenous (IV) antibiotics. He currently is on oral Levaquin. White cell count is significantly better. Shortness of breath is improving. 4. Atrial fibrillation. Heart rate is controlled. He is currently anticoagulated with Coumadin. INR is still subtherapeutic, but it is improving. Continue current dose of atenolol 25 mg by mouth daily.
--- NOTE | 2018-09-11 13:24 | IPNPDOC ---
Date Seen The patient was seen on 09/11/18. Progress Note SUBJECTIVE: Patient has no complaints today he only asks when he is going to be able to go home OBJECTIVE PHYSICAL EXAMINATION: VITAL SIGNS: Please see below. GENERAL: Very pleasant elderly sitting on the edge of his bed he does not appear to be in any acute distress HEENT: Cranial nerves II through XII appear to be grossly intact CARDIOVASCULAR: S1-S2 not tachycardic. RESPIRATORY: Fairly clear to auscultation bilaterally. ABDOMINAL: Bowel sounds present abdomen soft nontender EXTREMITIES: No edema bilaterally LABORATORY DATA, IMAGING STUDIES, MICROBIOLOGY: Please see below. Echocardiogram:1. Normal global left ventricular systolic and diastolic function. 2. Aortic valve sclerosis with trivial aortic stenosis but no aortic regurgitation. 3. Mitral annulus calcification with moderate mitral regurgitation and mildly enlarged left atrium. 4. Moderate tricuspid regurgitation with moderate pulmonary hypertension and mildly enlarged right atrium. DVT prophylaxis ordered?: Sequentials and teds ASSESSMENT AND PLAN: This is a 83-year-old man with weakness and lethargy. PROBLEMS: 1. Weakness and lethargy: It appears to have resolved. Improved after a a session of hemodialysis 2 L fluid removal he improved, I suspect his lethargy may be related to fluid overload related to his end-stage renal disease. I have placed a PT and OT evaluation. He is presently not safe by PT. His reported that she is unable to take home as such I'll place a PFS consult for possible placement 2. Left knee pain: Resolved likely secondary to osteoarthritis 3. End-stage renal disease on hemodialysis: Nephrology help greatly appreciated he is normally Wednesday. He is status post a thoracentesis 4. Left pleural effusion: The patient did have leukocytosis consolidation elevated BUN now is some concern that he may have had a parapneumonic effusion, I did discuss with Nephrology and we agree he should complete a course of antibiotics today is day 6 of 7. My suspicion is that his pleural effusion is more related to volume overload which can be best optimized via hemodialysis. His echocardiogram did not demonstrate significant cardiac disease 5. Atrial fibrillation: Patient normally takes Coumadin however his INR was subtherapeutic on arrival I have restarted his Coumadin we're watching daily INRs 6. Dyslipidemia: Continue simvastatin 7. Anemia: Likely related to end-stage renal disease nephrology help greatly appreciated DISPOSITION: Possibly placement versus home with additional services pending PT clearance VS, I&O, 24H, Fishbone Vital Signs/I&O Vital Signs Date Time Temp Pulse Resp B/P (MAP) Pulse Ox O2 Delivery O2 Flow Rate FiO2 09/11/18 08:59 80 122/70 09/11/18 06:00 97.2 20 96 Room Air I&O- Last 24 Hours up to 6 AM 09/11/18 06:00 Intake Total 1620 ml Output Total 2500 ml Balance -880 ml Laboratory Data 24H LABS Laboratory Tests 2 09/11/18 05:31: Nucleated Red Blood Cells % (auto) 0.0, Prothrombin Time 20.7H, Prothromb Time International Ratio 1.75, Anion Gap 7L, Glomerular Filtration Rate 13.3L, Blood Urea Nitrogen 26H, Creatinine 4.56H, Sodium Level 138, Potassium Level 4.2, Chloride Level 100, Carbon Dioxide Level 31, Calcium Level 9.2, Magnesium Level 2.1 CBC/BMP Laboratory Tests 09/11/18 05:31 Red Blood Count 3.58 L, Mean Corpuscular Volume 95.8, Mean Corpuscular Hemoglobin 30.2, Mean Corpuscular Hemoglobin Concent 31.5 L, Red Cell Distribution Width 15.5 H, Calcium Level 9.2 Microbiology Microbiology 09/05/18 Blood Culture - Final, Complete NO GROWTH AFTER 5 DAYS 09/05/18 Blood Culture - Final, Complete NO GROWTH AFTER 5 DAYS 09/07/18 Acid Fast Stain, Received Pending 09/07/18 Mycobacterial Culture, Received Pending 09/07/18 Fungal Smear, Received Pending 09/07/18 Fungal Culture, Received Pending 09/07/18 Gram Stain - Final, Complete 09/07/18 Anaerobic Culture - Final, Complete 09/07/18 Body Fluid Culture - Final, Complete 09/07/18 Stool Occult Blood (LUCIAN) - Final, Complete 09/07/18 Gram Stain - Final, Complete 09/07/18 Sputum Culture - Final, Complete GIOAVNNI MUNIZ MD Sep 11, 2018 13:24
[2018-09-11 14:00] VITALS: BP 98/60
[2018-09-11] MEDS: WARFARIN SOD 7.5 MG TAB PO SCH (18:20)
[2018-09-11] MEDS: traMADol 50 MG TAB PO PRN (20:35)
[2018-09-11 22:00] VITALS: BP 110/60
[2018-09-12 05:15] VITALS: BP 112/71
[2018-09-12] MEDS: SIMVASTATIN 10 MG TAB PO SCH (05:15)
[2018-09-12] MEDS: ATENOLOL 25 MG TAB PO SCH (05:15)
[2018-09-12] MEDS: LevoFLOXacin 250 MG TABLET PO SCH (05:15)
[2018-09-12] MEDS: SLF 3 ML SYR IV SCH ×3 (05:16→20:10)
[2018-09-12 06:00] VITALS: BP 112/71
[2018-09-12 06:23] LABS: HEMATOCRIT 34.9 % (42.0-52.0); HEMOGLOBIN 11.1 g/dl (13.5-17.5); MEAN CORPUSCULAR HEMOGLOBIN 30.5 pg (27.0-33.0); MEAN CORPUSCULAR HGB CONC 31.8 g/dl (32.0-36.5); MEAN CORPUSCULAR VOLUME 95.9 fl (80.0-96.0); PLATELET COUNT, AUTOMATED 298 10^3/uL (150-450); RED BLOOD COUNT 3.64 10^6/uL (4.30-6.10); WHITE BLOOD COUNT 13.8 10^3/uL (4.0-10.0)
[2018-09-12 06:35] LABS: INR 1.95; PROTHROMBIN TIME 22.6 SECONDS (12.1-14.4)
[2018-09-12 06:50] LABS: CALCIUM LEVEL 9.6 MG/DL (8.8-10.2); CREATININE FOR GFR 6.51 MG/DL (0.70-1.30); GLOMERULAR FILTRATION RATE 8.8 (>35); MAGNESIUM LEVEL 2.2 MG/DL (1.8-2.4); POTASSIUM SERUM 4.4 MEQ/L (3.5-5.1)
[2018-09-12] MEDS ORDERED: DIGOXIN 0.25 MG TAB PO ONE (10:45)
[2018-09-12] MEDS ORDERED: HEPARIN 1,000 UNITS/ML 10ML VIAL (FOR RADIOLOGY& DIALYSIS ONLY) IV ONE (11:30)
--- NOTE | 2018-09-12 13:34 | IPN ---
DATE: 09/11/2018 SUBJECTIVE: Patient was seen and examined at the bedside today morning. Patient was afebrile, hemodynamically stable. He feels much better. He was dialyzed yesterday. There was 2.5 liters of fluid removed. He continues to be on oral antibiotics, and he is getting physical therapy. OBJECTIVE: Vital signs: Temperature is 97.2 degrees Fahrenheit, blood pressure 122/70, pulse is 80, respiratory rate of 20, saturating 96% on room air. Intake and output: Ultrafiltration with hemodialysis was 2.5 liters yesterday. Weight in the bed scale is 68 kg. PHYSICAL EXAMINATION: GENERAL: Patient is awake, alert, oriented times two, sitting up in the bed. No apparent distress. HEAD AND NECK: Extraocular muscles intact. Pupils equally round and reactive to light. Mucous membranes are moist. Neck is supple. There is no jugular venous distention (JVD). CARDIOVASCULAR: S1, S2, regular rate. No edema of the bilateral lower extremities. RESPIRATORY: Chest is clear to auscultation bilaterally. Bilateral equal air entry. No rales or rhonchi. ABDOMEN: Soft. Positive bowel sounds. Nontender. No organomegaly. MUSCULOSKELETAL: No clubbing or cyanosis. Pulses are 2+. CENTRAL NERVOUS SYSTEM: He is oriented times two. Moves extremities. Follows commands. LABORATORY REVIEW: CBC showed a WBC of 10.8, hemoglobin 10.8, platelets are 253. BMP showed sodium 138, potassium 4.2, chloride 100, bicarbonate 31, BUN 26, creatinine is 4.5. CURRENT INPATIENT MEDICATIONS: Patient continues to be on Levaquin 250 mg by mouth daily. Last dose will be 09/16/2018. No other change in the medications today as compared with yesterday. ASSESSMENT AND PLAN: 1. End-stage renal disease, on hemodialysis. Patient's regular dialysis days are Wednesday, , Wednesday. He was dialyzed yesterday. Next hemodialysis session will be tomorrow because of the holiday schedule. 2. Multifocal consolidations on CT chest and leukocytosis. Patient is being given oral Levaquin. White cell count is stable. Respiratory symptoms are better. 3. Anemia secondary to end-stage renal disease. Hemoglobin is 10.8, which is optimal. Continue current dose of Aranesp with hemodialysis. 4. Atrial fibrillation. Heart rate is controlled. He is currently on atenolol and anticoagulated with Coumadin. INR level is improving now.
[2018-09-12 14:00] VITALS: BP 99/55
--- NOTE | 2018-09-12 15:24 | IPNPDOC ---
Date Seen The patient was seen on 09/12/18. Progress Note SUBJECTIVE: Patient has no complaints and once again patient asks when he is going to be able to go home.. We'll lengthy discussion regarding his various to discharge OBJECTIVE PHYSICAL EXAMINATION: VITAL SIGNS: Please see below. GENERAL: Very pleasant elderly examined during hemodialysis he does not appear to be in any acute distress HEENT: Cranial nerves II through XII appear to be grossly intact CARDIOVASCULAR: S1-S2 not tachycardic. RESPIRATORY: Fairly clear to auscultation bilaterally. ABDOMINAL: Bowel sounds present abdomen soft nontender EXTREMITIES: No edema bilaterally LABORATORY DATA, IMAGING STUDIES, MICROBIOLOGY: Please see below. Echocardiogram:1. Normal global left ventricular systolic and diastolic function. 2. Aortic valve sclerosis with trivial aortic stenosis but no aortic regurgitation. 3. Mitral annulus calcification with moderate mitral regurgitation and mildly enlarged left atrium. 4. Moderate tricuspid regurgitation with moderate pulmonary hypertension and mildly enlarged right atrium. DVT prophylaxis ordered?: Sequentials and teds ASSESSMENT AND PLAN: This is a 83-year-old man with weakness and lethargy. PROBLEMS: 1. Weakness and lethargy: It appears to have resolved. Improved after a session of hemodialysis 2 L fluid removal he improved, I suspect his lethargy may be related to fluid overload related to his end-stage renal disease. I have placed a PT and OT evaluation. He is presently not safe by PT. His reported that she is unable to take home as such I'll place a PFS consult for possible placement 2. Left knee pain: Resolved likely secondary to osteoarthritis 3. End-stage renal disease on hemodialysis: Nephrology help greatly appreciated he is normally Wednesday. He is status post a thoracentesis 4. Left pleural effusion: The patient did have leukocytosis consolidation eleva rambo BUN now is some concern that he may have had a parapneumonic effusion, I did discuss with Nephrology and we agree he should complete a course of antibiotics today is day 7 of 7. His leukocytosis is mildly worse today and he is mildly more hypertensive during hemodialysis we'll watch him closely for the next 24 hours. My suspicion is that his pleural effusion is more related to volume overload which can be best optimized via hemodialysis. His echocardiogram did not demonstrate significant cardiac disease 5. Atrial fibrillation: We'll transition him back to his normal Coumadin dosing his home digoxin is been restarted by nephrology services help is greatly appreciated 6. Dyslipidemia: Continue simvastatin 7. Anemia: Likely related to end-stage renal disease nephrology help greatly kinga reciated DISPOSITION: Possibly placement versus home with additional services pending PT clearance and PFS VS, I&O, 24H, Fishbone Vital Signs/I&O Vital Signs Date Time Temp Pulse Resp B/P (MAP) Pulse Ox O2 Delivery O2 Flow Rate FiO2 09/12/18 14:00 98.6 67 18 99/55 (70) 94 Room Air I&O- Last 24 Hours up to 6 AM 09/12/18 06:00 Intake Total 960 ml Output Total 0 ml Balance 960 ml Laboratory Data 24H LABS Laboratory Tests 2 09/12/18 06:04: Nucleated Red Blood Cells % (auto) 0.0, Prothrombin Time 22.6H, Prothromb Time International Ratio 1.95, Anion Gap 11, Glomerular Filtration Rate 8.8L, Blood Urea Nitrogen 49#H, Creatinine 6.51H, Sodium Level 136, Potassium Level 4.4, Chloride Level 97L, Carbon Dioxide Level 28, Calcium Level 9.6, Magnesium Level 2.2 CBC/BMP Laboratory Tests 09/12/18 06:04 Red Blood Count 3.64 L, Mean Corpuscular Volume 95.9, Mean Corpuscular Hemoglobin 30.5, Mean Corpuscular Hemoglobin Concent 31.8 L, Red Cell Distribution Width 15.8 H, Calcium Level 9.6 Microbiology Microbiology 09/05/18 Blood Culture - Final, Complete NO GROWTH AFTER 5 DAYS 09/05/18 Blood Culture - Final, Complete NO GROWTH AFTER 5 DAYS 09/07/18 Acid Fast Stain, Received Pending 09/07/18 Mycobacterial Culture, Received Pending 09/07/18 Fungal Smear, Received Pending 09/07/18 Fungal Culture, Received Pending 09/07/18 Gram Stain - Final, Complete 09/07/18 Anaerobic Culture - Final, Complete 09/07/18 Body Fluid Culture - Final, Complete 09/07/18 Stool Occult Blood (LUCIAN) - Final, Complete 09/07/18 Gram Stain - Final, Complete 09/07/18 Sputum Culture - Final, Complete GIOVANNI MUNIZ MD Sep 12, 2018 15:24
[2018-09-12] MEDS: WARFARIN SOD 5 MG TAB PO SCH (16:46)
[2018-09-12 22:00] VITALS: BP 118/63
[2018-09-13] MEDS: SLF 3 ML SYR IV SCH ×3 (05:33→20:18)
[2018-09-13] MEDS: LevoFLOXacin 250 MG TABLET PO SCH (05:33)
[2018-09-13 06:00] VITALS: BP 123/61
[2018-09-13 07:20] LABS: INR 2.08; PROTHROMBIN TIME 23.8 SECONDS (12.1-14.4)
[2018-09-13 07:34] LABS: BASO # 0.1 10^3/uL (0.0-0.2); BASO % 0.8 % (0.0-1.0); EOS # 0.4 10^3/uL (0.0-0.50); HEMATOCRIT 31.6 % (42.0-52.0); LYMPH # 1.4 10^3/uL (1.5-4.5); LYMPH % 13.1 % (24.0-44.0); MEAN CORPUSCULAR HEMOGLOBIN 30.6 pg (27.0-33.0); MEAN CORPUSCULAR HGB CONC 31.6 g/dl (32.0-36.5); MEAN CORPUSCULAR VOLUME 96.6 fl (80.0-96.0); MONO # 0.9 10^3/uL (0.0-0.8); MONO % 8.7 % (0.0-5.0); NEUTROPHILS # 7.7 10^3/uL (1.8-7.7); NEUTROPHILS % 72.8 % (36.0-66.0); PLATELET COUNT, AUTOMATED 262 10^3/uL (150-450); RED BLOOD COUNT 3.27 10^6/uL (4.30-6.10); WHITE BLOOD COUNT 10.6 10^3/uL (4.0-10.0)
[2018-09-13 07:42] LABS: CALCIUM LEVEL 8.6 MG/DL (8.8-10.2); CREATININE FOR GFR 4.68 MG/DL (0.70-1.30); GLOMERULAR FILTRATION RATE 12.9 (>35); MAGNESIUM LEVEL 1.9 MG/DL (1.8-2.4); POTASSIUM SERUM 4.6 MEQ/L (3.5-5.1)
[2018-09-13] MEDS: traMADol 50 MG TAB PO PRN ×2 (08:56→20:19)
[2018-09-13] MEDS: SIMVASTATIN 10 MG TAB PO SCH (08:56)
--- NOTE | 2018-09-13 08:58 | IPN ---
DATE: 09/12/2018 Mr. Bell is seen this morning during hemodialysis on his bedside. He remains very weak and frail. His blood pressure has been low through dialysis treatment today. He denies any nausea, vomiting, fever, or chills. He has known history of atrial fibrillation and has been on low dose atenolol along with Coumadin. On physical examination, temperature 98.2 degrees Fahrenheit, heart rate 80 per minute and respiratory rate 18 per minute. Blood pressure 112/70 mmHg and oxygen saturation 97% on room air. His head is atraumatic. Pupils are equal and reactive to light and sclera is anicteric. Neck is supple and jugular venous distention (JVD) is not elevated. His oral mucosa is somewhat dry. Heart sounds are irregular in rhythm and lungs with poor inspiratory effort, but no wheezing. Abdomen: Soft and nontender and bowel sounds are normal. Extremities have no cyanosis or clubbing. He has AV fistula in the left arm. Today's labs show WBC count 13.8, hemoglobin 11.1 and hematocrit 34.9. Platelets 298. Sodium 136, potassium 4.4, chloride 97, CO2 28, BUN 49 and creatinine 6.51. Glucose is 91, calcium 9.6 and magnesium 2.2. PROBLEMS: 1. End-stage renal disease. The patient is being dialyzed today and his blood pressure has been running too low. We are unable to remove much fluid because of persistent low blood pressure in the 70s. 2. Atrial fibrillation. The patient has been on atenolol and he does have chronic hypotension. I am going to stop his atenolol and put him on digoxin 0.25 mg daily for 2 days and then start with 0.125 mg on Wednesday, Wednesday and Fridays. His digoxin level will be checked next week. 3. Anemia. At present, his anemia is stable and does not need any intervention as his hemoglobin is 11.1. 4. Leukocytosis and possible pneumonia. The patient remains on Levaquin 250 mg daily. 5. Pleural effusion. The patient already had thoracentesis done and fluid was removed. His problem is chronic hypotension due to which we are unable to remove fluid aggressively with dialysis. I am stopping his atenolol and putting him on digoxin for control of atrial fibrillation. I will also consider putting him on midodrine if other steps do not help to stabilize his blood pressure. 6. Disposition. At this point, the patient is not quite ready for discharge and will continue to monitor him closely.
[2018-09-13] MEDS ORDERED: DIGOXIN 0.25 MG TAB PO ONE (09:00)
--- NOTE | 2018-09-13 09:58 | IPNPDOC ---
Text Note Date of Service The patient was seen on 09/13/18. NOTE Subjective: Patient was seen and examined at the bedside. Currently has no new complaints. Denies any chest pain, shortness of breath, palpitations, nausea, vomiting, abdominal pain, constipation or diarrhea. Objective: Vitals (See below) General: Lying in bed, no acute distress, comfortable, Awake / Aler HEENT: NC, AT CVS: +S1S2 Lungs: Fair air entry b/l, -w/r/r Abdomen: Soft, ND, NT Extremities: - Edema, - Calf tenderness Assessment and plan: Weakness / Lethargy - possibly 2/2 volume overload / ESRD - Clinically has improvement in symptoms - Physical unrevealing - Labs unremarkable - s/p HD; will continue with regularly scheduled HD - Dr. Bartholomew (Nephrology) on board; appreciate their input - c/w PT/OT until cleared for DC home s/p L Knee pain - likely 2/2 OA L Pleural effusion - likely 2/2 volume overload - Clinically has improvement in symptoms - WBC improving - s/p Thoracocentesis by IR 09/07 - ECHO 09/12: normal systolic / diastolic function, moderate MR, moderate TR, moderate pulmonary HTN - c/w Levaquin; s/p Vancomycin / Zosyn (Abx Day #8) ESRD on HD - c/w HD TTS - Dr. Bartholomew (Nephrology) on board; appreciate their input Atrial fibrillation - c/w rate / rhythm control with digoxin - s/p Atenolol - INR therapeutic - c/w full anticoagulation with Coumadin DLP - c/w Simvastatin Normocytic / Macrocytic anemia - likely 2/2 ESRD - Remains stable, will continue to monitor DVT prophylaxis - c/w full anticoagulation with Coumadin Disposition: - c/w PT / OT; looking into disposition recommendation VS,Bari, I+O VS, Bari, I+O Laboratory Tests 09/13/18 06:32 Red Blood Count 3.27 L, Mean Corpuscular Volume 96.6 H, Mean Corpuscular Hemoglobin 30.6, Mean Corpuscular Hemoglobin Concent 31.6 L, Red Cell Distribution Width 15.7 H, Neutrophils (%) (Auto) 72.8 H, Lymphocytes (%) (Auto) 13.1 L, Monocytes (%) (Auto) 8.7 H, Eosinophils (%) (Auto) 4.0 H, Basophils (%) (Auto) 0.8, Neutrophils # (Auto) 7.7, Lymphocytes # (Auto) 1.4 L, Monocytes # (Auto) 0.9 H, Eosinophils # (Auto) 0.4, Basophils # (Auto) 0.1, Calcium Level 8.6 L Vital Signs Date Time Temp Pulse Resp B/P (MAP) Pulse Ox O2 Delivery O2 Flow Rate FiO2 09/13/18 08:56 20 09/13/18 06:00 97.5 76 123/61 (81) 96 Room Air I&O- Last 24 Hours up to 6 AM 09/13/18 05:59 Intake Total 820 ml Output Total 500 ml Balance 320 ml TIM HERNANDEZ MD Sep 13, 2018 09:58
--- NOTE | 2018-09-13 13:38 | IPN ---
DATE: 09/13/2018 Mr. Bell is seen this morning on his bedside. He reports feeling better and did sit in the chair this morning. However, he is now back in the bed. He was dialyzed yesterday and blood pressure was low. Due to which, his medications were adjusted. He was given one dose of digoxin 0.25 mg yesterday and his atenolol has been stopped. PHYSICAL EXAMINATION: On physical examination, temperature 97.5 degrees Fahrenheit, heart rate 76 per minute and respiratory rate 20 per minute. Blood pressure 123/60 mmHg and oxygen saturation 96% on room air. His head is atraumatic. Neck is supple and without jugular venous distention (JVD) or thyroid enlargement. Heart sounds are irregular in rhythm. Lungs with diminished breath sounds at the bases. Abdomen is soft and nontender. Bowel sounds are normal. Extremities have no cyanosis or clubbing. Neurologically, he is at his baseline mentation. LABORATORY DATA: Today's laboratories show WBC count 10.6, hemoglobin 10.0 and hematocrit 31.6. INR is 2.08. Sodium 138, potassium 4.6, CO2 29, BUN 34 and creatinine 4.68. PROBLEMS: 1. End-stage renal disease. The patient was dialyzed yesterday and next dialysis will be scheduled for tomorrow. 2. Congestive heart failure and pleural effusion. The patient did have thoracentesis and his congestive heart failure has also improved with dialysis. We will try to aggressively maintain his euvolemic state. He was hypotensive yesterday, due to which only minimal amount of fluid was removed. 3. Atrial fibrillation with rapid ventricular rate. The patient had been on atenolol in the past for rate control which was stopped yesterday due to recurrent hypotension during dialysis. He has been placed on digoxin 0.25 mg, one dose given yesterday, and he will receive 0.125 mg three times a week on Wednesday, Wednesday and Wednesday. He remains on Coumadin for chronic anticoagulation. 4. Anemia. His anemia is stable at this point and we will continue to monitor closely and treat him with Aranesp once a week during dialysis. 5. Generalized weakness and deconditioning. The patient remains weak and is receiving some physical therapy. He can be a candidate for subacute rehabilitation.
[2018-09-13 14:00] VITALS: BP 90/40
[2018-09-13] MEDS ORDERED: NS 1,000 ML IV SCH (14:00)
[2018-09-13 16:00] VITALS: BP 96/40
[2018-09-13] MEDS: WARFARIN SOD 5 MG TAB PO SCH (17:12)
[2018-09-13 22:00] VITALS: BP 117/58
[2018-09-14] MEDS: LevoFLOXacin 250 MG TABLET PO SCH (05:46)
[2018-09-14] MEDS: SLF 3 ML SYR IV SCH ×3 (05:46→20:58)
[2018-09-14 06:00] VITALS: BP 120/65
[2018-09-14 06:07] LABS: BASO # 0.1 10^3/uL (0.0-0.2); BASO % 0.8 % (0.0-1.0); EOS # 0.4 10^3/uL (0.0-0.50); EOS % 3.8 % (0.0-3.0); HEMATOCRIT 30.5 % (42.0-52.0); HEMOGLOBIN 9.6 g/dl (13.5-17.5); LYMPH # 1.5 10^3/uL (1.5-4.5); LYMPH % 15.1 % (24.0-44.0); MEAN CORPUSCULAR HEMOGLOBIN 30.2 pg (27.0-33.0); MEAN CORPUSCULAR HGB CONC 31.5 g/dl (32.0-36.5); MEAN CORPUSCULAR VOLUME 95.9 fl (80.0-96.0); MONO # 0.9 10^3/uL (0.0-0.8); NEUTROPHILS # 6.8 10^3/uL (1.8-7.7); NEUTROPHILS % 70.7 % (36.0-66.0); PLATELET COUNT, AUTOMATED 241 10^3/uL (150-450); RED BLOOD COUNT 3.18 10^6/uL (4.30-6.10); WHITE BLOOD COUNT 9.6 10^3/uL (4.0-10.0)
[2018-09-14 06:21] LABS: INR 2.38; PROTHROMBIN TIME 26.5 SECONDS (12.1-14.4)
[2018-09-14 06:36] LABS: CALCIUM LEVEL 8.6 MG/DL (8.8-10.2); CREATININE FOR GFR 6.49 MG/DL (0.70-1.30); GLOMERULAR FILTRATION RATE 8.8 (>35); MAGNESIUM LEVEL 1.9 MG/DL (1.8-2.4); POTASSIUM SERUM 4.8 MEQ/L (3.5-5.1)
[2018-09-14] MEDS: DIGOXIN 0.125 MG TAB PO SCH (08:26)
[2018-09-14] MEDS: SIMVASTATIN 10 MG TAB PO SCH (08:26)
--- NOTE | 2018-09-14 12:11 | IPNPDOC ---
Text Note Date of Service The patient was seen on 09/14/18. NOTE Subjective: Patient was seen and examined at the bedside. Patient is anxious to get home. Denies chest pain, shortness of breath or palpitations. Denies any nausea, vomiting, abdominal pain, constipation or diarrhea. Objective: Vitals (See below) General: Lying in bed, no acute distress, comfortable, Awake / Alert HEENT: NC, AT CVS: +S1S2 Lungs: Fair air entry b/l, no evidence of wheezing, rhonchi or rales Abdomen: Soft, nondistended, without any tenderness Extremities: No evidence of lower extremity edema, - Calf tenderness Assessment and plan: Weakness / Lethargy - possibly 2/2 volume overload / ESRD - Clinically remains stable - Physical without any evidence of fluid overload - Labs unremarkable - s/p HD; will continue with regularly scheduled HD - Dr. Bartholomew (Nephrology) on board; appreciate their input - c/w PT/OT; awaiting clearance - may require placement to subacute rehabilitation center s/p L Knee pain - likely 2/2 OA L Pleural effusion - likely 2/2 volume overload - Clinically has improvement in symptoms - WBC improving - s/p Thoracocentesis by IR 09/07 - ECHO 09/12: normal systolic / diastolic function, moderate MR, moderate TR, moderate pulmonary HTN - c/w Levaquin; s/p Vancomycin / Zosyn (Abx Day #9) ESRD on HD - c/w HD TTS - Dr. Bartholomew (Nephrology) on board; appreciate their input Atrial fibrillation - c/w rate / rhythm control with digoxin - s/p Atenolol - INR therapeutic - c/w full anticoagulation with Coumadin DLP - c/w Simvastatin Normocytic / Macrocytic anemia - likely 2/2 ESRD - Remains stable, will continue to monitor DVT prophylaxis - c/w full anticoagulation with Coumadin Disposition: - c/w PT / OT - may require placement to reevaluation sent Bari BETANCUR I+O Bari BETANCUR I+O Laboratory Tests 09/14/18 05:45 Red Blood Count 3.18 L, Mean Corpuscular Volume 95.9, Mean Corpuscular Hemoglobin 30.2, Mean Corpuscular Hemoglobin Concent 31.5 L, Red Cell Distribution Width 15.7 H, Neutrophils (%) (Auto) 70.7 H, Lymphocytes (%) (Auto) 15.1 L, Monocytes (%) (Auto) 9.0 H, Eosinophils (%) (Auto) 3.8 H, Basophils (%) (Auto) 0.8, Neutrophils # (Auto) 6.8, Lymphocytes # (Auto) 1.5, Monocytes # (Auto) 0.9 H, Eosinophils # (Auto) 0.4, Basophils # (Auto) 0.1, Calcium Level 8.6 L Vital Signs Date Time Temp Pulse Resp B/P (MAP) Pulse Ox O2 Delivery O2 Flow Rate FiO2 09/14/18 08:26 78 09/14/18 06:00 97.2 17 120/65 (83) 96 Room Air I&O- Last 24 Hours up to 6 AM 09/14/18 05:59 Intake Total 1880 ml Balance 1880 ml TIM HERNANDEZ MD Sep 14, 2018 12:11
[2018-09-14 14:00] VITALS: BP 94/56
--- NOTE | 2018-09-14 16:42 | IPN ---
DATE: 09/14/2018 Mr. Bell is seen this morning on his bedside. His family is visiting. He is lying in bed. The patient denies any nausea, vomiting, dyspnea or chest pain. His last dialysis was done on Wednesday which he tolerated very well but blood pressure is low. Since then we have changed medication. Blood pressure is stable now. He is currently on digoxin for atrial fibrillation and atenolol has been stopped. PHYSICAL EXAMINATION: Temperature 97.2 degrees Fahrenheit, heart rate 78 per minute and respiratory rate 17 per minute. Blood pressure 120/65 mmHg and oxygen saturation 96% on room air. Head: Is atraumatic. Neck is supple and JVD is mildly elevated. There is no thyroid enlargement and trachea is central. Heart: Sounds are irregular in rhythm and lungs with slightly diminished breath sounds at bases. Abdomen: Soft and nontender and without a palpable organomegaly. Bowel sounds are normal. Extremities have no cyanosis or clubbing. Neurologically he is awake and at his baseline mentation. Today's labs show WBC count 9.6, hemoglobin 9.6 and hematocrit 30.5. Sodium 137, potassium 4.8, CO2 29, BUN 60 and creatinine 6.49. PROBLEMS: 1. End-stage renal disease. The patient is regularly dialyzed on Wednesday, and Wednesday schedule. His last dialysis was performed on Wednesday in next dialysis will be scheduled for tomorrow. At present there is no emergent indication for dialysis today. His volume status is now reasonably well-compensated. 2. Recurrent hypotension. The patient has chronic recurrent hypotension, particularly during dialysis. He was on low dose of atenolol which has been stopped and blood pressure is much better now. Should his blood pressure go down again. We will consider to put him on midodrine. 3. Congestive heart failure and pleural effusion. The patient seems to be doing well since he had his thoracentesis and aggressive fluid removal with dialysis. His volume status is reasonable. However, he was not tolerating fluid removal with dialysis. We have stopped the atenolol and will monitor him. In case of further hypotensive episodes we will put him on midodrine 2.5 mg three times a day. 4. Atrial fibrillation, ventricular rate is well-controlled on low-dose digoxin. We will check his digi level next week. At present his INR has been therapeutic. 5. Anemia. His anemia is stable and he will continue to receive Aranesp once a week during dialysis. 6. Pneumonia. The patient remains on Levaquin 250 mg daily. He is clinically much improved. DISPOSITION: He still very weak and not able to ambulate much. We have advised nursing staff to get him out of bed three times a day before meals and also continue with physical therapy.
[2018-09-14] MEDS: WARFARIN SOD 5 MG TAB PO SCH (17:30)
[2018-09-14 22:00] VITALS: BP 109/61
[2018-09-15] MEDS: SLF 3 ML SYR IV SCH ×3 (05:38→21:24)
[2018-09-15] MEDS: LevoFLOXacin 250 MG TABLET PO SCH (05:38)
[2018-09-15] MEDS: SIMVASTATIN 10 MG TAB PO SCH (05:38)
[2018-09-15 06:00] VITALS: BP 133/89
[2018-09-15 09:18] LABS: BASO # 0.1 10^3/uL (0.0-0.2); BASO % 0.6 % (0.0-1.0); EOS # 0.4 10^3/uL (0.0-0.50); EOS % 3.4 % (0.0-3.0); HEMATOCRIT 29.1 % (42.0-52.0); HEMOGLOBIN 9.4 g/dl (13.5-17.5); LYMPH # 1.3 10^3/uL (1.5-4.5); LYMPH % 11.3 % (24.0-44.0); MEAN CORPUSCULAR HEMOGLOBIN 30.1 pg (27.0-33.0); MEAN CORPUSCULAR HGB CONC 32.3 g/dl (32.0-36.5); MEAN CORPUSCULAR VOLUME 93.3 fl (80.0-96.0); MONO # 0.8 10^3/uL (0.0-0.8); MONO % 7.2 % (0.0-5.0); NEUTROPHILS # 8.5 10^3/uL (1.8-7.7); PLATELET COUNT, AUTOMATED 262 10^3/uL (150-450); RED BLOOD COUNT 3.12 10^6/uL (4.30-6.10)
[2018-09-15 09:29] LABS: INR 2.55
[2018-09-15 09:40] LABS: CALCIUM LEVEL 8.6 MG/DL (8.8-10.2); CREATININE FOR GFR 8.55 MG/DL (0.70-1.30); GLOMERULAR FILTRATION RATE 6.4 (>35); POTASSIUM SERUM 5.2 MEQ/L (3.5-5.1)
--- NOTE | 2018-09-15 10:50 | IPNPDOC ---
Text Note Date of Service The patient was seen on 09/15/18. NOTE Subjective: Patient was seen and examined at the bedside. Patient denies any problems overnight. He reports that he is not experiencing any chest pain, shortness of breath or palpitations. He denies nausea, vomiting, abdominal pain, constipation, diarrhea. Objective: Vitals (See below) General: Lying in bed, no acute distress, comfortable, Awake / Alert HEENT: NC, AT CVS: +S1S2 Lungs: Fair air entry b/l, auscultation does not reveal any rales, rhonchi or wheezing Abdomen: Soft, abdomen is nondistended. There is no evidence of tenderness Extremities: Lower extremities without edema, - Calf tenderness Assessment and plan: Weakness / Lethargy - possibly 2/2 volume overload / ESRD - Clinically remains stable - Physical without any evidence of fluid overload - Labs unremarkable - s/p HD; will continue with regularly scheduled HD - Dr. Bartholomew (Nephrology) on board; appreciate their input - c/w PT/OT; has shown improvement with physical therapy will likely be discharged home with services when officially cleared s/p L Knee pain - likely 2/2 OA L Pleural effusion - likely 2/2 volume overload - Clinically has improvement in symptoms - WBC improving - s/p Thoracocentesis by IR 09/07 - ECHO 09/12: normal systolic / diastolic function, moderate MR, moderate TR, moderate pulmonary HTN - c/w Levaquin; s/p Vancomycin / Zosyn (Abx Day #10) ESRD on HD - c/w HD TTS - Dr. Bartholomew (Nephrology) on board; appreciate their input Atrial fibrillation - c/w rate / rhythm control with digoxin - s/p Atenolol - INR therapeutic - c/w full anticoagulation with Coumadin DLP - c/w Simvastatin Normocytic / Macrocytic anemia - likely 2/2 ESRD - Remains stable, will continue to monitor DVT prophylaxis - c/w full anticoagulation with Coumadin Disposition: - c/w PT / OT; will likely be going home with services tomorrow VSBari, I+O VS, Bari, I+O Laboratory Tests 09/15/18 08:35 Red Blood Count 3.12 L, Mean Corpuscular Volume 93.3, Mean Corpuscular Hemoglobin 30.1, Mean Corpuscular Hemoglobin Concent 32.3, Red Cell Distribution Width 15.9 H, Neutrophils (%) (Auto) 77.0 H, Lymphocytes (%) (Auto) 11.3 L, Monocytes (%) (Auto) 7.2 H, Eosinophils (%) (Auto) 3.4 H, Basophils (%) (Auto) 0.6, Neutrophils # (Auto) 8.5 H, Lymphocytes # (Auto) 1.3 L, Monocytes # (Auto) 0.8, Eosinophils # (Auto) 0.4, Basophils # (Auto) 0.1, Calcium Level 8.6 L Vital Signs Date Time Temp Pulse Resp B/P (MAP) Pulse Ox O2 Delivery O2 Flow Rate FiO2 09/15/18 06:00 97.7 80 18 133/89 (104) 97 Room Air I&O- Last 24 Hours up to 6 AM 09/15/18 06:00 Intake Total 1080 ml Output Total 300 ml Balance 780 ml TIM HERNANDEZ MD Sep 15, 2018 10:50
[2018-09-15] MEDS ORDERED: HEPARIN 1,000 UNITS/ML 10ML VIAL (FOR RADIOLOGY& DIALYSIS ONLY) IV ONE (11:00)
[2018-09-15 14:00] VITALS: BP 109/55
[2018-09-15] MEDS: WARFARIN SOD 5 MG TAB PO SCH (17:43)
[2018-09-15 22:00] VITALS: BP 110/60
[2018-09-16] MEDS: SLF 3 ML SYR IV SCH (05:50)
[2018-09-16 06:00] VITALS: BP 132/59
[2018-09-16 06:11] LABS: BASO # 0.1 10^3/uL (0.0-0.2); BASO % 0.7 % (0.0-1.0); EOS # 0.2 10^3/uL (0.0-0.50); EOS % 2.5 % (0.0-3.0); HEMATOCRIT 31.2 % (42.0-52.0); HEMOGLOBIN 9.9 g/dl (13.5-17.5); LYMPH # 1.3 10^3/uL (1.5-4.5); LYMPH % 14.6 % (24.0-44.0); MEAN CORPUSCULAR HEMOGLOBIN 30.6 pg (27.0-33.0); MEAN CORPUSCULAR HGB CONC 31.7 g/dl (32.0-36.5); MEAN CORPUSCULAR VOLUME 96.3 fl (80.0-96.0); MONO % 10.6 % (0.0-5.0); NEUTROPHILS # 6.4 10^3/uL (1.8-7.7); PLATELET COUNT, AUTOMATED 229 10^3/uL (150-450); RED BLOOD COUNT 3.24 10^6/uL (4.30-6.10)
[2018-09-16 06:31] LABS: INR 2.63; PROTHROMBIN TIME 28.7 SECONDS (12.1-14.4)
[2018-09-16 06:36] LABS: CALCIUM LEVEL 8.8 MG/DL (8.8-10.2); CREATININE FOR GFR 5.7 MG/DL (0.70-1.30); GLOMERULAR FILTRATION RATE 10.2 (>35); MAGNESIUM LEVEL 2.1 MG/DL (1.8-2.4); POTASSIUM SERUM 4.7 MEQ/L (3.5-5.1)
[2018-09-16] MEDS ORDERED: DIGO0.12 PO (08:23)
[2018-09-16] MEDS: DIGOXIN 0.125 MG TAB PO SCH (09:00)
[2018-09-16] MEDS: traMADol 50 MG TAB PO PRN (10:55)
[2018-09-16] MEDS: SIMVASTATIN 10 MG TAB PO SCH (10:57)
--- NOTE | 2018-09-16 13:06 | DS.PDOC ---
Discharge Summary General Date of Admission Sep 05, 2018 at 12:05 Date of Discharge 09/16/2018 Discharge Summary PROCEDURES PERFORMED DURING STAY: [None]. ADMITTING DIAGNOSES / DISCHARGE DIAGNOSES: Weakness / Lethargy - possibly 2/2 volume overload / ESRD s/p L Knee pain - likely 2/2 OA L Pleural effusion - likely 2/2 volume overload ESRD on HD Atrial fibrillation DLP Normocytic / Macrocytic anemia - likely 2/2 ESRD DVT prophylaxis COMPLICATIONS/CHIEF COMPLAINT: Weakness HISTORY OF PRESENT ILLNESS: Patient is an 83-year-old male with a PMHx A. fib (on Coumadin), Hx of Bradycardia, HTN, DLP, ESRD on HD (MWF), who presented to the ER with complaints of weakness. Patient had noted a productive cough. Patient had imaging the ER which had revealed that he has a left-sided pleural effusion with suspected pneumonia. . She was admitted to the hospitalist service for further evaluation and treatment. Nephrology was called on consultation. HOSPITAL COURSE: Weakness / Lethargy - possibly 2/2 volume overload / ESRD - Clinically remains stable - Physical without any evidence of fluid overload - Labs unremarkable - s/p HD; will continue with regularly scheduled HD - Dr. Bartholomew (Nephrology) on board; appreciate their input - Has cleared PT / OT for discharge home with services s/p L Knee pain - likely 2/2 OA L Pleural effusion / Possible Pneumonia - likely 2/2 volume overload - Clinically has improvement in symptoms - s/p Leukocytosis - s/p Thoracocentesis by IR 09/07 - ECHO 09/12: normal systolic / diastolic function, moderate MR, moderate TR, moderate pulmonary HTN - CT chest 09/05: Findings described above likely representing elements of CHF/pulmonary vascular congestion including moderate left pleural effusion with multifocal consolidation/atelectasis (left greater than right). Incidental cholelithiasis. - Completed Levaquin; s/p Vancomycin / Zosyn (Completed 10 day course) ESRD on HD - c/w HD TTS - Dr. Bartholomew (Nephrology) on board; appreciate their input Atrial fibrillation - c/w rate / rhythm control with digoxin - s/p Atenolol - INR therapeutic - c/w full anticoagulation with Coumadin DLP - c/w Simvastatin Normocytic / Macrocytic anemia - likely 2/2 ESRD - Remains stable, will continue to monitor DVT prophylaxis - c/w full anticoagulation with Coumadin DISCHARGE MEDICATIONS: Please see below. ALLERGIES: Please see below. PHYSICAL EXAMINATION ON DISCHARGE: Vitals (See below) General: Lying in bed, no acute distress, comfortable, Awake / Alert HEENT: NC, AT CVS: +S1S2 Lungs: Fair air entry b/l, no wheezing / rhonchi / rales Abdomen: Soft, ND, NT Extremities: No edema, - Calf tenderness LABORATORY DATA: Please see below. ACTIVITY: [As tolerated]. DISCHARGE PLAN: Follow-up with Dr. Bartholomew within the next 7 days Remain compliant with treatment plan and medications Return to the ER a you experience any problems DISPOSITION: Home Health Service. DISCHARGE CONDITION: [Stable]. TIME SPENT ON DISCHARGE: Greater than [35] minutes. Vital Signs/I&Os Vital Signs Date Time Temp Pulse Resp B/P (MAP) Pulse Ox O2 Delivery O2 Flow Rate FiO2 09/16/18 10:55 18 09/16/18 09:00 74 09/16/18 06:00 96.8 132/59 (83) 96 Room Air I&O- Last 24 Hours up to 6 AM 09/16/18 06:00 Intake Total 990 ml Output Total 1500 ml Balance -510 ml Laboratory Data Labs 24H Laboratory Tests 2 09/16/18 05:55: Immature Granulocyte % (Auto) 0.6, White Blood Count 9.0, Red Blood Count 3.24L, Hemoglobin 9.9L, Hematocrit 31.2L, Mean Corpuscular Volume 96.3H, Mean Corpuscular Hemoglobin 30.6, Mean Corpuscular Hemoglobin Concent 31.7L, Red Cell Distribution Width 16.0H, Platelet Count 229, Neutrophils (%) (Auto) 71.0H, Lymphocytes (%) (Auto) 14.6L, Monocytes (%) (Auto) 10.6H, Eosinophils (%) (Auto) 2.5, Basophils (%) (Auto) 0.7, Neutrophils # (Auto) 6.4, Lymphocytes # (Auto) 1.3L, Monocytes # (Auto) 1.0H, Eosinophils # (Auto) 0.2, Basophils # (Auto) 0.1, Nucleated Red Blood Cells % (auto) 0.0, Prothrombin Time 28.7H, Prothromb Time International Ratio 2.63, Anion Gap 9, Glomerular Filtration Rate 10.2L, Blood Urea Nitrogen 43H, Creatinine 5.70H, Sodium Level 140, Potassium Level 4.7, Ch loride Level 100, Carbon Dioxide Level 31, Calcium Level 8.8, Magnesium Level 2.1 CBC/BMP Laboratory Tests 09/16/18 05:55 Red Blood Count 3.24 L, Mean Corpuscular Volume 96.3 H, Mean Corpuscular Hemoglobin 30.6, Mean Corpuscular Hemoglobin Concent 31.7 L, Red Cell Distribution Width 16.0 H, Neutrophils (%) (Auto) 71.0 H, Lymphocytes (%) (Auto) 14.6 L, Monocytes (%) (Auto) 10.6 H, Eosinophils (%) (Auto) 2.5, Basophils (%) (Auto) 0.7, Neutrophils # (Auto) 6.4, Lymphocytes # (Auto) 1.3 L, Monocytes # (Auto) 1.0 H, Eosinophils # (Auto) 0.2, Basophils # (Auto) 0.1, Calcium Level 8.8 Microbiology Microbiology 09/07/18 Acid Fast Stain, Received Pending 09/07/18 Mycobacterial Culture, Received Pending 09/07/18 Fungal Smear, Received Pending 09/07/18 Fungal Culture, Received Pending 09/07/18 Gram Stain - Final, Complete 09/07/18 Anaerobic Culture - Final, Complete 09/07/18 Body Fluid Culture - Final, Complete 09/07/18 Stool Occult Blood (LUCIAN) - Final, Complete 09/07/18 Gram Stain - Final, Complete 09/07/18 Sputum Culture - Final, Complete Discharge Medications Scheduled (Daily-Sergio) 1 Tab Tab, 1 TAB PO DAILY, (Reported) (Digoxin) 125 Mcg Tab, 125 MCG PO 3XW MON,WED,FRI Simvastatin (Simvastatin) 10 Mg Tab, 10 MG PO DAILY, (Reported) Warfarin Sod (Warfarin Sodium) 5 Mg Tab, 5 MG PO DAILY, (Reported) Scheduled PRN Tramadol HCl (Tramadol HCl) 50 Mg Tab, 50 MG PO Q12H PRN for PAIN, (Reported) Allergies Coded Allergies: No Known Allergies (Verified , 07/14/17) TIM HERNANDEZ MD Sep 16, 2018 13:06
== END 2018-09-16 11:15 | disposition home health service (06) | DRG 186 ==
LOC: M ED 08:25 → M ED INP 12:05 → M PCU 17:00 → M MS5PR 09-08 14:38
PROVIDERS: ADMIT Internal Medicine; ATTEND Internal Medicine
PROC: 5A1D70Z Performance of Urinary Filtration, Intermittent, Less than 6 Hours Per Day (ICD-10-PCS; 2018-09-05)
PROC: 0W9B3ZZ Drainage of Left Pleural Cavity, Percutaneous Approach (ICD-10-PCS; principal; 2018-09-07)
DX: J90 Pleural effusion, not elsewhere classified (principal); J18.9 Pneumonia, unspecified organism; N18.6 End stage renal disease; I12.0 Hypertensive chronic kidney disease with stage 5 chronic kidney disease or end stage renal disease; Z99.2 Dependence on renal dialysis; E87.70 Fluid overload, unspecified; I95.3 Hypotension of hemodialysis; E87.5 Hyperkalemia; I48.2 Chronic atrial fibrillation; M17.12 Unilateral primary osteoarthritis, left knee; E78.5 Hyperlipidemia, unspecified; D63.1 Anemia in chronic kidney disease; Z96.651 Presence of right artificial knee joint; Z87.891 Personal history of nicotine dependence; R53.1 Weakness; Z79.01 Long term (current) use of anticoagulants; Z79.899 Other long term (current) drug therapy; Y95 Nosocomial condition

== ENCOUNTER → 2019-01-09 | Outpatient (CLI) | payer MEDICARE, OTHER ==
[~2019-01-09] MED LIST changes: -/AMIO20TA PO; -/DIPH25TAB PO; -/NEPHROTA PO; +AMIO1TAB PO; -DILT180C74 PO; +DILT1CAP4 PO; +DIPH1TAB2 PO; -HEPA1000VL IV; +NEPH1TAB11 PO; +NEPH1TAB8 PO; -NEPHTAB PO; -NORC1TAB4 PO; +NORC1TAB7 PO; +OXYC1TAB23 PO; -PERCOCET PO; +[UNRECOGNIZED DRUG - CODE] IV
--- NOTE | 2019-01-09 14:25 | REP ---
Chest two views HISTORY: End-stage renal disease Comparison: 09/07/2018 Parenchymal density is present in the left lower lobe consistent with an infiltrate that is decreased compared to the previous study. The right lung is clear. A small left pleural effusion is present that is decreased compared to the previous study. . The cardiac silhouette is enlarged. The pulmonary vasculature is normal in appearance. There is anterior dislocation of the left humerus unchanged compared to the previous study. IMPRESSION: 1. Left lower lobe infiltrate decreased compared to the previous study. 2. Small left pleural effusion decreased compared to the previous study. 3. Cardiomegaly.
== END ==
LOC: M CLY 13:20
PROVIDERS: ATTEND Internal Medicine Nephrology
DX: N18.6 End stage renal disease (principal); I50.32 Chronic diastolic (congestive) heart failure; I48.2 Chronic atrial fibrillation; R91.8 Other nonspecific abnormal finding of lung field

== ENCOUNTER → 2020-08-07 | Outpatient (CLI) | payer MEDICARE, OTHER ==
[~2020-08-07] MED LIST changes: +ACET650T61 PO; +DIGO0.123 PO; -SIMV10TA2 PO; +SIMV10TA21 PO; -TYLE650T35 PO; +WARF-18 PO
== END ==
LOC: M LABSMTC 13:52
PROVIDERS: ATTEND Anesthesiology
DX: Z01.812 Encounter for preprocedural laboratory examination (principal); Z20.828 Contact with and (suspected) exposure to other viral communicable diseases

== ENCOUNTER 2020-08-12 05:59 | Day surgery (SDC) | payer MEDICARE, OTHER ==
[~2020-08-12] VITALS: Ht 167.6 cm; Wt 72.8 kg
[2020-08-12 06:55] LABS: INR 1.11; PROTHROMBIN TIME 14.5 SECONDS (12.5-14.3)
[2020-08-12] MEDS ORDERED: LR 1,000 ML IV ONE (07:00)
[2020-08-12] MEDS ORDERED: LIDOCAINE W/EPINEPHRINE 1% 20ML VIAL As Ordered ONE (07:17)
[2020-08-12] MEDS ORDERED: ONDANSETRON 4MG/2ML VIAL As Ordered ONE (07:22)
[2020-08-12] MEDS ORDERED: propofoL 200 MG/20 ML VIAL As Ordered ONE (07:22)
[2020-08-12] MEDS ORDERED: fentaNYL 100 MCG/2 ML INJECTION (J3010) As Ordered ONE (07:22)
[2020-08-12] MEDS ORDERED: MIDAZOLAM INJ 2MG/2ML VIAL (J2250 PER 1MG) As Ordered ONE (07:22)
[2020-08-12] MEDS ORDERED: LIDOCAINE 2% 100MG/5ML SDV (FOR ANES.) As Ordered ONE (07:22)
[2020-08-12] MEDS ORDERED: D5W/0.2% SODIUM CHLORIDE 1,000 ML IV ONE (08:30)
[2020-08-12] MEDS ORDERED: LR 1,000 ML IV SCH ×2 (09:15)
[2020-08-12] MEDS ORDERED: fentaNYL 100 MCG/2 ML INJECTION (J3010) IV PRN (09:15)
[2020-08-12] MEDS ORDERED: PERCOCET 5MG/325MG TAB PO PRN (09:15)
[2020-08-12] MEDS ORDERED: ONDANSETRON 4MG/2ML VIAL IV PRN (09:15)
[2020-08-12] MEDS ORDERED: HYDROMORPHONE HCL 0.5 MG/ 0.5 ML SYRINGE (J1170 PER 1) IV PRN (09:15)
[2020-08-12 09:25] VITALS: BP 139/66
[2020-08-12] MEDS ORDERED: ACETAMINOPHEN TAB 650MG DOSE (2X325MG) PO PRN (09:30)
--- NOTE | 2020-08-14 09:43 | RO ---
OPERATIVE NOTE DATE OF OPERATION: 08/12/2020 PREOPERATIVE DIAGNOSIS: Median neuropathy right upper extremity. POSTOPERATIVE DIAGNOSIS: Median neuropathy right upper extremity. PROCEDURE PERFORMED: Right open carpal tunnel release. SURGEON: Sam Glover MD ASSISTING: FARSHAD Pacheco was present in capacity of second scrub. ANESTHESIA: Local MAC. ESTIMATED BLOOD LOSS: Less than 10 mL replaced with Crystalloid. No tourniquet inflated. INDICATIONS: Paresthesias and severe median neuropathy right upper extremity. The patient elected for operative intervention. Consent reviewed in detail including a carlotta discussion of pathology involved, risks including but not limited to pain, failure, nerve injury, incomplete release, need for additional surgery, infection or other issues. The patient agrees to proceed with surgery. OPERATIVE COURSE: Identified in the holding area, site side verified, brought to the operating room. Prepped and draped in usual fashion for exposure right upper extremity. Timeout was accomplished. Incision was based on the fourth ray, a 3 cm incision made over the fourth ray with magnification utilized. We dissected down to the palmaris fascia which was split. The transverse carpal ligament was appreciated. Mr. Eaton positioned the Santiago retractors and I divided the transverse carpal ligament using the #15 blade under direct visualization exposing the contents of the carpal tunnel. Release was verified proximally and distally using the #15 blade as well as the tenotomy scissor and appreciated to be complete. Irrigation was accomplished. Wound was closed with interrupted 4-0 nylon stitches. The dressing was applied. The patient was then moved to the recovery room in good condition.
== END 2020-08-12 09:30 | disposition home or self-care (01) ==
LOC: M SDC 05:59
PROVIDERS: ATTEND Orthopaedic Surgery
DX: G56.01 Carpal tunnel syndrome, right upper limb (principal); I10 Essential (primary) hypertension; I48.91 Unspecified atrial fibrillation; Z79.01 Long term (current) use of anticoagulants; N18.9 Chronic kidney disease, unspecified; Z79.899 Other long term (current) drug therapy; E78.5 Hyperlipidemia, unspecified
CPT/HCPCS: 36415; 64721; 84132; 85610; J2250; J2405; J3010

== ENCOUNTER 2020-09-09 14:09 | Emergency (ER) | payer MEDICARE, OTHER ==
[~2020-09-09] VITALS: Ht 154.9 cm; Wt 69.5 kg
[2020-09-09 14:10] VITALS: BP 142/63
[2020-09-09] MEDS ORDERED: CENT1TAB PO (14:35)
--- NOTE | 2020-09-09 14:58 | REP ---
INDICATION: swelling and pain COMPARISON: None. TECHNIQUE: AP, lateral, bilateral oblique views right hand. FINDINGS: Diffuse advanced osteopenia and osteoarthritic degenerative changes are appreciated including cortical irregularity, dystrophic calcification and chronic appearing subluxation at the 1st carpometacarpal joint. Interphalangeal joints demonstrate osteophytosis/Gull wing deformities with subchondral sclerosis and joint space narrowing. No obvious acute fracture or dislocation. IMPRESSION: Advanced osteopenia and degenerative changes. No acute fracture or dislocation. <Electronically signed by Kirill Valle > 09/09/20 [id number]
== END 2020-09-09 18:03 | disposition left against medical advice (07) ==
LOC: M ED 14:09
DX: Z53.29 Procedure and treatment not carried out because of patient's decision for other reasons (principal)

== ENCOUNTER → 2020-12-05 | Outpatient (CLI) | payer MEDICARE, OTHER ==
[~2020-12-05] MED LIST changes: +CENT1TAB PO
--- NOTE | 2020-12-05 14:37 | REP ---
INDICATION: AMS. COMPARISON: Comparison head CT study 09/05/2018.. TECHNIQUE: Helical scanning is acquired. 5 mm axial images were reformatted. Coronal MPR images were generated. FINDINGS: Bone window settings demonstrate an intact bony calvarium. There is no evidence of skull fracture or incidental bony calvarial lesion. No intraorbital abnormality is seen. On soft tissue window setting images; the lateral, third, and fourth ventricles are normal in size and position. Shankar-white differentiation pattern is normal above and below the tentorium. There are is no evidence of intracranial hemorrhage. No mass, edema, infarction, or midline shift is seen. No extra-axial fluid collection is appreciated. There is moderate generalized volume loss again noted unchanged. Vascular calcification is observed. There is a mucous retention cyst in the sphenoid sinus unchanged. Paranasal sinuses are otherwise clear. IMPRESSION: Moderate generalized volume loss and vascular calcification again noted. No acute intracranial abnormality. <Electronically signed by Moses Kenney > 12/05/20 [id number]
== END ==
LOC: M RAD 14:07
PROVIDERS: ATTEND Nurse Practitioner Family
DX: R41.82 Altered mental status, unspecified (principal)

== ENCOUNTER → 2020-12-06 | Outpatient (REF) | payer MEDICARE, OTHER ==
[2020-12-06 19:09] LABS: AMORPHOUS SEDIMENT SMALL (NEGATIVE); APPEARANCE, URINE TURBID (CLEAR); BACTERIA, URINE AUTO NEGATIVE (NEGATIVE); BILIRUBIN, URINE AUTO NEGATIVE (NEGATIVE); BLOOD, URINE BLOOD NEGATIVE (NEGATIVE); COLOR, URINE YELLOW (YELLOW); GLUCOSE, URINE (UA) AUTO NEGATIVE (NEGATIVE); KETONE, URINE AUTO NEGATIVE (NEGATIVE); LEUKOCYTE ESTERASE, URINE AUTO TRACE (NEGATIVE); MUCUS, URINE SMALL (NEGATIVE); NITRITE, URINE AUTO NEGATIVE (NEGATIVE); PROTEIN, URINE AUTO NEGATIVE (NEGATIVE); RBC, URINE AUTO 2 /HPF (0-3); SPECIFIC GRAVITY URINE AUTO 1.025 (1.002-1.035); SQUAMOUS EPITHELIAL CELL UR AU 0 /HPF (0-6); UROBILINOGEN, URINE AUTO 0.2 mg/dL (0.0-2.0); WBC, URINE AUTO 3 /HPF (0-3)
== END ==
LOC: M LAB REF 18:22
PROVIDERS: ATTEND Nurse Practitioner Family
DX: Z01.818 Encounter for other preprocedural examination (principal); N39.0 Urinary tract infection, site not specified

== ENCOUNTER 2021-11-17 08:04 | Inpatient (IN) | payer MEDICARE, OTHER ==
[~2021-11-17] VITALS: Ht 170.2 cm; Wt 70.4 kg
[~2021-11-17 08:04] MED LIST changes: -CEFD1CAP8 PO; +CEFD300C41 PO
[2021-11-17] MEDS ORDERED: DIGOXIN 0.125 MG TAB PO ONE (08:40)
[2021-11-17 09:01] LABS: BASO # 0.1 10^3/uL (0.0-0.2); BASO % 0.3 % (0.0-1.0); EOS # 0.1 10^3/uL (0.0-0.5); EOS % 0.4 % (0.0-3.0); HEMATOCRIT 33.9 % (42.0-52.0); HEMOGLOBIN 10.7 g/dl (13.5-17.5); LYMPH # 0.9 10^3/uL (1.5-5.0); LYMPH % 4.1 % (24.0-44.0); MEAN CORPUSCULAR HEMOGLOBIN 30.4 pg (27.0-33.0); MEAN CORPUSCULAR HGB CONC 31.6 g/dl (32.0-36.5); MEAN CORPUSCULAR VOLUME 96.3 fl (80.0-96.0); MONO # 1.5 10^3/uL (0.0-0.8); MONO % 6.7 % (2.0-8.0); NEUTROPHILS # 19.8 10^3/uL (1.5-8.5); NEUTROPHILS % 87.7 % (36.0-66.0); PLATELET COUNT, AUTOMATED 188 10^3/uL (150-450); RED BLOOD COUNT 3.52 10^6/uL (4.30-6.10); WHITE BLOOD COUNT 22.5 10^3/uL (4.0-10.0)
[2021-11-17 09:02] LABS: INR 3.35; PROTHROMBIN TIME 34.2 SECONDS (12.7-14.5)
[2021-11-17 09:29] LABS: ALBUMIN 2.6 GM/DL (3.2-5.2); BILIRUBIN,DIRECT 0.2 MG/DL (0.0-0.2); BILIRUBIN,TOTAL 0.3 MG/DL (0.2-1.0); CALCIUM LEVEL 8.7 MG/DL (8.8-10.2); CREATININE FOR GFR 8.47 MG/DL (0.70-1.30); DIGOXIN LEVEL 0.6 NG/ML (0.5-2.0); GLOMERULAR FILTRATION RATE 6.4 (>35); POTASSIUM SERUM 4.8 MEQ/L (3.5-5.1); TOTAL PROTEIN 6.8 GM/DL (6.4-8.2)
[2021-11-17] MEDS: GASTROGRAFIN SOLUTION 30ML PO SCH ×2 (11:00→11:30)
[2021-11-17] MEDS ORDERED: ISOVUE-370 76% 100ML VIAL As Ordered ONE (11:04)
[2021-11-17] MEDS ORDERED: PIPERACILLIN/TAZOBACTAM SOD 2.25 GM in D5W MINI-BAG PLUS 50 ML IV ONE (15:30)
[2021-11-17] MEDS ORDERED: DIGO0.123 PO (16:35)
[2021-11-17] MEDS ORDERED: HOME MED LIST COMPLETE! XX SCH (16:35)
[2021-11-17] MEDS ORDERED: WARF-20 PO (16:35)
[2021-11-17] MEDS ORDERED: MULT-110 PO (16:35)
[2021-11-17] MEDS ORDERED: ACETAMINOPHEN TAB 650MG DOSE (2X325MG) PO PRN (16:45)
[2021-11-17] MEDS ORDERED: DIGOXIN 0.125 MG TAB PO SCH (16:45)
[2021-11-17] MEDS ORDERED: traMADol 50 MG TAB PO PRN (16:45)
[2021-11-17] MEDS ORDERED: DIGOXIN INJ 0.5 MG/2 ML AMP (J1160) IV ONE (17:00)
[2021-11-18] MEDS: PIPERACILLIN/TAZOBACTAM SOD 2.25 GM in D5W MINI-BAG PLUS 50 ML IV SCH (01:07)
[2021-11-18] MEDS ORDERED: SODIUM CHLORIDE 0.9% 1000ML IV PRN (06:00)
[2021-11-18] MEDS ORDERED: LIDOCAINE 1% SDV 5ML VIAL SC PRN (06:00)
[2021-11-18 07:19] LABS: HEMATOCRIT 28.7 % (42.0-52.0); HEMOGLOBIN 9.5 g/dl (13.5-17.5); MEAN CORPUSCULAR HEMOGLOBIN 30.8 pg (27.0-33.0); MEAN CORPUSCULAR HGB CONC 33.1 g/dl (32.0-36.5); MEAN CORPUSCULAR VOLUME 93.2 fl (80.0-96.0); PLATELET COUNT, AUTOMATED 180 10^3/uL (150-450); RED BLOOD COUNT 3.08 10^6/uL (4.30-6.10); WHITE BLOOD COUNT 20.9 10^3/uL (4.0-10.0)
[2021-11-18 07:44] LABS: ALBUMIN 2.1 GM/DL (3.2-5.2); BILIRUBIN,TOTAL 0.3 MG/DL (0.2-1.0); CALCIUM LEVEL 8.3 MG/DL (8.8-10.2); CREATININE FOR GFR 9.41 MG/DL (0.70-1.30); GLOMERULAR FILTRATION RATE 5.7 (>35); MAGNESIUM LEVEL 2.6 MG/DL (1.8-2.4); POTASSIUM SERUM 5.3 MEQ/L (3.5-5.1); TOTAL PROTEIN 6.7 GM/DL (6.4-8.2)
[2021-11-18] MEDS: SIMVASTATIN 10 MG TAB PO SCH (10:46)
[2021-11-18] MEDS: PIPERACILLIN/TAZOBACTAM SOD 4.5 GM in D5W MINI-BAG PLUS 50 ML IV SCH ×2 (10:46→21:33)
[2021-11-18 16:50] VITALS: BP 116/65
[2021-11-18 20:55] VITALS: BP 111/69
[2021-11-19] MEDS ORDERED: PANTOPRAZOLE 40MG VIAL (C9113 PER 1) IV ONE (03:00)
[2021-11-19 05:58] LABS: HEMATOCRIT 29.4 % (42.0-52.0); HEMOGLOBIN 9.4 g/dl (13.5-17.5); MEAN CORPUSCULAR HEMOGLOBIN 30.1 pg (27.0-33.0); MEAN CORPUSCULAR VOLUME 94.2 fl (80.0-96.0); PLATELET COUNT, AUTOMATED 174 10^3/uL (150-450); RED BLOOD COUNT 3.12 10^6/uL (4.30-6.10)
[2021-11-19 06:25] LABS: ALBUMIN 2.1 GM/DL (3.2-5.2); BILIRUBIN,TOTAL 0.5 MG/DL (0.2-1.0); CALCIUM LEVEL 7.6 MG/DL (8.8-10.2); CREATININE FOR GFR 5.6 MG/DL (0.70-1.30); GLOMERULAR FILTRATION RATE 10.4 (>35); MAGNESIUM LEVEL 2.1 MG/DL (1.8-2.4); POTASSIUM SERUM 3.8 MEQ/L (3.5-5.1); TOTAL PROTEIN 5.5 GM/DL (6.4-8.2)
[2021-11-19] MEDS ORDERED: DIGOXIN 0.125 MG TAB PO SCH (09:00)
[2021-11-19] MEDS: SIMVASTATIN 10 MG TAB PO SCH (09:21)
[2021-11-19] MEDS: PIPERACILLIN/TAZOBACTAM SOD 4.5 GM in D5W MINI-BAG PLUS 50 ML IV SCH ×2 (09:21→21:39)
[2021-11-19 10:00] VITALS: BP 113/66
[2021-11-19] MEDS: LACTOBACILLUS ACIDOPHILUS CAP (BACID) PO SCH ×2 (13:39→18:27)
[2021-11-19 14:00] VITALS: BP 120/64
[2021-11-19 14:42] LABS: PROTHROMBIN TIME 39.2 SECONDS (12.7-14.5)
[2021-11-19 18:00] VITALS: BP 111/65
[2021-11-19 22:00] VITALS: BP 127/61
[2021-11-20 02:00] VITALS: BP 107/59
[2021-11-20] MEDS: LACTOBACILLUS ACIDOPHILUS CAP (BACID) PO SCH ×2 (05:15→13:29)
[2021-11-20] MEDS: SIMVASTATIN 10 MG TAB PO SCH (05:15)
[2021-11-20 06:00] VITALS: BP 114/87
[2021-11-20] MEDS ORDERED: LIDOCAINE 1% SDV 5ML VIAL SC PRN (06:00)
[2021-11-20] MEDS ORDERED: SODIUM CHLORIDE 0.9% 1000ML IV PRN (06:00)
[2021-11-20 06:13] LABS: HEMATOCRIT 28.6 % (42.0-52.0); HEMOGLOBIN 9.3 g/dl (13.5-17.5); MEAN CORPUSCULAR HEMOGLOBIN 30.6 pg (27.0-33.0); MEAN CORPUSCULAR HGB CONC 32.5 g/dl (32.0-36.5); MEAN CORPUSCULAR VOLUME 94.1 fl (80.0-96.0); PLATELET COUNT, AUTOMATED 176 10^3/uL (150-450); RED BLOOD COUNT 3.04 10^6/uL (4.30-6.10); WHITE BLOOD COUNT 14.7 10^3/uL (4.0-10.0)
[2021-11-20 06:24] LABS: INR 3.63; PROTHROMBIN TIME 36.4 SECONDS (12.7-14.5)
[2021-11-20 06:46] LABS: ALBUMIN 2.2 GM/DL (3.2-5.2); BILIRUBIN,TOTAL 0.4 MG/DL (0.2-1.0); MAGNESIUM LEVEL 2.2 MG/DL (1.8-2.4); PHOSPHORUS LEVEL 4.7 MG/DL (2.5-4.9); POTASSIUM SERUM 3.9 MEQ/L (3.5-5.1); TOTAL PROTEIN 5.6 GM/DL (6.4-8.2)
[2021-11-20 08:00] VITALS: BP 98/60
[2021-11-20] MEDS ORDERED: WARFARIN SOD 4MG TAB PO SCH (09:00)
[2021-11-20] MEDS ORDERED: RISATAB3 PO (12:36)
[2021-11-20] MEDS: PIPERACILLIN/TAZOBACTAM SOD 4.5 GM in D5W MINI-BAG PLUS 50 ML IV SCH (13:29)
[2021-11-20 14:00] VITALS: BP 105/59
== END 2021-11-20 15:16 | DRG 444 ==
LOC: M ED 08:04 → EDBD 08:04 → EDSEX 08:04 → M ED INP 16:42 → ENRESERV 11-18 14:30 → M MSPAV 11-18 16:55
PROVIDERS: ADMIT Internal Medicine; ATTEND Internal Medicine
PROC: 5A1D70Z Performance of Urinary Filtration, Intermittent, Less than 6 Hours Per Day (ICD-10-PCS; principal; 2021-11-18)
DX: K81.0 Acute cholecystitis (principal); N18.6 End stage renal disease; I12.0 Hypertensive chronic kidney disease with stage 5 chronic kidney disease or end stage renal disease; I48.20 Chronic atrial fibrillation, unspecified; E78.5 Hyperlipidemia, unspecified; D63.1 Anemia in chronic kidney disease; H91.93 Unspecified hearing loss, bilateral; Z66 Do not resuscitate; Z99.2 Dependence on renal dialysis; Z96.651 Presence of right artificial knee joint; Z79.01 Long term (current) use of anticoagulants; Z79.899 Other long term (current) drug therapy

== ENCOUNTER 2021-11-20 10:26 | Inpatient (IN) | payer MEDICARE, OTHER ==
[~2021-11-20] VITALS: Ht 170.2 cm; Wt 64.5 kg
[~2021-11-20 10:26] MED LIST changes: +MULT-110 PO
[2021-11-20] MEDS ORDERED: RISATAB3 PO (12:36)
[2021-11-20] MEDS ORDERED: MIRALAX *UNIT DOSE* 17GM PACKET PO PRN (13:35)
[2021-11-20] MEDS ORDERED: ACETAMINOPHEN TAB 650MG DOSE (2X325MG) PO PRN (13:35)
[2021-11-20 15:38] VITALS: BP 134/64
[2021-11-20] MEDS: REMEDY PHYTOPLEX Z-GUARD PASTE 113GM TUBE (FROM STOREROOM PRODUCT) TOP SCH ×2 (16:00→20:39)
[2021-11-20] MEDS ORDERED: HOME MED LIST COMPLETE! XX SCH (16:05)
[2021-11-20] MEDS: LACTOBACILLUS ACIDOPHILUS CAP (BACID) PO SCH (18:05)
[2021-11-20 20:20] VITALS: BP 127/87
[2021-11-20] MEDS: PIPERACILLIN/TAZOBACTAM SOD 4.5 GM in D5W MINI-BAG PLUS 50 ML IV SCH (20:38)
[2021-11-21 05:47] VITALS: BP 131/68
[2021-11-21 07:53] LABS: BASO # 0.1 10^3/uL (0.0-0.2); BASO % 0.5 % (0.0-1.0); EOS # 0.4 10^3/uL (0.0-0.5); EOS % 2.4 % (0.0-3.0); HEMATOCRIT 30.2 % (42.0-52.0); HEMOGLOBIN 9.6 g/dl (13.5-17.5); LYMPH # 1.9 10^3/uL (1.5-5.0); LYMPH % 10.6 % (24.0-44.0); MEAN CORPUSCULAR HEMOGLOBIN 30.2 pg (27.0-33.0); MEAN CORPUSCULAR HGB CONC 31.8 g/dl (32.0-36.5); MONO # 1.5 10^3/uL (0.0-0.8); MONO % 8.4 % (2.0-8.0); NEUTROPHILS # 13.9 10^3/uL (1.5-8.5); NEUTROPHILS % 76.2 % (36.0-66.0); PLATELET COUNT, AUTOMATED 198 10^3/uL (150-450); RED BLOOD COUNT 3.18 10^6/uL (4.30-6.10); WHITE BLOOD COUNT 18.3 10^3/uL (4.0-10.0)
[2021-11-21 08:02] LABS: INR 1.97; PROTHROMBIN TIME 22.8 SECONDS (12.7-14.5)
[2021-11-21 08:31] LABS: ALBUMIN 2.1 GM/DL (3.2-5.2); BILIRUBIN,TOTAL 0.4 MG/DL (0.2-1.0); CALCIUM LEVEL 8.5 MG/DL (8.8-10.2); CREATININE FOR GFR 4.69 MG/DL (0.70-1.30); GLOMERULAR FILTRATION RATE 12.7 (>35); POTASSIUM SERUM 3.7 MEQ/L (3.5-5.1); TOTAL PROTEIN 6.8 GM/DL (6.4-8.2)
[2021-11-21] MEDS: SIMVASTATIN 40 MG TAB PO SCH (10:03)
[2021-11-21] MEDS: LACTOBACILLUS ACIDOPHILUS CAP (BACID) PO SCH ×3 (10:03→18:04)
[2021-11-21] MEDS: PANTOPRAZOLE 40MG TAB (PROTONIX) PO SCH (10:03)
[2021-11-21] MEDS: PIPERACILLIN/TAZOBACTAM SOD 4.5 GM in D5W MINI-BAG PLUS 50 ML IV SCH (10:04)
[2021-11-21] MEDS: REMEDY PHYTOPLEX Z-GUARD PASTE 113GM TUBE (FROM STOREROOM PRODUCT) TOP SCH ×3 (10:04→20:42)
[2021-11-21] MEDS: DIGOXIN 0.125 MG TAB PO SCH (10:04)
[2021-11-21 14:00] VITALS: BP 115/69
[2021-11-21] MEDS: WARFARIN SOD 4MG TAB PO SCH (18:04)
[2021-11-21 19:52] VITALS: BP 125/60
[2021-11-21] MEDS: CIPROFLOXACIN 500MG TABLET PO SCH (20:41)
[2021-11-21] MEDS: metroNIDAZOLE (FLAGYL) 500MG TABLET PO SCH (20:41)
[2021-11-22 05:45] VITALS: BP 142/69
[2021-11-22 06:28] LABS: BASO # 0.1 10^3/uL (0.0-0.2); BASO % 0.8 % (0.0-1.0); EOS # 0.6 10^3/uL (0.0-0.5); EOS % 4.3 % (0.0-3.0); HEMATOCRIT 28.8 % (42.0-52.0); HEMOGLOBIN 9.2 g/dl (13.5-17.5); LYMPH # 1.7 10^3/uL (1.5-5.0); MEAN CORPUSCULAR HEMOGLOBIN 30.5 pg (27.0-33.0); MEAN CORPUSCULAR HGB CONC 31.9 g/dl (32.0-36.5); MEAN CORPUSCULAR VOLUME 95.4 fl (80.0-96.0); MONO # 1.1 10^3/uL (0.0-0.8); MONO % 8.1 % (2.0-8.0); NEUTROPHILS # 9.8 10^3/uL (1.5-8.5); NEUTROPHILS % 71.2 % (36.0-66.0); PLATELET COUNT, AUTOMATED 190 10^3/uL (150-450); RED BLOOD COUNT 3.02 10^6/uL (4.30-6.10); WHITE BLOOD COUNT 13.8 10^3/uL (4.0-10.0)
[2021-11-22 06:41] LABS: INR 1.64; PROTHROMBIN TIME 19.8 SECONDS (12.7-14.5)
[2021-11-22] MEDS ORDERED: SODIUM CHLORIDE 0.9% 1000ML IV PRN (06:55)
[2021-11-22] MEDS ORDERED: LIDOCAINE 1% SDV 5ML VIAL SC PRN (06:55)
[2021-11-22] MEDS: metroNIDAZOLE (FLAGYL) 500MG TABLET PO SCH ×3 (08:43→20:37)
[2021-11-22] MEDS: SIMVASTATIN 40 MG TAB PO SCH (08:43)
[2021-11-22] MEDS: PANTOPRAZOLE 40MG TAB (PROTONIX) PO SCH (08:43)
[2021-11-22] MEDS: REMEDY PHYTOPLEX Z-GUARD PASTE 113GM TUBE (FROM STOREROOM PRODUCT) TOP SCH ×3 (08:43→20:37)
[2021-11-22] MEDS: LACTOBACILLUS ACIDOPHILUS CAP (BACID) PO SCH ×3 (08:43→17:08)
[2021-11-22 14:17] VITALS: BP 132/76
[2021-11-22] MEDS ORDERED: DARBEPOETIN 100 MCG/0.5 ML *DIALYSIS* SYRINGE (J0882) IV SCH (16:05)
[2021-11-22] MEDS: WARFARIN SOD 4MG TAB PO SCH (17:08)
[2021-11-22 19:41] VITALS: BP 133/73
[2021-11-22] MEDS: CIPROFLOXACIN 500MG TABLET PO SCH (20:37)
[2021-11-23 05:50] VITALS: BP_SYST 137; BP_SYST 138; BP_DIAS 77; BP_DIAS 78
[2021-11-23] MEDS: SIMVASTATIN 40 MG TAB PO SCH (07:30)
[2021-11-23] MEDS: REMEDY PHYTOPLEX Z-GUARD PASTE 113GM TUBE (FROM STOREROOM PRODUCT) TOP SCH ×3 (07:31→20:17)
[2021-11-23] MEDS: DIGOXIN 0.125 MG TAB PO SCH (07:31)
[2021-11-23] MEDS: metroNIDAZOLE (FLAGYL) 500MG TABLET PO SCH ×3 (07:31→20:17)
[2021-11-23] MEDS: PANTOPRAZOLE 40MG TAB (PROTONIX) PO SCH (07:31)
[2021-11-23] MEDS: LACTOBACILLUS ACIDOPHILUS CAP (BACID) PO SCH ×3 (08:00→16:10)
[2021-11-23 08:22] LABS: INR 1.57; PROTHROMBIN TIME 19.2 SECONDS (12.7-14.5)
[2021-11-23 14:00] VITALS: BP 136/67
[2021-11-23] MEDS: WARFARIN SOD 5MG TAB PO SCH (16:10)
[2021-11-23 20:11] VITALS: BP 137/65
[2021-11-23] MEDS: CIPROFLOXACIN 500MG TABLET PO SCH (20:17)
[2021-11-23 21:08] VITALS: BP 137/65
[2021-11-24 06:00] VITALS: BP 131/67
[2021-11-24 09:15] LABS: BASO # 0.1 10^3/uL (0.0-0.2); BASO % 0.9 % (0.0-1.0); EOS # 0.5 10^3/uL (0.0-0.5); HEMATOCRIT 29.3 % (42.0-52.0); HEMOGLOBIN 9.3 g/dl (13.5-17.5); LYMPH # 1.9 10^3/uL (1.5-5.0); LYMPH % 14.5 % (24.0-44.0); MEAN CORPUSCULAR HEMOGLOBIN 30.1 pg (27.0-33.0); MEAN CORPUSCULAR HGB CONC 31.7 g/dl (32.0-36.5); MEAN CORPUSCULAR VOLUME 94.8 fl (80.0-96.0); MONO # 0.9 10^3/uL (0.0-0.8); MONO % 6.6 % (2.0-8.0); NEUTROPHILS # 9.4 10^3/uL (1.5-8.5); PLATELET COUNT, AUTOMATED 228 10^3/uL (150-450); RED BLOOD COUNT 3.09 10^6/uL (4.30-6.10); WHITE BLOOD COUNT 13.4 10^3/uL (4.0-10.0)
[2021-11-24 09:21] LABS: INR 1.73; PROTHROMBIN TIME 20.7 SECONDS (12.7-14.5)
[2021-11-24 09:40] LABS: CALCIUM LEVEL 8.4 MG/DL (8.8-10.2); CREATININE FOR GFR 6.91 MG/DL (0.70-1.30); GLOMERULAR FILTRATION RATE 8.1 (>35); POTASSIUM SERUM 4.4 MEQ/L (3.5-5.1)
[2021-11-24] MEDS: metroNIDAZOLE (FLAGYL) 500MG TABLET PO SCH ×2 (10:43→17:54)
[2021-11-24] MEDS: SIMVASTATIN 40 MG TAB PO SCH (10:43)
[2021-11-24] MEDS: LACTOBACILLUS ACIDOPHILUS CAP (BACID) PO SCH ×3 (10:43→17:55)
[2021-11-24] MEDS: PANTOPRAZOLE 40MG TAB (PROTONIX) PO SCH (10:43)
[2021-11-24] MEDS: REMEDY PHYTOPLEX Z-GUARD PASTE 113GM TUBE (FROM STOREROOM PRODUCT) TOP SCH ×3 (10:43→21:00)
[2021-11-24 14:00] VITALS: BP 138/78
[2021-11-24] MEDS: WARFARIN SOD 5MG TAB PO SCH (17:55)
[2021-11-24 21:16] VITALS: BP 144/69
[2021-11-25 03:40] VITALS: BP 121/67
[2021-11-25] MEDS ORDERED: PREPARATION H OINTMENT (HEMORRHOID) PR PRN (04:10)
[2021-11-25 05:45] VITALS: BP 150/73
[2021-11-25 06:25] LABS: BASO # 0.1 10^3/uL (0.0-0.2); BASO % 0.7 % (0.0-1.0); EOS # 0.5 10^3/uL (0.0-0.5); EOS % 3.2 % (0.0-3.0); HEMATOCRIT 29.5 % (42.0-52.0); HEMOGLOBIN 9.4 g/dl (13.5-17.5); LYMPH # 2.2 10^3/uL (1.5-5.0); LYMPH % 13.8 % (24.0-44.0); MEAN CORPUSCULAR HEMOGLOBIN 30.4 pg (27.0-33.0); MEAN CORPUSCULAR HGB CONC 31.9 g/dl (32.0-36.5); MEAN CORPUSCULAR VOLUME 95.5 fl (80.0-96.0); MONO # 1.1 10^3/uL (0.0-0.8); MONO % 6.9 % (2.0-8.0); NEUTROPHILS # 11.5 10^3/uL (1.5-8.5); NEUTROPHILS % 73.5 % (36.0-66.0); PLATELET COUNT, AUTOMATED 253 10^3/uL (150-450); RED BLOOD COUNT 3.09 10^6/uL (4.30-6.10); WHITE BLOOD COUNT 15.7 10^3/uL (4.0-10.0)
[2021-11-25 06:45] LABS: INR 1.87; PROTHROMBIN TIME 21.9 SECONDS (12.7-14.5)
[2021-11-25 07:05] LABS: CALCIUM LEVEL 9.1 MG/DL (8.8-10.2); CREATININE FOR GFR 8.17 MG/DL (0.70-1.30); GLOMERULAR FILTRATION RATE 6.7 (>35); POTASSIUM SERUM 4.7 MEQ/L (3.5-5.1)
[2021-11-25] MEDS ORDERED: SODIUM CHLORIDE 0.9% 1000ML IV PRN (07:45)
[2021-11-25] MEDS: LACTOBACILLUS ACIDOPHILUS CAP (BACID) PO SCH ×3 (08:12→17:03)
[2021-11-25] MEDS: PANTOPRAZOLE 40MG TAB (PROTONIX) PO SCH (08:12)
[2021-11-25] MEDS: SIMVASTATIN 40 MG TAB PO SCH (08:12)
[2021-11-25 08:15] VITALS: BP 150/73
[2021-11-25] MEDS: REMEDY PHYTOPLEX Z-GUARD PASTE 113GM TUBE (FROM STOREROOM PRODUCT) TOP SCH ×3 (08:16→22:03)
[2021-11-25] MEDS: WARFARIN SOD 5MG TAB PO SCH (17:00)
[2021-11-25 20:00] VITALS: BP 140/94
[2021-11-26 06:00] VITALS: BP 152/78
[2021-11-26 07:28] LABS: INR 2.09; PROTHROMBIN TIME 23.9 SECONDS (12.7-14.5)
[2021-11-26] MEDS: REMEDY PHYTOPLEX Z-GUARD PASTE 113GM TUBE (FROM STOREROOM PRODUCT) TOP SCH (08:38)
[2021-11-26] MEDS: SIMVASTATIN 40 MG TAB PO SCH (08:38)
[2021-11-26] MEDS: LACTOBACILLUS ACIDOPHILUS CAP (BACID) PO SCH ×2 (08:38→12:34)
[2021-11-26] MEDS: DIGOXIN 0.125 MG TAB PO SCH (08:38)
[2021-11-26] MEDS: PANTOPRAZOLE 40MG TAB (PROTONIX) PO SCH (08:38)
[2021-11-26] MEDS ORDERED: PANT40TA29 PO (10:45)
[2021-11-26] MEDS ORDERED: JANT5TAB PO (10:45)
[2021-11-26] MEDS ORDERED: DIGO0.123 PO (10:45)
[2021-11-26] MEDS ORDERED: SIMV10TA21 PO (10:45)
[2021-11-26] MEDS ORDERED: RISATAB3 PO (10:45)
== END 2021-11-26 15:10 | disposition home health service (06) | DRG 947 ==
LOC: M PM&R 15:20
PROVIDERS: ADMIT Physical Medicine & Rehabilitation; ATTEND Physical Medicine & Rehabilitation
PROC: 5A1D70Z Performance of Urinary Filtration, Intermittent, Less than 6 Hours Per Day (ICD-10-PCS; principal; 2021-11-22)
DX: R53.1 Weakness (principal); N18.6 End stage renal disease; K80.00 Calculus of gallbladder with acute cholecystitis without obstruction; I12.0 Hypertensive chronic kidney disease with stage 5 chronic kidney disease or end stage renal disease; Z99.2 Dependence on renal dialysis; I48.91 Unspecified atrial fibrillation; E78.5 Hyperlipidemia, unspecified; D63.1 Anemia in chronic kidney disease; M19.90 Unspecified osteoarthritis, unspecified site; Z74.09 Other reduced mobility; Z74.1 Need for assistance with personal care; R19.7 Diarrhea, unspecified; Z96.651 Presence of right artificial knee joint; Z79.01 Long term (current) use of anticoagulants; Z79.899 Other long term (current) drug therapy; Z66 Do not resuscitate; Z90.49 Acquired absence of other specified parts of digestive tract

== ENCOUNTER 2022-03-26 10:11 | Inpatient (IN) | payer MEDICARE, OTHER ==
[~2022-03-26] VITALS: Ht 167.6 cm; Wt 75.5 kg
[~2022-03-26 10:11] MED LIST changes: +JANT5TAB PO; +PANT40TA29 PO; +RISATAB3 PO
[2022-03-26 11:12] LABS: BASO # 0.1 10^3/uL (0.0-0.2); BASO % 0.6 % (0.0-1.0); EOS # 0.3 10^3/uL (0.0-0.5); EOS % 2.2 % (0.0-3.0); HEMATOCRIT 36.1 % (42.0-52.0); HEMOGLOBIN 11.5 g/dl (13.5-17.5); LYMPH # 1.3 10^3/uL (1.5-5.0); LYMPH % 9.8 % (24.0-44.0); MEAN CORPUSCULAR HEMOGLOBIN 29.9 pg (27.0-33.0); MEAN CORPUSCULAR HGB CONC 31.9 g/dl (32.0-36.5); MEAN CORPUSCULAR VOLUME 93.8 fl (80.0-96.0); MONO # 1.1 10^3/uL (0.0-0.8); NEUTROPHILS # 10.7 10^3/uL (1.5-8.5); NEUTROPHILS % 78.4 % (36.0-66.0); PLATELET COUNT, AUTOMATED 139 10^3/uL (150-450); RED BLOOD COUNT 3.85 10^6/uL (4.30-6.10); WHITE BLOOD COUNT 13.7 10^3/uL (4.0-10.0)
[2022-03-26] MEDS ORDERED: ONDANSETRON 4MG 2ML VIAL IV ONE (11:25)
[2022-03-26] MEDS ORDERED: fentaNYL 100 MCG/2 ML INJECTION IV PRN (11:25)
[2022-03-26 12:14] LABS: CALCIUM LEVEL 9.3 MG/DL (8.8-10.2); CREATININE FOR GFR 7.85 MG/DL (0.70-1.30); POTASSIUM SERUM 5.8 MEQ/L (3.5-5.1)
[2022-03-26] MEDS ORDERED: DIGO0.123 PO (13:47)
[2022-03-26] MEDS ORDERED: WARF-23 PO (13:47)
[2022-03-26] MEDS ORDERED: SIMV10TA21 PO (13:47)
[2022-03-26] MEDS ORDERED: OMEP-173 PO (13:52)
[2022-03-26] MEDS ORDERED: HOME MED LIST COMPLETE! XX SCH (13:55)
[2022-03-26 14:14] LABS: RSV AMPLIFICATION NEGATIVE (NEGATIVE)
[2022-03-26 14:40] LABS: INR 1.55
[2022-03-26] MEDS ORDERED: MORPHINE 2 MG/ML 1ML VIAL IV PRN (14:45)
[2022-03-26] MEDS ORDERED: ACETAMINOPHEN TAB 650MG DOSE (2X325MG) PO PRN (14:45)
[2022-03-26] MEDS ORDERED: SODIUM CHLORIDE 0.9% 1000ML IV PRN (14:50)
[2022-03-26] MEDS ORDERED: LIDOCAINE 1% SDV 5ML VIAL SC PRN (14:50)
[2022-03-26 16:50] LABS: INR 1.56; PROTHROMBIN TIME 19.1 SECONDS (12.7-14.5)
[2022-03-26 19:40] VITALS: BP 159/88
[2022-03-26 22:00] VITALS: BP 156/75
[2022-03-26] MEDS: HEPARIN SOD (PORCINE) 5000UNITS/ML 1ML VIAL/SYRINGE SQ SCH (22:00)
[2022-03-27] MEDS: HEPARIN SOD (PORCINE) 5000UNITS/ML 1ML VIAL/SYRINGE SQ SCH ×3 (05:35→20:58)
[2022-03-27 06:00] VITALS: BP 150/73
[2022-03-27 06:28] LABS: BASO # 0.1 10^3/uL (0.0-0.2); BASO % 0.4 % (0.0-1.0); EOS # 0.4 10^3/uL (0.0-0.5); EOS % 3.3 % (0.0-3.0); HEMATOCRIT 34.7 % (42.0-52.0); HEMOGLOBIN 11.3 g/dl (13.5-17.5); LYMPH # 1.1 10^3/uL (1.5-5.0); LYMPH % 8.1 % (24.0-44.0); MEAN CORPUSCULAR HEMOGLOBIN 29.8 pg (27.0-33.0); MEAN CORPUSCULAR HGB CONC 32.6 g/dl (32.0-36.5); MEAN CORPUSCULAR VOLUME 91.6 fl (80.0-96.0); MONO # 1.2 10^3/uL (0.0-0.8); MONO % 9.1 % (2.0-8.0); NEUTROPHILS # 10.4 10^3/uL (1.5-8.5); NEUTROPHILS % 78.7 % (36.0-66.0); PLATELET COUNT, AUTOMATED 121 10^3/uL (150-450); RED BLOOD COUNT 3.79 10^6/uL (4.30-6.10); WHITE BLOOD COUNT 13.2 10^3/uL (4.0-10.0)
[2022-03-27 06:39] LABS: INR 1.77
[2022-03-27 07:04] LABS: CALCIUM LEVEL 8.9 MG/DL (8.8-10.2); CREATININE FOR GFR 5.25 MG/DL (0.70-1.30); DIGOXIN LEVEL 0.9 NG/ML (0.5-2.0); GLOMERULAR FILTRATION RATE 11.2 (>35); POTASSIUM SERUM 5.2 MEQ/L (3.5-5.1)
[2022-03-27] MEDS: DIGOXIN 0.125 MG TAB PO SCH (08:40)
[2022-03-27] MEDS: SIMVASTATIN 10 MG TAB PO SCH (08:40)
[2022-03-27 12:42] LABS: INR 1.78; PROTHROMBIN TIME 21.1 SECONDS (12.7-14.5)
[2022-03-27] MEDS ORDERED: PATIROMER SORBITEX CALCIUM 8.4 GM POWDER PACKET (VELTASSA) PO ONE (13:00)
[2022-03-27 14:15] VITALS: BP 144/75
[2022-03-27] MEDS ORDERED: PHYTONADIONE 5 MG TAB PO ONE (16:20)
[2022-03-27 22:00] VITALS: BP 145/74
[2022-03-28] MEDS: HEPARIN SOD (PORCINE) 5000UNITS/ML 1ML VIAL/SYRINGE SQ SCH ×3 (05:06→21:42)
[2022-03-28] MEDS ORDERED: SODIUM CHLORIDE 0.9% 1000ML IV PRN (05:55)
[2022-03-28] MEDS ORDERED: LIDOCAINE 1% SDV 5ML VIAL SC PRN (05:55)
[2022-03-28 06:00] VITALS: BP 155/97
[2022-03-28 06:52] LABS: BASO # 0.1 10^3/uL (0.0-0.2); BASO % 0.6 % (0.0-1.0); EOS # 0.7 10^3/uL (0.0-0.5); EOS % 5.6 % (0.0-3.0); HEMATOCRIT 34.1 % (42.0-52.0); HEMOGLOBIN 11.1 g/dl (13.5-17.5); LYMPH # 1.5 10^3/uL (1.5-5.0); LYMPH % 11.1 % (24.0-44.0); MEAN CORPUSCULAR HEMOGLOBIN 29.8 pg (27.0-33.0); MEAN CORPUSCULAR HGB CONC 32.6 g/dl (32.0-36.5); MEAN CORPUSCULAR VOLUME 91.7 fl (80.0-96.0); MONO # 1.5 10^3/uL (0.0-0.8); MONO % 11.2 % (2.0-8.0); NEUTROPHILS # 9.3 10^3/uL (1.5-8.5); PLATELET COUNT, AUTOMATED 110 10^3/uL (150-450); RED BLOOD COUNT 3.72 10^6/uL (4.30-6.10); WHITE BLOOD COUNT 13.1 10^3/uL (4.0-10.0)
[2022-03-28 07:18] LABS: CALCIUM LEVEL 8.7 MG/DL (8.8-10.2); CREATININE FOR GFR 7.12 MG/DL (0.70-1.30); GLOMERULAR FILTRATION RATE 7.9 (>35); POTASSIUM SERUM 5.9 MEQ/L (3.5-5.1)
[2022-03-28 07:47] LABS: INR 1.42; PROTHROMBIN TIME 17.8 SECONDS (12.7-14.5)
[2022-03-28] MEDS: SIMVASTATIN 10 MG TAB PO SCH (07:52)
[2022-03-28] MEDS ORDERED: propofoL 500 MG/50 ML VIAL As Ordered ONE (09:20)
[2022-03-28] MEDS ORDERED: ONDANSETRON 4MG 2ML VIAL As Ordered ONE (09:21)
[2022-03-28] MEDS ORDERED: KETAMINE HCL 200 MG/20 ML VIAL As Ordered ONE (09:21)
[2022-03-28] MEDS ORDERED: dexameTHASONE 4 MG/ML 1ML VIAL (J1100 PER 1MG) As Ordered ONE (09:21)
[2022-03-28] MEDS ORDERED: BUPIVACAINE LIPOSOME/PF 1.3% 20ML VIAL (13.3MG/ML)(EXPAREL) As Ordered ONE (11:17)
[2022-03-28] MEDS ORDERED: TRANEXAMIC ACID 100 MG/ML 10ML VIAL As Ordered ONE ×2 (11:17→12:45)
[2022-03-28] MEDS ORDERED: VANCOMYCIN 500MG/10ML VIAL As Ordered ONE ×2 (11:17→12:45)
[2022-03-28] MEDS ORDERED: BUPIVACAINE HCL 0.25% 10ML VIAL As Ordered ONE (11:17)
[2022-03-28] MEDS ORDERED: ROCURONIUM BROMIDE 50 MG/5 ML VIAL As Ordered ONE (12:26)
[2022-03-28] MEDS ORDERED: fentaNYL 100 MCG/2 ML INJECTION As Ordered ONE ×2 (12:26→13:17)
[2022-03-28] MEDS ORDERED: METOPROLOL 5 MG/5 ML VIAL As Ordered ONE ×2 (12:45→15:18)
[2022-03-28] MEDS ORDERED: ceFAZolin 2 GM/D5W 50 ML IV BAG (J0690 PER 500MG) As Ordered ONE (12:45)
[2022-03-28] MEDS ORDERED: VASOPRESSIN INJ 20 UNITS/ML VIAL As Ordered ONE (12:50)
[2022-03-28] MEDS ORDERED: PHENYLEPHRINE 10MG/ML 1ML VIAL (J2370 PER 1) As Ordered ONE (12:53)
[2022-03-28] MEDS ORDERED: PHENYLephrine 500MCG 5ML (100MCG/ML) SYRINGE As Ordered ONE (13:17)
[2022-03-28] MEDS ORDERED: ePHEDrine SULFATE 25 MG/5 ML(5MG/ML) SYRINGE As Ordered ONE (13:17)
[2022-03-28] MEDS ORDERED: SUGAMMADEX SODIUM 500 MG/5 ML VIAL (BRIDION) As Ordered ONE (14:22)
[2022-03-28] MEDS ORDERED: ACETAMINOPHEN 1000MG 100ML IV BTL (OFIRMEV) (J0131 PER 10MG) As Ordered ONE (14:22)
[2022-03-28] MEDS ORDERED: ALBUTEROL SULFATE 2.5 MG/0.5 ML INH NEB SOLN INH ONE (14:40)
[2022-03-28] MEDS ORDERED: ONDANSETRON 4MG 2ML VIAL IV PRN (14:40)
[2022-03-28] MEDS ORDERED: NS 1,000 ML IV SCH (14:40)
[2022-03-28] MEDS ORDERED: oxyCODONE 5MG TAB PO PRN (14:40)
[2022-03-28] MEDS ORDERED: MORPHINE 2 MG/ML 1ML VIAL IV PRN (14:40)
[2022-03-28] MEDS ORDERED: fentaNYL 100 MCG/2 ML INJECTION IV PRN (14:40)
[2022-03-28] MEDS ORDERED: METOPROLOL 5 MG/5 ML VIAL IV STA (15:17)
[2022-03-28 16:35] VITALS: BP 122/72
[2022-03-28 20:00] VITALS: BP 124/60
[2022-03-28] MEDS: ceFAZolin SOD 1 GM in D5W MINI-BAG PLUS 50 ML IV SCH (21:42)
[2022-03-29] VITALS (8 sets, daily range): BP systolic 107–120; BP diastolic 56–70
[2022-03-29 05:20] LABS: BASO % 0.3 % (0.0-1.0); EOS % 0.5 % (0.0-3.0); HEMATOCRIT 32.3 % (42.0-52.0); HEMOGLOBIN 9.8 g/dl (13.5-17.5); LYMPH # 0.5 10^3/uL (1.5-5.0); LYMPH % 6.2 % (24.0-44.0); MEAN CORPUSCULAR HEMOGLOBIN 29.2 pg (27.0-33.0); MEAN CORPUSCULAR HGB CONC 30.3 g/dl (32.0-36.5); MEAN CORPUSCULAR VOLUME 96.1 fl (80.0-96.0); MONO # 0.8 10^3/uL (0.0-0.8); MONO % 9.5 % (2.0-8.0); NEUTROPHILS # 7.1 10^3/uL (1.5-8.5); PLATELET COUNT, AUTOMATED 112 10^3/uL (150-450); RED BLOOD COUNT 3.36 10^6/uL (4.30-6.10); WHITE BLOOD COUNT 8.6 10^3/uL (4.0-10.0)
[2022-03-29 05:30] LABS: INR 1.37; PROTHROMBIN TIME 17.3 SECONDS (12.7-14.5)
[2022-03-29] MEDS: ceFAZolin SOD 1 GM in D5W MINI-BAG PLUS 50 ML IV SCH (05:40)
[2022-03-29 05:46] LABS: CALCIUM LEVEL 8.7 MG/DL (8.8-10.2); CREATININE FOR GFR 4.7 MG/DL (0.70-1.30); GLOMERULAR FILTRATION RATE 12.7 (>35); POTASSIUM SERUM 5.2 MEQ/L (3.5-5.1)
[2022-03-29] MEDS: HEPARIN SOD (PORCINE) 5000UNITS/ML 1ML VIAL/SYRINGE SQ SCH ×3 (05:58→21:52)
[2022-03-29] MEDS: SIMVASTATIN 10 MG TAB PO SCH (08:05)
[2022-03-29] MEDS: DIGOXIN 0.125 MG TAB PO SCH (08:06)
[2022-03-29] MEDS ORDERED: PATIROMER SORBITEX CALCIUM 8.4 GM POWDER PACKET (VELTASSA) PO ONE (10:00)
[2022-03-29] MEDS ORDERED: traMADol 50 MG TAB PO PRN (10:55)
[2022-03-29] MEDS ORDERED: DARBEPOETIN 100 MCG/0.5 ML *DIALYSIS* SYRINGE (J0882) IV SCH (16:25)
[2022-03-29] MEDS ORDERED: WARFARIN SOD 5MG TAB PO SCH (17:00)
[2022-03-30] MEDS ORDERED: METOPROLOL TART 25 MG TABLET PO ONE
[2022-03-30 04:01] LABS: HEMATOCRIT 29.5 % (42.0-52.0); HEMOGLOBIN 9.6 g/dl (13.5-17.5); MEAN CORPUSCULAR HEMOGLOBIN 29.9 pg (27.0-33.0); MEAN CORPUSCULAR VOLUME 91.9 fl (80.0-96.0); RED BLOOD COUNT 3.21 10^6/uL (4.30-6.10); WHITE BLOOD COUNT 12.9 10^3/uL (4.0-10.0)
[2022-03-30 04:02] LABS: BASO # 0.1 10^3/uL (0.0-0.2); BASO % 0.5 % (0.0-1.0); EOS # 0.7 10^3/uL (0.0-0.5); EOS % 5.7 % (0.0-3.0); LYMPH # 0.7 10^3/uL (1.5-5.0); LYMPH % 5.4 % (24.0-44.0); MEAN CORPUSCULAR HGB CONC 32.5 g/dl (32.0-36.5); NEUTROPHILS # 9.8 10^3/uL (1.5-8.5); PLATELET COUNT, AUTOMATED 130 10^3/uL (150-450)
[2022-03-30 04:17] LABS: INR 1.4; PROTHROMBIN TIME 17.6 SECONDS (12.7-14.5)
[2022-03-30 04:27] LABS: MONO # 1.6 10^3/uL (0.0-0.8)
[2022-03-30 04:36] LABS: CALCIUM LEVEL 8.4 MG/DL (8.8-10.2); CREATININE FOR GFR 6.27 MG/DL (0.70-1.30); GLOMERULAR FILTRATION RATE 9.1 (>35); MAGNESIUM LEVEL 1.9 MG/DL (1.8-2.4); POTASSIUM SERUM 5.6 MEQ/L (3.5-5.1)
[2022-03-30 06:00] VITALS: BP 111/64
[2022-03-30] MEDS ORDERED: PATIROMER SORBITEX CALCIUM 8.4 GM POWDER PACKET (VELTASSA) PO ONE (06:00)
[2022-03-30] MEDS: HEPARIN SOD (PORCINE) 5000UNITS/ML 1ML VIAL/SYRINGE SQ SCH ×2 (06:32→13:49)
[2022-03-30] MEDS ORDERED: SODIUM CHLORIDE 0.9% 1000ML IV PRN (06:40)
[2022-03-30] MEDS ORDERED: LIDOCAINE 1% SDV 5ML VIAL SC PRN (06:40)
[2022-03-30] MEDS: SIMVASTATIN 10 MG TAB PO SCH (09:31)
[2022-03-30 10:58] LABS: CALCIUM LEVEL 8.4 MG/DL (8.8-10.2); CREATININE FOR GFR 6.55 MG/DL (0.70-1.30); GLOMERULAR FILTRATION RATE 8.7 (>35); POTASSIUM SERUM 5.7 MEQ/L (3.5-5.1)
[2022-03-30] MEDS ORDERED: TRAM50TA2 PO (12:17)
[2022-03-30 14:00] VITALS: BP 117/65
== END 2022-03-30 16:27 | DRG 521 ==
LOC: EDBD 10:11 → M ED 10:11 → EDSEX 10:11 → M ED INP 15:22 → M MS5PR 19:40 → M PCU 03-28 15:54 → M MSPAV 03-29 17:42
PROVIDERS: ADMIT Internal Medicine; ATTEND Internal Medicine
PROC: 5A1D70Z Performance of Urinary Filtration, Intermittent, Less than 6 Hours Per Day (ICD-10-PCS; 2022-03-28)
PROC: 0SRS0J9 Replacement of Left Hip Joint, Femoral Surface with Synthetic Substitute, Cemented, Open Approach (ICD-10-PCS; principal; 2022-03-28 08:30)
DX: M80.052A Age-related osteoporosis with current pathological fracture, left femur, initial encounter for fracture (principal); N18.6 End stage renal disease; I13.2 Hypertensive heart and chronic kidney disease with heart failure and with stage 5 chronic kidney disease, or end stage renal disease; I48.20 Chronic atrial fibrillation, unspecified; E87.1 Hypo-osmolality and hyponatremia; E78.5 Hyperlipidemia, unspecified; D72.829 Elevated white blood cell count, unspecified; D63.1 Anemia in chronic kidney disease; E87.5 Hyperkalemia; I50.9 Heart failure, unspecified; Z96.651 Presence of right artificial knee joint; Z90.49 Acquired absence of other specified parts of digestive tract; Z87.891 Personal history of nicotine dependence; Z99.2 Dependence on renal dialysis; Z79.01 Long term (current) use of anticoagulants; Z79.899 Other long term (current) drug therapy

== ENCOUNTER 2022-03-30 11:08 | Inpatient (IN) | payer MEDICARE, OTHER ==
[~2022-03-30] VITALS: Ht 167.6 cm; Wt 65.4 kg
[~2022-03-30 11:08] MED LIST changes: +OMEP-173 PO
[2022-03-30] MEDS ORDERED: TRAM50TA2 PO (12:17)
[2022-03-30] MEDS ORDERED: traMADol 50 MG TAB PO PRN (16:55)
[2022-03-30] MEDS ORDERED: WARFARIN SOD 5MG TAB PO SCH (17:00)
[2022-03-30 20:46] VITALS: BP 124/50
[2022-03-30] MEDS: ACETAMINOPHEN 500 MG TAB PO SCH ×2 (21:00→22:03)
[2022-03-30] MEDS: REMEDY PHYTOPLEX Z-GUARD PASTE 113GM TUBE (FROM STOREROOM PRODUCT) TOP SCH (21:00)
[2022-03-30] MEDS: SENNA 8.6 MG TAB (SENOKOT) PO SCH (22:01)
[2022-03-30] MEDS: DOCUSATE SODIUM 100MG CAPSULE PO SCH (22:03)
[2022-03-31 05:53] VITALS: BP 133/81
[2022-03-31 05:53] LABS: BASO # 0.1 10^3/uL (0.0-0.2); BASO % 0.5 % (0.0-1.0); EOS # 0.7 10^3/uL (0.0-0.5); EOS % 6.7 % (0.0-3.0); HEMATOCRIT 28.9 % (42.0-52.0); HEMOGLOBIN 9.3 g/dl (13.5-17.5); LYMPH # 0.8 10^3/uL (1.5-5.0); LYMPH % 7.5 % (24.0-44.0); MEAN CORPUSCULAR HEMOGLOBIN 29.4 pg (27.0-33.0); MEAN CORPUSCULAR HGB CONC 32.2 g/dl (32.0-36.5); MEAN CORPUSCULAR VOLUME 91.5 fl (80.0-96.0); MONO # 1.3 10^3/uL (0.0-0.8); MONO % 12.6 % (2.0-8.0); NEUTROPHILS # 7.4 10^3/uL (1.5-8.5); NEUTROPHILS % 72.4 % (36.0-66.0); PLATELET COUNT, AUTOMATED 145 10^3/uL (150-450); RED BLOOD COUNT 3.16 10^6/uL (4.30-6.10); WHITE BLOOD COUNT 10.2 10^3/uL (4.0-10.0)
[2022-03-31 06:11] LABS: INR 1.49; PROTHROMBIN TIME 18.5 SECONDS (12.7-14.5)
[2022-03-31 06:19] LABS: ALBUMIN 2.6 GM/DL (3.2-5.2); ALT/SGPT < 6 U/L (12-78); BILIRUBIN,TOTAL 0.4 MG/DL (0.2-1.0); BLOOD UREA NITROGEN 30 MG/DL (7-18); CALCIUM LEVEL 8.8 MG/DL (8.8-10.2); CARBON DIOXIDE LEVEL 25 MEQ/L (21-32); CHLORIDE LEVEL 104 MEQ/L (98-107); CREATININE FOR GFR 4.08 MG/DL (0.70-1.30); GLUCOSE, FASTING 87 MG/DL (70-100); POTASSIUM SERUM 4.9 MEQ/L (3.5-5.1); SODIUM LEVEL 138 MEQ/L (136-145); TOTAL PROTEIN 6.2 GM/DL (6.4-8.2)
[2022-03-31] MEDS ORDERED: SODIUM CHLORIDE 0.9% 1000ML IV PRN (07:50)
[2022-03-31] MEDS ORDERED: LIDOCAINE 1% SDV 5ML VIAL SC PRN (07:50)
[2022-03-31] MEDS: PANTOPRAZOLE 40MG TAB (PROTONIX) PO SCH (08:40)
[2022-03-31] MEDS: SIMVASTATIN 10 MG TAB PO SCH (08:40)
[2022-03-31] MEDS: DOCUSATE SODIUM 100MG CAPSULE PO SCH ×2 (08:40→20:30)
[2022-03-31] MEDS: ACETAMINOPHEN 500 MG TAB PO SCH ×3 (08:40→20:30)
[2022-03-31] MEDS: REMEDY PHYTOPLEX Z-GUARD PASTE 113GM TUBE (FROM STOREROOM PRODUCT) TOP SCH ×3 (08:41→20:31)
[2022-03-31] MEDS: DARBEPOETIN 100 MCG/0.5 ML *DIALYSIS* SYRINGE (J0882) IV SCH (13:58)
[2022-03-31] MEDS: FLUoxetine 10 MG CAP PO SCH (17:12)
[2022-03-31] MEDS: WARFARIN SOD 7.5MG TAB PO SCH (17:13)
[2022-03-31 20:00] VITALS: BP 129/77
[2022-03-31] MEDS: SENNA 8.6 MG TAB (SENOKOT) PO SCH (20:30)
[2022-04-01] MEDS ORDERED: MOM 30ML SUSPENSION UDC PO PRN (02:05)
[2022-04-01] MEDS ORDERED: MIRALAX *UNIT DOSE* 17GM PACKET PO PRN (02:05)
[2022-04-01 06:00] VITALS: BP 126/59
[2022-04-01 07:01] LABS: BASO # 0.1 10^3/uL (0.0-0.2); BASO % 0.7 % (0.0-1.0); EOS # 0.3 10^3/uL (0.0-0.5); EOS % 3.8 % (0.0-3.0); HEMATOCRIT 30.7 % (42.0-52.0); HEMOGLOBIN 9.8 g/dl (13.5-17.5); LYMPH # 0.7 10^3/uL (1.5-5.0); LYMPH % 7.5 % (24.0-44.0); MEAN CORPUSCULAR HEMOGLOBIN 29.4 pg (27.0-33.0); MEAN CORPUSCULAR HGB CONC 31.9 g/dl (32.0-36.5); MEAN CORPUSCULAR VOLUME 92.2 fl (80.0-96.0); MONO % 10.9 % (2.0-8.0); NEUTROPHILS # 6.9 10^3/uL (1.5-8.5); NEUTROPHILS % 76.7 % (36.0-66.0); PLATELET COUNT, AUTOMATED 174 10^3/uL (150-450); RED BLOOD COUNT 3.33 10^6/uL (4.30-6.10)
[2022-04-01 07:18] LABS: PROTHROMBIN TIME 23.1 SECONDS (12.7-14.5)
[2022-04-01 07:22] LABS: CALCIUM LEVEL 8.8 MG/DL (8.8-10.2); CREATININE FOR GFR 3.44 MG/DL (0.70-1.30); GLOMERULAR FILTRATION RATE 18.2 (>35); POTASSIUM SERUM 4.1 MEQ/L (3.5-5.1)
[2022-04-01] MEDS: DOCUSATE SODIUM 100MG CAPSULE PO SCH ×2 (08:02→21:00)
[2022-04-01] MEDS: DIGOXIN 0.125 MG TAB PO SCH (08:03)
[2022-04-01] MEDS: PANTOPRAZOLE 40MG TAB (PROTONIX) PO SCH (08:03)
[2022-04-01] MEDS: FLUoxetine 10 MG CAP PO SCH (08:03)
[2022-04-01] MEDS: ACETAMINOPHEN 500 MG TAB PO SCH ×3 (08:03→21:00)
[2022-04-01] MEDS: SIMVASTATIN 10 MG TAB PO SCH (08:04)
[2022-04-01] MEDS: REMEDY PHYTOPLEX Z-GUARD PASTE 113GM TUBE (FROM STOREROOM PRODUCT) TOP SCH ×3 (08:06→21:00)
[2022-04-01 14:00] VITALS: BP 122/68
[2022-04-01] MEDS ORDERED: HOME MED LIST COMPLETE! XX SCH (14:15)
[2022-04-01] MEDS: WARFARIN SOD 7.5MG TAB PO SCH (17:32)
[2022-04-01 20:00] VITALS: BP 141/71
[2022-04-01] MEDS: SENNA 8.6 MG TAB (SENOKOT) PO SCH (21:00)
[2022-04-02] MEDS ORDERED: LIDOCAINE 1% SDV 5ML VIAL SC PRN (05:20)
[2022-04-02] MEDS ORDERED: SODIUM CHLORIDE 0.9% 1000ML IV PRN (05:20)
[2022-04-02 06:00] VITALS: BP 137/74
[2022-04-02 07:44] LABS: INR 2.91; PROTHROMBIN TIME 30.7 SECONDS (12.7-14.5)
[2022-04-02] MEDS: DOCUSATE SODIUM 100MG CAPSULE PO SCH ×2 (08:42→21:00)
[2022-04-02] MEDS: PANTOPRAZOLE 40MG TAB (PROTONIX) PO SCH (08:42)
[2022-04-02] MEDS: ACETAMINOPHEN 500 MG TAB PO SCH ×3 (08:43→21:00)
[2022-04-02] MEDS: FLUoxetine 10 MG CAP PO SCH (08:43)
[2022-04-02] MEDS: SIMVASTATIN 10 MG TAB PO SCH (08:43)
[2022-04-02] MEDS: REMEDY PHYTOPLEX Z-GUARD PASTE 113GM TUBE (FROM STOREROOM PRODUCT) TOP SCH ×3 (09:20→21:00)
[2022-04-02 16:30] VITALS: BP 151/71
[2022-04-02] MEDS ORDERED: WARFARIN SOD 1MG TAB PO SCH (17:00)
[2022-04-02 20:00] VITALS: BP 109/52
[2022-04-02] MEDS: SENNA 8.6 MG TAB (SENOKOT) PO SCH (21:00)
[2022-04-03 06:00] VITALS: BP 116/63
[2022-04-03 07:37] LABS: INR 3.16; PROTHROMBIN TIME 32.8 SECONDS (12.7-14.5)
[2022-04-03] MEDS: FLUoxetine 10 MG CAP PO SCH (09:10)
[2022-04-03] MEDS: DOCUSATE SODIUM 100MG CAPSULE PO SCH ×2 (09:10→20:34)
[2022-04-03] MEDS: DIGOXIN 0.125 MG TAB PO SCH (09:12)
[2022-04-03] MEDS: PANTOPRAZOLE 40MG TAB (PROTONIX) PO SCH (09:13)
[2022-04-03] MEDS: REMEDY PHYTOPLEX Z-GUARD PASTE 113GM TUBE (FROM STOREROOM PRODUCT) TOP SCH ×3 (09:14→20:35)
[2022-04-03] MEDS: SIMVASTATIN 10 MG TAB PO SCH (09:14)
[2022-04-03] MEDS: ACETAMINOPHEN 500 MG TAB PO SCH ×3 (09:14→20:34)
[2022-04-03 14:00] VITALS: BP 127/69
[2022-04-03 20:00] VITALS: BP 144/70
[2022-04-03] MEDS: SENNA 8.6 MG TAB (SENOKOT) PO SCH (20:34)
[2022-04-04 06:10] LABS: HEMATOCRIT 30.1 % (42.0-52.0); HEMOGLOBIN 9.5 g/dl (13.5-17.5); MEAN CORPUSCULAR HEMOGLOBIN 29.9 pg (27.0-33.0); MEAN CORPUSCULAR HGB CONC 31.6 g/dl (32.0-36.5); MEAN CORPUSCULAR VOLUME 94.7 fl (80.0-96.0); PLATELET COUNT, AUTOMATED 236 10^3/uL (150-450); RED BLOOD COUNT 3.18 10^6/uL (4.30-6.10)
[2022-04-04 06:40] LABS: INR 3.04; PROTHROMBIN TIME 31.8 SECONDS (12.7-14.5)
[2022-04-04 06:50] LABS: ALBUMIN 2.6 GM/DL (3.2-5.2); CREATININE FOR GFR 6.25 MG/DL (0.70-1.30); GLOMERULAR FILTRATION RATE 9.1 (>35); PHOSPHORUS LEVEL 3.2 MG/DL (2.5-4.9); POTASSIUM SERUM 4.5 MEQ/L (3.5-5.1)
[2022-04-04] MEDS ORDERED: LIDOCAINE 1% SDV 5ML VIAL SC PRN (08:40)
[2022-04-04] MEDS ORDERED: SODIUM CHLORIDE 0.9% 1000ML IV PRN (08:40)
[2022-04-04] MEDS: REMEDY PHYTOPLEX Z-GUARD PASTE 113GM TUBE (FROM STOREROOM PRODUCT) TOP SCH ×3 (09:00→20:09)
[2022-04-04] MEDS: PANTOPRAZOLE 40MG TAB (PROTONIX) PO SCH (09:12)
[2022-04-04] MEDS: FLUoxetine 10 MG CAP PO SCH (09:12)
[2022-04-04] MEDS: SIMVASTATIN 10 MG TAB PO SCH (09:12)
[2022-04-04] MEDS: DOCUSATE SODIUM 100MG CAPSULE PO SCH ×2 (09:12→20:08)
[2022-04-04] MEDS: ACETAMINOPHEN 500 MG TAB PO SCH ×3 (09:13→20:08)
[2022-04-04] MEDS: WARFARIN SOD 1MG TAB PO SCH (09:46)
[2022-04-04 14:00] VITALS: BP 112/56
[2022-04-04 19:36] VITALS: BP 148/70
[2022-04-04] MEDS: SENNA 8.6 MG TAB (SENOKOT) PO SCH (20:08)
[2022-04-05 06:00] VITALS: BP 140/74
[2022-04-05 07:11] LABS: INR 2.47; PROTHROMBIN TIME 27.1 SECONDS (12.7-14.5)
[2022-04-05] MEDS: DOCUSATE SODIUM 100MG CAPSULE PO SCH ×2 (08:07→20:25)
[2022-04-05] MEDS: DIGOXIN 0.125 MG TAB PO SCH (08:07)
[2022-04-05] MEDS: REMEDY PHYTOPLEX Z-GUARD PASTE 113GM TUBE (FROM STOREROOM PRODUCT) TOP SCH ×3 (08:08→20:25)
[2022-04-05] MEDS: PANTOPRAZOLE 40MG TAB (PROTONIX) PO SCH (08:08)
[2022-04-05] MEDS: FLUoxetine 10 MG CAP PO SCH (08:08)
[2022-04-05] MEDS: SIMVASTATIN 10 MG TAB PO SCH (08:08)
[2022-04-05] MEDS: ACETAMINOPHEN 500 MG TAB PO SCH ×3 (08:08→20:24)
[2022-04-05 14:00] VITALS: BP 128/61
[2022-04-05] MEDS: WARFARIN SOD 1MG TAB PO SCH (17:02)
[2022-04-05 20:05] VITALS: BP 137/81
[2022-04-05] MEDS: SENNA 8.6 MG TAB (SENOKOT) PO SCH (20:25)
[2022-04-06 06:25] VITALS: BP 163/70
[2022-04-06 07:58] LABS: INR 2.12; PROTHROMBIN TIME 24.1 SECONDS (12.7-14.5)
[2022-04-06] MEDS: DOCUSATE SODIUM 100MG CAPSULE PO SCH ×2 (08:02→19:20)
[2022-04-06] MEDS: FLUoxetine 10 MG CAP PO SCH (08:26)
[2022-04-06] MEDS: PANTOPRAZOLE 40MG TAB (PROTONIX) PO SCH (08:27)
[2022-04-06] MEDS: SIMVASTATIN 10 MG TAB PO SCH (08:27)
[2022-04-06] MEDS: ACETAMINOPHEN 500 MG TAB PO SCH ×3 (08:28→19:51)
[2022-04-06] MEDS: REMEDY PHYTOPLEX Z-GUARD PASTE 113GM TUBE (FROM STOREROOM PRODUCT) TOP SCH ×3 (08:28→19:21)
[2022-04-06 11:41] LABS: BASO # 0.1 10^3/uL (0.0-0.2); BASO % 0.8 % (0.0-1.0); EOS # 0.6 10^3/uL (0.0-0.5); EOS % 5.5 % (0.0-3.0); HEMATOCRIT 30.9 % (42.0-52.0); HEMOGLOBIN 9.7 g/dl (13.5-17.5); LYMPH # 2.1 10^3/uL (1.5-5.0); LYMPH % 19.8 % (24.0-44.0); MEAN CORPUSCULAR HEMOGLOBIN 29.9 pg (27.0-33.0); MEAN CORPUSCULAR HGB CONC 31.4 g/dl (32.0-36.5); MEAN CORPUSCULAR VOLUME 95.4 fl (80.0-96.0); MONO % 9.3 % (2.0-8.0); NEUTROPHILS # 6.6 10^3/uL (1.5-8.5); NEUTROPHILS % 63.8 % (36.0-66.0); PLATELET COUNT, AUTOMATED 244 10^3/uL (150-450); RED BLOOD COUNT 3.24 10^6/uL (4.30-6.10); WHITE BLOOD COUNT 10.4 10^3/uL (4.0-10.0)
[2022-04-06 12:27] LABS: CALCIUM LEVEL 8.9 MG/DL (8.8-10.2); CREATININE FOR GFR 6.49 MG/DL (0.70-1.30); GLOMERULAR FILTRATION RATE 8.8 (>35); POTASSIUM SERUM 4.8 MEQ/L (3.5-5.1)
[2022-04-06 14:00] VITALS: BP 118/57
[2022-04-06] MEDS ORDERED: WARFARIN SOD 3MG TAB PO SCH (17:00)
[2022-04-06] MEDS: SENNA 8.6 MG TAB (SENOKOT) PO SCH (19:21)
[2022-04-06 20:00] VITALS: BP 149/73
[2022-04-07 06:00] VITALS: BP 158/73
[2022-04-07] MEDS ORDERED: LIDOCAINE 1% SDV 5ML VIAL SC PRN (06:00)
[2022-04-07 06:12] LABS: INR 2.21; PROTHROMBIN TIME 24.9 SECONDS (12.7-14.5)
[2022-04-07] MEDS: PANTOPRAZOLE 40MG TAB (PROTONIX) PO SCH (07:28)
[2022-04-07] MEDS: DOCUSATE SODIUM 100MG CAPSULE PO SCH ×2 (07:28→19:26)
[2022-04-07] MEDS: SIMVASTATIN 10 MG TAB PO SCH (07:28)
[2022-04-07] MEDS: FLUoxetine 10 MG CAP PO SCH (07:29)
[2022-04-07] MEDS: ACETAMINOPHEN 500 MG TAB PO SCH ×3 (07:29→19:52)
[2022-04-07] MEDS: REMEDY PHYTOPLEX Z-GUARD PASTE 113GM TUBE (FROM STOREROOM PRODUCT) TOP SCH ×3 (07:29→19:52)
[2022-04-07] MEDS ORDERED: SODIUM CHLORIDE 0.9% 1000ML IV PRN (09:35)
[2022-04-07] MEDS: DARBEPOETIN 100 MCG/0.5 ML *DIALYSIS* SYRINGE (J0882) IV SCH (13:39)
[2022-04-07] MEDS: SENNA 8.6 MG TAB (SENOKOT) PO SCH (19:27)
[2022-04-07 20:00] VITALS: BP 129/55
[2022-04-08 05:30] VITALS: BP 118/71
[2022-04-08 06:59] LABS: BASO # 0.1 10^3/uL (0.0-0.2); BASO % 0.8 % (0.0-1.0); EOS # 0.5 10^3/uL (0.0-0.5); HEMATOCRIT 29.5 % (42.0-52.0); HEMOGLOBIN 9.4 g/dl (13.5-17.5); LYMPH # 1.5 10^3/uL (1.5-5.0); LYMPH % 16.3 % (24.0-44.0); MEAN CORPUSCULAR HEMOGLOBIN 30.1 pg (27.0-33.0); MEAN CORPUSCULAR HGB CONC 31.9 g/dl (32.0-36.5); MEAN CORPUSCULAR VOLUME 94.6 fl (80.0-96.0); MONO # 1.1 10^3/uL (0.0-0.8); MONO % 11.4 % (2.0-8.0); NEUTROPHILS # 6.2 10^3/uL (1.5-8.5); NEUTROPHILS % 65.4 % (36.0-66.0); PLATELET COUNT, AUTOMATED 238 10^3/uL (150-450); RED BLOOD COUNT 3.12 10^6/uL (4.30-6.10); WHITE BLOOD COUNT 9.4 10^3/uL (4.0-10.0)
[2022-04-08 07:10] LABS: INR 1.86; PROTHROMBIN TIME 21.9 SECONDS (12.7-14.5)
[2022-04-08 07:19] LABS: CREATININE FOR GFR 4.5 MG/DL (0.70-1.30); GLOMERULAR FILTRATION RATE 13.3 (>35); POTASSIUM SERUM 4.5 MEQ/L (3.5-5.1)
[2022-04-08] MEDS: SIMVASTATIN 10 MG TAB PO SCH (07:46)
[2022-04-08] MEDS: ACETAMINOPHEN 500 MG TAB PO SCH ×3 (07:47→22:00)
[2022-04-08] MEDS: DOCUSATE SODIUM 100MG CAPSULE PO SCH (07:47)
[2022-04-08] MEDS: FLUoxetine 10 MG CAP PO SCH (07:47)
[2022-04-08] MEDS: PANTOPRAZOLE 40MG TAB (PROTONIX) PO SCH (07:47)
[2022-04-08] MEDS: DIGOXIN 0.125 MG TAB PO SCH (07:49)
[2022-04-08] MEDS: REMEDY PHYTOPLEX Z-GUARD PASTE 113GM TUBE (FROM STOREROOM PRODUCT) TOP SCH ×3 (07:50→22:01)
[2022-04-08] MEDS ORDERED: LIDOCAINE 5% (LIDODERM) PATCH TD SCH (09:00)
[2022-04-08] MEDS ORDERED: APIXABAN 2.5 MG TAB (ELIQUIS) PO SCH (09:00)
[2022-04-08 13:49] VITALS: BP 109/57
[2022-04-08 19:47] VITALS: BP 131/65
[2022-04-08] MEDS: **NOTE PATIENT COMMENT** MISC XX SCH (21:00)
[2022-04-08] MEDS: APIXABAN 2.5 MG TAB (ELIQUIS) PO SCH (22:01)
[2022-04-09 06:12] VITALS: BP 137/65
[2022-04-09] MEDS: FLUoxetine 10 MG CAP PO SCH (07:25)
[2022-04-09] MEDS: SIMVASTATIN 10 MG TAB PO SCH (07:25)
[2022-04-09] MEDS: PANTOPRAZOLE 40MG TAB (PROTONIX) PO SCH (07:25)
[2022-04-09] MEDS: APIXABAN 2.5 MG TAB (ELIQUIS) PO SCH ×2 (07:26→20:00)
[2022-04-09] MEDS: ACETAMINOPHEN 500 MG TAB PO SCH ×3 (07:26→20:00)
[2022-04-09] MEDS: LIDOCAINE 5% (LIDODERM) PATCH TD SCH (07:27)
[2022-04-09] MEDS: REMEDY PHYTOPLEX Z-GUARD PASTE 113GM TUBE (FROM STOREROOM PRODUCT) TOP SCH ×3 (07:27→20:01)
[2022-04-09] MEDS ORDERED: APIXABAN 2.5 MG TAB (ELIQUIS) PO SCH (09:00)
[2022-04-09 09:17] LABS: INR 1.74; PROTHROMBIN TIME 20.8 SECONDS (12.7-14.5)
[2022-04-09] MEDS ORDERED: SODIUM CHLORIDE 0.9% 1000ML IV PRN (11:50)
[2022-04-09] MEDS ORDERED: LIDOCAINE 1% SDV 5ML VIAL SC PRN (11:50)
[2022-04-09 14:00] VITALS: BP 99/49
[2022-04-09 15:00] VITALS: BP 155/71
[2022-04-09 19:50] VITALS: BP 108/55
[2022-04-09] MEDS: **NOTE PATIENT COMMENT** MISC XX SCH (20:01)
[2022-04-10 05:13] VITALS: BP 148/68
[2022-04-10 07:29] LABS: BASO # 0.1 10^3/uL (0.0-0.2); EOS # 0.3 10^3/uL (0.0-0.5); EOS % 3.1 % (0.0-3.0); HEMOGLOBIN 9.5 g/dl (13.5-17.5); LYMPH # 1.5 10^3/uL (1.5-5.0); LYMPH % 14.2 % (24.0-44.0); MEAN CORPUSCULAR HEMOGLOBIN 28.8 pg (27.0-33.0); MEAN CORPUSCULAR HGB CONC 30.6 g/dl (32.0-36.5); MEAN CORPUSCULAR VOLUME 93.9 fl (80.0-96.0); MONO % 9.6 % (2.0-8.0); NEUTROPHILS # 7.3 10^3/uL (1.5-8.5); NEUTROPHILS % 71.3 % (36.0-66.0); PLATELET COUNT, AUTOMATED 270 10^3/uL (150-450); WHITE BLOOD COUNT 10.3 10^3/uL (4.0-10.0)
[2022-04-10 07:35] LABS: INR 1.51; PROTHROMBIN TIME 18.6 SECONDS (12.7-14.5)
[2022-04-10 08:14] LABS: CALCIUM LEVEL 9.3 MG/DL (8.8-10.2); CREATININE FOR GFR 4.12 MG/DL (0.70-1.30); GLOMERULAR FILTRATION RATE 14.8 (>35); POTASSIUM SERUM 4.1 MEQ/L (3.5-5.1)
[2022-04-10] MEDS: REMEDY PHYTOPLEX Z-GUARD PASTE 113GM TUBE (FROM STOREROOM PRODUCT) TOP SCH ×3 (09:00→20:01)
[2022-04-10] MEDS: SIMVASTATIN 10 MG TAB PO SCH (09:44)
[2022-04-10] MEDS: PANTOPRAZOLE 40MG TAB (PROTONIX) PO SCH (09:44)
[2022-04-10] MEDS: ACETAMINOPHEN 500 MG TAB PO SCH ×3 (09:44→20:01)
[2022-04-10] MEDS: APIXABAN 2.5 MG TAB (ELIQUIS) PO SCH ×2 (09:44→20:01)
[2022-04-10] MEDS: FLUoxetine 10 MG CAP PO SCH (09:44)
[2022-04-10] MEDS: LIDOCAINE 5% (LIDODERM) PATCH TD SCH (09:45)
[2022-04-10] MEDS: DIGOXIN 0.125 MG TAB PO SCH (11:45)
[2022-04-10 14:00] VITALS: BP 151/83
[2022-04-10 20:00] VITALS: BP 143/66
[2022-04-10] MEDS: **NOTE PATIENT COMMENT** MISC XX SCH (20:01)
[2022-04-11] MEDS ORDERED: LIDOCAINE 1% SDV 5ML VIAL SC PRN (05:45)
[2022-04-11] MEDS ORDERED: SODIUM CHLORIDE 0.9% 1000ML IV PRN (05:45)
[2022-04-11 06:00] VITALS: BP 158/70
[2022-04-11] MEDS: PANTOPRAZOLE 40MG TAB (PROTONIX) PO SCH (07:55)
[2022-04-11] MEDS: APIXABAN 2.5 MG TAB (ELIQUIS) PO SCH ×2 (07:55→19:28)
[2022-04-11] MEDS: FLUoxetine 10 MG CAP PO SCH (07:56)
[2022-04-11] MEDS: SIMVASTATIN 10 MG TAB PO SCH (07:56)
[2022-04-11] MEDS: ACETAMINOPHEN 500 MG TAB PO SCH ×3 (07:56→19:28)
[2022-04-11] MEDS: LIDOCAINE 5% (LIDODERM) PATCH TD SCH (07:57)
[2022-04-11] MEDS: REMEDY PHYTOPLEX Z-GUARD PASTE 113GM TUBE (FROM STOREROOM PRODUCT) TOP SCH ×3 (09:00→19:26)
[2022-04-11 14:00] VITALS: BP 121/56
[2022-04-11] MEDS: **NOTE PATIENT COMMENT** MISC XX SCH (19:28)
[2022-04-11 20:00] VITALS: BP 132/68
[2022-04-12 06:00] VITALS: BP 146/68
[2022-04-12] MEDS: DIGOXIN 0.125 MG TAB PO SCH (07:48)
[2022-04-12] MEDS: APIXABAN 2.5 MG TAB (ELIQUIS) PO SCH ×2 (07:48→20:03)
[2022-04-12] MEDS: ACETAMINOPHEN 500 MG TAB PO SCH ×3 (07:49→20:03)
[2022-04-12] MEDS: FLUoxetine 10 MG CAP PO SCH (07:49)
[2022-04-12] MEDS: PANTOPRAZOLE 40MG TAB (PROTONIX) PO SCH (07:49)
[2022-04-12] MEDS: SIMVASTATIN 10 MG TAB PO SCH (07:49)
[2022-04-12] MEDS: LIDOCAINE 5% (LIDODERM) PATCH TD SCH (07:50)
[2022-04-12] MEDS: REMEDY PHYTOPLEX Z-GUARD PASTE 113GM TUBE (FROM STOREROOM PRODUCT) TOP SCH ×3 (07:50→20:03)
[2022-04-12 14:00] VITALS: BP 97/53
[2022-04-12 20:00] VITALS: BP 151/67
[2022-04-12] MEDS: **NOTE PATIENT COMMENT** MISC XX SCH (20:03)
[2022-04-13 06:00] VITALS: BP 141/63
[2022-04-13 07:06] LABS: BASO % 0.2 % (0.0-1.0); EOS # 0.3 10^3/uL (0.0-0.5); EOS % 1.5 % (0.0-3.0); HEMATOCRIT 29.7 % (42.0-52.0); HEMOGLOBIN 9.3 g/dl (13.5-17.5); LYMPH # 1.4 10^3/uL (1.5-5.0); LYMPH % 7.4 % (24.0-44.0); MEAN CORPUSCULAR HEMOGLOBIN 30.2 pg (27.0-33.0); MEAN CORPUSCULAR HGB CONC 31.3 g/dl (32.0-36.5); MEAN CORPUSCULAR VOLUME 96.4 fl (80.0-96.0); MONO # 1.1 10^3/uL (0.0-0.8); MONO % 5.9 % (2.0-8.0); NEUTROPHILS # 16.3 10^3/uL (1.5-8.5); NEUTROPHILS % 84.4 % (36.0-66.0); PLATELET COUNT, AUTOMATED 284 10^3/uL (150-450); RED BLOOD COUNT 3.08 10^6/uL (4.30-6.10); WHITE BLOOD COUNT 19.3 10^3/uL (4.0-10.0)
[2022-04-13 07:28] LABS: CALCIUM LEVEL 9.3 MG/DL (8.8-10.2); CREATININE FOR GFR 6.59 MG/DL (0.70-1.30); GLOMERULAR FILTRATION RATE 8.6 (>35); POTASSIUM SERUM 5.3 MEQ/L (3.5-5.1)
[2022-04-13] MEDS: PANTOPRAZOLE 40MG TAB (PROTONIX) PO SCH (07:59)
[2022-04-13] MEDS: APIXABAN 2.5 MG TAB (ELIQUIS) PO SCH (07:59)
[2022-04-13] MEDS: SIMVASTATIN 10 MG TAB PO SCH (07:59)
[2022-04-13] MEDS: FLUoxetine 10 MG CAP PO SCH (07:59)
[2022-04-13] MEDS: ACETAMINOPHEN 500 MG TAB PO SCH (08:01)
[2022-04-13] MEDS: LIDOCAINE 5% (LIDODERM) PATCH TD SCH (08:02)
[2022-04-13] MEDS: REMEDY PHYTOPLEX Z-GUARD PASTE 113GM TUBE (FROM STOREROOM PRODUCT) TOP SCH (08:02)
[2022-04-13] MEDS: GASTROGRAFIN SOLUTION 30ML PO SCH ×2 (10:45→11:07)
[2022-04-13] MEDS ORDERED: ISOVUE-370 76% 100ML VIAL As Ordered ONE (11:45)
[2022-04-13] MEDS ORDERED: PIPERACILLIN/TAZOBACTAM SOD 2.25 GM in D5W MINI-BAG PLUS 50 ML IV SCH (13:00)
[2022-04-13] MEDS ORDERED: NS 1,000 ML IV SCH (14:15)
[2022-04-13 15:54] LABS: INR 1.62; PROTHROMBIN TIME 19.6 SECONDS (12.7-14.5)
[2022-04-13] MEDS ORDERED: fentaNYL 100 MCG/2 ML INJECTION As Ordered ONE ×2 (16:05→17:23)
[2022-04-13] MEDS ORDERED: ONDANSETRON 4MG 2ML VIAL As Ordered ONE (16:05)
[2022-04-13] MEDS ORDERED: propofoL 200 MG/20 ML VIAL As Ordered ONE (16:05)
[2022-04-13] MEDS ORDERED: ROCURONIUM BROMIDE 50 MG/5 ML VIAL As Ordered ONE ×2 (16:05→18:16)
[2022-04-13] MEDS ORDERED: LIDOCAINE 2% INJ 100 MG/5 ML SYRINGE As Ordered ONE (16:05)
[2022-04-13] MEDS ORDERED: dexameTHASONE 4 MG/ML 1ML VIAL (J1100 PER 1MG) As Ordered ONE (16:06)
[2022-04-13] MEDS ORDERED: SUCCINYLCHOLINE 100 MG/5 ML SYRINGE (J0330) As Ordered ONE (17:08)
[2022-04-13] MEDS ORDERED: PHENYLEPHRINE 10MG/ML 1ML VIAL (J2370 PER 1) As Ordered ONE (17:09)
[2022-04-13] MEDS ORDERED: VASOPRESSIN INJ 20 UNITS/ML VIAL As Ordered ONE (17:16)
[2022-04-13] MEDS ORDERED: ACETAMINOPHEN 1000MG 100ML IV BTL (OFIRMEV) (J0131 PER 10MG) As Ordered ONE (17:19)
[2022-04-13] MEDS ORDERED: SUGAMMADEX SODIUM 500 MG/5 ML VIAL (BRIDION) As Ordered ONE (17:54)
[2022-04-13] MEDS ORDERED: ePHEDrine SULFATE 25 MG/5 ML(5MG/ML) SYRINGE As Ordered ONE (18:51)
[2022-04-13] MEDS ORDERED: PHENYLephrine 500MCG 5ML (100MCG/ML) SYRINGE As Ordered ONE (18:51)
== END 2022-04-13 15:40 | disposition short-term general hospital (02) | DRG 559 ==
LOC: M PM&R 20:30 → M PCU 04-13 15:06 → M PM&R 04-13 15:06
PROVIDERS: ADMIT Physical Medicine & Rehabilitation; ATTEND Physical Medicine & Rehabilitation
PROC: 5A1D70Z Performance of Urinary Filtration, Intermittent, Less than 6 Hours Per Day (ICD-10-PCS; principal; 2022-03-31)
DX: S72.012D Unspecified intracapsular fracture of left femur, subsequent encounter for closed fracture with routine healing (principal); N18.6 End stage renal disease; K63.1 Perforation of intestine (nontraumatic); K57.00 Diverticulitis of small intestine with perforation and abscess without bleeding; I13.2 Hypertensive heart and chronic kidney disease with heart failure and with stage 5 chronic kidney disease, or end stage renal disease; I48.20 Chronic atrial fibrillation, unspecified; L02.31 Cutaneous abscess of buttock; D64.9 Anemia, unspecified; M19.90 Unspecified osteoarthritis, unspecified site; D69.6 Thrombocytopenia, unspecified; M47.812 Spondylosis without myelopathy or radiculopathy, cervical region; D72.829 Elevated white blood cell count, unspecified; E78.5 Hyperlipidemia, unspecified; E87.5 Hyperkalemia; F03.90 Unspecified dementia, unspecified severity, without behavioral disturbance, psychotic disturbance, mood disturbance, and anxiety; I50.9 Heart failure, unspecified; Z99.2 Dependence on renal dialysis; Z74.09 Other reduced mobility; Z96.642 Presence of left artificial hip joint; Z74.1 Need for assistance with personal care; Z96.651 Presence of right artificial knee joint; Z90.49 Acquired absence of other specified parts of digestive tract; Z79.01 Long term (current) use of anticoagulants; Z79.899 Other long term (current) drug therapy

== ENCOUNTER 2022-04-13 15:01 | Inpatient (IN) | payer MEDICARE, OTHER ==
[2022-04-13] VITALS (7 sets, daily range): BP systolic 113–187; BP diastolic 63–90
[~2022-04-13] VITALS: Ht 167.6 cm; Wt 60.7 kg
[2022-04-13] MEDS ORDERED: PIPERACILLIN/TAZOBACTAM SOD 3.375 GM in D5W MINI-BAG PLUS 50 ML IV SCH (15:35)
[2022-04-13] MEDS ORDERED: ACETAMINOPHEN TAB 650MG DOSE (2X325MG) PO PRN (15:35)
[2022-04-13] MEDS ORDERED: NS 1,000 ML IV SCH (15:35)
[2022-04-13] MEDS ORDERED: MORPHINE 2 MG/ML 1ML VIAL IV PRN ×2 (15:40→19:00)
[2022-04-13] MEDS ORDERED: MAALOX 30 ML SUSP *UDC PO PRN (16:05)
[2022-04-13] MEDS ORDERED: MOM 30ML SUSPENSION UDC PO PRN (16:05)
[2022-04-13] MEDS ORDERED: BUPIVACAINE HCL 0.25% 30ML VIAL As Ordered ONE (16:08)
[2022-04-13] MEDS ORDERED: PANTOPRAZOLE 40MG VIAL IV SCH (18:00)
[2022-04-13] MEDS ORDERED: ONDANSETRON 4MG 2ML VIAL IV PRN (19:00)
[2022-04-13] MEDS: LR 1,000 ML IV SCH ×2 (19:00→20:27)
[2022-04-13] MEDS ORDERED: fentaNYL 100 MCG/2 ML INJECTION IV PRN (19:00)
[2022-04-13] MEDS ORDERED: oxyCODONE 5MG TAB PO PRN (19:00)
[2022-04-13] MEDS ORDERED: traMADol 50 MG TAB PO PRN (21:00)
[2022-04-13] MEDS ORDERED: PIPERACILLIN/TAZOBACTAM SOD 2.25 GM in D5W MINI-BAG PLUS 50 ML IV SCH (21:00)
[2022-04-14] VITALS (8 sets, daily range): BP systolic 107–190; BP diastolic 55–98
[2022-04-14] MEDS ORDERED: LIDOCAINE 1% SDV 5ML VIAL SC PRN (01:05)
[2022-04-14] MEDS ORDERED: SODIUM CHLORIDE 0.9% 1000ML IV PRN (01:05)
[2022-04-14] MEDS ORDERED: cloNIDine 0.1MG TABLET PO ONE (01:15)
[2022-04-14] MEDS: PIPERACILLIN/TAZOBACTAM SOD 2.25 GM in D5W MINI-BAG PLUS 50 ML IV SCH ×3 (01:47→21:01)
[2022-04-14 07:10] LABS: BASO # 0.1 10^3/uL (0.0-0.2); BASO % 0.2 % (0.0-1.0); HEMATOCRIT 28.2 % (42.0-52.0); HEMOGLOBIN 8.8 g/dl (13.5-17.5); LYMPH # 0.6 10^3/uL (1.5-5.0); MEAN CORPUSCULAR HEMOGLOBIN 29.8 pg (27.0-33.0); MEAN CORPUSCULAR HGB CONC 31.2 g/dl (32.0-36.5); MEAN CORPUSCULAR VOLUME 95.6 fl (80.0-96.0); MONO # 0.8 10^3/uL (0.0-0.8); MONO % 2.8 % (2.0-8.0); NEUTROPHILS # 27.7 10^3/uL (1.5-8.5); NEUTROPHILS % 94.3 % (36.0-66.0); PLATELET COUNT, AUTOMATED 291 10^3/uL (150-450); RED BLOOD COUNT 2.95 10^6/uL (4.30-6.10); WHITE BLOOD COUNT 29.4 10^3/uL (4.0-10.0)
[2022-04-14 07:28] LABS: CALCIUM LEVEL 8.8 MG/DL (8.8-10.2); CREATININE FOR GFR 7.36 MG/DL (0.70-1.30); GLOMERULAR FILTRATION RATE 7.6 (>35); MAGNESIUM LEVEL 1.9 MG/DL (1.8-2.4); POTASSIUM SERUM 6.3 MEQ/L (3.5-5.1)
[2022-04-14] MEDS: MORPHINE 2 MG/ML 1ML VIAL IV PRN ×2 (08:00→13:29)
[2022-04-14] MEDS ORDERED: HOME MED LIST COMPLETE! XX SCH (08:05)
[2022-04-14] MEDS: DARBEPOETIN 100 MCG/0.5 ML *DIALYSIS* SYRINGE (J0882) IV SCH (10:40)
[2022-04-14] MEDS ORDERED: LIDOCAINE 1% MDV 20ML VIAL As Ordered ONE (13:28)
[2022-04-14 17:17] LABS: ALBUMIN 2.3 GM/DL (3.2-5.2); BILIRUBIN,TOTAL 0.5 MG/DL (0.2-1.0); CREATININE FOR GFR 3.36 MG/DL (0.70-1.30); GLOMERULAR FILTRATION RATE 18.7 (>35); POTASSIUM SERUM 4.1 MEQ/L (3.5-5.1); TOTAL PROTEIN 6.1 GM/DL (6.4-8.2)
[2022-04-14] MEDS ORDERED: INSULIN LISPRO (NovoLOG) PER UNIT SC SCH ×2 (17:30→21:00)
[2022-04-14 17:36] LABS: DIGOXIN LEVEL 1.2 NG/ML (0.5-2.0)
[2022-04-14] MEDS ORDERED: DEXTROSE 50% 50 ML SYRINGE IV PRN (17:45)
[2022-04-14] MEDS ORDERED: GLUCAGON INJ 1MG VIAL SC PRN (17:45)
[2022-04-14] MEDS ORDERED: GLUCOSE 4GM CHEW TABLET PO PRN (17:45)
[2022-04-15 04:00] VITALS: BP 115/55
[2022-04-15] MEDS: PIPERACILLIN/TAZOBACTAM SOD 2.25 GM in D5W MINI-BAG PLUS 50 ML IV SCH ×3 (05:32→22:24)
[2022-04-15 06:27] LABS: BASO # 0.1 10^3/uL (0.0-0.2); BASO % 0.8 % (0.0-1.0); EOS # 0.2 10^3/uL (0.0-0.5); EOS % 1.8 % (0.0-3.0); HEMATOCRIT 25.8 % (42.0-52.0); HEMOGLOBIN 8.1 g/dl (13.5-17.5); LYMPH # 0.9 10^3/uL (1.5-5.0); LYMPH % 7.3 % (24.0-44.0); MEAN CORPUSCULAR HEMOGLOBIN 29.8 pg (27.0-33.0); MEAN CORPUSCULAR HGB CONC 31.4 g/dl (32.0-36.5); MEAN CORPUSCULAR VOLUME 94.9 fl (80.0-96.0); MONO # 1.3 10^3/uL (0.0-0.8); MONO % 9.9 % (2.0-8.0); NEUTROPHILS # 10.2 10^3/uL (1.5-8.5); NEUTROPHILS % 79.8 % (36.0-66.0); PLATELET COUNT, AUTOMATED 273 10^3/uL (150-450); RED BLOOD COUNT 2.72 10^6/uL (4.30-6.10); WHITE BLOOD COUNT 12.8 10^3/uL (4.0-10.0)
[2022-04-15 07:03] LABS: CALCIUM LEVEL 8.6 MG/DL (8.8-10.2); CREATININE FOR GFR 4.3 MG/DL (0.70-1.30); POTASSIUM SERUM 4.3 MEQ/L (3.5-5.1)
[2022-04-15 08:00] VITALS: BP 127/61
[2022-04-15] MEDS: OMEPRAZOLE 20MG CAP PO SCH (08:13)
[2022-04-15] MEDS: DIGOXIN 0.125 MG TAB PO SCH (08:13)
[2022-04-15] MEDS: SIMVASTATIN 10 MG TAB PO SCH (08:13)
[2022-04-15 09:10] VITALS: BP 114/59
[2022-04-15 12:00] VITALS: BP 121/60
[2022-04-15] MEDS: ACETAMINOPHEN 500 MG TAB PO PRN (14:52)
[2022-04-15 16:00] VITALS: BP 113/56
[2022-04-15 18:03] LABS: HEMATOCRIT 25.2 % (42.0-52.0); HEMOGLOBIN 7.7 g/dl (13.5-17.5)
[2022-04-15 20:00] VITALS: BP 157/70
[2022-04-16] VITALS: BP 140/66
[2022-04-16 04:00] VITALS: BP 121/60
[2022-04-16] MEDS: PIPERACILLIN/TAZOBACTAM SOD 2.25 GM in D5W MINI-BAG PLUS 50 ML IV SCH ×3 (04:59→21:00)
[2022-04-16 06:21] LABS: BASO # 0.1 10^3/uL (0.0-0.2); BASO % 0.6 % (0.0-1.0); EOS # 0.4 10^3/uL (0.0-0.5); EOS % 2.7 % (0.0-3.0); HEMATOCRIT 26.4 % (42.0-52.0); HEMOGLOBIN 8.1 g/dl (13.5-17.5); LYMPH % 6.1 % (24.0-44.0); MEAN CORPUSCULAR HEMOGLOBIN 29.2 pg (27.0-33.0); MEAN CORPUSCULAR HGB CONC 30.7 g/dl (32.0-36.5); MEAN CORPUSCULAR VOLUME 95.3 fl (80.0-96.0); MONO # 1.2 10^3/uL (0.0-0.8); MONO % 7.1 % (2.0-8.0); NEUTROPHILS # 13.5 10^3/uL (1.5-8.5); PLATELET COUNT, AUTOMATED 272 10^3/uL (150-450); RED BLOOD COUNT 2.77 10^6/uL (4.30-6.10); WHITE BLOOD COUNT 16.3 10^3/uL (4.0-10.0)
[2022-04-16 06:49] LABS: CALCIUM LEVEL 8.7 MG/DL (8.8-10.2); CREATININE FOR GFR 5.86 MG/DL (0.70-1.30); GLOMERULAR FILTRATION RATE 9.8 (>35); MAGNESIUM LEVEL 2.1 MG/DL (1.8-2.4); POTASSIUM SERUM 4.4 MEQ/L (3.5-5.1)
[2022-04-16] MEDS ORDERED: LIDOCAINE 1% SDV 5ML VIAL SC PRN (06:50)
[2022-04-16] MEDS ORDERED: SODIUM CHLORIDE 0.9% 1000ML IV PRN (06:50)
[2022-04-16 08:00] VITALS: BP 116/56
[2022-04-16] MEDS: HEPARIN SOD (PORCINE) 5000UNITS/ML 1ML VIAL/SYRINGE SQ SCH ×2 (09:07→21:00)
[2022-04-16 10:25] LABS: ABG BASE EXCESS -1.8 (-2.0-2.0); ABG HCO3 23.6 MEQ/L (22.0-26.0); ABG PARTIAL PRESSURE O2 73.5 mmHg (75.0-100.0); ABG STANDARD HCO3 22.9 MEQ/L (22.0-26.0); ABG TOTAL CO2 24.9 MEQ/L (23.0-31.0); ABG pH (ARTERIAL) 7.357 UNITS (7.350-7.450)
[2022-04-16] MEDS: SIMVASTATIN 10 MG TAB PO SCH (10:47)
[2022-04-16 11:58] VITALS: BP 122/57
[2022-04-16 12:12] LABS: HEMATOCRIT 26.2 % (42.0-52.0); HEMOGLOBIN 8.1 g/dl (13.5-17.5)
[2022-04-16 15:52] LABS: BASO # 0.1 10^3/uL (0.0-0.2); BASO % 0.5 % (0.0-1.0); EOS # 0.4 10^3/uL (0.0-0.5); EOS % 2.5 % (0.0-3.0); HEMATOCRIT 28.4 % (42.0-52.0); HEMOGLOBIN 8.7 g/dl (13.5-17.5); LYMPH # 1.1 10^3/uL (1.5-5.0); LYMPH % 6.9 % (24.0-44.0); MEAN CORPUSCULAR HEMOGLOBIN 29.6 pg (27.0-33.0); MEAN CORPUSCULAR HGB CONC 30.6 g/dl (32.0-36.5); MEAN CORPUSCULAR VOLUME 96.6 fl (80.0-96.0); MONO # 1.1 10^3/uL (0.0-0.8); MONO % 6.9 % (2.0-8.0); NEUTROPHILS # 12.8 10^3/uL (1.5-8.5); NEUTROPHILS % 82.7 % (36.0-66.0); PLATELET COUNT, AUTOMATED 316 10^3/uL (150-450); RED BLOOD COUNT 2.94 10^6/uL (4.30-6.10); WHITE BLOOD COUNT 15.4 10^3/uL (4.0-10.0)
[2022-04-16 15:54] VITALS: BP 147/67
[2022-04-16 16:25] LABS: ALBUMIN 2.3 GM/DL (3.2-5.2); BILIRUBIN,TOTAL 0.3 MG/DL (0.2-1.0); CALCIUM LEVEL 9.9 MG/DL (8.8-10.2); CREATININE FOR GFR 2.63 MG/DL (0.70-1.30); GLOMERULAR FILTRATION RATE 24.8 (>35); POTASSIUM SERUM 4.1 MEQ/L (3.5-5.1)
[2022-04-16 20:00] VITALS: BP 125/70
[2022-04-17] VITALS: BP 138/68
[2022-04-17 04:00] VITALS: BP 140/66
[2022-04-17] MEDS: PIPERACILLIN/TAZOBACTAM SOD 2.25 GM in D5W MINI-BAG PLUS 50 ML IV SCH ×3 (04:28→21:17)
[2022-04-17 06:42] LABS: BASO # 0.1 10^3/uL (0.0-0.2); BASO % 0.7 % (0.0-1.0); EOS # 0.5 10^3/uL (0.0-0.5); EOS % 4.8 % (0.0-3.0); HEMATOCRIT 26.4 % (42.0-52.0); LYMPH # 1.1 10^3/uL (1.5-5.0); LYMPH % 11.5 % (24.0-44.0); MEAN CORPUSCULAR HEMOGLOBIN 29.5 pg (27.0-33.0); MEAN CORPUSCULAR HGB CONC 30.3 g/dl (32.0-36.5); MEAN CORPUSCULAR VOLUME 97.4 fl (80.0-96.0); MONO # 0.8 10^3/uL (0.0-0.8); MONO % 8.6 % (2.0-8.0); NEUTROPHILS # 7.2 10^3/uL (1.5-8.5); NEUTROPHILS % 73.9 % (36.0-66.0); PLATELET COUNT, AUTOMATED 310 10^3/uL (150-450); RED BLOOD COUNT 2.71 10^6/uL (4.30-6.10); WHITE BLOOD COUNT 9.8 10^3/uL (4.0-10.0)
[2022-04-17 07:08] LABS: CALCIUM LEVEL 9.1 MG/DL (8.8-10.2); CREATININE FOR GFR 4.4 MG/DL (0.70-1.30); GLOMERULAR FILTRATION RATE 13.7 (>35); POTASSIUM SERUM 3.8 MEQ/L (3.5-5.1)
[2022-04-17 08:08] VITALS: BP 144/63
[2022-04-17] MEDS: SIMVASTATIN 10 MG TAB PO SCH (09:51)
[2022-04-17] MEDS: OMEPRAZOLE 20MG CAP PO SCH (09:51)
[2022-04-17] MEDS: DIGOXIN 0.125 MG TAB PO SCH (09:52)
[2022-04-17 13:38] LABS: HEMATOCRIT 27.4 % (42.0-52.0); HEMOGLOBIN 8.3 g/dl (13.5-17.5)
[2022-04-17 20:00] VITALS: BP 136/66
[2022-04-18] VITALS (12 sets, daily range): BP systolic 110–161; BP diastolic 58–85
[2022-04-18] MEDS: PIPERACILLIN/TAZOBACTAM SOD 2.25 GM in D5W MINI-BAG PLUS 50 ML IV SCH ×3 (04:47→21:06)
[2022-04-18] MEDS ORDERED: LIDOCAINE 1% SDV 5ML VIAL SC PRN (06:00)
[2022-04-18] MEDS ORDERED: SODIUM CHLORIDE 0.9% 1000ML IV PRN (06:00)
[2022-04-18] MEDS: SIMVASTATIN 10 MG TAB PO SCH (06:37)
[2022-04-18 07:12] LABS: BASO # 0.1 10^3/uL (0.0-0.2); BASO % 0.8 % (0.0-1.0); EOS # 0.6 10^3/uL (0.0-0.5); EOS % 5.6 % (0.0-3.0); HEMATOCRIT 25.1 % (42.0-52.0); HEMOGLOBIN 7.6 g/dl (13.5-17.5); LYMPH # 1.2 10^3/uL (1.5-5.0); LYMPH % 10.6 % (24.0-44.0); MEAN CORPUSCULAR HEMOGLOBIN 29.5 pg (27.0-33.0); MEAN CORPUSCULAR HGB CONC 30.3 g/dl (32.0-36.5); MEAN CORPUSCULAR VOLUME 97.3 fl (80.0-96.0); MONO # 1.1 10^3/uL (0.0-0.8); MONO % 9.7 % (2.0-8.0); NEUTROPHILS % 72.6 % (36.0-66.0); PLATELET COUNT, AUTOMATED 325 10^3/uL (150-450); RED BLOOD COUNT 2.58 10^6/uL (4.30-6.10)
[2022-04-18 07:40] LABS: CALCIUM LEVEL 8.9 MG/DL (8.8-10.2); CREATININE FOR GFR 5.93 MG/DL (0.70-1.30); GLOMERULAR FILTRATION RATE 9.7 (>35); POTASSIUM SERUM 4.3 MEQ/L (3.5-5.1)
[2022-04-18] MEDS: NS 1,000 ML IV SCH (12:55)
[2022-04-19] VITALS: BP 173/79
[2022-04-19 04:00] VITALS: BP 144/68
[2022-04-19] MEDS: PIPERACILLIN/TAZOBACTAM SOD 2.25 GM in D5W MINI-BAG PLUS 50 ML IV SCH ×3 (04:06→22:25)
[2022-04-19 07:27] LABS: BASO # 0.1 10^3/uL (0.0-0.2); BASO % 0.8 % (0.0-1.0); EOS # 0.4 10^3/uL (0.0-0.5); EOS % 4.3 % (0.0-3.0); HEMATOCRIT 33.5 % (42.0-52.0); LYMPH # 1.2 10^3/uL (1.5-5.0); LYMPH % 12.1 % (24.0-44.0); MEAN CORPUSCULAR HEMOGLOBIN 28.9 pg (27.0-33.0); MEAN CORPUSCULAR HGB CONC 30.7 g/dl (32.0-36.5); MEAN CORPUSCULAR VOLUME 94.1 fl (80.0-96.0); MONO # 1.1 10^3/uL (0.0-0.8); MONO % 11.3 % (2.0-8.0); NEUTROPHILS # 6.8 10^3/uL (1.5-8.5); PLATELET COUNT, AUTOMATED 311 10^3/uL (150-450); RED BLOOD COUNT 3.56 10^6/uL (4.30-6.10); WHITE BLOOD COUNT 9.6 10^3/uL (4.0-10.0)
[2022-04-19 07:30] LABS: HEMOGLOBIN 10.3 g/dl (13.5-17.5)
[2022-04-19 07:32] VITALS: BP 163/72
[2022-04-19 08:00] LABS: CALCIUM LEVEL 8.9 MG/DL (8.8-10.2); CREATININE FOR GFR 3.86 MG/DL (0.70-1.30); GLOMERULAR FILTRATION RATE 15.9 (>35); MAGNESIUM LEVEL 1.9 MG/DL (1.8-2.4); POTASSIUM SERUM 3.7 MEQ/L (3.5-5.1)
[2022-04-19] MEDS: DIGOXIN 0.125 MG TAB PO SCH (10:18)
[2022-04-19] MEDS: OMEPRAZOLE 20MG CAP PO SCH (10:18)
[2022-04-19] MEDS: SIMVASTATIN 10 MG TAB PO SCH (10:18)
[2022-04-19 11:39] VITALS: BP 158/74
[2022-04-19] MEDS: NS 1,000 ML IV SCH (12:55)
[2022-04-19 15:59] VITALS: BP 172/81
[2022-04-19 20:00] VITALS: BP_SYST 158; BP_SYST 171; BP_DIAS 84; BP_DIAS 90
[2022-04-20 04:00] VITALS: BP 154/80
[2022-04-20 06:24] LABS: BASO # 0.1 10^3/uL (0.0-0.2); BASO % 0.7 % (0.0-1.0); EOS # 0.5 10^3/uL (0.0-0.5); EOS % 4.6 % (0.0-3.0); HEMATOCRIT 33.4 % (42.0-52.0); HEMOGLOBIN 10.5 g/dl (13.5-17.5); LYMPH # 1.6 10^3/uL (1.5-5.0); LYMPH % 15.8 % (24.0-44.0); MEAN CORPUSCULAR HEMOGLOBIN 29.5 pg (27.0-33.0); MEAN CORPUSCULAR HGB CONC 31.4 g/dl (32.0-36.5); MEAN CORPUSCULAR VOLUME 93.8 fl (80.0-96.0); MONO # 1.3 10^3/uL (0.0-0.8); MONO % 12.7 % (2.0-8.0); NEUTROPHILS # 6.5 10^3/uL (1.5-8.5); NEUTROPHILS % 65.5 % (36.0-66.0); PLATELET COUNT, AUTOMATED 309 10^3/uL (150-450); RED BLOOD COUNT 3.56 10^6/uL (4.30-6.10)
[2022-04-20 07:07] LABS: CALCIUM LEVEL 9.1 MG/DL (8.8-10.2); CREATININE FOR GFR 5.54 MG/DL (0.70-1.30); GLOMERULAR FILTRATION RATE 10.5 (>35); MAGNESIUM LEVEL 1.9 MG/DL (1.8-2.4); POTASSIUM SERUM 3.6 MEQ/L (3.5-5.1)
[2022-04-20] MEDS: SIMVASTATIN 10 MG TAB PO SCH (09:45)
[2022-04-20 12:00] VITALS: BP 140/72
[2022-04-20] MEDS: NS 1,000 ML IV SCH (12:55)
[2022-04-20 16:00] VITALS: BP 152/84
[2022-04-20 19:33] VITALS: BP 152/74
[2022-04-21 04:28] VITALS: BP 153/73
[2022-04-21] MEDS ORDERED: LIDOCAINE 1% SDV 5ML VIAL SC PRN (06:00)
[2022-04-21] MEDS ORDERED: SODIUM CHLORIDE 0.9% 1000ML IV PRN (06:00)
[2022-04-21] MEDS: SIMVASTATIN 10 MG TAB PO SCH (06:50)
[2022-04-21 12:00] VITALS: BP 148/70
[2022-04-21] MEDS: DARBEPOETIN 100 MCG/0.5 ML *DIALYSIS* SYRINGE (J0882) IV SCH (12:31)
[2022-04-21 16:14] VITALS: BP 133/69
[2022-04-21] MEDS: ACETAMINOPHEN 500 MG TAB PO PRN (17:54)
[2022-04-21 22:00] VITALS: BP 136/64
[2022-04-22] MEDS: OMEPRAZOLE 20MG CAP PO SCH (08:56)
[2022-04-22] MEDS: SIMVASTATIN 10 MG TAB PO SCH (08:56)
[2022-04-22] MEDS: DIGOXIN 0.125 MG TAB PO SCH (08:57)
[2022-04-22] MEDS: ACETAMINOPHEN 500 MG TAB PO PRN (09:02)
[2022-04-22 14:00] VITALS: BP 110/52
[2022-04-22] MEDS: FLUoxetine 10 MG CAP PO SCH (18:52)
[2022-04-22] MEDS: APIXABAN 2.5 MG TAB (ELIQUIS) PO SCH (21:25)
[2022-04-23 06:00] VITALS: BP 139/66
[2022-04-23] MEDS: SIMVASTATIN 10 MG TAB PO SCH (06:44)
[2022-04-23] MEDS: APIXABAN 2.5 MG TAB (ELIQUIS) PO SCH (06:44)
[2022-04-23] MEDS: FLUoxetine 10 MG CAP PO SCH (06:44)
[2022-04-23 08:00] VITALS: BP 130/64
[2022-04-23] MEDS ORDERED: LIDOCAINE 1% SDV 5ML VIAL SC PRN (08:00)
[2022-04-23] MEDS ORDERED: SODIUM CHLORIDE 0.9% 1000ML IV PRN (08:00)
[2022-04-23 12:00] VITALS: BP 130/64
[2022-04-24 05:45] LABS: HEMATOCRIT 30.5 % (42.0-52.0); HEMOGLOBIN 9.5 g/dl (13.5-17.5); MEAN CORPUSCULAR HEMOGLOBIN 29.2 pg (27.0-33.0); MEAN CORPUSCULAR HGB CONC 31.1 g/dl (32.0-36.5); MEAN CORPUSCULAR VOLUME 93.8 fl (80.0-96.0); PLATELET COUNT, AUTOMATED 292 10^3/uL (150-450); RED BLOOD COUNT 3.25 10^6/uL (4.30-6.10); WHITE BLOOD COUNT 11.8 10^3/uL (4.0-10.0)
[2022-04-24 06:00] VITALS: BP 128/69
[2022-04-24 06:04] LABS: INR 1.2; PROTHROMBIN TIME 15.6 SECONDS (12.7-14.5)
[2022-04-24 06:05] LABS: PARTIAL THROMBOPLASTIN TIME 48.9 SECONDS (25.9-37.0)
[2022-04-24 06:36] LABS: CALCIUM LEVEL 8.8 MG/DL (8.8-10.2); CREATININE FOR GFR 8.7 MG/DL (0.70-1.30); GLOMERULAR FILTRATION RATE 6.2 (>35); POTASSIUM SERUM 4.7 MEQ/L (3.5-5.1)
[2022-04-24] MEDS: DIGOXIN 0.125 MG TAB PO SCH (08:10)
[2022-04-24] MEDS: SIMVASTATIN 10 MG TAB PO SCH (08:11)
[2022-04-24] MEDS: FLUoxetine 10 MG CAP PO SCH (08:11)
[2022-04-24] MEDS: OMEPRAZOLE 20MG CAP PO SCH (08:11)
[2022-04-24] MEDS ORDERED: MIDAZOLAM INJ 2MG/2ML VIAL (J2250 PER 1MG) As Ordered ONE (09:56)
[2022-04-24] MEDS ORDERED: ISOVUE-300 61% 50ML VIAL As Ordered ONE (09:56)
[2022-04-24] MEDS ORDERED: fentaNYL 100 MCG/2 ML INJECTION As Ordered ONE ×2 (09:56→12:30)
[2022-04-24] MEDS ORDERED: LIDOCAINE 1% MDV 20ML VIAL As Ordered ONE ×2 (09:56→12:21)
[2022-04-24] MEDS ORDERED: ceFAZolin 2 GM/D5W 50 ML IV BAG (J0690 PER 500MG) As Ordered ONE (09:57)
[2022-04-24] MEDS ORDERED: ceFAZolin SOD 2 GM in IV 1 EA IV ONE (10:20)
[2022-04-24] MEDS: NS 1,000 ML IV SCH ×2 (10:34→23:45)
[2022-04-24] MEDS ORDERED: LIDOCAINE 1% SDV 5ML VIAL SC PRN (12:00)
[2022-04-24] MEDS: APIXABAN 2.5 MG TAB (ELIQUIS) PO SCH (21:06)
[2022-04-25 06:00] VITALS: BP 125/64
[2022-04-25] MEDS ORDERED: SODIUM CHLORIDE 0.9% 1000ML IV PRN (08:50)
[2022-04-25 10:29] LABS: BASO # 0.1 10^3/uL (0.0-0.2); BASO % 0.6 % (0.0-1.0); EOS # 0.4 10^3/uL (0.0-0.5); EOS % 3.1 % (0.0-3.0); HEMATOCRIT 28.8 % (42.0-52.0); LYMPH # 1.2 10^3/uL (1.5-5.0); LYMPH % 9.6 % (24.0-44.0); MEAN CORPUSCULAR HEMOGLOBIN 28.9 pg (27.0-33.0); MEAN CORPUSCULAR HGB CONC 31.3 g/dl (32.0-36.5); MEAN CORPUSCULAR VOLUME 92.6 fl (80.0-96.0); MONO # 1.1 10^3/uL (0.0-0.8); MONO % 8.4 % (2.0-8.0); NEUTROPHILS # 9.7 10^3/uL (1.5-8.5); NEUTROPHILS % 77.7 % (36.0-66.0); PLATELET COUNT, AUTOMATED 294 10^3/uL (150-450); RED BLOOD COUNT 3.11 10^6/uL (4.30-6.10); WHITE BLOOD COUNT 12.5 10^3/uL (4.0-10.0)
[2022-04-25 10:58] LABS: CALCIUM LEVEL 8.8 MG/DL (8.8-10.2); CREATININE FOR GFR 6.52 MG/DL (0.70-1.30); GLOMERULAR FILTRATION RATE 8.7 (>35); MAGNESIUM LEVEL 1.8 MG/DL (1.8-2.4); POTASSIUM SERUM 4.2 MEQ/L (3.5-5.1)
[2022-04-25] MEDS: SIMVASTATIN 10 MG TAB PO SCH (12:33)
[2022-04-25] MEDS: APIXABAN 2.5 MG TAB (ELIQUIS) PO SCH ×2 (12:33→20:54)
[2022-04-25] MEDS: FLUoxetine 10 MG CAP PO SCH (12:35)
[2022-04-25 14:00] VITALS: BP 110/48
[2022-04-26 06:00] VITALS: BP 138/58
[2022-04-26 07:03] LABS: BASO # 0.1 10^3/uL (0.0-0.2); BASO % 0.6 % (0.0-1.0); EOS # 0.5 10^3/uL (0.0-0.5); EOS % 5.2 % (0.0-3.0); HEMATOCRIT 31.2 % (42.0-52.0); HEMOGLOBIN 9.3 g/dl (13.5-17.5); LYMPH % 10.1 % (24.0-44.0); MEAN CORPUSCULAR HGB CONC 29.8 g/dl (32.0-36.5); MONO % 10.1 % (2.0-8.0); NEUTROPHILS # 7.2 10^3/uL (1.5-8.5); NEUTROPHILS % 73.5 % (36.0-66.0); PLATELET COUNT, AUTOMATED 276 10^3/uL (150-450); RED BLOOD COUNT 3.32 10^6/uL (4.30-6.10); WHITE BLOOD COUNT 9.8 10^3/uL (4.0-10.0)
[2022-04-26 07:36] LABS: CALCIUM LEVEL 8.8 MG/DL (8.8-10.2); CREATININE FOR GFR 5.22 MG/DL (0.70-1.30); GLOMERULAR FILTRATION RATE 11.2 (>35); MAGNESIUM LEVEL 1.8 MG/DL (1.8-2.4); POTASSIUM SERUM 4.3 MEQ/L (3.5-5.1)
[2022-04-26] MEDS: SIMVASTATIN 10 MG TAB PO SCH (08:47)
[2022-04-26] MEDS: FLUoxetine 10 MG CAP PO SCH (08:47)
[2022-04-26] MEDS: DIGOXIN 0.125 MG TAB PO SCH (08:47)
[2022-04-26] MEDS: OMEPRAZOLE 20MG CAP PO SCH (08:47)
[2022-04-26] MEDS: APIXABAN 2.5 MG TAB (ELIQUIS) PO SCH ×2 (08:47→20:39)
[2022-04-27] MEDS: FLUoxetine 10 MG CAP PO SCH (08:26)
[2022-04-27] MEDS: APIXABAN 2.5 MG TAB (ELIQUIS) PO SCH ×2 (08:27→20:01)
[2022-04-27] MEDS: SIMVASTATIN 10 MG TAB PO SCH (08:27)
[2022-04-27] MEDS: ACETAMINOPHEN 500 MG TAB PO PRN (08:34)
[2022-04-27] MEDS ORDERED: SODIUM CHLORIDE 0.9% 1000ML IV PRN (10:50)
[2022-04-28] MEDS: SIMVASTATIN 10 MG TAB PO SCH (05:39)
[2022-04-28] MEDS: APIXABAN 2.5 MG TAB (ELIQUIS) PO SCH ×2 (05:39→21:08)
[2022-04-28] MEDS: FLUoxetine 10 MG CAP PO SCH (05:39)
[2022-04-28 06:00] VITALS: BP 155/80
[2022-04-28] MEDS ORDERED: LIDOCAINE 1% SDV 5ML VIAL SC PRN (06:00)
[2022-04-28 06:24] LABS: BASO # 0.1 10^3/uL (0.0-0.2); BASO % 1.2 % (0.0-1.0); EOS # 0.6 10^3/uL (0.0-0.5); HEMATOCRIT 28.4 % (42.0-52.0); HEMOGLOBIN 8.9 g/dl (13.5-17.5); LYMPH # 1.6 10^3/uL (1.5-5.0); LYMPH % 14.9 % (24.0-44.0); MEAN CORPUSCULAR HEMOGLOBIN 29.2 pg (27.0-33.0); MEAN CORPUSCULAR HGB CONC 31.3 g/dl (32.0-36.5); MEAN CORPUSCULAR VOLUME 93.1 fl (80.0-96.0); MONO % 9.3 % (2.0-8.0); NEUTROPHILS # 7.6 10^3/uL (1.5-8.5); PLATELET COUNT, AUTOMATED 319 10^3/uL (150-450); RED BLOOD COUNT 3.05 10^6/uL (4.30-6.10)
[2022-04-28 07:14] LABS: CALCIUM LEVEL 8.8 MG/DL (8.8-10.2); CREATININE FOR GFR 8.36 MG/DL (0.70-1.30); GLOMERULAR FILTRATION RATE 6.5 (>35); MAGNESIUM LEVEL 1.8 MG/DL (1.8-2.4); PHOSPHORUS LEVEL 4.7 MG/DL (2.5-4.9); POTASSIUM SERUM 5.4 MEQ/L (3.5-5.1)
[2022-04-28] MEDS: DARBEPOETIN 100 MCG/0.5 ML *DIALYSIS* SYRINGE (J0882) IV SCH (09:30)
[2022-04-29 06:00] VITALS: BP 151/79
[2022-04-29] MEDS: DIGOXIN 0.125 MG TAB PO SCH (08:35)
[2022-04-29] MEDS: SIMVASTATIN 10 MG TAB PO SCH (08:35)
[2022-04-29] MEDS: OMEPRAZOLE 20MG CAP PO SCH (08:35)
[2022-04-29] MEDS: FLUoxetine 10 MG CAP PO SCH (08:35)
[2022-04-29] MEDS: APIXABAN 2.5 MG TAB (ELIQUIS) PO SCH ×2 (08:35→20:37)
[2022-04-30] MEDS: APIXABAN 2.5 MG TAB (ELIQUIS) PO SCH ×2 (05:30→21:37)
[2022-04-30] MEDS: FLUoxetine 10 MG CAP PO SCH (05:30)
[2022-04-30] MEDS: SIMVASTATIN 10 MG TAB PO SCH (05:30)
[2022-04-30 05:41] VITALS: BP 125/86
[2022-04-30] MEDS ORDERED: SODIUM CHLORIDE 0.9% 1000ML IV PRN (06:00)
[2022-04-30] MEDS ORDERED: LIDOCAINE 1% SDV 5ML VIAL SC PRN (06:00)
[2022-05-01 06:00] VITALS: BP 128/72
[2022-05-01] MEDS: APIXABAN 2.5 MG TAB (ELIQUIS) PO SCH ×2 (08:40→20:30)
[2022-05-01] MEDS: SIMVASTATIN 10 MG TAB PO SCH (08:40)
[2022-05-01] MEDS: FLUoxetine 10 MG CAP PO SCH (08:40)
[2022-05-01] MEDS: OMEPRAZOLE 20MG CAP PO SCH (08:41)
[2022-05-01] MEDS: DIGOXIN 0.125 MG TAB PO SCH (08:43)
[2022-05-02 06:00] VITALS: BP 130/84
[2022-05-02] MEDS ORDERED: LIDOCAINE 1% SDV 5ML VIAL SC PRN (06:00)
[2022-05-02] MEDS: SIMVASTATIN 10 MG TAB PO SCH (06:00)
[2022-05-02] MEDS ORDERED: SODIUM CHLORIDE 0.9% 1000ML IV PRN (06:00)
[2022-05-02] MEDS: FLUoxetine 10 MG CAP PO SCH (06:00)
[2022-05-02] MEDS: APIXABAN 2.5 MG TAB (ELIQUIS) PO SCH ×2 (06:00→20:37)
[2022-05-02 06:07] LABS: BASO # 0.1 10^3/uL (0.0-0.2); BASO % 1.2 % (0.0-1.0); EOS # 0.5 10^3/uL (0.0-0.5); EOS % 5.3 % (0.0-3.0); HEMATOCRIT 29.4 % (42.0-52.0); HEMOGLOBIN 8.9 g/dl (13.5-17.5); LYMPH # 1.9 10^3/uL (1.5-5.0); LYMPH % 20.2 % (24.0-44.0); MEAN CORPUSCULAR HGB CONC 30.3 g/dl (32.0-36.5); MEAN CORPUSCULAR VOLUME 92.5 fl (80.0-96.0); MONO # 1.1 10^3/uL (0.0-0.8); MONO % 12.1 % (2.0-8.0); NEUTROPHILS # 5.6 10^3/uL (1.5-8.5); NEUTROPHILS % 60.8 % (36.0-66.0); PLATELET COUNT, AUTOMATED 298 10^3/uL (150-450); RED BLOOD COUNT 3.18 10^6/uL (4.30-6.10); WHITE BLOOD COUNT 9.2 10^3/uL (4.0-10.0)
[2022-05-02 06:40] LABS: CALCIUM LEVEL 8.9 MG/DL (8.8-10.2); CREATININE FOR GFR 5.98 MG/DL (0.70-1.30); GLOMERULAR FILTRATION RATE 9.6 (>35); MAGNESIUM LEVEL 1.8 MG/DL (1.8-2.4); POTASSIUM SERUM 4.6 MEQ/L (3.5-5.1)
[2022-05-03 05:23] VITALS: BP 133/84
[2022-05-03] MEDS: OMEPRAZOLE 20MG CAP PO SCH (08:46)
[2022-05-03] MEDS: FLUoxetine 10 MG CAP PO SCH (08:46)
[2022-05-03] MEDS: APIXABAN 2.5 MG TAB (ELIQUIS) PO SCH (08:46)
[2022-05-03] MEDS: DIGOXIN 0.125 MG TAB PO SCH (08:47)
[2022-05-03] MEDS: SIMVASTATIN 10 MG TAB PO SCH (08:47)
[2022-05-04 06:00] VITALS: BP 136/79
[2022-05-04] MEDS ORDERED: LIDOCAINE 1% MDV 20ML VIAL As Ordered ONE (08:11)
[2022-05-04] MEDS ORDERED: LIDOCAINE W/EPINEPHRINE 1% 20ML VIAL As Ordered ONE (08:34)
[2022-05-04 09:31] LABS: HEMATOCRIT 30.8 % (42.0-52.0); HEMOGLOBIN 9.5 g/dl (13.5-17.5); MEAN CORPUSCULAR HEMOGLOBIN 28.6 pg (27.0-33.0); MEAN CORPUSCULAR HGB CONC 30.8 g/dl (32.0-36.5); MEAN CORPUSCULAR VOLUME 92.8 fl (80.0-96.0); PLATELET COUNT, AUTOMATED 282 10^3/uL (150-450); RED BLOOD COUNT 3.32 10^6/uL (4.30-6.10); WHITE BLOOD COUNT 10.8 10^3/uL (4.0-10.0)
[2022-05-04 10:01] LABS: CALCIUM LEVEL 9.3 MG/DL (8.8-10.2); CREATININE FOR GFR 6.41 MG/DL (0.70-1.30); GLOMERULAR FILTRATION RATE 8.9 (>35); POTASSIUM SERUM 4.8 MEQ/L (3.5-5.1)
[2022-05-04] MEDS: FLUoxetine 10 MG CAP PO SCH (10:03)
[2022-05-04] MEDS: SIMVASTATIN 10 MG TAB PO SCH (10:03)
[2022-05-04 14:55] VITALS: BP 152/66
[2022-05-04] MEDS: APIXABAN 2.5 MG TAB (ELIQUIS) PO SCH (21:28)
[2022-05-05 06:00] VITALS: BP 157/76
[2022-05-05] MEDS ORDERED: LIDOCAINE 1% SDV 5ML VIAL SC PRN (06:00)
[2022-05-05] MEDS ORDERED: SODIUM CHLORIDE 0.9% 1000ML IV PRN (06:00)
[2022-05-05] MEDS: DARBEPOETIN 100 MCG/0.5 ML *DIALYSIS* SYRINGE (J0882) IV SCH (08:44)
[2022-05-05] MEDS: FLUoxetine 10 MG CAP PO SCH (13:21)
[2022-05-05] MEDS: SIMVASTATIN 10 MG TAB PO SCH (13:21)
[2022-05-05] MEDS: APIXABAN 2.5 MG TAB (ELIQUIS) PO SCH ×2 (13:21→20:16)
[2022-05-06 03:55] VITALS: BP 152/73
[2022-05-06] MEDS: SIMVASTATIN 10 MG TAB PO SCH (08:57)
[2022-05-06] MEDS: FLUoxetine 10 MG CAP PO SCH (08:57)
[2022-05-06] MEDS: APIXABAN 2.5 MG TAB (ELIQUIS) PO SCH ×2 (08:58→20:12)
[2022-05-06] MEDS: OMEPRAZOLE 20MG CAP PO SCH (08:58)
[2022-05-06] MEDS: DIGOXIN 0.125 MG TAB PO SCH (08:58)
[2022-05-07 04:20] VITALS: BP 147/70
[2022-05-07] MEDS: APIXABAN 2.5 MG TAB (ELIQUIS) PO SCH ×2 (05:41→21:39)
[2022-05-07] MEDS: FLUoxetine 10 MG CAP PO SCH (05:42)
[2022-05-07] MEDS: SIMVASTATIN 10 MG TAB PO SCH (05:42)
[2022-05-07] MEDS ORDERED: LIDOCAINE 1% SDV 5ML VIAL SC PRN (06:00)
[2022-05-07] MEDS ORDERED: SODIUM CHLORIDE 0.9% 1000ML IV PRN (06:00)
[2022-05-07 07:33] LABS: HEMATOCRIT 31.9 % (42.0-52.0); HEMOGLOBIN 9.9 g/dl (13.5-17.5); MEAN CORPUSCULAR HEMOGLOBIN 28.8 pg (27.0-33.0); MEAN CORPUSCULAR VOLUME 92.7 fl (80.0-96.0); PLATELET COUNT, AUTOMATED 277 10^3/uL (150-450); RED BLOOD COUNT 3.44 10^6/uL (4.30-6.10); WHITE BLOOD COUNT 10.4 10^3/uL (4.0-10.0)
[2022-05-07 08:13] LABS: CALCIUM LEVEL 9.2 MG/DL (8.8-10.2); CREATININE FOR GFR 6.98 MG/DL (0.70-1.30); MAGNESIUM LEVEL 1.9 MG/DL (1.8-2.4); PHOSPHORUS LEVEL 4.7 MG/DL (2.5-4.9); POTASSIUM SERUM 4.6 MEQ/L (3.5-5.1)
[2022-05-08 04:00] VITALS: BP 156/68
[2022-05-08] MEDS: FLUoxetine 10 MG CAP PO SCH (08:20)
[2022-05-08] MEDS: OMEPRAZOLE 20MG CAP PO SCH (08:20)
[2022-05-08] MEDS: SIMVASTATIN 10 MG TAB PO SCH (08:20)
[2022-05-08] MEDS: APIXABAN 2.5 MG TAB (ELIQUIS) PO SCH ×2 (08:20→21:23)
[2022-05-08] MEDS: DIGOXIN 0.125 MG TAB PO SCH (08:21)
[2022-05-08 20:08] VITALS: BP 127/69
[2022-05-09 04:52] VITALS: BP 128/71
[2022-05-09] MEDS ORDERED: LIDOCAINE 1% SDV 5ML VIAL SC PRN (06:00)
[2022-05-09] MEDS ORDERED: SODIUM CHLORIDE 0.9% 1000ML IV PRN (06:00)
[2022-05-09] MEDS: SIMVASTATIN 10 MG TAB PO SCH (06:08)
[2022-05-09] MEDS: APIXABAN 2.5 MG TAB (ELIQUIS) PO SCH ×2 (06:09→21:17)
[2022-05-09] MEDS: FLUoxetine 10 MG CAP PO SCH (06:09)
[2022-05-09 20:00] VITALS: BP 151/75
[2022-05-10 04:00] VITALS: BP 138/67
[2022-05-10] MEDS ORDERED: ELIQ2.5T PO (08:03)
[2022-05-10] MEDS ORDERED: FLUO10CA18 PO (08:03)
[2022-05-10] MEDS: SIMVASTATIN 10 MG TAB PO SCH (09:16)
[2022-05-10] MEDS: APIXABAN 2.5 MG TAB (ELIQUIS) PO SCH ×2 (09:16→21:14)
[2022-05-10] MEDS: OMEPRAZOLE 20MG CAP PO SCH (09:16)
[2022-05-10] MEDS: FLUoxetine 10 MG CAP PO SCH (09:16)
[2022-05-10] MEDS: DIGOXIN 0.125 MG TAB PO SCH (09:19)
[2022-05-10 19:58] VITALS: BP 145/68
[2022-05-11 05:41] VITALS: BP 138/68
[2022-05-11] MEDS: APIXABAN 2.5 MG TAB (ELIQUIS) PO SCH (08:40)
[2022-05-11] MEDS: FLUoxetine 10 MG CAP PO SCH (08:40)
[2022-05-11] MEDS: SIMVASTATIN 10 MG TAB PO SCH (08:40)
== END 2022-05-11 11:15 | disposition home health service (06) | DRG 329 ==
LOC: M PCU 15:45 → M SDC 15:45 → EDSTATUS 16:42 → M 4MAIN 04-15 09:04 → M MSPAV 04-21 16:30 → M 4MAIN 05-04 14:50
PROVIDERS: ADMIT Surgery; ATTEND Internal Medicine Nephrology
PROC: 0WQF0ZZ Repair Abdominal Wall, Open Approach (ICD-10-PCS; 2022-04-13)
PROC: 0DB80ZZ Excision of Small Intestine, Open Approach (ICD-10-PCS; principal; 2022-04-13 15:03)
PROC: 0K9 Muscles, Drainage (ICD-10-PCS; 2022-04-14)
PROC: 5A1D70Z Performance of Urinary Filtration, Intermittent, Less than 6 Hours Per Day (ICD-10-PCS; 2022-04-14)
PROC: 30233N1 Transfusion of Nonautologous Red Blood Cells into Peripheral Vein, Percutaneous Approach (ICD-10-PCS; 2022-04-17)
PROC: 05763Z1 Dilation of Left Subclavian Vein using Drug-Coated Balloon, Percutaneous Approach (ICD-10-PCS; 2022-04-24)
PROC: 02H633Z Insertion of Infusion Device into Right Atrium, Percutaneous Approach (ICD-10-PCS; 2022-04-24)
PROC: 0JH63XZ Insertion of Tunneled Vascular Access Device into Chest Subcutaneous Tissue and Fascia, Percutaneous Approach (ICD-10-PCS; 2022-04-24)
PROC: 05PYX3Z Removal of Infusion Device from Upper Vein, External Approach (ICD-10-PCS; 2022-05-04)
DX: K57.01 Diverticulitis of small intestine with perforation and abscess with bleeding (principal); N18.6 End stage renal disease; K65.9 Peritonitis, unspecified; K42.0 Umbilical hernia with obstruction, without gangrene; I13.2 Hypertensive heart and chronic kidney disease with heart failure and with stage 5 chronic kidney disease, or end stage renal disease; E87.1 Hypo-osmolality and hyponatremia; I48.20 Chronic atrial fibrillation, unspecified; D62 Acute posthemorrhagic anemia; T82.868A Thrombosis due to vascular prosthetic devices, implants and grafts, initial encounter; J98.11 Atelectasis; T82.590A Other mechanical complication of surgically created arteriovenous fistula, initial encounter; E78.5 Hyperlipidemia, unspecified; E87.5 Hyperkalemia; I50.9 Heart failure, unspecified; D63.1 Anemia in chronic kidney disease; M96.840 Postprocedural hematoma of a musculoskeletal structure following a musculoskeletal system procedure; S72.002D Fracture of unspecified part of neck of left femur, subsequent encounter for closed fracture with routine healing; F03.90 Unspecified dementia, unspecified severity, without behavioral disturbance, psychotic disturbance, mood disturbance, and anxiety; K40.20 Bilateral inguinal hernia, without obstruction or gangrene, not specified as recurrent; K21.9 Gastro-esophageal reflux disease without esophagitis; Z79.899 Other long term (current) drug therapy; Z98.41 Cataract extraction status, right eye; Z98.42 Cataract extraction status, left eye; Z99.2 Dependence on renal dialysis; Z79.01 Long term (current) use of anticoagulants; Z96.651 Presence of right artificial knee joint; Z90.49 Acquired absence of other specified parts of digestive tract; Z96.642 Presence of left artificial hip joint; Z87.891 Personal history of nicotine dependence; Y84.8 Other medical procedures as the cause of abnormal reaction of the patient, or of later complication, without mention of misadventure at the time of the procedure; N26.1 Atrophy of kidney (terminal); R16.0 Hepatomegaly, not elsewhere classified; K80.20 Calculus of gallbladder without cholecystitis without obstruction; F39 Unspecified mood [affective] disorder; Z20.822 Contact with and (suspected) exposure to COVID-19; M81.0 Age-related osteoporosis without current pathological fracture

== ENCOUNTER → 2022-05-27 | Outpatient (CLI) | payer MEDICARE, OTHER ==
[~2022-05-27] MED LIST changes: +ELIQ2.5T PO; +FLUO10CA18 PO
== END ==
LOC: M SOG 08:02
PROVIDERS: ATTEND Orthopaedic Surgery
DX: Z47.89 Encounter for other orthopedic aftercare (principal); Z96.642 Presence of left artificial hip joint

== ENCOUNTER 2022-06-09 20:33 | Emergency (ER) | payer MEDICARE, OTHER ==
[2022-06-09 21:06] LABS: HEMATOCRIT 26.9 % (42.0-52.0); HEMOGLOBIN 8.4 g/dl (13.5-17.5); MEAN CORPUSCULAR HEMOGLOBIN 28.2 pg (27.0-33.0); MEAN CORPUSCULAR HGB CONC 31.2 g/dl (32.0-36.5); MEAN CORPUSCULAR VOLUME 90.3 fl (80.0-96.0); PLATELET COUNT, AUTOMATED 142 10^3/uL (150-450); RED BLOOD COUNT 2.98 10^6/uL (4.30-6.10)
[2022-06-09 21:25] LABS: INR 2.5; PROTHROMBIN TIME 27.4 SECONDS (12.7-14.5)
[2022-06-09 21:26] LABS: PARTIAL THROMBOPLASTIN TIME 64.4 SECONDS (25.9-37.0)
[2022-06-09 22:53] LABS: HEMATOCRIT 27.1 % (42.0-52.0); HEMOGLOBIN 8.4 g/dl (13.5-17.5); MEAN CORPUSCULAR VOLUME 90.3 fl (80.0-96.0); PLATELET COUNT, AUTOMATED 132 10^3/uL (150-450); WHITE BLOOD COUNT 6.7 10^3/uL (4.0-10.0)
[2022-06-09 23:30] VITALS: BP 158/72
== END 2022-06-09 23:48 | disposition home or self-care (01) ==
LOC: M ED 20:33 → EDBD 20:33 → M ED 23:48
DX: T82.838A Hemorrhage due to vascular prosthetic devices, implants and grafts, initial encounter (principal); I77.0 Arteriovenous fistula, acquired; I11.0 Hypertensive heart disease with heart failure; I50.9 Heart failure, unspecified; E78.5 Hyperlipidemia, unspecified; N18.6 End stage renal disease; Z79.01 Long term (current) use of anticoagulants; Z79.899 Other long term (current) drug therapy

== ENCOUNTER → 2022-07-08 | Outpatient (CLI) | payer MEDICARE, OTHER | LOC: M SOG 08:07 | PROVIDERS: ATTEND Orthopaedic Surgery | DX: S72.002D Fracture of unspecified part of neck of left femur, subsequent encounter for closed fracture with routine healing (principal); M17.12 Unilateral primary osteoarthritis, left knee; M16.11 Unilateral primary osteoarthritis, right hip; Z96.642 Presence of left artificial hip joint; Z96.651 Presence of right artificial knee joint; M25.561 Pain in right knee; M25.562 Pain in left knee ==

== ENCOUNTER 2022-09-30 21:38 | Inpatient (IN) | payer MEDICARE, OTHER ==
[~2022-09-30] VITALS: Ht 165.1 cm; Wt 61.6 kg
[2022-09-30] MEDS ORDERED: MORPHINE 2 MG/ML 1ML VIAL IV ONE (22:00)
[2022-09-30] MEDS ORDERED: WARF-23 (22:00)
[2022-09-30 22:16] LABS: BASO # 0.1 10^3/uL (0.0-0.2); BASO % 0.3 % (0.0-1.0); EOS # 0.2 10^3/uL (0.0-0.5); EOS % 0.8 % (0.0-3.0); HEMATOCRIT 39.8 % (42.0-52.0); HEMOGLOBIN 12.3 g/dl (13.5-17.5); LYMPH # 1.3 10^3/uL (1.5-5.0); LYMPH % 6.5 % (24.0-44.0); MEAN CORPUSCULAR HEMOGLOBIN 28.9 pg (27.0-33.0); MEAN CORPUSCULAR HGB CONC 30.9 g/dl (32.0-36.5); MEAN CORPUSCULAR VOLUME 93.4 fl (80.0-96.0); MONO # 1.5 10^3/uL (0.0-0.8); MONO % 7.2 % (2.0-8.0); NEUTROPHILS # 17.5 10^3/uL (1.5-8.5); NEUTROPHILS % 84.7 % (36.0-66.0); PLATELET COUNT, AUTOMATED 179 10^3/uL (150-450); RED BLOOD COUNT 4.26 10^6/uL (4.30-6.10); WHITE BLOOD COUNT 20.6 10^3/uL (4.0-10.0)
[2022-09-30 22:27] LABS: INR 1.79; PARTIAL THROMBOPLASTIN TIME 38.7 SECONDS (24.8-34.2); PROTHROMBIN TIME 21.1 SECONDS (12.5-14.5)
[2022-09-30 22:49] LABS: RSV AMPLIFICATION NEGATIVE (NEGATIVE)
[2022-10-01] MEDS ORDERED: HYDROMORPHONE HCL 0.5 MG/ 0.5 ML SYRINGE IV PRN (00:30)
[2022-10-01] MEDS ORDERED: ONDANSETRON 4MG 2ML VIAL IV PRN (00:30)
[2022-10-01 00:34] LABS: ETHYL ALCOHOL (ETHANOL) 0.003 % (0.000-0.010)
[2022-10-01 00:35] LABS: BILIRUBIN,DIRECT 0.1 MG/DL (<0.4); DIGOXIN LEVEL 1.2 NG/ML (0.8-2.0)
[2022-10-01 00:39] LABS: ALBUMIN 3.6 G/DL (3.2-5.2); BILIRUBIN,TOTAL 0.3 MG/DL (0.3-1.2); CALCIUM LEVEL 9.2 MG/DL (8.3-10.6); CREATININE FOR GFR 6.68 MG/DL (0.70-1.30); GLOMERULAR FILTRATION RATE 8.4 (>35); TOTAL PROTEIN 7.7 G/DL (5.7-8.2)
[2022-10-01 01:08] LABS: POTASSIUM SERUM 6.7 MMOL/L (3.5-5.1)
[2022-10-01] MEDS ORDERED: DEXTROSE 50% 50ML SYRINGE IV STA (01:27)
[2022-10-01] MEDS ORDERED: HumuLIN R (REGULAR) INSULIN (NovoLIN R) **100U/ML** PER UNIT IV STA (01:27)
[2022-10-01] MEDS ORDERED: ALBUTEROL SULFATE 2.5MG/0.5ML INH NEB SOLN NEB ONE (01:30)
[2022-10-01] MEDS ORDERED: CALCIUM GLUCONATE 1,000 MG in D5W MINI-BAG PLUS 100 ML IV ONE (01:30)
[2022-10-01] MEDS ORDERED: PATIROMER SORBITEX CALCIUM 8.4 GM POWDER PACKET (VELTASSA) PO ONE (01:30)
[2022-10-01 02:52] LABS: AMPHETAMINES LEVEL URINE NEGATIVE (NEGATIVE)
[2022-10-01 02:53] LABS: BARBITURATES URINE NEGATIVE (NEGATIVE); BENZODIAZEPINES URINE NEGATIVE (NEGATIVE); CANNABINOIDS URINE NEGATIVE (NEGATIVE); COCAINE METABOLITE URINE NEGATIVE (NEGATIVE); METHADONE URINE NEGATIVE (NEGATIVE); OPIATES URINE NEGATIVE (NEGATIVE); PHENCYCLIDINE URINE NEGATIVE (NEGATIVE)
[2022-10-01 06:04] VITALS: BP 139/73
[2022-10-01] MEDS ORDERED: DIAL800T3 PO (06:11)
[2022-10-01] MEDS ORDERED: WARF-23 PO (06:11)
[2022-10-01] MEDS ORDERED: TRAM50TA2 PO (06:11)
[2022-10-01] MEDS ORDERED: HOME MED LIST COMPLETE! XX SCH (06:15)
[2022-10-01] MEDS ORDERED: HEPARIN 1,000UNITS/ML 10ML VIAL (FOR RADIOLOGY & DIALYSIS ONLY) XX SCH (07:00)
[2022-10-01] MEDS ORDERED: HEPARIN 1,000UNITS/ML 10ML VIAL (FOR RADIOLOGY & DIALYSIS ONLY) IV PRN (07:00)
[2022-10-01] MEDS ORDERED: LIDOCAINE 1% SDV 5ML VIAL SC PRN (07:00)
[2022-10-01] MEDS ORDERED: SODIUM CHLORIDE 0.9% 1000ML IV PRN (07:00)
[2022-10-01 07:21] LABS: HEMATOCRIT 35.6 % (42.0-52.0); MEAN CORPUSCULAR HEMOGLOBIN 28.9 pg (27.0-33.0); MEAN CORPUSCULAR HGB CONC 30.9 g/dl (32.0-36.5); MEAN CORPUSCULAR VOLUME 93.4 fl (80.0-96.0); PLATELET COUNT, AUTOMATED 150 10^3/uL (150-450); RED BLOOD COUNT 3.81 10^6/uL (4.30-6.10); WHITE BLOOD COUNT 17.3 10^3/uL (4.0-10.0)
[2022-10-01 07:26] VITALS: BP 136/61
[2022-10-01 07:41] LABS: INR 1.7; PROTHROMBIN TIME 20.3 SECONDS (12.5-14.5)
[2022-10-01 08:01] LABS: ALBUMIN 3.2 G/DL (3.2-5.2); BILIRUBIN,TOTAL 0.3 MG/DL (0.3-1.2); CALCIUM LEVEL 9.7 MG/DL (8.3-10.6); CREATININE FOR GFR 7.22 MG/DL (0.70-1.30); GLOMERULAR FILTRATION RATE 7.7 (>35); POTASSIUM SERUM 5.2 MMOL/L (3.5-5.1); TOTAL PROTEIN 6.5 G/DL (5.7-8.2)
[2022-10-01 12:55] VITALS: BP 123/64
[2022-10-01] MEDS: HYDROMORPHONE HCL 0.5 MG/ 0.5 ML SYRINGE IV PRN (13:19)
[2022-10-01] MEDS: HEPARIN SOD (PORCINE) 5000UNITS/ML 1ML VIAL/SYRINGE SQ SCH ×2 (13:20→21:11)
[2022-10-01 20:00] VITALS: BP 115/59
[2022-10-02] VITALS (8 sets, daily range): BP systolic 100–147; BP diastolic 56–93
[2022-10-02 04:53] LABS: BASO # 0.1 10^3/uL (0.0-0.2); BASO % 0.7 % (0.0-1.0); EOS # 0.6 10^3/uL (0.0-0.5); EOS % 4.5 % (0.0-3.0); HEMATOCRIT 35.8 % (42.0-52.0); HEMOGLOBIN 10.8 g/dl (13.5-17.5); LYMPH # 1.2 10^3/uL (1.5-5.0); LYMPH % 9.4 % (24.0-44.0); MEAN CORPUSCULAR HEMOGLOBIN 28.2 pg (27.0-33.0); MEAN CORPUSCULAR HGB CONC 30.2 g/dl (32.0-36.5); MEAN CORPUSCULAR VOLUME 93.5 fl (80.0-96.0); MONO # 0.7 10^3/uL (0.0-0.8); MONO % 5.9 % (2.0-8.0); NEUTROPHILS # 9.6 10^3/uL (1.5-8.5); NEUTROPHILS % 79.1 % (36.0-66.0); PLATELET COUNT, AUTOMATED 146 10^3/uL (150-450); RED BLOOD COUNT 3.83 10^6/uL (4.30-6.10); WHITE BLOOD COUNT 12.2 10^3/uL (4.0-10.0)
[2022-10-02 05:10] LABS: INR 1.76; PROTHROMBIN TIME 20.8 SECONDS (12.5-14.5)
[2022-10-02 05:20] LABS: CALCIUM LEVEL 8.8 MG/DL (8.3-10.6); CREATININE FOR GFR 4.53 MG/DL (0.70-1.30); GLOMERULAR FILTRATION RATE 13.2 (>35); POTASSIUM SERUM 5.4 MMOL/L (3.5-5.1)
[2022-10-02] MEDS ORDERED: PATIROMER SORBITEX CALCIUM 8.4 GM POWDER PACKET (VELTASSA) PO ONE (09:00)
[2022-10-02] MEDS ORDERED: ROCURONIUM BROMIDE 50MG/5ML VIAL As Ordered ONE ×2 (14:15→17:02)
[2022-10-02] MEDS ORDERED: propofoL 200 MG/20 ML VIAL As Ordered ONE (14:15)
[2022-10-02] MEDS ORDERED: LIDOCAINE 2% 100MG/5ML SDV (FOR ANES.) As Ordered ONE (14:15)
[2022-10-02] MEDS ORDERED: ONDANSETRON 4MG 2ML VIAL As Ordered ONE (14:15)
[2022-10-02] MEDS ORDERED: fentaNYL 250 MCG/5 ML INJECTION As Ordered ONE (14:16)
[2022-10-02] MEDS ORDERED: MIDAZOLAM INJ 2MG/2ML VIAL As Ordered ONE (14:18)
[2022-10-02] MEDS ORDERED: ceFAZolin 1GM VIAL As Ordered ONE (15:57)
[2022-10-02] MEDS ORDERED: ceFAZolin 2 GM/D5W 50 ML IV BAG As Ordered ONE (16:35)
[2022-10-02] MEDS ORDERED: PHENYLEPHRINE 10MG/ML 1ML VIAL As Ordered ONE (16:46)
[2022-10-02] MEDS ORDERED: PHENYLephrine 500MCG 5ML (100MCG/ML) SYRINGE As Ordered ONE (16:51)
[2022-10-02] MEDS ORDERED: VASOPRESSIN INJ 20UNITS/ML 1ML VIAL As Ordered ONE (16:52)
[2022-10-02] MEDS ORDERED: BUPIVACAINE/EPIN 0.5% 30ML VIAL As Ordered ONE (17:01)
[2022-10-02] MEDS ORDERED: ACETAMINOPHEN 1000MG 100ML IV BAG As Ordered ONE (17:08)
[2022-10-02] MEDS ORDERED: SUGAMMADEX SODIUM 500 MG/5 ML VIAL (BRIDION) As Ordered ONE (17:30)
[2022-10-02] MEDS ORDERED: ONDANSETRON 4MG 2ML VIAL IV PRN (17:40)
[2022-10-02] MEDS ORDERED: MORPHINE 2 MG/ML 1ML VIAL IV PRN (17:40)
[2022-10-02] MEDS ORDERED: LR 1,000 ML IV SCH (17:40)
[2022-10-02] MEDS ORDERED: oxyCODONE 5MG TAB PO PRN (17:40)
[2022-10-02] MEDS ORDERED: fentaNYL 100 MCG/2 ML INJECTION IV PRN (17:40)
[2022-10-02] MEDS ORDERED: SENNA 8.6 MG TAB (SENOKOT) PO PRN (18:05)
[2022-10-02] MEDS: DOCUSATE SODIUM 100MG CAPSULE PO SCH (21:00)
[2022-10-02] MEDS ORDERED: ceFAZolin SOD 1 GM in D5W MINI-BAG PLUS 50 ML IV SCH (22:00)
[2022-10-03 05:33] LABS: BASO % 0.3 % (0.0-1.0); EOS % 0.2 % (0.0-3.0); HEMATOCRIT 33.9 % (42.0-52.0); HEMOGLOBIN 10.7 g/dl (13.5-17.5); LYMPH # 0.7 10^3/uL (1.5-5.0); LYMPH % 6.9 % (24.0-44.0); MEAN CORPUSCULAR HEMOGLOBIN 29.1 pg (27.0-33.0); MEAN CORPUSCULAR HGB CONC 31.6 g/dl (32.0-36.5); MEAN CORPUSCULAR VOLUME 92.1 fl (80.0-96.0); MONO # 0.7 10^3/uL (0.0-0.8); MONO % 7.1 % (2.0-8.0); NEUTROPHILS # 8.9 10^3/uL (1.5-8.5); PLATELET COUNT, AUTOMATED 131 10^3/uL (150-450); RED BLOOD COUNT 3.68 10^6/uL (4.30-6.10); WHITE BLOOD COUNT 10.5 10^3/uL (4.0-10.0)
[2022-10-03 05:49] LABS: INR 1.46
[2022-10-03] MEDS ORDERED: LIDOCAINE 1% SDV 5ML VIAL SC PRN (06:00)
[2022-10-03] MEDS ORDERED: SODIUM CHLORIDE 0.9% 1000ML IV PRN (06:00)
[2022-10-03] MEDS ORDERED: HEPARIN 1,000UNITS/ML 10ML VIAL (FOR RADIOLOGY & DIALYSIS ONLY) IV PRN (06:00)
[2022-10-03] MEDS ORDERED: HEPARIN 1,000UNITS/ML 10ML VIAL (FOR RADIOLOGY & DIALYSIS ONLY) XX SCH (06:00)
[2022-10-03 06:14] LABS: CALCIUM LEVEL 8.7 MG/DL (8.3-10.6); CREATININE FOR GFR 6.17 MG/DL (0.70-1.30); GLOMERULAR FILTRATION RATE 9.3 (>35); POTASSIUM SERUM 6.2 MMOL/L (3.5-5.1)
[2022-10-03] MEDS ORDERED: HumuLIN R (REGULAR) INSULIN (NovoLIN R) **100U/ML** PER UNIT IV STA (06:21)
[2022-10-03] MEDS ORDERED: DEXTROSE 50% 50ML SYRINGE IV STA (06:21)
[2022-10-03] MEDS ORDERED: PATIROMER SORBITEX CALCIUM 8.4 GM POWDER PACKET (VELTASSA) PO ONE (06:25)
[2022-10-03 08:00] VITALS: BP 121/62
[2022-10-03] MEDS ORDERED: ELIQ2.5T PO (09:04)
[2022-10-03] MEDS: DOCUSATE SODIUM 100MG CAPSULE PO SCH ×2 (13:17→22:10)
[2022-10-03] MEDS: METOPROLOL TART 25 MG TABLET PO SCH ×2 (13:22→22:10)
[2022-10-03 13:51] LABS: CALCIUM LEVEL 8.6 MG/DL (8.3-10.6); CREATININE FOR GFR 2.49 MG/DL (0.70-1.30); GLOMERULAR FILTRATION RATE 26.4 (>35); POTASSIUM SERUM 3.5 MMOL/L (3.5-5.1)
[2022-10-03] MEDS ORDERED: WARFARIN SOD 5MG TAB PO SCH (17:00)
[2022-10-03 20:00] VITALS: BP 101/61
[2022-10-04 03:36] VITALS: BP 104/64
[2022-10-04 05:37] LABS: BASO # 0.1 10^3/uL (0.0-0.2); BASO % 0.8 % (0.0-1.0); EOS # 0.8 10^3/uL (0.0-0.5); EOS % 6.9 % (0.0-3.0); HEMATOCRIT 32.5 % (42.0-52.0); HEMOGLOBIN 10.3 g/dl (13.5-17.5); LYMPH # 1.2 10^3/uL (1.5-5.0); MEAN CORPUSCULAR HEMOGLOBIN 28.9 pg (27.0-33.0); MEAN CORPUSCULAR HGB CONC 31.7 g/dl (32.0-36.5); MEAN CORPUSCULAR VOLUME 91.3 fl (80.0-96.0); MONO # 1.3 10^3/uL (0.0-0.8); MONO % 12.2 % (2.0-8.0); NEUTROPHILS # 7.4 10^3/uL (1.5-8.5); NEUTROPHILS % 68.6 % (36.0-66.0); PLATELET COUNT, AUTOMATED 128 10^3/uL (150-450); RED BLOOD COUNT 3.56 10^6/uL (4.30-6.10); WHITE BLOOD COUNT 10.8 10^3/uL (4.0-10.0)
[2022-10-04 05:50] LABS: INR 1.38; PROTHROMBIN TIME 17.2 SECONDS (12.5-14.5)
[2022-10-04 06:02] LABS: CALCIUM LEVEL 8.2 MG/DL (8.3-10.6); CREATININE FOR GFR 4.07 MG/DL (0.70-1.30); POTASSIUM SERUM 4.4 MMOL/L (3.5-5.1)
[2022-10-04 08:00] VITALS: BP 122/65
[2022-10-04] MEDS: DOCUSATE SODIUM 100MG CAPSULE PO SCH ×2 (08:47→19:58)
[2022-10-04] MEDS: METOPROLOL TART 25 MG TABLET PO SCH ×2 (08:53→21:00)
[2022-10-04] MEDS: APIXABAN 2.5 MG TAB (ELIQUIS) PO SCH ×2 (10:01→19:58)
[2022-10-04] MEDS ORDERED: DARBEPOETIN 40MCG/0.4ML *DIALYSIS* SYRINGE IV SCH (11:00)
[2022-10-04] MEDS: ACETAMINOPHEN TAB 650MG DOSE (2X325MG) PO PRN (11:11)
[2022-10-04 12:00] VITALS: BP 117/55
[2022-10-04] MEDS ORDERED: PATIROMER SORBITEX CALCIUM 8.4 GM POWDER PACKET (VELTASSA) PO SCH (12:00)
[2022-10-04 16:10] VITALS: BP 144/75
[2022-10-04 19:54] VITALS: BP 108/67
[2022-10-05 05:24] VITALS: BP 127/57
[2022-10-05] MEDS: HYDROMORPHONE HCL 0.5 MG/ 0.5 ML SYRINGE IV PRN (05:37)
[2022-10-05 06:44] LABS: INR 1.45; PROTHROMBIN TIME 17.9 SECONDS (12.5-14.5)
[2022-10-05 07:21] LABS: BASO # 0.1 10^3/uL (0.0-0.2); BASO % 0.8 % (0.0-1.0); EOS # 0.7 10^3/uL (0.0-0.5); EOS % 6.7 % (0.0-3.0); HEMATOCRIT 34.8 % (42.0-52.0); HEMOGLOBIN 11.1 g/dl (13.5-17.5); LYMPH # 1.4 10^3/uL (1.5-5.0); LYMPH % 13.3 % (24.0-44.0); MEAN CORPUSCULAR HEMOGLOBIN 29.1 pg (27.0-33.0); MEAN CORPUSCULAR HGB CONC 31.9 g/dl (32.0-36.5); MEAN CORPUSCULAR VOLUME 91.3 fl (80.0-96.0); MONO # 1.3 10^3/uL (0.0-0.8); NEUTROPHILS % 66.7 % (36.0-66.0); PLATELET COUNT, AUTOMATED 148 10^3/uL (150-450); RED BLOOD COUNT 3.81 10^6/uL (4.30-6.10); WHITE BLOOD COUNT 10.5 10^3/uL (4.0-10.0)
[2022-10-05 07:27] LABS: CREATININE FOR GFR 5.97 MG/DL (0.70-1.30); GLOMERULAR FILTRATION RATE 9.6 (>35)
[2022-10-05 08:56] VITALS: BP 127/57
[2022-10-05] MEDS: APIXABAN 2.5 MG TAB (ELIQUIS) PO SCH (08:56)
[2022-10-05] MEDS: METOPROLOL TART 25 MG TABLET PO SCH (08:56)
[2022-10-05] MEDS: DOCUSATE SODIUM 100MG CAPSULE PO SCH (08:56)
[2022-10-05] MEDS ORDERED: METO1TAB87 PO (13:09)
[2022-10-05] MEDS: ACETAMINOPHEN TAB 650MG DOSE (2X325MG) PO PRN (13:38)
[2022-10-05 14:00] VITALS: BP 131/67
[2022-10-06] MEDS ORDERED: LIDOCAINE 1% SDV 5ML VIAL SC PRN (06:00)
[2022-10-06] MEDS ORDERED: HEPARIN 1,000UNITS/ML 10ML VIAL (FOR RADIOLOGY & DIALYSIS ONLY) XX SCH (06:00)
[2022-10-06] MEDS ORDERED: SODIUM CHLORIDE 0.9% 1000ML IV PRN (06:00)
[2022-10-06] MEDS ORDERED: HEPARIN 1,000UNITS/ML 10ML VIAL (FOR RADIOLOGY & DIALYSIS ONLY) IV PRN (06:00)
[2022-10-06] MEDS ORDERED: ELIQ2.5T PO (08:34)
[2022-10-06] MEDS ORDERED: METO25TA4 PO (08:36)
== END 2022-10-05 14:30 | DRG 480 ==
LOC: EDBD 21:38 → M ED 21:38 → M ED INP 23:58 → M PCU 10-01 05:59 → M MS5PR 10-04 15:12
PROVIDERS: ADMIT Family Medicine; ATTEND Internal Medicine
PROC: 5A1D70Z Performance of Urinary Filtration, Intermittent, Less than 6 Hours Per Day (ICD-10-PCS; 2022-10-01)
PROC: 0QS604Z Reposition Right Upper Femur with Internal Fixation Device, Open Approach (ICD-10-PCS; principal; 2022-10-02 13:00)
DX: S72.011A Unspecified intracapsular fracture of right femur, initial encounter for closed fracture (principal); N18.6 End stage renal disease; D62 Acute posthemorrhagic anemia; I48.21 Permanent atrial fibrillation; E78.5 Hyperlipidemia, unspecified; W18.30XA Fall on same level, unspecified, initial encounter; Y92.008 Other place in unspecified non-institutional (private) residence as the place of occurrence of the external cause; Y93.89 Activity, other specified; Y99.8 Other external cause status; Z66 Do not resuscitate; I50.9 Heart failure, unspecified; F03.90 Unspecified dementia, unspecified severity, without behavioral disturbance, psychotic disturbance, mood disturbance, and anxiety; D69.6 Thrombocytopenia, unspecified; D72.829 Elevated white blood cell count, unspecified; M16.11 Unilateral primary osteoarthritis, right hip; D63.1 Anemia in chronic kidney disease; Z96.651 Presence of right artificial knee joint; E87.5 Hyperkalemia; Z99.2 Dependence on renal dialysis; Z79.01 Long term (current) use of anticoagulants; Z79.899 Other long term (current) drug therapy

== ENCOUNTER 2022-10-05 12:49 | Inpatient (IN) | payer MEDICARE, OTHER ==
[~2022-10-05] VITALS: Ht 157.5 cm; Wt 63.0 kg
[~2022-10-05 12:49] MED LIST changes: +DIAL800T3 PO; +WARF-23
[2022-10-05] MEDS ORDERED: METO1TAB87 PO (13:09)
[2022-10-05 14:40] VITALS: BP 134/62
[2022-10-05] MEDS ORDERED: ONDANSETRON 4MG TAB PO PRN (17:35)
[2022-10-05] MEDS ORDERED: oxyCODONE 5MG TAB PO PRN (17:35)
[2022-10-05 20:00] VITALS: BP 144/69
[2022-10-05] MEDS: APIXABAN 2.5 MG TAB (ELIQUIS) PO SCH (20:32)
[2022-10-05] MEDS: DICLOFENAC EPOLAMINE 1.3% PATCH TOP SCH (20:33)
[2022-10-05] MEDS: REMEDY PHYTOPLEX Z-GUARD PASTE 113GM TUBE (FROM STOREROOM PRODUCT) TOP SCH (20:33)
[2022-10-05] MEDS: ACETAMINOPHEN 500 MG TAB PO SCH (20:33)
[2022-10-05] MEDS: METOPROLOL TART 25 MG TABLET PO SCH (20:33)
[2022-10-05] MEDS: DOCUSATE SODIUM 100MG CAPSULE PO SCH (21:00)
[2022-10-05] MEDS: SENNA 8.6 MG TAB (SENOKOT) PO SCH (21:00)
[2022-10-06 06:00] VITALS: BP 146/67
[2022-10-06 06:15] LABS: BASO # 0.1 10^3/uL (0.0-0.2); BASO % 0.9 % (0.0-1.0); EOS # 0.7 10^3/uL (0.0-0.5); EOS % 6.3 % (0.0-3.0); HEMATOCRIT 31.4 % (42.0-52.0); HEMOGLOBIN 10.1 g/dl (13.5-17.5); LYMPH # 1.6 10^3/uL (1.5-5.0); LYMPH % 15.3 % (24.0-44.0); MEAN CORPUSCULAR HEMOGLOBIN 29.1 pg (27.0-33.0); MEAN CORPUSCULAR HGB CONC 32.2 g/dl (32.0-36.5); MEAN CORPUSCULAR VOLUME 90.5 fl (80.0-96.0); MONO # 1.3 10^3/uL (0.0-0.8); MONO % 12.5 % (2.0-8.0); NEUTROPHILS # 6.6 10^3/uL (1.5-8.5); NEUTROPHILS % 64.4 % (36.0-66.0); PLATELET COUNT, AUTOMATED 165 10^3/uL (150-450); RED BLOOD COUNT 3.47 10^6/uL (4.30-6.10); WHITE BLOOD COUNT 10.3 10^3/uL (4.0-10.0)
[2022-10-06 06:44] LABS: ALBUMIN 2.6 G/DL (3.2-5.2); ALKALINE PHOSPHATASE 67 U/L (46-116); ALT/SGPT < 9 U/L (7.0-40); AST/SGOT 15 U/L (<34); BILIRUBIN,TOTAL < 0.2 MG/DL (0.3-1.2); BLOOD UREA NITROGEN 93 MG/DL (9-23); CALCIUM LEVEL 8.3 MG/DL (8.3-10.6); CARBON DIOXIDE LEVEL 23 MMOL/L (20-31); CHLORIDE LEVEL 98 MMOL/L (98-107); CREATININE FOR GFR 7.63 MG/DL (0.70-1.30); GLOMERULAR FILTRATION RATE 7.2 (>35); GLUCOSE, FASTING 80 MG/DL (74-106); POTASSIUM SERUM 5.1 MMOL/L (3.5-5.1); SODIUM LEVEL 136 MMOL/L (136-145); TOTAL PROTEIN 5.9 G/DL (5.7-8.2)
[2022-10-06] MEDS ORDERED: ELIQ2.5T PO (08:34)
[2022-10-06] MEDS ORDERED: METO25TA4 PO (08:36)
[2022-10-06] MEDS: APIXABAN 2.5 MG TAB (ELIQUIS) PO SCH ×2 (08:54→20:09)
[2022-10-06] MEDS: DICLOFENAC EPOLAMINE 1.3% PATCH TOP SCH ×2 (08:54→20:09)
[2022-10-06] MEDS: PANTOPRAZOLE 40MG TAB (PROTONIX) PO SCH (08:54)
[2022-10-06] MEDS: SIMVASTATIN 10 MG TAB PO SCH (08:54)
[2022-10-06] MEDS: METOPROLOL TART 25 MG TABLET PO SCH ×2 (08:55→19:55)
[2022-10-06] MEDS: DOCUSATE SODIUM 100MG CAPSULE PO SCH ×2 (08:55→19:55)
[2022-10-06] MEDS: REMEDY PHYTOPLEX Z-GUARD PASTE 113GM TUBE (FROM STOREROOM PRODUCT) TOP SCH ×3 (08:56→20:09)
[2022-10-06] MEDS: ACETAMINOPHEN 500 MG TAB PO SCH ×3 (08:56→20:09)
[2022-10-06] MEDS ORDERED: LIDOCAINE 1% SDV 5ML VIAL SC PRN (10:50)
[2022-10-06] MEDS ORDERED: SODIUM CHLORIDE 0.9% 1000ML IV PRN (10:50)
[2022-10-06] MEDS ORDERED: HEPARIN 1,000UNITS/ML 10ML VIAL (FOR RADIOLOGY & DIALYSIS ONLY) IV PRN (10:50)
[2022-10-06] MEDS ORDERED: HEPARIN 1,000UNITS/ML 10ML VIAL (FOR RADIOLOGY & DIALYSIS ONLY) XX SCH (10:50)
[2022-10-06] MEDS: SENNA 8.6 MG TAB (SENOKOT) PO SCH (19:55)
[2022-10-06 20:00] VITALS: BP 122/70
[2022-10-07 06:00] VITALS: BP 153/67
[2022-10-07 06:00] LABS: BASO # 0.1 10^3/uL (0.0-0.2); BASO % 0.8 % (0.0-1.0); EOS # 0.5 10^3/uL (0.0-0.5); EOS % 5.1 % (0.0-3.0); HEMATOCRIT 33.3 % (42.0-52.0); HEMOGLOBIN 10.7 g/dl (13.5-17.5); LYMPH # 1.6 10^3/uL (1.5-5.0); LYMPH % 17.9 % (24.0-44.0); MEAN CORPUSCULAR HEMOGLOBIN 29.2 pg (27.0-33.0); MEAN CORPUSCULAR HGB CONC 32.1 g/dl (32.0-36.5); MEAN CORPUSCULAR VOLUME 90.7 fl (80.0-96.0); MONO % 11.1 % (2.0-8.0); NEUTROPHILS # 5.8 10^3/uL (1.5-8.5); NEUTROPHILS % 64.2 % (36.0-66.0); PLATELET COUNT, AUTOMATED 174 10^3/uL (150-450); RED BLOOD COUNT 3.67 10^6/uL (4.30-6.10)
[2022-10-07 06:39] LABS: CALCIUM LEVEL 8.1 MG/DL (8.3-10.6); CREATININE FOR GFR 4.48 MG/DL (0.70-1.30); GLOMERULAR FILTRATION RATE 13.4 (>35); POTASSIUM SERUM 4.5 MMOL/L (3.5-5.1)
[2022-10-07] MEDS: METOPROLOL TART 25 MG TABLET PO SCH ×2 (08:05→20:59)
[2022-10-07] MEDS: DOCUSATE SODIUM 100MG CAPSULE PO SCH ×2 (08:05→20:58)
[2022-10-07] MEDS: APIXABAN 2.5 MG TAB (ELIQUIS) PO SCH ×2 (08:05→20:59)
[2022-10-07] MEDS: PANTOPRAZOLE 40MG TAB (PROTONIX) PO SCH (08:05)
[2022-10-07] MEDS: SIMVASTATIN 10 MG TAB PO SCH (08:05)
[2022-10-07] MEDS: REMEDY PHYTOPLEX Z-GUARD PASTE 113GM TUBE (FROM STOREROOM PRODUCT) TOP SCH ×3 (08:06→21:00)
[2022-10-07] MEDS: DICLOFENAC EPOLAMINE 1.3% PATCH TOP SCH ×2 (08:06→20:59)
[2022-10-07] MEDS: ACETAMINOPHEN 500 MG TAB PO SCH ×3 (08:06→21:00)
[2022-10-07 14:00] VITALS: BP 115/67
[2022-10-07] MEDS: SENNA 8.6 MG TAB (SENOKOT) PO SCH (20:58)
[2022-10-07 22:00] VITALS: BP 139/68
[2022-10-08 06:00] VITALS: BP 130/60
[2022-10-08] MEDS: REMEDY PHYTOPLEX Z-GUARD PASTE 113GM TUBE (FROM STOREROOM PRODUCT) TOP SCH ×3 (09:00→21:38)
[2022-10-08] MEDS: DOCUSATE SODIUM 100MG CAPSULE PO SCH ×2 (09:00→21:00)
[2022-10-08] MEDS: ACETAMINOPHEN 500 MG TAB PO SCH ×3 (09:07→21:37)
[2022-10-08] MEDS: SIMVASTATIN 10 MG TAB PO SCH (09:07)
[2022-10-08] MEDS: METOPROLOL TART 25 MG TABLET PO SCH ×2 (09:08→21:37)
[2022-10-08] MEDS: APIXABAN 2.5 MG TAB (ELIQUIS) PO SCH ×2 (09:08→21:37)
[2022-10-08] MEDS: PANTOPRAZOLE 40MG TAB (PROTONIX) PO SCH (09:08)
[2022-10-08] MEDS: DICLOFENAC EPOLAMINE 1.3% PATCH TOP SCH ×2 (09:08→21:38)
[2022-10-08] MEDS ORDERED: PILL CUTTER 1 EACH XX PRN (11:05)
[2022-10-08] MEDS ORDERED: SODIUM CHLORIDE 0.9% 1000ML IV PRN (11:40)
[2022-10-08] MEDS ORDERED: HEPARIN 1,000UNITS/ML 10ML VIAL (FOR RADIOLOGY & DIALYSIS ONLY) XX SCH (11:40)
[2022-10-08] MEDS ORDERED: HEPARIN 1,000UNITS/ML 10ML VIAL (FOR RADIOLOGY & DIALYSIS ONLY) IV PRN (11:40)
[2022-10-08] MEDS ORDERED: LIDOCAINE 1% SDV 5ML VIAL SC PRN (11:40)
[2022-10-08] MEDS ORDERED: DARBEPOETIN 40MCG/0.4ML *DIALYSIS* SYRINGE IV SCH (12:00)
[2022-10-08] MEDS: oxyCODONE 5MG TAB PO SCH ×2 (12:30→17:10)
[2022-10-08 20:40] VITALS: BP 151/51
[2022-10-08] MEDS: SENNA 8.6 MG TAB (SENOKOT) PO SCH (21:00)
[2022-10-09 06:00] VITALS: BP 160/76
[2022-10-09] MEDS: oxyCODONE 5MG TAB PO SCH ×3 (07:02→16:56)
[2022-10-09] MEDS: METOPROLOL TART 25 MG TABLET PO SCH ×2 (09:00→20:32)
[2022-10-09] MEDS: DOCUSATE SODIUM 100MG CAPSULE PO SCH ×3 (09:00→20:31)
[2022-10-09] MEDS: PANTOPRAZOLE 40MG TAB (PROTONIX) PO SCH (09:23)
[2022-10-09] MEDS: DICLOFENAC EPOLAMINE 1.3% PATCH TOP SCH ×2 (09:23→20:33)
[2022-10-09] MEDS: ACETAMINOPHEN 500 MG TAB PO SCH ×3 (09:23→20:34)
[2022-10-09] MEDS: APIXABAN 2.5 MG TAB (ELIQUIS) PO SCH ×2 (09:23→20:33)
[2022-10-09] MEDS: SIMVASTATIN 10 MG TAB PO SCH (09:23)
[2022-10-09] MEDS: REMEDY PHYTOPLEX Z-GUARD PASTE 113GM TUBE (FROM STOREROOM PRODUCT) TOP SCH ×3 (09:26→20:33)
[2022-10-09 09:37] LABS: HEMATOCRIT 33.6 % (42.0-52.0); HEMOGLOBIN 10.5 g/dl (13.5-17.5); MEAN CORPUSCULAR HGB CONC 31.3 g/dl (32.0-36.5); MEAN CORPUSCULAR VOLUME 92.8 fl (80.0-96.0); PLATELET COUNT, AUTOMATED 195 10^3/uL (150-450); RED BLOOD COUNT 3.62 10^6/uL (4.30-6.10)
[2022-10-09 10:03] LABS: ATYPICAL LYMPH 3 % (0-5); BASOPHILS 2 % (0-1); CALCIUM LEVEL 8.6 MG/DL (8.3-10.6); CREATININE FOR GFR 4.7 MG/DL (0.70-1.30); EOSINOPHILS 2 % (0-3); GLOMERULAR FILTRATION RATE 12.7 (>35); LYMPHOCYTES 16 % (16-44); MONOCYTES 7 % (0-5); NEUTROPHILS 70 % (28-66); POTASSIUM SERUM 4.1 MMOL/L (3.5-5.1)
[2022-10-09 10:04] LABS: HYPOCHROMASIA 1+; OVALOCYTES 1+; PLATELET ESTIMATE NORMAL (NORMAL)
[2022-10-09 14:10] VITALS: BP 103/50
[2022-10-09 20:00] VITALS: BP 102/59
[2022-10-09] MEDS: SENNA 8.6 MG TAB (SENOKOT) PO SCH (20:31)
[2022-10-10] MEDS: oxyCODONE 5MG TAB PO SCH ×3 (07:00→16:00)
[2022-10-10] MEDS ORDERED: HEPARIN 1,000UNITS/ML 10ML VIAL (FOR RADIOLOGY & DIALYSIS ONLY) XX SCH (07:35)
[2022-10-10] MEDS ORDERED: SODIUM CHLORIDE 0.9% 1000ML IV PRN (07:35)
[2022-10-10] MEDS ORDERED: LIDOCAINE 1% SDV 5ML VIAL SC PRN (07:35)
[2022-10-10] MEDS ORDERED: HEPARIN 1,000UNITS/ML 10ML VIAL (FOR RADIOLOGY & DIALYSIS ONLY) IV PRN (07:35)
[2022-10-10] MEDS: PANTOPRAZOLE 40MG TAB (PROTONIX) PO SCH (13:22)
[2022-10-10] MEDS: APIXABAN 2.5 MG TAB (ELIQUIS) PO SCH ×2 (13:22→20:09)
[2022-10-10] MEDS: DOCUSATE SODIUM 100MG CAPSULE PO SCH ×2 (13:22→20:09)
[2022-10-10] MEDS: SIMVASTATIN 10 MG TAB PO SCH (13:23)
[2022-10-10] MEDS: REMEDY PHYTOPLEX Z-GUARD PASTE 113GM TUBE (FROM STOREROOM PRODUCT) TOP SCH ×3 (13:23→20:09)
[2022-10-10] MEDS: ACETAMINOPHEN 500 MG TAB PO SCH ×3 (13:24→20:09)
[2022-10-10] MEDS: DICLOFENAC EPOLAMINE 1.3% PATCH TOP SCH ×2 (13:25→20:09)
[2022-10-10 13:39] VITALS: BP 129/64
[2022-10-10] MEDS: METOPROLOL TART 25 MG TABLET PO SCH ×2 (13:39→20:03)
[2022-10-10 20:00] VITALS: BP 109/54
[2022-10-10] MEDS: SENNA 8.6 MG TAB (SENOKOT) PO SCH (20:09)
[2022-10-11 06:00] VITALS: BP 136/60
[2022-10-11] MEDS: oxyCODONE 5MG TAB PO SCH ×3 (07:00→16:00)
[2022-10-11] MEDS: APIXABAN 2.5 MG TAB (ELIQUIS) PO SCH ×2 (08:54→20:52)
[2022-10-11] MEDS: DOCUSATE SODIUM 100MG CAPSULE PO SCH ×2 (08:54→20:52)
[2022-10-11] MEDS: SIMVASTATIN 10 MG TAB PO SCH (08:55)
[2022-10-11] MEDS: ACETAMINOPHEN 500 MG TAB PO SCH ×3 (08:55→20:52)
[2022-10-11] MEDS: METOPROLOL TART 25 MG TABLET PO SCH ×2 (08:55→20:52)
[2022-10-11] MEDS: PANTOPRAZOLE 40MG TAB (PROTONIX) PO SCH (08:55)
[2022-10-11] MEDS: REMEDY PHYTOPLEX Z-GUARD PASTE 113GM TUBE (FROM STOREROOM PRODUCT) TOP SCH ×3 (08:56→20:52)
[2022-10-11] MEDS: DICLOFENAC EPOLAMINE 1.3% PATCH TOP SCH ×2 (09:00→20:51)
[2022-10-11 14:00] VITALS: BP 108/53
[2022-10-11 19:33] VITALS: BP 126/68
[2022-10-11] MEDS: SENNA 8.6 MG TAB (SENOKOT) PO SCH (20:52)
[2022-10-12 05:51] VITALS: BP 131/63
[2022-10-12 06:05] LABS: BASO # 0.1 10^3/uL (0.0-0.2); BASO % 0.8 % (0.0-1.0); EOS # 0.6 10^3/uL (0.0-0.5); EOS % 5.3 % (0.0-3.0); HEMATOCRIT 29.5 % (42.0-52.0); HEMOGLOBIN 9.2 g/dl (13.5-17.5); LYMPH # 2.1 10^3/uL (1.5-5.0); LYMPH % 20.1 % (24.0-44.0); MEAN CORPUSCULAR HGB CONC 31.2 g/dl (32.0-36.5); MEAN CORPUSCULAR VOLUME 93.1 fl (80.0-96.0); MONO # 1.1 10^3/uL (0.0-0.8); NEUTROPHILS # 6.7 10^3/uL (1.5-8.5); NEUTROPHILS % 63.1 % (36.0-66.0); PLATELET COUNT, AUTOMATED 188 10^3/uL (150-450); RED BLOOD COUNT 3.17 10^6/uL (4.30-6.10); WHITE BLOOD COUNT 10.7 10^3/uL (4.0-10.0)
[2022-10-12 06:30] LABS: CALCIUM LEVEL 8.8 MG/DL (8.3-10.6); CREATININE FOR GFR 6.07 MG/DL (0.70-1.30); GLOMERULAR FILTRATION RATE 9.4 (>35); POTASSIUM SERUM 4.9 MMOL/L (3.5-5.1)
[2022-10-12] MEDS: oxyCODONE 5MG TAB PO SCH ×3 (07:22→16:00)
[2022-10-12] MEDS: PANTOPRAZOLE 40MG TAB (PROTONIX) PO SCH (09:04)
[2022-10-12] MEDS: DICLOFENAC EPOLAMINE 1.3% PATCH TOP SCH ×2 (09:04→20:53)
[2022-10-12] MEDS: APIXABAN 2.5 MG TAB (ELIQUIS) PO SCH ×2 (09:05→20:54)
[2022-10-12] MEDS: ACETAMINOPHEN 500 MG TAB PO SCH ×3 (09:05→20:54)
[2022-10-12] MEDS: METOPROLOL TART 25 MG TABLET PO SCH ×2 (09:05→20:53)
[2022-10-12] MEDS: SIMVASTATIN 10 MG TAB PO SCH (09:05)
[2022-10-12] MEDS: DOCUSATE SODIUM 100MG CAPSULE PO SCH ×2 (09:05→20:53)
[2022-10-12] MEDS: REMEDY PHYTOPLEX Z-GUARD PASTE 113GM TUBE (FROM STOREROOM PRODUCT) TOP SCH ×3 (09:06→20:54)
[2022-10-12 14:42] VITALS: BP 127/60
[2022-10-12 20:15] VITALS: BP 142/72
[2022-10-12] MEDS: SENNA 8.6 MG TAB (SENOKOT) PO SCH (20:53)
[2022-10-13] MEDS: oxyCODONE 5MG TAB PO SCH ×3 (06:27→16:00)
[2022-10-13 06:30] VITALS: BP 122/59
[2022-10-13] MEDS ORDERED: LIDOCAINE 1% SDV 5ML VIAL SC PRN (07:20)
[2022-10-13] MEDS ORDERED: HEPARIN 1,000UNITS/ML 10ML VIAL (FOR RADIOLOGY & DIALYSIS ONLY) XX SCH (07:20)
[2022-10-13] MEDS ORDERED: SODIUM CHLORIDE 0.9% 1000ML IV PRN (07:20)
[2022-10-13] MEDS ORDERED: HEPARIN 1,000UNITS/ML 10ML VIAL (FOR RADIOLOGY & DIALYSIS ONLY) IV PRN (07:20)
[2022-10-13] MEDS ORDERED: DARBEPOETIN 40MCG/0.4ML *DIALYSIS* SYRINGE IV SCH (07:20)
[2022-10-13] MEDS: DOCUSATE SODIUM 100MG CAPSULE PO SCH ×2 (09:22→21:28)
[2022-10-13] MEDS: APIXABAN 2.5 MG TAB (ELIQUIS) PO SCH ×2 (09:22→21:29)
[2022-10-13] MEDS: SIMVASTATIN 10 MG TAB PO SCH (09:22)
[2022-10-13] MEDS: METOPROLOL TART 25 MG TABLET PO SCH ×2 (09:22→21:29)
[2022-10-13] MEDS: BISACODYL 5MG TAB PO PRN (09:22)
[2022-10-13] MEDS: PANTOPRAZOLE 40MG TAB (PROTONIX) PO SCH (09:22)
[2022-10-13] MEDS: ACETAMINOPHEN 500 MG TAB PO SCH ×3 (09:25→21:00)
[2022-10-13] MEDS: DICLOFENAC EPOLAMINE 1.3% PATCH TOP SCH ×2 (09:25→21:00)
[2022-10-13] MEDS: REMEDY PHYTOPLEX Z-GUARD PASTE 113GM TUBE (FROM STOREROOM PRODUCT) TOP SCH ×3 (09:26→21:00)
[2022-10-13 14:00] VITALS: BP 122/68
[2022-10-13] MEDS ORDERED: REMDESIVIR 200 MG in NS 250 ML IV ONE (15:00)
[2022-10-13] MEDS ORDERED: SODIUM CHLORIDE 0.9% INJ 10 ML SYR IV ONE (17:00)
[2022-10-13 20:04] VITALS: BP_SYST 129; BP_SYST 163; BP_DIAS 48; BP_DIAS 57
[2022-10-13] MEDS: SENNA 8.6 MG TAB (SENOKOT) PO SCH (21:28)
[2022-10-14 05:43] VITALS: BP 115/45
[2022-10-14 06:16] LABS: BASO # 0.1 10^3/uL (0.0-0.2); EOS # 0.4 10^3/uL (0.0-0.5); EOS % 3.5 % (0.0-3.0); HEMATOCRIT 30.7 % (42.0-52.0); HEMOGLOBIN 9.6 g/dl (13.5-17.5); LYMPH # 1.7 10^3/uL (1.5-5.0); LYMPH % 16.8 % (24.0-44.0); MEAN CORPUSCULAR HGB CONC 31.3 g/dl (32.0-36.5); MEAN CORPUSCULAR VOLUME 92.7 fl (80.0-96.0); MONO # 0.9 10^3/uL (0.0-0.8); MONO % 8.5 % (2.0-8.0); NEUTROPHILS # 7.2 10^3/uL (1.5-8.5); NEUTROPHILS % 69.4 % (36.0-66.0); PLATELET COUNT, AUTOMATED 215 10^3/uL (150-450); RED BLOOD COUNT 3.31 10^6/uL (4.30-6.10); WHITE BLOOD COUNT 10.3 10^3/uL (4.0-10.0)
[2022-10-14 06:30] LABS: ALBUMIN 2.8 G/DL (3.2-5.2); ALKALINE PHOSPHATASE 83 U/L (46-116); ALT/SGPT < 9 U/L (7.0-40); AST/SGOT 15 U/L (<34); BILIRUBIN,DIRECT 0.2 MG/DL (<0.4); BILIRUBIN,TOTAL 0.4 MG/DL (0.3-1.2); BLOOD UREA NITROGEN 34 MG/DL (9-23); CALCIUM LEVEL 8.9 MG/DL (8.3-10.6); CARBON DIOXIDE LEVEL 24 MMOL/L (20-31); CHLORIDE LEVEL 99 MMOL/L (98-107); CREATININE FOR GFR 4.73 MG/DL (0.70-1.30); GLOMERULAR FILTRATION RATE 12.6 (>35); GLUCOSE, FASTING 57 MG/DL (74-106); POTASSIUM SERUM 4.7 MMOL/L (3.5-5.1); SODIUM LEVEL 136 MMOL/L (136-145); TOTAL PROTEIN 6.1 G/DL (5.7-8.2)
[2022-10-14] MEDS: oxyCODONE 5MG TAB PO SCH ×3 (06:35→17:01)
[2022-10-14] MEDS: REMEDY PHYTOPLEX Z-GUARD PASTE 113GM TUBE (FROM STOREROOM PRODUCT) TOP SCH ×3 (09:00→20:34)
[2022-10-14] MEDS: APIXABAN 2.5 MG TAB (ELIQUIS) PO SCH ×3 (09:27→20:34)
[2022-10-14] MEDS: METOPROLOL TART 25 MG TABLET PO SCH ×3 (09:27→20:34)
[2022-10-14] MEDS: BISACODYL 5MG TAB PO PRN (09:27)
[2022-10-14] MEDS: DOCUSATE SODIUM 100MG CAPSULE PO SCH ×3 (09:27→20:34)
[2022-10-14] MEDS: PANTOPRAZOLE 40MG TAB (PROTONIX) PO SCH ×2 (09:27→11:48)
[2022-10-14] MEDS: ACETAMINOPHEN 500 MG TAB PO SCH ×4 (09:28→20:33)
[2022-10-14] MEDS: DICLOFENAC EPOLAMINE 1.3% PATCH TOP SCH ×3 (09:28→20:33)
[2022-10-14] MEDS: SIMVASTATIN 10 MG TAB PO SCH ×2 (09:28→11:49)
[2022-10-14 14:00] VITALS: BP 120/76
[2022-10-14] MEDS ORDERED: LIDOCAINE 1% MDV 20ML VIAL As Ordered ONE (14:51)
[2022-10-14] MEDS ORDERED: REMDESIVIR 200 MG in NS 250 ML IV ONE (16:00)
[2022-10-14] MEDS: guaiFENesin 200 MG TAB PO SCH ×2 (17:00→20:33)
[2022-10-14] MEDS ORDERED: SODIUM CHLORIDE 0.9% INJ 10 ML SYR IV ONE (18:00)
[2022-10-14 20:00] VITALS: BP 121/45
[2022-10-14] MEDS ORDERED: REMDESIVIR 100 MG in NS 250 ML IV SCH (20:00)
[2022-10-14] MEDS: SENNA 8.6 MG TAB (SENOKOT) PO SCH (20:34)
[2022-10-14] MEDS: COMBIVENT RESPIMAT 100-20MCG INHALER 4GM INH SCH (20:36)
[2022-10-14] MEDS ORDERED: SODIUM CHLORIDE 0.9% INJ 10 ML SYR IV SCH (21:00)
[2022-10-15 06:00] VITALS: BP 136/54
[2022-10-15] MEDS: oxyCODONE 5MG TAB PO SCH (07:14)
[2022-10-15] MEDS: COMBIVENT RESPIMAT 100-20MCG INHALER 4GM INH SCH ×3 (07:49→20:00)
[2022-10-15] MEDS ORDERED: SODIUM CHLORIDE 0.9% 1000ML IV PRN (07:55)
[2022-10-15] MEDS ORDERED: HEPARIN 1,000UNITS/ML 10ML VIAL (FOR RADIOLOGY & DIALYSIS ONLY) IV PRN (07:55)
[2022-10-15] MEDS ORDERED: HEPARIN 1,000UNITS/ML 10ML VIAL (FOR RADIOLOGY & DIALYSIS ONLY) XX SCH (07:55)
[2022-10-15] MEDS ORDERED: LIDOCAINE 1% SDV 5ML VIAL SC PRN (07:55)
[2022-10-15] MEDS: APIXABAN 2.5 MG TAB (ELIQUIS) PO SCH ×2 (08:27→21:38)
[2022-10-15] MEDS: DOCUSATE SODIUM 100MG CAPSULE PO SCH ×2 (08:27→21:00)
[2022-10-15] MEDS: guaiFENesin 200 MG TAB PO SCH ×3 (08:28→21:38)
[2022-10-15] MEDS: SIMVASTATIN 10 MG TAB PO SCH (08:28)
[2022-10-15] MEDS: PANTOPRAZOLE 40MG TAB (PROTONIX) PO SCH (08:28)
[2022-10-15] MEDS: METOPROLOL TART 25 MG TABLET PO SCH ×2 (08:28→21:39)
[2022-10-15] MEDS: ACETAMINOPHEN 500 MG TAB PO SCH ×3 (08:29→21:37)
[2022-10-15] MEDS: REMEDY PHYTOPLEX Z-GUARD PASTE 113GM TUBE (FROM STOREROOM PRODUCT) TOP SCH ×3 (08:29→21:39)
[2022-10-15] MEDS: DICLOFENAC EPOLAMINE 1.3% PATCH TOP SCH ×2 (08:30→21:00)
[2022-10-15] MEDS ORDERED: CEFEPIME HCL 1 GM in D5W MINI-BAG PLUS 50 ML IV ONE (11:00)
[2022-10-15 11:06] LABS: BASO # 0.1 10^3/uL (0.0-0.2); BASO % 0.6 % (0.0-1.0); EOS # 0.5 10^3/uL (0.0-0.5); EOS % 4.1 % (0.0-3.0); HEMOGLOBIN 9.8 g/dl (13.5-17.5); LYMPH # 1.6 10^3/uL (1.5-5.0); LYMPH % 14.1 % (24.0-44.0); MEAN CORPUSCULAR HEMOGLOBIN 29.3 pg (27.0-33.0); MEAN CORPUSCULAR HGB CONC 31.6 g/dl (32.0-36.5); MEAN CORPUSCULAR VOLUME 92.8 fl (80.0-96.0); MONO % 9.5 % (2.0-8.0); NEUTROPHILS # 7.8 10^3/uL (1.5-8.5); NEUTROPHILS % 71.1 % (36.0-66.0); PLATELET COUNT, AUTOMATED 212 10^3/uL (150-450); RED BLOOD COUNT 3.34 10^6/uL (4.30-6.10)
[2022-10-15 11:31] LABS: CALCIUM LEVEL 8.6 MG/DL (8.3-10.6); CREATININE FOR GFR 6.74 MG/DL (0.70-1.30); GLOMERULAR FILTRATION RATE 8.4 (>35); POTASSIUM SERUM 4.7 MMOL/L (3.5-5.1)
[2022-10-15] MEDS ORDERED: oxyCODONE 5MG TAB PO PRN (12:00)
[2022-10-15 14:00] VITALS: BP 105/63
[2022-10-15] MEDS ORDERED: REMDESIVIR 100 MG in NS 250 ML IV SCH (16:00)
[2022-10-15] MEDS ORDERED: SODIUM CHLORIDE 0.9% INJ 10 ML SYR IV SCH (17:00)
[2022-10-15 20:00] VITALS: BP 116/71
[2022-10-15] MEDS: SENNA 8.6 MG TAB (SENOKOT) PO SCH (21:00)
[2022-10-16 06:00] VITALS: BP 112/65
[2022-10-16 06:43] LABS: BASO # 0.1 10^3/uL (0.0-0.2); BASO % 0.8 % (0.0-1.0); EOS # 0.4 10^3/uL (0.0-0.5); EOS % 4.2 % (0.0-3.0); HEMATOCRIT 29.1 % (42.0-52.0); HEMOGLOBIN 9.3 g/dl (13.5-17.5); LYMPH # 1.4 10^3/uL (1.5-5.0); LYMPH % 14.3 % (24.0-44.0); MEAN CORPUSCULAR HEMOGLOBIN 29.7 pg (27.0-33.0); MONO % 9.9 % (2.0-8.0); PLATELET COUNT, AUTOMATED 200 10^3/uL (150-450); RED BLOOD COUNT 3.13 10^6/uL (4.30-6.10)
[2022-10-16 07:19] LABS: CALCIUM LEVEL 8.5 MG/DL (8.3-10.6); CREATININE FOR GFR 3.92 MG/DL (0.70-1.30); GLOMERULAR FILTRATION RATE 15.6 (>35); POTASSIUM SERUM 4.5 MMOL/L (3.5-5.1)
[2022-10-16] MEDS: COMBIVENT RESPIMAT 100-20MCG INHALER 4GM INH SCH ×3 (07:25→19:57)
[2022-10-16] MEDS: ACETAMINOPHEN 500 MG TAB PO SCH ×4 (09:00→21:28)
[2022-10-16] MEDS: METOPROLOL TART 25 MG TABLET PO SCH ×3 (09:00→21:34)
[2022-10-16] MEDS: PANTOPRAZOLE 40MG TAB (PROTONIX) PO SCH (09:32)
[2022-10-16] MEDS: APIXABAN 2.5 MG TAB (ELIQUIS) PO SCH ×3 (09:32→21:28)
[2022-10-16] MEDS: DOCUSATE SODIUM 100MG CAPSULE PO SCH ×3 (09:32→21:28)
[2022-10-16] MEDS: DICLOFENAC EPOLAMINE 1.3% PATCH TOP SCH ×2 (09:34→21:29)
[2022-10-16] MEDS: guaiFENesin 200 MG TAB PO SCH ×4 (09:34→21:28)
[2022-10-16] MEDS: SIMVASTATIN 10 MG TAB PO SCH (09:34)
[2022-10-16] MEDS: REMEDY PHYTOPLEX Z-GUARD PASTE 113GM TUBE (FROM STOREROOM PRODUCT) TOP SCH ×4 (09:35→21:30)
[2022-10-16] MEDS: CEFDINIR 300 MG CAP (OMNICEF) PO SCH (13:39)
[2022-10-16 14:00] VITALS: BP 114/64
[2022-10-16] MEDS ORDERED: CEFEPIME HCL 1 GM in D5W MINI-BAG PLUS 50 ML IV SCH (18:00)
[2022-10-16 20:00] VITALS: BP 140/65
[2022-10-16] MEDS: SENNA 8.6 MG TAB (SENOKOT) PO SCH (21:00)
[2022-10-17] MEDS ORDERED: HEPARIN 1,000UNITS/ML 10ML VIAL (FOR RADIOLOGY & DIALYSIS ONLY) XX SCH (06:00)
[2022-10-17] MEDS ORDERED: HEPARIN 1,000UNITS/ML 10ML VIAL (FOR RADIOLOGY & DIALYSIS ONLY) IV PRN (06:00)
[2022-10-17] MEDS ORDERED: LIDOCAINE 1% SDV 5ML VIAL SC PRN (06:00)
[2022-10-17] MEDS ORDERED: SODIUM CHLORIDE 0.9% 1000ML IV PRN (06:00)
[2022-10-17] MEDS: COMBIVENT RESPIMAT 100-20MCG INHALER 4GM INH SCH ×3 (07:25→20:40)
[2022-10-17] MEDS: REMEDY PHYTOPLEX Z-GUARD PASTE 113GM TUBE (FROM STOREROOM PRODUCT) TOP SCH ×3 (09:00→21:00)
[2022-10-17] MEDS ORDERED: DARBEPOETIN 100MCG/0.5ML *DIALYSIS* SYRINGE IV SCH (09:00)
[2022-10-17] MEDS: SIMVASTATIN 10 MG TAB PO SCH (09:43)
[2022-10-17] MEDS: CEFDINIR 300 MG CAP (OMNICEF) PO SCH (09:43)
[2022-10-17] MEDS: guaiFENesin 200 MG TAB PO SCH ×3 (09:43→21:00)
[2022-10-17] MEDS: PANTOPRAZOLE 40MG TAB (PROTONIX) PO SCH (09:43)
[2022-10-17] MEDS: APIXABAN 2.5 MG TAB (ELIQUIS) PO SCH ×2 (09:43→21:01)
[2022-10-17] MEDS: DOCUSATE SODIUM 100MG CAPSULE PO SCH ×2 (09:43→21:01)
[2022-10-17] MEDS: METOPROLOL TART 25 MG TABLET PO SCH ×2 (09:44→21:00)
[2022-10-17] MEDS: ACETAMINOPHEN 500 MG TAB PO SCH ×3 (09:44→21:00)
[2022-10-17] MEDS: DICLOFENAC EPOLAMINE 1.3% PATCH TOP SCH ×2 (09:45→21:00)
[2022-10-17 16:54] VITALS: BP 114/58
[2022-10-17 20:00] VITALS: BP 127/58
[2022-10-17] MEDS: SENNA 8.6 MG TAB (SENOKOT) PO SCH (21:00)
[2022-10-18 05:31] VITALS: BP 133/53
[2022-10-18] MEDS: COMBIVENT RESPIMAT 100-20MCG INHALER 4GM INH SCH ×3 (07:25→19:31)
[2022-10-18] MEDS: REMEDY PHYTOPLEX Z-GUARD PASTE 113GM TUBE (FROM STOREROOM PRODUCT) TOP SCH ×3 (09:00→21:46)
[2022-10-18] MEDS: ACETAMINOPHEN 500 MG TAB PO SCH ×3 (09:00→21:44)
[2022-10-18] MEDS: METOPROLOL TART 25 MG TABLET PO SCH ×2 (09:00→21:46)
[2022-10-18] MEDS: guaiFENesin 200 MG TAB PO SCH ×3 (09:02→21:45)
[2022-10-18] MEDS: CEFDINIR 300 MG CAP (OMNICEF) PO SCH (09:02)
[2022-10-18] MEDS: DICLOFENAC EPOLAMINE 1.3% PATCH TOP SCH ×2 (09:02→21:44)
[2022-10-18] MEDS: APIXABAN 2.5 MG TAB (ELIQUIS) PO SCH ×2 (09:03→21:46)
[2022-10-18] MEDS: SIMVASTATIN 10 MG TAB PO SCH (09:04)
[2022-10-18] MEDS: DOCUSATE SODIUM 100MG CAPSULE PO SCH ×2 (09:04→21:46)
[2022-10-18] MEDS: PANTOPRAZOLE 40MG TAB (PROTONIX) PO SCH (09:04)
[2022-10-18 14:00] VITALS: BP 129/59
[2022-10-18 20:04] VITALS: BP 132/63
[2022-10-18] MEDS: SENNA 8.6 MG TAB (SENOKOT) PO SCH (21:45)
[2022-10-19 06:00] VITALS: BP 122/50
[2022-10-19] MEDS: COMBIVENT RESPIMAT 100-20MCG INHALER 4GM INH SCH ×3 (08:08→20:07)
[2022-10-19] MEDS: DICLOFENAC EPOLAMINE 1.3% PATCH TOP SCH ×2 (08:18→20:45)
[2022-10-19] MEDS: guaiFENesin 200 MG TAB PO SCH ×3 (08:19→20:46)
[2022-10-19] MEDS: APIXABAN 2.5 MG TAB (ELIQUIS) PO SCH ×2 (08:19→20:45)
[2022-10-19] MEDS: CEFDINIR 300 MG CAP (OMNICEF) PO SCH (08:19)
[2022-10-19] MEDS: METOPROLOL TART 25 MG TABLET PO SCH ×2 (08:19→20:46)
[2022-10-19] MEDS: DOCUSATE SODIUM 100MG CAPSULE PO SCH ×2 (08:20→20:45)
[2022-10-19] MEDS: PANTOPRAZOLE 40MG TAB (PROTONIX) PO SCH (08:20)
[2022-10-19] MEDS: SIMVASTATIN 10 MG TAB PO SCH (08:20)
[2022-10-19] MEDS: ACETAMINOPHEN 500 MG TAB PO SCH ×3 (08:20→20:45)
[2022-10-19] MEDS: REMEDY PHYTOPLEX Z-GUARD PASTE 113GM TUBE (FROM STOREROOM PRODUCT) TOP SCH ×3 (08:21→20:46)
[2022-10-19 11:50] LABS: BASO # 0.1 10^3/uL (0.0-0.2); EOS # 0.4 10^3/uL (0.0-0.5); EOS % 4.2 % (0.0-3.0); HEMATOCRIT 31.1 % (42.0-52.0); HEMOGLOBIN 9.9 g/dl (13.5-17.5); LYMPH # 1.7 10^3/uL (1.5-5.0); LYMPH % 16.4 % (24.0-44.0); MEAN CORPUSCULAR HEMOGLOBIN 29.6 pg (27.0-33.0); MEAN CORPUSCULAR HGB CONC 31.8 g/dl (32.0-36.5); MEAN CORPUSCULAR VOLUME 92.8 fl (80.0-96.0); MONO # 1.1 10^3/uL (0.0-0.8); MONO % 10.5 % (2.0-8.0); NEUTROPHILS # 6.9 10^3/uL (1.5-8.5); NEUTROPHILS % 67.4 % (36.0-66.0); PLATELET COUNT, AUTOMATED 205 10^3/uL (150-450); RED BLOOD COUNT 3.35 10^6/uL (4.30-6.10); WHITE BLOOD COUNT 10.3 10^3/uL (4.0-10.0)
[2022-10-19 12:21] LABS: CALCIUM LEVEL 9.3 MG/DL (8.3-10.6); CREATININE FOR GFR 6.5 MG/DL (0.70-1.30); GLOMERULAR FILTRATION RATE 8.7 (>35); POTASSIUM SERUM 4.5 MMOL/L (3.5-5.1)
[2022-10-19 14:00] VITALS: BP 118/59
[2022-10-19 20:13] VITALS: BP 137/62
[2022-10-19] MEDS: SENNA 8.6 MG TAB (SENOKOT) PO SCH (20:45)
[2022-10-20] MEDS ORDERED: HEPARIN 1,000UNITS/ML 10ML VIAL (FOR RADIOLOGY & DIALYSIS ONLY) XX SCH (06:00)
[2022-10-20] MEDS ORDERED: LIDOCAINE 1% SDV 5ML VIAL SC PRN (06:00)
[2022-10-20] MEDS ORDERED: SODIUM CHLORIDE 0.9% 1000ML IV PRN (06:00)
[2022-10-20] MEDS ORDERED: HEPARIN 1,000UNITS/ML 10ML VIAL (FOR RADIOLOGY & DIALYSIS ONLY) IV PRN (06:00)
[2022-10-20 06:15] VITALS: BP 120/52
[2022-10-20] MEDS: SIMVASTATIN 10 MG TAB PO SCH (07:19)
[2022-10-20] MEDS: guaiFENesin 200 MG TAB PO SCH ×3 (07:19→21:03)
[2022-10-20] MEDS: DICLOFENAC EPOLAMINE 1.3% PATCH TOP SCH ×2 (07:19→21:03)
[2022-10-20] MEDS: CEFDINIR 300 MG CAP (OMNICEF) PO SCH (07:19)
[2022-10-20] MEDS: PANTOPRAZOLE 40MG TAB (PROTONIX) PO SCH (07:20)
[2022-10-20] MEDS: APIXABAN 2.5 MG TAB (ELIQUIS) PO SCH ×2 (07:20→21:03)
[2022-10-20] MEDS: ACETAMINOPHEN 500 MG TAB PO SCH ×3 (07:20→21:03)
[2022-10-20] MEDS: DOCUSATE SODIUM 100MG CAPSULE PO SCH ×2 (07:20→21:02)
[2022-10-20] MEDS: METOPROLOL TART 25 MG TABLET PO SCH ×2 (07:20→21:04)
[2022-10-20] MEDS: REMEDY PHYTOPLEX Z-GUARD PASTE 113GM TUBE (FROM STOREROOM PRODUCT) TOP SCH ×3 (07:21→21:03)
[2022-10-20] MEDS: COMBIVENT RESPIMAT 100-20MCG INHALER 4GM INH SCH ×3 (08:34→21:05)
[2022-10-20 19:23] VITALS: BP 138/66
[2022-10-20] MEDS: SENNA 8.6 MG TAB (SENOKOT) PO SCH (21:03)
[2022-10-21 05:42] VITALS: BP 124/59
[2022-10-21] MEDS: COMBIVENT RESPIMAT 100-20MCG INHALER 4GM INH SCH (07:51)
[2022-10-21 08:06] VITALS: BP 124/59
[2022-10-21] MEDS: PANTOPRAZOLE 40MG TAB (PROTONIX) PO SCH (08:06)
[2022-10-21] MEDS: APIXABAN 2.5 MG TAB (ELIQUIS) PO SCH (08:06)
[2022-10-21] MEDS: DOCUSATE SODIUM 100MG CAPSULE PO SCH (08:06)
[2022-10-21] MEDS: ACETAMINOPHEN 500 MG TAB PO SCH (08:06)
[2022-10-21] MEDS: SIMVASTATIN 10 MG TAB PO SCH (08:06)
[2022-10-21] MEDS: METOPROLOL TART 25 MG TABLET PO SCH (08:06)
[2022-10-21] MEDS: guaiFENesin 200 MG TAB PO SCH (08:06)
[2022-10-21] MEDS: REMEDY PHYTOPLEX Z-GUARD PASTE 113GM TUBE (FROM STOREROOM PRODUCT) TOP SCH (08:07)
[2022-10-21] MEDS: DICLOFENAC EPOLAMINE 1.3% PATCH TOP SCH (08:07)
[2022-10-21] MEDS ORDERED: SIMV10TA21 PO (11:11)
[2022-10-21] MEDS ORDERED: METO25TA4 PO (11:11)
[2022-10-21] MEDS ORDERED: COMBAER6 INH (11:11)
[2022-10-21] MEDS ORDERED: ELIQ2.5T PO (11:11)
[2022-10-21] MEDS: CEFDINIR 300 MG CAP (OMNICEF) PO SCH (11:40)
== END 2022-10-21 12:50 | disposition home health service (06) | DRG 559 ==
LOC: M PM&R 14:35
PROVIDERS: ADMIT Physical Medicine & Rehabilitation; ATTEND Physical Medicine & Rehabilitation
PROC: 5A1D70Z Performance of Urinary Filtration, Intermittent, Less than 6 Hours Per Day (ICD-10-PCS; principal; 2022-10-06)
PROC: XW033E5 Introduction of Remdesivir Anti-infective into Peripheral Vein, Percutaneous Approach, New Technology Group 5 (ICD-10-PCS; 2022-10-13)
PROC: 05H933Z Insertion of Infusion Device into Right Brachial Vein, Percutaneous Approach (ICD-10-PCS; 2022-10-14)
DX: S72.011D Unspecified intracapsular fracture of right femur, subsequent encounter for closed fracture with routine healing (principal); N18.6 End stage renal disease; U07.1 COVID-19; I13.2 Hypertensive heart and chronic kidney disease with heart failure and with stage 5 chronic kidney disease, or end stage renal disease; J98.11 Atelectasis; R53.81 Other malaise; R53.1 Weakness; M25.561 Pain in right knee; M79.661 Pain in right lower leg; G56.93 Unspecified mononeuropathy of bilateral upper limbs; I50.9 Heart failure, unspecified; Z66 Do not resuscitate; D69.6 Thrombocytopenia, unspecified; M81.0 Age-related osteoporosis without current pathological fracture; I48.91 Unspecified atrial fibrillation; E78.5 Hyperlipidemia, unspecified; D63.1 Anemia in chronic kidney disease; E87.5 Hyperkalemia; Z74.09 Other reduced mobility; Z79.01 Long term (current) use of anticoagulants; Z74.1 Need for assistance with personal care; Z79.899 Other long term (current) drug therapy; Z86.718 Personal history of other venous thrombosis and embolism; Z99.2 Dependence on renal dialysis

== ENCOUNTER → 2022-11-18 | Outpatient (CLI) | payer MEDICARE, OTHER ==
[~2022-11-18] MED LIST changes: +COMBAER6 INH; +LANO125T4 PO; +METO1TAB87 PO; +METO25TA4 PO
== END ==
LOC: M SOG 12:27
PROVIDERS: ATTEND Orthopaedic Surgery Adult Reconstructive Orthopaedic Surgery
DX: Z01.812 Encounter for preprocedural laboratory examination (principal); S72.001A Fracture of unspecified part of neck of right femur, initial encounter for closed fracture; Z20.822 Contact with and (suspected) exposure to COVID-19; Z96.651 Presence of right artificial knee joint; X58.XXXA Exposure to other specified factors, initial encounter; Y92.9 Unspecified place or not applicable; Y93.9 Activity, unspecified; Y99.9 Unspecified external cause status

== ENCOUNTER → 2022-11-18 | Outpatient (CLI) | payer MEDICARE, OTHER | LOC: M LABSMTC 11:24 | PROVIDERS: ATTEND Anesthesiology | DX: Z01.812 Encounter for preprocedural laboratory examination (principal); Z20.822 Contact with and (suspected) exposure to COVID-19 ==

== ENCOUNTER 2022-11-23 07:25 | Day surgery (SDC) | payer MEDICARE, OTHER ==
[~2022-11-23] VITALS: Ht 154.9 cm; Wt 51.2 kg
[~2022-11-23 07:25] MED LIST changes: +ceFAZolin SOD 2 GM in IV 1 EA IV ONE
[2022-11-23] MEDS ORDERED: LR 1,000 ML IV SCH (07:55)
[2022-11-23 08:09] LABS: HEMATOCRIT 37.9 % (42.0-52.0); HEMOGLOBIN 11.4 g/dl (13.5-17.5); MEAN CORPUSCULAR HEMOGLOBIN 29.5 pg (27.0-33.0); MEAN CORPUSCULAR HGB CONC 30.1 g/dl (32.0-36.5); MEAN CORPUSCULAR VOLUME 97.9 fl (80.0-96.0); PLATELET COUNT, AUTOMATED 178 10^3/uL (150-450); RED BLOOD COUNT 3.87 10^6/uL (4.30-6.10); WHITE BLOOD COUNT 9.8 10^3/uL (4.0-10.0)
[2022-11-23 08:23] LABS: INR 1.11; PROTHROMBIN TIME 14.5 SECONDS (12.5-14.5)
[2022-11-23 08:39] LABS: CALCIUM LEVEL 8.9 MG/DL (8.3-10.6); CREATININE FOR GFR 6.45 MG/DL (0.70-1.30); GLOMERULAR FILTRATION RATE 8.8 (>35); POTASSIUM SERUM 5.1 MMOL/L (3.5-5.1)
[2022-11-23 08:51] LABS: PARTIAL THROMBOPLASTIN TIME 29.9 SECONDS (24.8-34.2)
[2022-11-23] MEDS ORDERED: ONDANSETRON 4MG 2ML VIAL As Ordered ONE (09:31)
[2022-11-23] MEDS ORDERED: ACETAMINOPHEN 1000MG 100ML IV BAG As Ordered ONE (09:31)
[2022-11-23] MEDS ORDERED: LIDOCAINE 2% 100MG/5ML SDV (FOR ANES.) As Ordered ONE (09:31)
[2022-11-23] MEDS ORDERED: propofoL 200 MG/20 ML VIAL As Ordered ONE (09:34)
[2022-11-23] MEDS ORDERED: LIDOCAINE 1% SDV 30ML VIAL As Ordered ONE (09:37)
[2022-11-23] MEDS ORDERED: ISOVUE-300 61% 100ML VIAL As Ordered ONE ×2 (09:38→10:40)
[2022-11-23] MEDS ORDERED: fentaNYL 100 MCG/2 ML INJECTION As Ordered ONE (10:10)
[2022-11-23 12:35] VITALS: BP 131/61
== END 2022-11-23 12:37 | disposition home or self-care (01) ==
LOC: M SDC 07:25
PROVIDERS: ATTEND Surgery Vascular Surgery
DX: N18.6 End stage renal disease (principal); Z99.2 Dependence on renal dialysis; I48.91 Unspecified atrial fibrillation; I12.0 Hypertensive chronic kidney disease with stage 5 chronic kidney disease or end stage renal disease; E78.00 Pure hypercholesterolemia, unspecified; K58.9 Irritable bowel syndrome, unspecified; R41.3 Other amnesia; F41.9 Anxiety disorder, unspecified; F32.A Depression, unspecified; N40.0 Benign prostatic hyperplasia without lower urinary tract symptoms; M19.90 Unspecified osteoarthritis, unspecified site; Z79.899 Other long term (current) drug therapy; Z79.01 Long term (current) use of anticoagulants; Z87.891 Personal history of nicotine dependence
CPT/HCPCS: 36415; 36902; 36907; 76000; 80048; 83735; 85027; 85610; 85730; 86850; 86900; 86901; C1725; C1769; C1887; C1894; J0131; J0690; J1100; J2405; J3010; Q9967

== ENCOUNTER → 2022-12-16 | Outpatient (CLI) | payer MEDICARE, OTHER ==
[~2022-12-16] MED LIST changes: -ceFAZolin SOD 2 GM in IV 1 EA IV ONE
== END ==
LOC: M SOG 09:59
PROVIDERS: ATTEND Orthopaedic Surgery
DX: Z47.89 Encounter for other orthopedic aftercare (principal); M16.11 Unilateral primary osteoarthritis, right hip; S72.011D Unspecified intracapsular fracture of right femur, subsequent encounter for closed fracture with routine healing; Z96.642 Presence of left artificial hip joint

== ENCOUNTER 2023-03-09 14:31 | Observation (INO) | payer MEDICARE, OTHER ==
[~2023-03-09] VITALS: Ht 175.3 cm; Wt 62.8 kg
[~2023-03-09 14:31] MED LIST changes: +DILT180C39 PO; -DILT1CAP4 PO
[2023-03-09 15:28] LABS: BASO # 0.1 10^3/uL (0.0-0.2); BASO % 0.7 % (0.0-1.0); EOS # 0.3 10^3/uL (0.0-0.5); EOS % 2.6 % (0.0-3.0); HEMATOCRIT 36.1 % (42.0-52.0); HEMOGLOBIN 11.4 g/dl (13.5-17.5); LYMPH # 0.9 10^3/uL (1.5-5.0); LYMPH % 7.9 % (24.0-44.0); MEAN CORPUSCULAR HEMOGLOBIN 30.2 pg (27.0-33.0); MEAN CORPUSCULAR HGB CONC 31.6 g/dl (32.0-36.5); MEAN CORPUSCULAR VOLUME 95.5 fl (80.0-96.0); MONO # 0.7 10^3/uL (0.0-0.8); MONO % 6.3 % (2.0-8.0); NEUTROPHILS # 9.1 10^3/uL (1.5-8.5); NEUTROPHILS % 81.3 % (36.0-66.0); PLATELET COUNT, AUTOMATED 211 10^3/uL (150-450); RED BLOOD COUNT 3.78 10^6/uL (4.30-6.10); WHITE BLOOD COUNT 11.2 10^3/uL (4.0-10.0)
[2023-03-09 15:59] LABS: LIPASE 92 U/L (12-53)
[2023-03-09 16:01] LABS: ALBUMIN 3.3 G/DL (3.2-5.2); ALKALINE PHOSPHATASE 80 U/L (46-116); ALT/SGPT 17 U/L (7.0-40); AST/SGOT 23 U/L (<34); BILIRUBIN,DIRECT < 0.1 MG/DL (<0.4); BILIRUBIN,TOTAL < 0.2 MG/DL (0.3-1.2); BLOOD UREA NITROGEN 29 MG/DL (9-23); CALCIUM LEVEL 9.9 MG/DL (8.3-10.6); CARBON DIOXIDE LEVEL 28 MMOL/L (20-31); CHLORIDE LEVEL 102 MMOL/L (98-107); CREATININE FOR GFR 3.53 MG/DL (0.70-1.30); GLOMERULAR FILTRATION RATE 17.6 (>35); GLUCOSE, FASTING 132 MG/DL (74-106); POTASSIUM SERUM 4.6 MMOL/L (3.5-5.1); SODIUM LEVEL 138 MMOL/L (136-145); TOTAL PROTEIN 7.2 G/DL (5.7-8.2)
[2023-03-09 16:04] LABS: CPK CREATINE PHOSPHOKINASE 40 U/L (46-171)
[2023-03-09] MEDS ORDERED: PIPERACILLIN/TAZOBACTAM SOD 4.5 GM in D5W MINI-BAG PLUS 50 ML IV ONE (16:30)
[2023-03-09 17:01] LABS: CK-MB VALUE MASS 2.5 NG/ML (<3.6)
[2023-03-09 17:04] LABS: MB/CK RELATIVE INDEX 6.94 (< OR =4)
[2023-03-09] MEDS ORDERED: MED REC IN PROGRESS XX SCH (17:40)
[2023-03-09 17:57] LABS: RSV AMPLIFICATION NEGATIVE (NEGATIVE)
[2023-03-09 18:29] VITALS: BP 144/74; TEMP 99; O2SAT 97
[2023-03-09] MEDS ORDERED: HOME MED LIST COMPLETE! XX SCH (19:30)
[2023-03-09 19:40] VITALS: BP 149/60; TEMP 98.6; O2SAT 97
[2023-03-09 21:41] LABS: INR 2.3; PROTHROMBIN TIME 25.7 SECONDS (12.5-14.5)
[2023-03-09] MEDS: METOPROLOL TART 25 MG TABLET PO SCH (22:53)
[2023-03-10 05:07] VITALS: BP 135/61; TEMP 97.3; O2SAT 95
[2023-03-10] MEDS: PIPERACILLIN/TAZOBACTAM SOD 4.5 GM in D5W MINI-BAG PLUS 50 ML IV SCH ×2 (05:11→17:54)
[2023-03-10 06:23] LABS: BASO # 0.1 10^3/uL (0.0-0.2); BASO % 0.8 % (0.0-1.0); EOS # 0.5 10^3/uL (0.0-0.5); EOS % 3.8 % (0.0-3.0); HEMATOCRIT 31.8 % (42.0-52.0); HEMOGLOBIN 10.2 g/dl (13.5-17.5); LYMPH # 1.6 10^3/uL (1.5-5.0); LYMPH % 12.9 % (24.0-44.0); MEAN CORPUSCULAR HEMOGLOBIN 30.4 pg (27.0-33.0); MEAN CORPUSCULAR HGB CONC 32.1 g/dl (32.0-36.5); MEAN CORPUSCULAR VOLUME 94.6 fl (80.0-96.0); MONO # 1.2 10^3/uL (0.0-0.8); MONO % 9.2 % (2.0-8.0); NEUTROPHILS # 9.3 10^3/uL (1.5-8.5); NEUTROPHILS % 72.7 % (36.0-66.0); PLATELET COUNT, AUTOMATED 189 10^3/uL (150-450); RED BLOOD COUNT 3.36 10^6/uL (4.30-6.10); WHITE BLOOD COUNT 12.8 10^3/uL (4.0-10.0)
[2023-03-10 06:32] LABS: INR 2.46; PROTHROMBIN TIME 27.1 SECONDS (12.5-14.5)
[2023-03-10 06:57] LABS: ALBUMIN 2.9 G/DL (3.2-5.2); ALKALINE PHOSPHATASE 67 U/L (46-116); ALT/SGPT < 9 U/L (7.0-40); AST/SGOT 17 U/L (<34); BILIRUBIN,DIRECT 0.1 MG/DL (<0.4); BILIRUBIN,TOTAL 0.3 MG/DL (0.3-1.2); BLOOD UREA NITROGEN 44 MG/DL (9-23); CALCIUM LEVEL 8.5 MG/DL (8.3-10.6); CARBON DIOXIDE LEVEL 28 MMOL/L (20-31); CHLORIDE LEVEL 104 MMOL/L (98-107); CREATININE FOR GFR 4.64 MG/DL (0.70-1.30); GLOMERULAR FILTRATION RATE 12.9 (>35); GLUCOSE, FASTING 72 MG/DL (74-106); POTASSIUM SERUM 5.4 MMOL/L (3.5-5.1); SODIUM LEVEL 140 MMOL/L (136-145)
[2023-03-10] MEDS ORDERED: DIGOXIN 0.125 MG TAB PO SCH (09:00)
[2023-03-10] MEDS: SIMVASTATIN 10 MG TAB PO SCH (10:28)
[2023-03-10] MEDS: METOPROLOL TART 25 MG TABLET PO SCH ×2 (10:30→20:18)
[2023-03-10] MEDS: CLOTRIMAZOLE 1% TOPICAL CREAM 30GM TOP SCH ×2 (13:00→20:18)
[2023-03-10 14:00] VITALS: BP 135/61; TEMP 98.4; O2SAT 96
[2023-03-10] MEDS ORDERED: WARFARIN SOD 5MG TAB PO SCH (17:00)
[2023-03-10 21:30] VITALS: TEMP 98.4; O2SAT 97
[2023-03-11] MEDS ORDERED: HEPARIN 1,000UNITS/ML 10ML VIAL (FOR RADIOLOGY & DIALYSIS ONLY) XX SCH (06:00)
[2023-03-11] MEDS ORDERED: HEPARIN 1,000UNITS/ML 10ML VIAL (FOR RADIOLOGY & DIALYSIS ONLY) IV PRN (06:00)
[2023-03-11] MEDS ORDERED: SODIUM CHLORIDE 0.9% 1000ML IV PRN (06:00)
[2023-03-11 06:05] LABS: BASO # 0.1 10^3/uL (0.0-0.2); BASO % 0.6 % (0.0-1.0); EOS # 0.7 10^3/uL (0.0-0.5); EOS % 5.3 % (0.0-3.0); HEMATOCRIT 31.2 % (42.0-52.0); HEMOGLOBIN 9.9 g/dl (13.5-17.5); LYMPH # 1.5 10^3/uL (1.5-5.0); LYMPH % 11.4 % (24.0-44.0); MEAN CORPUSCULAR HEMOGLOBIN 30.7 pg (27.0-33.0); MEAN CORPUSCULAR HGB CONC 31.7 g/dl (32.0-36.5); MEAN CORPUSCULAR VOLUME 96.9 fl (80.0-96.0); MONO # 1.2 10^3/uL (0.0-0.8); MONO % 9.3 % (2.0-8.0); NEUTROPHILS # 9.4 10^3/uL (1.5-8.5); NEUTROPHILS % 72.7 % (36.0-66.0); PLATELET COUNT, AUTOMATED 172 10^3/uL (150-450); RED BLOOD COUNT 3.22 10^6/uL (4.30-6.10); WHITE BLOOD COUNT 12.9 10^3/uL (4.0-10.0)
[2023-03-11 06:10] LABS: INR 2.67; PROTHROMBIN TIME 28.9 SECONDS (12.5-14.5)
[2023-03-11] MEDS: SIMVASTATIN 10 MG TAB PO SCH (06:18)
[2023-03-11] MEDS: PIPERACILLIN/TAZOBACTAM SOD 4.5 GM in D5W MINI-BAG PLUS 50 ML IV SCH (06:18)
[2023-03-11 06:19] VITALS: BP 124/59
[2023-03-11] MEDS: CLOTRIMAZOLE 1% TOPICAL CREAM 30GM TOP SCH (06:19)
[2023-03-11] MEDS: METOPROLOL TART 25 MG TABLET PO SCH (06:19)
[2023-03-11 06:20] VITALS: BP 124/59; TEMP 98.4; O2SAT 97
[2023-03-11 06:39] LABS: CALCIUM LEVEL 8.8 MG/DL (8.3-10.6); CREATININE FOR GFR 6.06 MG/DL (0.70-1.30); GLOMERULAR FILTRATION RATE 9.5 (>35); POTASSIUM SERUM 5.5 MMOL/L (3.5-5.1)
[2023-03-11] MEDS ORDERED: CLOTR1CR TOP (09:51)
[2023-03-11] MEDS ORDERED: metroNIDAZOLE (FLAGYL) 500MG TABLET PO SCH (12:15)
[2023-03-11] MEDS ORDERED: LOPERAMIDE 2 MG CAPLET PO PRN (12:15)
[2023-03-11 14:46] LABS: CLOSTRIDIUM DIFFICILE PCR NEGATIVE (NEGATIVE)
[2023-03-11] MEDS ORDERED: AMOX500T2 PO (15:24)
[2023-03-11] MEDS ORDERED: LOPE2CAP PO (15:27)
[2023-03-11] MEDS ORDERED: PROBCAP14 PO (15:27)
[2023-03-11] MEDS ORDERED: AUGMENTIN 500MG TAB PO SCH (16:00)
[2023-03-11] MEDS ORDERED: CIPROFLOXACIN 250MG TAB PO SCH (18:00)
== END 2023-03-11 16:02 | disposition home health service (06) ==
LOC: M ED 14:31 → EDBD 14:31 → M ED INP 14:32 → M MSPAV 18:31
PROVIDERS: ADMIT Internal Medicine Nephrology; ATTEND Internal Medicine Nephrology
DX: K55.9 Vascular disorder of intestine, unspecified (principal); I95.3 Hypotension of hemodialysis; T36.95XA Adverse effect of unspecified systemic antibiotic, initial encounter; R19.7 Diarrhea, unspecified; N18.6 End stage renal disease; Z99.2 Dependence on renal dialysis; I48.20 Chronic atrial fibrillation, unspecified; I12.0 Hypertensive chronic kidney disease with stage 5 chronic kidney disease or end stage renal disease; R13.10 Dysphagia, unspecified; D63.1 Anemia in chronic kidney disease; M81.0 Age-related osteoporosis without current pathological fracture; F41.9 Anxiety disorder, unspecified; F32.A Depression, unspecified; G31.84 Mild cognitive impairment of uncertain or unknown etiology; K57.90 Diverticulosis of intestine, part unspecified, without perforation or abscess without bleeding; R10.9 Unspecified abdominal pain; B37.2 Candidiasis of skin and nail; E78.5 Hyperlipidemia, unspecified; M19.90 Unspecified osteoarthritis, unspecified site; N28.1 Cyst of kidney, acquired; Z79.899 Other long term (current) drug therapy; Z79.01 Long term (current) use of anticoagulants; Z79.2 Long term (current) use of antibiotics
CPT/HCPCS: 36415; 74176; 80048; 80076; 82550; 82553; 83605; 83690; 84484; 85025; 85610; 87040; 87324; 87631; 93005; 93041; 96365; 96376; 97116; 97161; 97530; 99285; G0257; G0378; J2543

== ENCOUNTER 2023-04-30 15:56 | Inpatient (IN) | payer MEDICARE, OTHER ==
[~2023-04-30] VITALS: Ht 182.9 cm; Wt 61.9 kg
[~2023-04-30 15:56] MED LIST changes: +AMOX500T2 PO; +CLOTR1CR TOP; +LOPE2CAP PO; +PROBCAP14 PO
[2023-04-30] MEDS ORDERED: fentaNYL 100 MCG/2 ML INJECTION IV PRN (16:55)
[2023-04-30 17:14] LABS: BASO # 0.1 10^3/uL (0.0-0.2); BASO % 0.5 % (0.0-1.0); EOS # 0.2 10^3/uL (0.0-0.5); EOS % 1.2 % (0.0-3.0); HEMATOCRIT 32.1 % (42.0-52.0); HEMOGLOBIN 10.3 g/dl (13.5-17.5); LYMPH # 1.3 10^3/uL (1.5-5.0); MEAN CORPUSCULAR HEMOGLOBIN 31.8 pg (27.0-33.0); MEAN CORPUSCULAR HGB CONC 32.1 g/dl (32.0-36.5); MEAN CORPUSCULAR VOLUME 99.1 fl (80.0-96.0); MONO # 1.4 10^3/uL (0.0-0.8); MONO % 7.2 % (2.0-8.0); NEUTROPHILS # 15.8 10^3/uL (1.5-8.5); NEUTROPHILS % 83.5 % (36.0-66.0); PLATELET COUNT, AUTOMATED 172 10^3/uL (150-450); RED BLOOD COUNT 3.24 10^6/uL (4.30-6.10); WHITE BLOOD COUNT 18.9 10^3/uL (4.0-10.0)
[2023-04-30 17:20] LABS: INR 1.91; PROTHROMBIN TIME 21.4 SECONDS (12.5-14.5)
[2023-04-30 17:21] LABS: PARTIAL THROMBOPLASTIN TIME 39.2 SECONDS (24.8-34.2)
[2023-04-30 17:31] LABS: CPK CREATINE PHOSPHOKINASE 43 U/L (46-171)
[2023-04-30 17:32] LABS: ALBUMIN 3.3 G/DL (3.2-5.2); ALKALINE PHOSPHATASE 76 U/L (46-116); ALT/SGPT 13 U/L (7.0-40); AST/SGOT 15 U/L (<34); BILIRUBIN,DIRECT < 0.1 MG/DL (<0.4); BILIRUBIN,TOTAL 0.2 MG/DL (0.3-1.2); BLOOD UREA NITROGEN 41 MG/DL (9-23); CALCIUM LEVEL 9.1 MG/DL (8.3-10.6); CARBON DIOXIDE LEVEL 30 MMOL/L (20-31); CHLORIDE LEVEL 100 MMOL/L (98-107); CK-MB VALUE MASS < 1.0 NG/ML (<3.6); CREATININE FOR GFR 5.35 MG/DL (0.70-1.30); GLOMERULAR FILTRATION RATE 10.9 (>35); GLUCOSE, FASTING 122 MG/DL (74-106); MB/CK RELATIVE INDEX 2.32 (< OR =4); POTASSIUM SERUM 5.2 MMOL/L (3.5-5.1); SODIUM LEVEL 139 MMOL/L (136-145); TOTAL PROTEIN 6.9 G/DL (5.7-8.2)
[2023-04-30 19:17] LABS: CK-MB VALUE MASS 1.6 NG/ML (<3.6); MB/CK RELATIVE INDEX 1.92 (< OR =4)
[2023-04-30 19:44] LABS: RSV AMPLIFICATION NEGATIVE (NEGATIVE)
[2023-04-30 20:21] LABS: DIGOXIN LEVEL 1.1 NG/ML (0.8-2.0)
[2023-04-30] MEDS ORDERED: METO1TAB87 PO (21:42)
[2023-04-30] MEDS ORDERED: PROBCAP14 PO (21:42)
[2023-04-30] MEDS ORDERED: TRAM50TA2 PO (21:43)
[2023-04-30] MEDS ORDERED: HOME MED LIST COMPLETE! XX SCH (21:45)
[2023-04-30] MEDS ORDERED: traMADol 50 MG TAB PO PRN (22:15)
[2023-04-30] MEDS: METOPROLOL TART 25 MG TABLET PO SCH (22:15)
[2023-05-01 00:45] VITALS: BP 156/78; TEMP 98.2; O2SAT 93
[2023-05-01] MEDS ORDERED: NS 500 ML IV ONE (02:20)
[2023-05-01 06:00] VITALS: BP 108/70; TEMP 98.8; O2SAT 97
[2023-05-01] MEDS: MULTIVITAMINS/MINERALS THERAP 1 TAB PO SCH (06:26)
[2023-05-01] MEDS: LACTOBACILLUS ACIDOPHILUS CAP (BACID) PO SCH (06:26)
[2023-05-01] MEDS: METOPROLOL TART 25 MG TABLET PO SCH ×2 (06:27→20:34)
[2023-05-01 06:50] LABS: BASO # 0.1 10^3/uL (0.0-0.2); BASO % 0.6 % (0.0-1.0); EOS # 0.2 10^3/uL (0.0-0.5); HEMATOCRIT 31.3 % (42.0-52.0); HEMOGLOBIN 9.8 g/dl (13.5-17.5); LYMPH # 1.8 10^3/uL (1.5-5.0); LYMPH % 16.1 % (24.0-44.0); MEAN CORPUSCULAR HGB CONC 31.3 g/dl (32.0-36.5); MEAN CORPUSCULAR VOLUME 99.1 fl (80.0-96.0); MONO # 1.1 10^3/uL (0.0-0.8); MONO % 10.2 % (2.0-8.0); NEUTROPHILS # 7.7 10^3/uL (1.5-8.5); NEUTROPHILS % 70.7 % (36.0-66.0); PLATELET COUNT, AUTOMATED 146 10^3/uL (150-450); RED BLOOD COUNT 3.16 10^6/uL (4.30-6.10); WHITE BLOOD COUNT 10.9 10^3/uL (4.0-10.0)
[2023-05-01 07:08] LABS: INR 2.15; PROTHROMBIN TIME 23.4 SECONDS (12.5-14.5)
[2023-05-01 07:14] LABS: ALBUMIN 3.1 G/DL (3.2-5.2); CALCIUM LEVEL 8.9 MG/DL (8.3-10.6); CREATININE FOR GFR 6.08 MG/DL (0.70-1.30); DIGOXIN LEVEL 1.1 NG/ML (0.8-2.0); GLOMERULAR FILTRATION RATE 9.4 (>35); MAGNESIUM LEVEL 2.1 MG/DL (1.8-2.4); PHOSPHORUS LEVEL 4.7 MG/DL (2.4-5.1); POTASSIUM SERUM 5.2 MMOL/L (3.5-5.1)
[2023-05-01 07:25] LABS: PROCALCITONIN 0.47 ng/ml
[2023-05-01] MEDS ORDERED: HEPARIN 1,000UNITS/ML 10ML VIAL (FOR RADIOLOGY & DIALYSIS ONLY) XX SCH (08:15)
[2023-05-01] MEDS ORDERED: SODIUM CHLORIDE 0.9% 1000ML IV PRN (08:15)
[2023-05-01] MEDS ORDERED: HEPARIN 1,000UNITS/ML 10ML VIAL (FOR RADIOLOGY & DIALYSIS ONLY) IV PRN (08:15)
[2023-05-01] MEDS ORDERED: SIMVASTATIN 10 MG TAB PO SCH (09:00)
[2023-05-01] MEDS: WARFARIN SOD 5MG TAB PO SCH (18:14)
[2023-05-01] MEDS: SIMVASTATIN 10 MG TAB PO SCH (20:33)
[2023-05-01 21:32] VITALS: BP 143/73; TEMP 99; O2SAT 96
[2023-05-02 06:17] VITALS: BP 143/74; TEMP 98.8; O2SAT 98
[2023-05-02 06:27] LABS: BASO # 0.1 10^3/uL (0.0-0.2); BASO % 0.5 % (0.0-1.0); EOS # 0.4 10^3/uL (0.0-0.5); EOS % 3.8 % (0.0-3.0); HEMATOCRIT 29.9 % (42.0-52.0); HEMOGLOBIN 9.6 g/dl (13.5-17.5); LYMPH # 1.8 10^3/uL (1.5-5.0); LYMPH % 15.9 % (24.0-44.0); MEAN CORPUSCULAR HEMOGLOBIN 31.1 pg (27.0-33.0); MEAN CORPUSCULAR HGB CONC 32.1 g/dl (32.0-36.5); MEAN CORPUSCULAR VOLUME 96.8 fl (80.0-96.0); MONO % 9.3 % (2.0-8.0); NEUTROPHILS # 7.7 10^3/uL (1.5-8.5); NEUTROPHILS % 70.1 % (36.0-66.0); PLATELET COUNT, AUTOMATED 148 10^3/uL (150-450); RED BLOOD COUNT 3.09 10^6/uL (4.30-6.10)
[2023-05-02 06:39] LABS: INR 2.09
[2023-05-02 06:45] LABS: CALCIUM LEVEL 8.3 MG/DL (8.3-10.6); CREATININE FOR GFR 4.08 MG/DL (0.70-1.30); GLOMERULAR FILTRATION RATE 14.9 (>35); POTASSIUM SERUM 4.6 MMOL/L (3.5-5.1)
[2023-05-02] MEDS: LACTOBACILLUS ACIDOPHILUS CAP (BACID) PO SCH (08:40)
[2023-05-02] MEDS: METOPROLOL TART 25 MG TABLET PO SCH ×2 (08:41→20:16)
[2023-05-02] MEDS: DIGOXIN 0.125 MG TAB PO SCH (08:41)
[2023-05-02] MEDS: MULTIVITAMINS/MINERALS THERAP 1 TAB PO SCH (08:41)
[2023-05-02 14:00] VITALS: BP 131/71; TEMP 99; O2SAT 99
[2023-05-02] MEDS: WARFARIN SOD 5MG TAB PO SCH (17:05)
[2023-05-02] MEDS: SIMVASTATIN 10 MG TAB PO SCH (20:16)
[2023-05-02 21:45] VITALS: BP 126/64; TEMP 99; O2SAT 97
[2023-05-03 05:53] LABS: INR 2.13; PROTHROMBIN TIME 23.3 SECONDS (12.5-14.5)
[2023-05-03 06:08] LABS: CALCIUM LEVEL 8.4 MG/DL (8.3-10.6); CREATININE FOR GFR 5.66 MG/DL (0.70-1.30); GLOMERULAR FILTRATION RATE 10.2 (>35); POTASSIUM SERUM 4.9 MMOL/L (3.5-5.1)
[2023-05-03 06:47] VITALS: BP 115/61; TEMP 98.6; O2SAT 97
[2023-05-03] MEDS: METOPROLOL TART 25 MG TABLET PO SCH ×2 (09:13→19:55)
[2023-05-03] MEDS: MULTIVITAMINS/MINERALS THERAP 1 TAB PO SCH (09:13)
[2023-05-03] MEDS: LACTOBACILLUS ACIDOPHILUS CAP (BACID) PO SCH (09:13)
[2023-05-03] MEDS: traMADol 50 MG TAB PO PRN (12:44)
[2023-05-03] MEDS: LIDOCAINE 5% (LIDODERM) PATCH TD SCH (12:44)
[2023-05-03 14:00] VITALS: BP 110/62; TEMP 99; O2SAT 97
[2023-05-03] MEDS: WARFARIN SOD 5MG TAB PO SCH (17:38)
[2023-05-03] MEDS: SIMVASTATIN 10 MG TAB PO SCH (19:55)
[2023-05-03 21:42] VITALS: BP 124/66; TEMP 98.1; O2SAT 96
[2023-05-04 06:00] VITALS: BP 111/54; TEMP 97.9; O2SAT 94
[2023-05-04] MEDS ORDERED: HEPARIN 1,000UNITS/ML 10ML VIAL (FOR RADIOLOGY & DIALYSIS ONLY) IV PRN (06:00)
[2023-05-04] MEDS ORDERED: SODIUM CHLORIDE 0.9% 1000ML IV PRN (06:00)
[2023-05-04] MEDS: LACTOBACILLUS ACIDOPHILUS CAP (BACID) PO SCH (06:10)
[2023-05-04] MEDS: MULTIVITAMINS/MINERALS THERAP 1 TAB PO SCH (06:11)
[2023-05-04] MEDS: METOPROLOL TART 25 MG TABLET PO SCH ×2 (06:11→19:58)
[2023-05-04] MEDS: traMADol 50 MG TAB PO PRN (06:11)
[2023-05-04] MEDS: LIDOCAINE 5% (LIDODERM) PATCH TD SCH (06:14)
[2023-05-04 06:31] LABS: CALCIUM LEVEL 8.6 MG/DL (8.3-10.6); CREATININE FOR GFR 7.01 MG/DL (0.70-1.30); POTASSIUM SERUM 5.2 MMOL/L (3.5-5.1)
[2023-05-04 08:38] LABS: INR 2.5; PROTHROMBIN TIME 26.4 SECONDS (12.5-14.5)
[2023-05-04 14:00] VITALS: BP 112/53; TEMP 98.6; O2SAT 97
[2023-05-04] MEDS: WARFARIN SOD 5MG TAB PO SCH (17:21)
[2023-05-04] MEDS: SIMVASTATIN 10 MG TAB PO SCH (19:57)
[2023-05-05 06:00] VITALS: BP 128/57; TEMP 98.8; O2SAT 97
[2023-05-05] MEDS: METOPROLOL TART 25 MG TABLET PO SCH ×2 (08:36→20:11)
[2023-05-05] MEDS: MULTIVITAMINS/MINERALS THERAP 1 TAB PO SCH (08:36)
[2023-05-05] MEDS: LACTOBACILLUS ACIDOPHILUS CAP (BACID) PO SCH (08:36)
[2023-05-05] MEDS: LIDOCAINE 5% (LIDODERM) PATCH TD SCH (08:36)
[2023-05-05] MEDS: DIGOXIN 0.125 MG TAB PO SCH (09:51)
[2023-05-05] MEDS: traMADol 50 MG TAB PO PRN (14:32)
[2023-05-05] MEDS: WARFARIN SOD 5MG TAB PO SCH (17:16)
[2023-05-05] MEDS: SIMVASTATIN 10 MG TAB PO SCH (20:10)
[2023-05-06 06:00] VITALS: BP 140/66; TEMP 98.1; O2SAT 98
[2023-05-06] MEDS ORDERED: SODIUM CHLORIDE 0.9% 1000ML IV PRN (06:00)
[2023-05-06 06:13] LABS: INR 2.61; PROTHROMBIN TIME 27.3 SECONDS (12.5-14.5)
[2023-05-06] MEDS: MULTIVITAMINS/MINERALS THERAP 1 TAB PO SCH (06:16)
[2023-05-06] MEDS: LACTOBACILLUS ACIDOPHILUS CAP (BACID) PO SCH (06:16)
[2023-05-06] MEDS: METOPROLOL TART 25 MG TABLET PO SCH ×2 (06:17→21:30)
[2023-05-06] MEDS: LIDOCAINE 5% (LIDODERM) PATCH TD SCH (06:17)
[2023-05-06] MEDS: traMADol 50 MG TAB PO PRN (16:46)
[2023-05-06] MEDS: WARFARIN SOD 5MG TAB PO SCH (16:46)
[2023-05-06] MEDS: SIMVASTATIN 10 MG TAB PO SCH (21:28)
[2023-05-07 05:15] VITALS: BP 138/69; TEMP 98.1; O2SAT 97
[2023-05-07] MEDS: METOPROLOL TART 25 MG TABLET PO SCH ×2 (08:57→20:05)
[2023-05-07] MEDS: LACTOBACILLUS ACIDOPHILUS CAP (BACID) PO SCH (08:57)
[2023-05-07] MEDS: MULTIVITAMINS/MINERALS THERAP 1 TAB PO SCH (08:57)
[2023-05-07] MEDS: LIDOCAINE 5% (LIDODERM) PATCH TD SCH (08:57)
[2023-05-07] MEDS: DIGOXIN 0.125 MG TAB PO SCH (08:58)
[2023-05-07] MEDS: WARFARIN SOD 5MG TAB PO SCH (16:15)
[2023-05-07] MEDS: SIMVASTATIN 10 MG TAB PO SCH (20:05)
[2023-05-08 05:37] VITALS: BP 130/64; TEMP 97.9; O2SAT 99
[2023-05-08] MEDS: METOPROLOL TART 25 MG TABLET PO SCH ×2 (06:00→20:41)
[2023-05-08] MEDS: LACTOBACILLUS ACIDOPHILUS CAP (BACID) PO SCH (06:17)
[2023-05-08] MEDS: MULTIVITAMINS/MINERALS THERAP 1 TAB PO SCH (06:18)
[2023-05-08] MEDS: LIDOCAINE 5% (LIDODERM) PATCH TD SCH (06:18)
[2023-05-08 06:20] LABS: INR 3.1; PROTHROMBIN TIME 31.2 SECONDS (12.5-14.5)
[2023-05-08] MEDS ORDERED: HEPARIN 1,000UNITS/ML 10ML VIAL (FOR RADIOLOGY & DIALYSIS ONLY) XX SCH (08:25)
[2023-05-08] MEDS ORDERED: SODIUM CHLORIDE 0.9% 1000ML IV PRN (08:25)
[2023-05-08] MEDS ORDERED: LIDOCAINE 1% SDV 5ML VIAL SC PRN (08:25)
[2023-05-08] MEDS ORDERED: HEPARIN 1,000UNITS/ML 10ML VIAL (FOR RADIOLOGY & DIALYSIS ONLY) IV PRN (08:25)
[2023-05-08] MEDS: WARFARIN SOD 5MG TAB PO SCH (17:06)
[2023-05-08] MEDS: SIMVASTATIN 10 MG TAB PO SCH (20:41)
[2023-05-09 06:00] VITALS: BP 126/70; TEMP 99.3; O2SAT 99
[2023-05-09] MEDS: METOPROLOL TART 25 MG TABLET PO SCH ×2 (08:58→20:17)
[2023-05-09] MEDS: MULTIVITAMINS/MINERALS THERAP 1 TAB PO SCH (09:00)
[2023-05-09] MEDS: LACTOBACILLUS ACIDOPHILUS CAP (BACID) PO SCH (09:00)
[2023-05-09] MEDS: LIDOCAINE 5% (LIDODERM) PATCH TD SCH (09:01)
[2023-05-09] MEDS: DIGOXIN 0.125 MG TAB PO SCH (09:08)
[2023-05-09] MEDS: traMADol 50 MG TAB PO PRN (11:14)
[2023-05-09] MEDS: SIMVASTATIN 10 MG TAB PO SCH (20:16)
[2023-05-10 05:37] VITALS: BP 124/60; TEMP 98.6; O2SAT 96
[2023-05-10 06:42] LABS: INR 2.93; PROTHROMBIN TIME 29.9 SECONDS (12.5-14.5)
[2023-05-10] MEDS: LACTOBACILLUS ACIDOPHILUS CAP (BACID) PO SCH (09:18)
[2023-05-10] MEDS: MULTIVITAMINS/MINERALS THERAP 1 TAB PO SCH (09:19)
[2023-05-10] MEDS: METOPROLOL TART 25 MG TABLET PO SCH ×2 (09:19→21:05)
[2023-05-10] MEDS: LIDOCAINE 5% (LIDODERM) PATCH TD SCH (09:19)
[2023-05-10] MEDS: WARFARIN SOD 5MG TAB PO SCH (17:32)
[2023-05-10] MEDS: traMADol 50 MG TAB PO PRN (17:33)
[2023-05-10] MEDS: SIMVASTATIN 10 MG TAB PO SCH (21:05)
[2023-05-10] MEDS: ACETAMINOPHEN TAB 650MG DOSE (2X325MG) PO PRN (21:05)
[2023-05-11] MEDS ORDERED: LIDOCAINE 1% SDV 5ML VIAL SC PRN (05:20)
[2023-05-11] MEDS ORDERED: HEPARIN 1,000UNITS/ML 10ML VIAL (FOR RADIOLOGY & DIALYSIS ONLY) IV PRN (05:20)
[2023-05-11] MEDS ORDERED: HEPARIN 1,000UNITS/ML 10ML VIAL (FOR RADIOLOGY & DIALYSIS ONLY) XX SCH (05:20)
[2023-05-11] MEDS ORDERED: SODIUM CHLORIDE 0.9% 1000ML IV PRN (05:20)
[2023-05-11 05:48] LABS: HEMATOCRIT 24.3 % (42.0-52.0); HEMOGLOBIN 7.9 g/dl (13.5-17.5); MEAN CORPUSCULAR HGB CONC 32.5 g/dl (32.0-36.5); MEAN CORPUSCULAR VOLUME 95.3 fl (80.0-96.0); PLATELET COUNT, AUTOMATED 213 10^3/uL (150-450); RED BLOOD COUNT 2.55 10^6/uL (4.30-6.10); WHITE BLOOD COUNT 12.4 10^3/uL (4.0-10.0)
[2023-05-11 05:51] VITALS: BP 110/50; TEMP 98.4; O2SAT 96
[2023-05-11] MEDS: METOPROLOL TART 25 MG TABLET PO SCH ×2 (06:00→20:38)
[2023-05-11] MEDS: MULTIVITAMINS/MINERALS THERAP 1 TAB PO SCH (06:01)
[2023-05-11] MEDS: LACTOBACILLUS ACIDOPHILUS CAP (BACID) PO SCH (06:01)
[2023-05-11 06:26] LABS: ALBUMIN 2.2 G/DL (3.2-5.2); CALCIUM LEVEL 8.8 MG/DL (8.3-10.6); CREATININE FOR GFR 6.3 MG/DL (0.70-1.30); PHOSPHORUS LEVEL 3.7 MG/DL (2.4-5.1); POTASSIUM SERUM 4.9 MMOL/L (3.5-5.1)
[2023-05-11] MEDS: traMADol 50 MG TAB PO PRN ×2 (06:42→20:39)
[2023-05-11] MEDS: LIDOCAINE 5% (LIDODERM) PATCH TD SCH (07:58)
[2023-05-11 08:00] LABS: PERCENT SATURATION 23.1 % (19.7-50.0)
[2023-05-11] MEDS: DARBEPOETIN 100MCG/0.5ML *DIALYSIS* SYRINGE IV SCH (09:33)
[2023-05-11] MEDS: WARFARIN SOD 5MG TAB PO SCH (17:00)
[2023-05-11] MEDS: SIMVASTATIN 10 MG TAB PO SCH (20:38)
[2023-05-12 04:56] VITALS: BP 140/64; TEMP 97.7; O2SAT 97
[2023-05-12 06:59] LABS: INR 2.38; PROTHROMBIN TIME 25.4 SECONDS (12.5-14.5)
[2023-05-12] MEDS: LACTOBACILLUS ACIDOPHILUS CAP (BACID) PO SCH (08:31)
[2023-05-12] MEDS: MULTIVITAMINS/MINERALS THERAP 1 TAB PO SCH (08:31)
[2023-05-12] MEDS: METOPROLOL TART 25 MG TABLET PO SCH ×2 (08:32→21:16)
[2023-05-12] MEDS: LIDOCAINE 5% (LIDODERM) PATCH TD SCH (08:32)
[2023-05-12] MEDS: DIGOXIN 0.125 MG TAB PO SCH (08:32)
[2023-05-12] MEDS: traMADol 50 MG TAB PO PRN (08:36)
[2023-05-12] MEDS: WARFARIN SOD 5MG TAB PO SCH (17:13)
[2023-05-12] MEDS ORDERED: MIRALAX *UNIT DOSE* 17GM PACKET PO PRN (20:35)
[2023-05-12] MEDS ORDERED: SENNA 8.6 MG TAB (SENOKOT) PO PRN (20:35)
[2023-05-12] MEDS: SIMVASTATIN 10 MG TAB PO SCH (21:15)
[2023-05-12] MEDS: ACETAMINOPHEN TAB 650MG DOSE (2X325MG) PO PRN (21:16)
[2023-05-13] MEDS ORDERED: LIDOCAINE 1% SDV 5ML VIAL SC PRN (05:20)
[2023-05-13] MEDS ORDERED: HEPARIN 1,000UNITS/ML 10ML VIAL (FOR RADIOLOGY & DIALYSIS ONLY) XX SCH (05:20)
[2023-05-13] MEDS ORDERED: HEPARIN 1,000UNITS/ML 10ML VIAL (FOR RADIOLOGY & DIALYSIS ONLY) IV PRN (05:20)
[2023-05-13] MEDS ORDERED: SODIUM CHLORIDE 0.9% 1000ML IV PRN (05:20)
[2023-05-13 06:00] VITALS: BP 149/67; TEMP 98.2; O2SAT 100
[2023-05-13] MEDS: METOPROLOL TART 25 MG TABLET PO SCH ×2 (06:20→20:44)
[2023-05-13] MEDS: LACTOBACILLUS ACIDOPHILUS CAP (BACID) PO SCH (06:23)
[2023-05-13] MEDS: MULTIVITAMINS/MINERALS THERAP 1 TAB PO SCH (06:23)
[2023-05-13] MEDS: LIDOCAINE 5% (LIDODERM) PATCH TD SCH (13:40)
[2023-05-13] MEDS: WARFARIN SOD 5MG TAB PO SCH (17:49)
[2023-05-13] MEDS: SIMVASTATIN 10 MG TAB PO SCH (20:43)
[2023-05-14 06:00] VITALS: BP 129/58; TEMP 98.8; O2SAT 99
[2023-05-14 06:49] LABS: INR 2.87; PROTHROMBIN TIME 29.4 SECONDS (12.5-14.5)
[2023-05-14] MEDS: LACTOBACILLUS ACIDOPHILUS CAP (BACID) PO SCH (08:37)
[2023-05-14] MEDS: METOPROLOL TART 25 MG TABLET PO SCH ×2 (08:37→22:09)
[2023-05-14] MEDS: LIDOCAINE 5% (LIDODERM) PATCH TD SCH (08:37)
[2023-05-14] MEDS: MULTIVITAMINS/MINERALS THERAP 1 TAB PO SCH (08:37)
[2023-05-14] MEDS: DIGOXIN 0.125 MG TAB PO SCH (08:40)
[2023-05-14] MEDS: WARFARIN SOD 5MG TAB PO SCH (16:26)
[2023-05-14] MEDS: SIMVASTATIN 10 MG TAB PO SCH (22:08)
[2023-05-14] MEDS: ACETAMINOPHEN TAB 650MG DOSE (2X325MG) PO PRN (22:09)
[2023-05-15 05:16] VITALS: BP 149/57; TEMP 97; O2SAT 100
[2023-05-15] MEDS ORDERED: HEPARIN 1,000UNITS/ML 10ML VIAL (FOR RADIOLOGY & DIALYSIS ONLY) IV PRN (06:00)
[2023-05-15] MEDS ORDERED: SODIUM CHLORIDE 0.9% 1000ML IV PRN (06:00)
[2023-05-15] MEDS: LACTOBACILLUS ACIDOPHILUS CAP (BACID) PO SCH (06:04)
[2023-05-15] MEDS: METOPROLOL TART 25 MG TABLET PO SCH ×2 (06:05→21:55)
[2023-05-15] MEDS: MULTIVITAMINS/MINERALS THERAP 1 TAB PO SCH (06:05)
[2023-05-15] MEDS: LIDOCAINE 5% (LIDODERM) PATCH TD SCH (08:07)
[2023-05-15] MEDS: traMADol 50 MG TAB PO PRN (08:08)
[2023-05-15] MEDS: WARFARIN SOD 5MG TAB PO SCH (17:31)
[2023-05-15] MEDS ORDERED: SENNA 8.6 MG TAB (SENOKOT) PO PRN (21:20)
[2023-05-15] MEDS: SIMVASTATIN 10 MG TAB PO SCH (21:54)
[2023-05-15] MEDS: ACETAMINOPHEN TAB 650MG DOSE (2X325MG) PO PRN (21:56)
[2023-05-16 05:11] VITALS: BP 125/61; TEMP 98.6; O2SAT 97
[2023-05-16 05:35] LABS: INR 2.77; PROTHROMBIN TIME 28.6 SECONDS (12.5-14.5)
[2023-05-16] MEDS: LIDOCAINE 5% (LIDODERM) PATCH TD SCH (08:48)
[2023-05-16] MEDS: LACTOBACILLUS ACIDOPHILUS CAP (BACID) PO SCH (08:49)
[2023-05-16] MEDS: MULTIVITAMINS/MINERALS THERAP 1 TAB PO SCH (08:49)
[2023-05-16] MEDS: METOPROLOL TART 25 MG TABLET PO SCH ×2 (08:49→21:59)
[2023-05-16] MEDS: DIGOXIN 0.125 MG TAB PO SCH (08:52)
[2023-05-16 08:54] VITALS: BP 123/62
[2023-05-16] MEDS: WARFARIN SOD 5MG TAB PO SCH (16:28)
[2023-05-16] MEDS: SIMVASTATIN 10 MG TAB PO SCH (21:59)
[2023-05-16] MEDS: ACETAMINOPHEN TAB 650MG DOSE (2X325MG) PO PRN (22:00)
[2023-05-17 06:00] VITALS: BP 120/57; TEMP 98.4; O2SAT 99
[2023-05-17] MEDS: LIDOCAINE 5% (LIDODERM) PATCH TD SCH (09:58)
[2023-05-17] MEDS: MULTIVITAMINS/MINERALS THERAP 1 TAB PO SCH (09:58)
[2023-05-17] MEDS: LACTOBACILLUS ACIDOPHILUS CAP (BACID) PO SCH (09:58)
[2023-05-17] MEDS: METOPROLOL TART 25 MG TABLET PO SCH ×2 (09:58→20:16)
[2023-05-17] MEDS: WARFARIN SOD 5MG TAB PO SCH (17:20)
[2023-05-17] MEDS: SIMVASTATIN 10 MG TAB PO SCH (20:16)
[2023-05-18 05:38] VITALS: BP 132/65; TEMP 98.4; O2SAT 97
[2023-05-18] MEDS ORDERED: SODIUM CHLORIDE 0.9% 1000ML IV PRN (06:00)
[2023-05-18] MEDS ORDERED: IRON SUCROSE 100MG 5ML VIAL IV SCH (06:00)
[2023-05-18 06:04] LABS: INR 3.57; PROTHROMBIN TIME 34.8 SECONDS (12.5-14.5)
[2023-05-18] MEDS: LACTOBACILLUS ACIDOPHILUS CAP (BACID) PO SCH (06:08)
[2023-05-18] MEDS: LIDOCAINE 5% (LIDODERM) PATCH TD SCH (06:08)
[2023-05-18] MEDS: MULTIVITAMINS/MINERALS THERAP 1 TAB PO SCH (06:09)
[2023-05-18] MEDS: METOPROLOL TART 25 MG TABLET PO SCH ×2 (06:09→20:17)
[2023-05-18] MEDS: DARBEPOETIN 100MCG/0.5ML *DIALYSIS* SYRINGE IV SCH (08:31)
[2023-05-18] MEDS: SIMVASTATIN 10 MG TAB PO SCH (20:16)
[2023-05-19 04:40] VITALS: BP 146/62; TEMP 98.1; O2SAT 100
[2023-05-19 08:26] VITALS: BP 146/62
[2023-05-19] MEDS: LACTOBACILLUS ACIDOPHILUS CAP (BACID) PO SCH (08:26)
[2023-05-19] MEDS: METOPROLOL TART 25 MG TABLET PO SCH (08:26)
[2023-05-19] MEDS: MULTIVITAMINS/MINERALS THERAP 1 TAB PO SCH (08:26)
[2023-05-19] MEDS: LIDOCAINE 5% (LIDODERM) PATCH TD SCH (08:26)
[2023-05-19] MEDS: ACETAMINOPHEN TAB 650MG DOSE (2X325MG) PO PRN (08:27)
[2023-05-19] MEDS: DIGOXIN 0.125 MG TAB PO SCH (08:28)
[2023-05-19] MEDS ORDERED: LORazepam 1 MG TAB PO PRN (10:25)
[2023-05-19] MEDS ORDERED: HYOSCYAMINE SULFATE 0.125 MG SUBL TABLET PO PRN (10:25)
[2023-05-19] MEDS ORDERED: ONDANSETRON 4MG ORAL DISINTEGRATING TAB PO PRN (10:25)
[2023-05-19] MEDS ORDERED: MORPHINE 10MG/0.5ML ORAL CONCENTRATE SOLUTION U/D SL PRN (10:25)
[2023-05-20] MEDS: LIDOCAINE 5% (LIDODERM) PATCH TD SCH (09:33)
[2023-05-20] MEDS ORDERED: POLYVINYL ALCOHOL OPHTH SOLN 15ML (LIQUITEARS) OU PRN (12:15)
[2023-05-21] MEDS ORDERED: MORP1SOL5 PO (08:15)
[2023-05-21] MEDS ORDERED: ONDA4TAB6 PO (08:15)
[2023-05-21] MEDS ORDERED: HYOS125TA PO (08:15)
[2023-05-21] MEDS ORDERED: ATIV1TAB7 PO (08:15)
[2023-05-21] MEDS ORDERED: ARTIDRO2 OU (08:15)
[2023-05-21] MEDS: LIDOCAINE 5% (LIDODERM) PATCH TD SCH (09:28)
== END 2023-05-21 11:17 | disposition hospice, inpatient (51) | DRG 555 ==
LOC: EDBD 15:56 → M ED 15:56 → EDSEX 15:56 → M ED INP 21:54 → M MSPAV 05-01 00:45
PROVIDERS: ADMIT Family Medicine; ATTEND Student in an Organized Health Care Education/Training Program
PROC: 5A1D70Z Performance of Urinary Filtration, Intermittent, Less than 6 Hours Per Day (ICD-10-PCS; principal; 2023-05-01)
DX: M25.512 Pain in left shoulder (principal); N18.6 End stage renal disease; I48.19 Other persistent atrial fibrillation; I12.0 Hypertensive chronic kidney disease with stage 5 chronic kidney disease or end stage renal disease; E87.20 Acidosis, unspecified; M19.90 Unspecified osteoarthritis, unspecified site; I73.9 Peripheral vascular disease, unspecified; M81.0 Age-related osteoporosis without current pathological fracture; M79.89 Other specified soft tissue disorders; F03.90 Unspecified dementia, unspecified severity, without behavioral disturbance, psychotic disturbance, mood disturbance, and anxiety; Z51.5 Encounter for palliative care; R26.89 Other abnormalities of gait and mobility; Z66 Do not resuscitate; K64.9 Unspecified hemorrhoids; K57.90 Diverticulosis of intestine, part unspecified, without perforation or abscess without bleeding; D63.1 Anemia in chronic kidney disease; Z96.651 Presence of right artificial knee joint; M24.411 Recurrent dislocation, right shoulder; Z99.2 Dependence on renal dialysis; E78.5 Hyperlipidemia, unspecified; G89.29 Other chronic pain; Z79.01 Long term (current) use of anticoagulants; Z79.899 Other long term (current) drug therapy; Z96.643 Presence of artificial hip joint, bilateral; Z86.718 Personal history of other venous thrombosis and embolism; R53.81 Other malaise; R29.6 Repeated falls